=== PATIENT | female | born 1960 | race Caucasian/White ===

== ENCOUNTER 2016-11-13 18:06 | Inpatient (IN) | payer OTHER ==
--- NOTE | 2016-11-13 21:07 | PDOC ---
[id number] No Limitations - History of Present Illness Initial Comments: 11/13/16 22:00 The patient is a 55 year old female with significant past medical history of A- fib on eliquis, s/p cardiac stents x2, hypertension, diabetes, chronic knee pain , and right total knee replacement who presents to the ED with left knee pain and swelling s/p fall prior to arrival. Patient reports she visited her orthopedics, Dr. Lopez, where she received a cortisone inject at 3:30pm. Two hours later, her left knee gave away and she fell forwarded, landing on both her knees. Patient sustained some slight pain and swelling to the left knee. She rate her pain as 2/10. She denies LOC or head trauma. Patient reports she has chronic knee left knee pain and is on percocet for her pain. She normally has 4/10 left knee pain and her last dose of percocet was 7am this morning. She is schedule for left knee replacement the ending of December. She also has a planned MRI for her sciatica that radiates down the right leg. Patient also has complaints of an abscess draining with serosanguinous discharge in the left groin region over the last 6 months. She admits to not seeking any medical treatment and is now concern for anemia. The patient denies fever, chills, cough, SOB, chest pain, and palpitations. The patient denies abdominal pain, nausea, vomiting, and diarrhea. Allergies: Penicillin Social History: No alcohol, tobacco, or drug use reported. Past Surgical History: Right total knee replacement , s/p cardiac stents x2 PCP: Dr. Jose Kuo Ortho: Dr. Lopez <Mimi Castro - Last Filed: 11/14/16 00:03> - General History Source: Patient <RickyLion arellano - Last Filed: 11/14/16 04:22> - General Chief Complaint: Injury Stated Complaint: FALL/INJURY Time Seen by Provider: 11/13/16 20:51 Past History <Mimi Castro - Last Filed: 11/14/16 00:03> - Past Medical History Other medical history: Pt denies - Psycho/Social/Smoking Cessation Hx Suicidal Ideation: No Smoking History: Never smoked Information on smoking cessation initiated: No Hx Alcohol Use: No Drug/Substance Use Hx: No <Lion Lim - Last Filed: 11/14/16 04:22> - Past Medical History Allergies/Adverse Reactions: Allergies Allergy/AdvReac Type Severity Reaction Status Date / Time Penicillins Allergy Verified 11/13/16 18:16 Home Medications: Ambulatory Orders Apixaban [Eliquis -] 5 mg PO BID 11/13/16 Atorvastatin Ca [Lipitor] 20 mg PO HS 11/13/16 Cholecalciferol (Vitamin D3) [Vitamin D3 -] 1,000 unit PO DAILY 11/13/16 Cyanocobalamin (Vitamin B-12) [Vitamin B-12] 1,000 mcg PO DAILY 11/13/16 Digoxin [Lanoxin -] 0.25 mg PO DAILY 11/13/16 Lisinopril [Prinivil -] 40 mg PO DAILY 11/13/16 Metformin HCl [Glucophage] 1,000 mg PO BID 11/13/16 Metoprolol Tartrate [Lopressor] 100 mg PO BID 11/13/16 Review of Systems - Review of Systems Able to Perform ROS?: Yes Comments:: 11/13/16 22:00 CONSTITUTIONAL: Absent: fever, chills, diaphoresis, generalized weakness, malaise, loss of appetite HEENT: Absent: rhinorrhea, nasal congestion, throat pain, throat swelling, difficulty swallowing, mouth swelling, ear pain, eye pain, visual Changes CARDIOVASCULAR: Absent: chest pain, syncope, palpitations, irregular heart rate, lightheadedness , peripheral edema RESPIRATORY: Absent: cough, shortness of breath, dyspnea with exertion, orthopnea, wheezing, stridor, hemoptysis GASTROINTESTINAL: Absent: abdominal pain, abdominal distension, nausea, vomiting, diarrhea, constipation, melena, hematochezia GENITOURINARY: Absent: dysuria, frequency, urgency, hesitancy, hematuria, flank pain, genital pain MUSCULOSKELETAL: +left knee pain and swelling SKIN: +abscess in left groin region Absent: rash, itching, pallor NEUROLOGIC: Absent: headache, focal weakness or paresthesias, dizziness, seizure, mental status changes, bladder or bowel incontinence PSYCHIATRIC: Absent: anxiety, depression, suicidal or homicidal ideation, hallucinations. <Mimi Castro - Last Filed: 11/14/16 00:03> *Physical Exam - Vital Signs Last Vital Signs Temp Pulse Resp BP Pulse Ox 98 F 123 H 18 139/86 96 11/13/16 18:14 11/13/16 18:14 11/13/16 18:14 11/13/16 18:14 11/13/16 18:14 - Physical Exam Comments: 11/13/16 22:00 GENERAL: Well developed, well nourished. Awake and alert. No acute distress. HEENT: Normocephalic, atraumatic. PERRLA, EOMI. No conjunctival pallor. Sclera are non- icteric. Moist mucous membranes. Oropharynx is clear. NECK: Supple. Full ROM. No JVD. Carotid pulses 2+ and symmetric, without bruits. No thyromegaly. No lymphadenopathy. CARDIOVASCULAR: Regular rate and rhythm. No murmurs, rubs, or gallops. Distal pulses are 2+ and symmetric. PULMONARY: No evidence of respiratory distress. Lungs clear to auscultation bilaterally. No wheezing, rales or rhonchi. ABDOMINAL: Soft. Non-tender. Non-distended. No rebound or guarding. No organomegaly. Normoactive bowel sounds. MUSCULOSKELETAL Limited ROM of bilateral lower extremities secondary to pain. Minimal bilateral knee swelling, no erythema, no lesions. Minimal tenderness on anterior posterior drawer test . Valgus varus strength minimal tenderness. Marked tenderness on flexion. Negative fluid ballottement wave. No gross deformities. No CVA tenderness. EXTREMITIES: No cyanosis. No clubbing. No edema. No calf tenderness. SKIN: Warm and dry. Normal capillary refill. No jaundice. Left labia is firm, more enlarged than right, surrounding erythematous, nontender, small wound with bloody discharge at the inferior aspect of the labia. NEUROLOGICAL: Alert, awake, appropriate. Cranial nerves 2-12 intact. Limited ROM of bilateral lower extremities secondary to pain. No focal neurological deficits. PSYCHIATRIC: Cooperative. Good eye contact. Appropriate mood and affect. <Mimi Castro - Last Filed: 11/14/16 00:03> - Vital Signs Last Vital Signs Temp Pulse Resp BP Pulse Ox 98 F 123 H 18 139/86 96 11/13/16 18:14 11/13/16 18:14 11/13/16 18:14 11/13/16 18:14 11/13/16 18:14 <iLon Lim - Last Filed: 11/14/16 04:22> Heart Score/ECG Review - ECG Impressions Comment:: 11/14/16 00:03 Atrial fibrillation with rapid ventricular response @109bpm Left axis deviation Anteroseptal infarct, age undetermined Abnormal ECG <Mimi Castro - Last Filed: 11/14/16 00:03> ED Treatment Course - LABORATORY CBC & Chemistry Diagram: 11/13/16 21:30 11/13/16 21:30 - ADDITIONAL ORDERS Additional order review: Laboratory Results 11/13/16 21:40 Serum , Qual Negative 11/13/16 21:30 RBC 4.26 MCV 84.2 MCHC 32.4 RDW 14.9 MPV 7.9 Neutrophils % 93.7 H Lymphocytes % 4.5 L Monocytes % 1.3 L Eosinophils % 0.0 Basophils % 0.5 <Mimi Castro - Last Filed: 11/14/16 00:03> - LABORATORY CBC & Chemistry Diagram: 11/13/16 21:30 11/14/16 02:45 <Lion Lim - Last Filed: 11/14/16 04:22> Medical Decision Making - Medical Decision Making 11/14/16 04:22 Dr. Lim: The scribe's documentation has been prepared under my direction and personally reviewed by me in its entirery. I confirm that the note above accurately reflects all work, treatment, procedures, and medical decision making performed by me. <Lion Lim - Last Filed: 11/14/16 04:22> *DC/Admit/Observation/Transfer - Attestations Scribe Attestion: 11/13/16 22:00 Documentation prepared by Mimi Castro, acting as medical language specialist for Lion Lim MD <Mimi Castro - Last Filed: 11/14/16 00:03> - Discharge Dispostion Admit: Yes <Lion Lim - Last Filed: 11/14/16 04:22> Diagnosis at time of Disposition: Labial abscess Hyperglycemia due to type 2 diabetes mellitus Qualifiers: Diabetes mellitus manager terminal insulin use: without manager terminal use Qualified Code(s ): E11.65 - Type 2 diabetes mellitus with hyperglycemia Bilateral knee pain Qualifiers: Chronicity: chronic Qualified Code(s): M25.561 - Pain in right knee - Referrals
[2016-11-13] MEDS ORDERED: LEVOFLOXACIN 500 MG IVPB 100 ML IVPB ONE ×2 (21:15→23:21)
[2016-11-13 21:46] LABS: BASOPHIL 0.5 % (0-2.0); MCH 27.3 pg (25.7-33.7); MCHC 32.4 g/dl (32.0-36.0); MEAN CELL VOLUME 84.2 fl (80-96); MEAN PLT VOLUME 7.9 fl (7.5-11.1); NEUTROPHILS 93.7 % (42.8-82.8); PLATELET COUNT 385 K/MM3 (134-434); RDW 14.9 % (11.6-15.6); WHITE BLOOD COUNT 13.2 K/mm3 (4.0-10.0)
[2016-11-13 22:01] LABS: ALBUMIN 3.4 g/dl (3.4-5.0); BILIRUBIN,TOTAL 0.5 mg/dL (0.2-1.0); CALCIUM 8.3 mg/dL (8.5-10.1); TOT PROT 7.8 g/dl (6.4-8.2)
[2016-11-13 22:02] LABS: INR 1.18 (0.82-1.09)
[2016-11-13 22:04] LABS: TROPONIN I 0.37 ng/ml (0.00-0.05)
[2016-11-13] MEDS ORDERED: INSULIN REGULAR HUMAN 100 UNITS/ML *VIAL IVPUSH ONE (22:57)
[2016-11-13] MEDS ORDERED: SODIUM CHLORIDE 1,000 ML IV SCH (23:00)
--- NOTE | 2016-11-14 00:42 | PN ---
<Carlos Arnett - Last Filed: 11/14/16 00:42> Teaching Attending Note Name of Resident: Licha Olivares ATTENDING PHYSICIAN STATEMENT I saw and evaluated the patient. I reviewed the resident's note and discussed the case with the resident. I agree with the resident's findings and plan as documented. SUBJECTIVE: OBJECTIVE: ASSESSMENT AND PLAN: <YousifYolie castro - Last Filed: 11/14/16 02:42> Teaching Attending Note ATTENDING PHYSICIAN STATEMENT I saw and evaluated the patient. I reviewed the resident's note and discussed the case with the resident. I agree with the resident's findings and plan as documented. SUBJECTIVE: The patient is a 55 yo F with a PMhx of A-fib on eliquis, s/p cardiac stents x2 , hypertension, diabetes, chronic knee pain, and right total knee replacement who presents with L knee pain s/p fall. The patient states she received cortisone injection at 3:30 PM today and felt her L knee giveaway. She eventually landed on both her knees. She is scheduled for a L knee replacement at the end of December. She also notes, L groin abscess draining for the past 6 months. OBJECTIVE: Physical Last Vital Signs Temp Pulse Resp BP Pulse Ox 98 F 123 H 18 139/86 96 11/13/16 18:14 11/13/16 18:14 11/13/16 18:14 11/13/16 18:14 11/13/16 18:14 GEN: NAD HEENT: NCAT, PERRL CARD: RRR, S1 S2 RESP: CTAB ABD: NT, BWS x4 EXT: - CCE. + R knee with bandage with mild abrasion. : + L vulva erythematous with 2x3 cm mass with surrounding erythema and serosanguineous fluid drainage. CBCD WBC 13.2 K/mm3 (4.0-10.0) H 11/13/16 21:30 RBC 4.26 M/mm3 (3.60-5.2) 11/13/16 21:30 Hgb 11.6 GM/dL (10.7-15.3) 11/13/16 21:30 Hct 35.8 % (32.4-45.2) 11/13/16 21:30 MCV 84.2 fl (80-96) 11/13/16 21:30 MCHC 32.4 g/dl (32.0-36.0) 11/13/16 21:30 RDW 14.9 % (11.6-15.6) 11/13/16 21:30 Plt Count 385 K/MM3 (134-434) 11/13/16 21:30 MPV 7.9 fl (7.5-11.1) 11/13/16 21:30 CMP Sodium 125 mmol/L (136-145) L 11/13/16 21:30 Potassium 4.7 mmol/L (3.5-5.1) 11/13/16 21:30 Chloride 94 mmol/L (98-107) L 11/13/16 21:30 Carbon Dioxide 18 mmol/L (21-32) L 11/13/16 21:30 Anion Gap 13 (8-16) 11/13/16 21:30 BUN 33 mg/dL (7-18) H 11/13/16 21:30 Creatinine 1.0 mg/dL (0.55-1.02) 11/13/16 21:30 Creat Clearance w eGFR 57.78 (>60) 11/13/16 21:30 Calcium 8.3 mg/dL (8.5-10.1) L 11/13/16 21:30 Total Bilirubin 0.5 mg/dL (0.2-1.0) 11/13/16 21:30 AST 14 U/L (15-37) L 11/13/16 21:30 ALT 17 U/L (12-78) 11/13/16 21:30 Alkaline Phosphatase 101 U/L (45-117) 11/13/16 21:30 Total Protein 7.8 g/dl (6.4-8.2) 11/13/16 21:30 Albumin 3.4 g/dl (3.4-5.0) 11/13/16 21:30 Imaging Knee Xray Chest Xray ASSESSMENT AND PLAN: 56 y F with PMHx of A-fib on eliquis, s/p cardiac stents x2, hypertension, diabetes, chronic knee pain, and right total knee replacement who presents s/p mechanical fall with labial abscess being admitted for sepsis and hyperglycemia. 1.) Sepsis/Possible Cellulitis -- LANZA culture including UA -- S/p Levaquin in ED- Continue -- Vancomycin -- ID consult -- Possible source labial abscess -- Surgery consult for possible I&D -- Wound culture 2.) Afib with RVR -- Continue with lopressor -- Hold eliquis for possible I&D -- Continue with Digoxin 3.) HTN -- Continue lisinopril 4.) L knee pain -- F/u Xray -- Pain control 5.) CAD s/p stents -Continue home meds 6.)Trop anemia -- most likely from demand trend -- EKG is Afib with RVR 7.) DVT Ppx -- SCDs 8.) Hyponatremia -- 133 corrected sodium -- Gentle IVF 9.) Diabetes -- Hold Metformin -- Fingerstick -- RAISS -- Diabetic diet Admit to Tele Documentation prepared by Yolie Dodd, acting as emergency medical service manager for Carlos Arnett D.O.
--- NOTE | 2016-11-14 00:45 | HP ---
CHIEF COMPLAINT: " i fell on my knees" PCP: Dr. Jose Kuo Ortho: Dr. Lopez HISTORY OF PRESENT ILLNESS: This is a 55 yo F with PMH of A-fib on eliquis, CAD, [place] s/p cardiac stents x2 jul 2015, HTN, NIDDM, L labial abscess, sciatica and chronic knee pain, who presents due to L knee pain and swelling s/p mechanical fall. Earlier today she received her first ever L knee cortisone injection (3:30pm) from her ortho doctor. Several hours later she suffered a mechanical fall on [address] because her L knee "gave out". She denies LOC and fell only on her knees (no head trauma). She has since noticed increased pain and swelling of left knee. Pain 2/10 dull constant, aggravated by knee flexion. She is scheduled for L knee replacement December. She states that her a fib is controlled with metoprolol and her heart rate is usually regular. She took ther AM metoprolol but not the evening dose. She states her DM is controlled with metformin and her AM glucose is on average 120. She reports having a L labial abscess for the past 6 mo, draining sanguineous fluid. She denies f/c, cough, SOB, chest pain, palpitations, abdominal pain, n/v, vaginal discharge, diarrhea or constipation. ER course was notable for: (1)labs (2) ekg, cxr, b/l knee xr (3) levaqion, insulin, NS Recent Travel: denies PAST MEDICAL HISTORY: as above PAST SURGICAL HISTORY: Right total knee replacement , cardiac stents x2 jul 2015 Social History: Smoking: denies Alcohol: denies Drugs: denies Family History: HTN, CAD Allergies Penicillins Allergy (Verified 11/13/16 18:16) Selected Entries 11/13/16 18:14 Temperature 98 F Pulse Rate 123 H Respiratory 18 Rate Blood Pressure 139/86 Blood Pressure 103 Mean O2 Sat by Pulse 96 Oximetry (%) Weight 225 lb HOME MEDICATIONS: Medication Instructions Recorded Apixaban [Eliquis -] 5 mg PO BID 11/13/16 Atorvastatin Ca [Lipitor] 20 mg PO HS 11/13/16 Cholecalciferol (Vitamin D3) 1,000 unit PO DAILY 11/13/16 [Vitamin D3 -] Cyanocobalamin (Vitamin B-12) 1,000 mcg PO DAILY 11/13/16 [Vitamin B-12] Digoxin [Lanoxin -] 0.25 mg PO DAILY 11/13/16 Lisinopril [Prinivil -] 40 mg PO DAILY 11/13/16 Metformin HCl [Glucophage] 1,000 mg PO BID 11/13/16 Metoprolol Tartrate [Lopressor] 100 mg PO BID 11/13/16 REVIEW OF SYSTEMS CONSTITUTIONAL: Absent: fever, chills, diaphoresis, malaise HEENT: Absent: difficulty swallowing, visual changes CARDIOVASCULAR: Absent: chest pain, syncope, palpitations, lightheadedness, peripheral edema RESPIRATORY: Absent: cough, shortness of breath, orthopnea GASTROINTESTINAL: Absent: abdominal pain, abdominal distension, nausea, vomiting, diarrhea, constipation GENITOURINARY: Absent: dysuria MUSCULOSKELETAL: Absent: myalgia, back pain, neck pain SKIN: Absent: rash HEMATOLOGIC/IMMUNOLOGIC: Absent: frequent infections ENDOCRINE: Absent: heat intolerance, cold intolerance NEUROLOGIC: Absent: headache, focal weakness or paresthesias, unsteady gait, seizure PSYCHIATRIC: Absent: anxiety, depression Laboratory Tests 11/13/16 11/13/16 11/13/16 21:30 21:30 21:30 WBC 13.2 H Hgb 11.6 Hct 35.8 Neutrophils % 93.7 H Lymphocytes % 4.5 L Monocytes % 1.3 L INR 1.18 H Sodium 125 L Potassium 4.7 Chloride 94 L Carbon Dioxide 18 L Anion Gap 13 BUN 33 H Creatinine 1.0 Creat Clearance w eGFR 57.78 Random Glucose 490 H* Lactic Acid Calcium 8.3 L Total Bilirubin 0.5 AST 14 L ALT 17 Alkaline Phosphatase 101 Creatine Kinase 221 H CK-MB (CK-2) 2.359 Troponin I 0.37 H Total Protein 7.8 Albumin 3.4 Serum , Qual Urine Color Urine Appearance Urine pH Ur Specific Ralph Urine Protein Urine Glucose (UA) Urine Ketones Urine Blood Urine Nitrite Urine Bilirubin Urine Urobilinogen Ur Leukocyte Esterase 11/13/16 11/13/16 11/14/16 21:30 21:40 00:30 WBC Hgb Hct Neutrophils % Lymphocytes % Monocytes % INR Sodium Potassium Chloride Carbon Dioxide Anion Gap BUN Creatinine Creat Clearance w eGFR Random Glucose Lactic Acid 1.052 Calcium Total Bilirubin AST ALT Alkaline Phosphatase Creatine Kinase CK-MB (CK-2) Troponin I Total Protein Albumin Serum , Qual Negative Urine Color Ltyellow Urine Appearance Cloudy Urine pH 5.0 Ur Specific Ralph 1.018 Urine Protein 2+ H Urine Glucose (UA) 3+ H Urine Ketones Trace H Urine Blood 2+ H Urine Nitrite Negative Urine Bilirubin Negative Urine Urobilinogen Negative Ur Leukocyte Esterase 2+ H PHYSICAL EXAMINATION GENERAL: Awake, alert, and fully oriented, in no acute distress. HEAD: Normal with no signs of trauma. EYES: Pupils equal, round and reactive to light, extraocular movements intact, sclera anicteric, conjunctiva clear. EARS, NOSE, THROAT: Moist mucous membranes. NECK: supple without JVD, or masses. coase hair growing on chin and neck LUNGS: Breath sounds equal, clear to auscultation bilaterally. HEART: irregularly irregular, tachy, normal S1 and S2 ABDOMEN: Soft, nontender, not distended, normoactive bowel sounds : L labia indurated, red, draining purulent and sanguineous fluid form a small lateral opening. Very malodorous, fishy MUSCULOSKELETAL: No CVA tenderness. UPPER EXTREMITIES: 2+ pulses, warm, well-perfused.No peripheral edema. LOWER EXTREMITIES: 2+ pulses, warm, well-perfused. No calf tenderness. No peripheral edema. NEUROLOGICAL: Cranial nerves II-XII grossly intact. PSYCHIATRIC: Cooperative. Good eye contact. Appropriate mood and affect. SKIN: Warm, dry ASSESSMENT/PLAN: This is a 55 yo F with PMH of A-fib on eliquis, CAD, [place] s/p cardiac stents x2 jul 2015, HTN, NIDDM, L labial abscess, sciatica and chronic knee pain, who presents due to L knee pain and swelling s/p mechanical fall. L labial abscess x 6 mo, draining purulent/sanguineous fluid. Mechanical fall -knee x ray b/l no acute fracture -mild contusion r/o sepsis *due to L labial abscess in setting of DM vs UTI vs tachycardia (afib) and leukocytosis 13.2(chronic) -surgery consult -abscess fluid culture/gram stain -f/u blood and urine culture -lucina rubin a -fib -continue eliquis, metoprolol -trop 0.37 likely due to demand -trend trop at 2 am NIDDM -elevated glucose due to cortiosone inj or reactive in setting of infection -sliding scale -fingerstick TIDAC CAD -continue home meds HTN --continue home meds FEN fluids NS @ 85 Lytes corrected NA mild hyponatremia DVT GI PPX: scd, diet diabetic diet Dispo: admit to med jacob Visit type - Emergency Visit Emergency Visit: Yes ED Registration Date: 11/13/16 Care time: The patient presented to the Emergency Department on the above date and was hospitalized for further evaluation of their emergent condition. - New Patient This patient is new to me today: Yes Date on this admission: 11/14/16 - Critical Care Critical Care patient: No
[2016-11-14 01:09] LABS: URINE APPEARANCE CLOUDY; URINE BILIRUBIN NEGATIVE (NEGATIVE); URINE COLOR LTYELLOW; URINE GLUCOSE (UA) 3+ (NEGATIVE); URINE KETONE TRACE (NEGATIVE); URINE NITRITE NEGATIVE (NEGATIVE); URINE UROBILINOGEN NEGATIVE E.U./dl (0.2-1.0)
[2016-11-14 01:15] LABS: URINE BLOOD 2+ (NEGATIVE); URINE LEUK ESTERASE 2+ (NEGATIVE); URINE PROTEIN 2+ (NEGATIVE)
[2016-11-14 01:18] LABS: URINE BACTERIA MANY /hpf (NONE SEEN); URINE MUCUS RARE; URINE RBC 3 /hpf (0-3); URINE WBC 144 /hpf (3-5)
[2016-11-14] MEDS ORDERED: VANCOMYCIN 1,500 MG in DEXTROSE 5%-WATER - 250 ML IVPB ONE (01:44)
[2016-11-14] MEDS ORDERED: INSULIN SLIDING SCALE (NOVOLOG) 1 VIAL SQ SCH ×3 (01:45→14:15)
[2016-11-14] MEDS ORDERED: INSULIN REGULAR HUMAN 100 UNITS/ML *VIAL ONE ×3 (02:15→12:33)
[2016-11-14] MEDS: SODIUM CHLORIDE 1,000 ML IV SCH ×3 (02:20→22:11)
[2016-11-14] MEDS ORDERED: VANCOMYCIN 1 GRAM (PRE-DOCKED) 500 ML IVPB ONE (02:35)
[2016-11-14] MEDS: INSULIN SLIDING SCALE (NOVOLOG) 1 VIAL SQ SCH ×4 (03:15→22:12)
[2016-11-14 03:30] LABS: CALCIUM 8.3 mg/dL (8.5-10.1); CREATININE 1.2 mg/dL (0.55-1.02)
[2016-11-14 03:32] LABS: TROPONIN I 0.22 ng/ml (0.00-0.05)
[2016-11-14] MEDS ORDERED: INSULIN REGULAR HUMAN 100 UNITS/ML *VIAL IVPUSH ONE ×2 (03:56→08:34)
[2016-11-14 07:22] LABS: MCH 28.7 pg (25.7-33.7); MCHC 33.7 g/dl (32.0-36.0); MEAN CELL VOLUME 85.2 fl (80-96); MEAN PLT VOLUME 7.8 fl (7.5-11.1); PLATELET COUNT 324 K/MM3 (134-434); RDW 14.9 % (11.6-15.6); WHITE BLOOD COUNT 10.6 K/mm3 (4.0-10.0)
[2016-11-14 07:43] LABS: CALCIUM 8.2 mg/dL (8.5-10.1)
[2016-11-14] MEDS ORDERED: INSULIN DETEMIR 100 UNITS/ML MDV SQ ONE (08:33)
[2016-11-14 09:44] LABS: TROPONIN I 0.13 ng/ml (0.00-0.05)
[2016-11-14] MEDS ORDERED: HEPARIN NA (PORCINE) 5,000 UNITS/ML 1ML VIAL SQ SCH (10:00)
--- NOTE | 2016-11-14 10:09 | EKG ---
Test Reason : Blood Pressure : / mmHG Vent. Rate : 109 BPM Atrial Rate : 083 BPM P-R Int : 000 ms QRS Dur : 074 ms QT Int : 364 ms P-R-T Axes : 000 -88 032 degrees QTc Int : 490 ms ATRIAL FIBRILLATION WITH RAPID VENTRICULAR RESPONSE LEFT AXIS DEVIATION ANTEROSEPTAL INFARCT , AGE UNDETERMINED ABNORMAL ECG NO PREVIOUS ECGS AVAILABLE Confirmed by MD SAMY, ARLEN ([id number]) on 11/14/2016 10:09:24 AM Referred By: Overread By: ARLEN PABLO MD
[2016-11-14] MEDS ORDERED: CLOPIDOGREL BISULFATE 75 MG TABLET (FP) PO SCH (10:15)
[2016-11-14] MEDS ORDERED: CLOPIDOGREL BISULFATE 75 MG TABLET (FP) ONE (10:32)
[2016-11-14] MEDS: CHOLECALCIFEROL (VITAMIN D3) 1,000 UNIT TABLET (FP) PO SCH (10:35)
[2016-11-14] MEDS: LISINOPRIL 20 MG TABLET (FP) PO SCH (10:35)
[2016-11-14] MEDS: DIGOXIN 0.25 MG TABLET (FP) PO SCH (10:35)
[2016-11-14] MEDS: METOPROLOL TARTRATE 50 MG TABLET (FP) PO SCH ×2 (10:35→22:11)
[2016-11-14] MEDS: CYANOCOBALAMIN 1,000 MCG TABLET (FP) PO SCH (10:35)
--- NOTE | 2016-11-14 10:45 | CONSULT ---
Consult Consult Specialty:: Cardiology Referred by:: Hospitalist Medicine Reason for Consultation:: CAD s/p [place], stent, afib, trop elevation - History of Present Illness Chief Complaint: Post fall, labial abscess History of Present Illness: This is a 55 yo F with PMH of Afib on eliquis, CAD, [place] s/p stents x2 jul 2015, HTN, NIDDM, L labial abscess, sciatica and chronic knee pain, who presents due to L knee pain, decreased ROM and swelling s/p mechanical fall following L knee cortisone injection by ortho doctor. She denies near or true syncope, chest pain , dyspnea, palpitations, dyspnea, and fell only on her knees without head trauma. She reports having a L labial abscess for the past 6 mo, draining sanguineous fluid. She denies f/c, cough, orthopnea, PND, LE edema, abdominal pain, n/v, vaginal discharge, diarrhea or constipation. - History Source History Provided By: Patient Limitations to Obtaining History: No Limitations - Past Medical History Cardio/Vascular: Yes: AFIB, CAD, HTN, [place] Musculoskeletal: Yes: Osteoarthritis - Past Surgical History Past Surgical History: Yes: Stent - Alcohol/Substance Use Hx Alcohol Use: No - Smoking History Smoking history: Never smoked Home Medications - Allergies Allergies/Adverse Reactions: Allergies Allergy/AdvReac Type Severity Reaction Status Date / Time Penicillins Allergy Verified 11/13/16 18:16 - Home Medications Home Medications: Ambulatory Orders Apixaban [Eliquis -] 5 mg PO BID 11/13/16 Atorvastatin Ca [Lipitor] 20 mg PO HS 11/13/16 Cholecalciferol (Vitamin D3) [Vitamin D3 -] 1,000 unit PO DAILY 11/13/16 Cyanocobalamin (Vitamin B-12) [Vitamin B-12] 1,000 mcg PO DAILY 11/13/16 Digoxin [Lanoxin -] 0.25 mg PO DAILY 11/13/16 Lisinopril [Prinivil -] 40 mg PO DAILY 11/13/16 Metformin HCl [Glucophage] 1,000 mg PO BID 11/13/16 Metoprolol Tartrate [Lopressor] 100 mg PO BID 11/13/16 Review of Systems - Review of Systems Musculoskeletal: reports: Joint Pain Vital Signs: Vital Signs Temperature 98 F 11/14/16 02:21 Pulse Rate 105 H 11/14/16 07:50 Respiratory Rate 20 11/14/16 07:50 Blood Pressure 130/56 11/14/16 07:50 O2 Sat by Pulse Oximetry (%) 97 11/14/16 07:50 Constitutional: Yes: No Distress, Calm Neck: Yes: Supple Respiratory: Yes: Regular, CTA Bilaterally Gastrointestinal: Yes: Normal Bowel Sounds, Soft Cardiovascular: Yes: Pulse Irregular JVD: No Carotid Bruit: No Heart Sounds: Yes: S1, S2 Musculoskeletal: Yes: Joint Stiffness (Left knee) Edema: No - Other Data Labs, Other Data: INR, PTT INR 1.18 (0.82-1.09) H 11/13/16 21:30 Troponin, BNP 11/14/16 09:10 Troponin I 0.13 H Troponin, BNP 11/14/16 09:10 Troponin I 0.13 H Afib @ 109 Imaging - Results Chest X-ray: Report Reviewed (NAD) X-ray: Report Reviewed (Left knee without fracture or dislocation) EKG: Report Reviewed Problem List - Problems (1) Hyperglycemia due to type 2 diabetes mellitus Code(s): E11.65 - TYPE 2 DIABETES MELLITUS WITH HYPERGLYCEMIA Qualifiers: Diabetes mellitus termite control technician insulin use: without termite control technician use Qualified Code(s): E11.65 - Type 2 diabetes mellitus with hyperglycemia (2) Labial abscess Code(s): N76.4 - ABSCESS OF VULVA (3) Persistent atrial fibrillation with rapid ventricular response Code(s): I48.1 - PERSISTENT ATRIAL FIBRILLATION (4) Coronary artery disease Code(s): I25.10 - ATHSCL HEART DISEASE OF [place] CORONARY ARTERY W/O ANG PCTRS Qualifiers: Coronary Disease-Associated Artery/Lesion type: [place] artery [place] vs. transplanted heart: [place] heart Associated angina: without angina Qualified Code(s): I25.10 - Atherosclerotic heart disease of [place] coronary artery without angina pectoris (5) Old myocardial infarction Code(s): I25.2 - OLD MYOCARDIAL INFARCTION (6) Status post coronary artery stent placement Code(s): Z95.5 - PRESENCE OF CORONARY ANGIOPLASTY IMPLANT AND GRAFT (7) Demand ischemia Code(s): I24.8 - OTHER FORMS OF ACUTE ISCHEMIC HEART DISEASE (8) Hypertension Code(s): I10 - ESSENTIAL (PRIMARY) HYPERTENSION Qualifiers: Hypertension type: essential hypertension Qualified Code(s): I10 - Essential (primary) hypertension (9) Hyperlipidemia associated with type 2 diabetes mellitus Code(s): E11.69 - TYPE 2 DIABETES MELLITUS WITH OTHER SPECIFIED COMPLICATION E78.5 - HYPERLIPIDEMIA, UNSPECIFIED (10) Contusion of left knee Code(s): S80.02XA - CONTUSION OF LEFT KNEE, INITIAL ENCOUNTER Qualifiers: Encounter type: initial encounter Qualified Code(s): S80.02XA - Contusion of left knee, initial encounter Assessment/Plan 1. Persistent atrial fibrillation with RVR on NOAC 2. CAD s/p [place], PCI (stent), demand ischemia in context of 3. Type 2 DM with hyperglycemia 4. HTN 5. Hyperlipidemia 6. Post fall with left knee contusion resolving 7. Left labial abscess P:1. Cardiac enzymes trending downward, check dig level 2. Optimize glycemic control 3. Continue Eliquis 5 bid, Lipitor 20 qhs, Dig 0.25 qd, lisinopril 40 qd, Lopressor 100 bid, d/c Plavix 4. Abx, obstetrician gynecologist eval 5. Patient to f/u with Dr. Ahmadi of [facility] upon d/c.
[2016-11-14 11:03] LABS: THYROID STIMULATING HORMONE 0.8 uIU/ml (0.358-3.74)
--- NOTE | 2016-11-14 12:06 | CONSULT ---
Consult Consult Specialty:: Surgery Referred by:: Alejandro Ortega Reason for Consultation:: Draining sinuses in labia, for 6 months. - History of Present Illness Chief Complaint: Patient History of Present Illness: Patient is known to have atrial fibrillation, on Eloquis, , comes to the emergency room with left knee pain and fall. She is found to have elevated troponin. She has chronic swelling of her labia, with multiple purulent draining sinuses for the past 6 months. She has not had any treatment for the same. - History Source History Provided By: Patient - Past Medical History Cardio/Vascular: Yes: AFIB, CAD, HTN, [place] Musculoskeletal: Yes: Osteoarthritis - Past Surgical History Past Surgical History: Yes: Stent - Alcohol/Substance Use Hx Alcohol Use: No - Smoking History Smoking history: Never smoked Home Medications - Allergies Allergies/Adverse Reactions: Allergies Allergy/AdvReac Type Severity Reaction Status Date / Time Penicillins Allergy Verified 11/13/16 18:16 - Home Medications Home Medications: Ambulatory Orders Apixaban [Eliquis -] 5 mg PO BID 11/13/16 Atorvastatin Ca [Lipitor] 20 mg PO HS 11/13/16 Cholecalciferol (Vitamin D3) [Vitamin D3 -] 1,000 unit PO DAILY 11/13/16 Cyanocobalamin (Vitamin B-12) [Vitamin B-12] 1,000 mcg PO DAILY 11/13/16 Digoxin [Lanoxin -] 0.25 mg PO DAILY 11/13/16 Lisinopril [Prinivil -] 40 mg PO DAILY 11/13/16 Metformin HCl [Glucophage] 1,000 mg PO BID 11/13/16 Metoprolol Tartrate [Lopressor] 100 mg PO BID 11/13/16 Physical Exam Vital Signs: Vital Signs Temperature 98 F 11/14/16 02:21 Pulse Rate 94 H 11/14/16 10:30 Respiratory Rate 19 11/14/16 10:30 Blood Pressure 122/60 11/14/16 10:30 O2 Sat by Pulse Oximetry (%) 97 11/14/16 10:30 Constitutional: Yes: Obese (She has chronic swelling and edema of the left labia majora, with muliple draining sinuses. There is alex pus draining from the sinuses. The area is not tender. This is suggestive of chronic suppurative hidradenitis of the labia majora.) Problem List - Problems (1) Hidradenitis suppurativa Code(s): L73.2 - HIDRADENITIS SUPPURATIVA (2) Left genital labial abscess Code(s): N76.4 - ABSCESS OF [place] (3) Coronary artery disease Code(s): I25.10 - ATHSCL HEART DISEASE OF [place] CORONARY ARTERY W/O ANG PCTRS Qualifiers: Coronary Disease-Associated Artery/Lesion type: [place] artery [place] vs. transplanted heart: [place] heart Associated angina: without angina Qualified Code(s): I25.10 - Atherosclerotic heart disease of [place] coronary artery without angina pectoris (4) Hyperglycemia due to type 2 diabetes mellitus Code(s): E11.65 - TYPE 2 DIABETES MELLITUS WITH HYPERGLYCEMIA Qualifiers: Diabetes mellitus retirement insulin use: without intermediate frame tender use Qualified Code(s): E11.65 - Type 2 diabetes mellitus with hyperglycemia (5) Diabetes mellitus type 2 in obese Code(s): E11.9 - TYPE 2 DIABETES MELLITUS WITHOUT COMPLICATIONS E66.9 - OBESITY, UNSPECIFIED Assessment/Plan Suggest , store associate consultation for drainage of labial abcess when feasible. Infectious disease consultation , for antibiotics, ? intermediate frame tender. Plastic surgery consult , later.
--- NOTE | 2016-11-14 14:09 | PN ---
Teaching Attending Note Name of Resident: Jonas Mendes ATTENDING PHYSICIAN STATEMENT I saw and evaluated the patient. I reviewed the resident's note and discussed the case with the resident. I agree with the resident's findings and plan as documented. SUBJECTIVE: no fever or chills, feels a little better . denied any LOC at time of fall, denied any CP before or at time of evaluation . no abd pain , no dysuria . BGM level at home is 150 per her. OBJECTIVE: NAD , AAOx3 HEENT: slightly dry MM . no LAP in neck , no JVD CV: irreg irreg , 3/6 SM at LUSB . no radiation . no JVD Lungs : CTAB EXt : no edema over LE . no erythema or edema over knees. no rash . Abd : soft, NT, ND , NL BS : L labial erythema and edema , with no TTP . bloody discharge when squeezed. Erytehmatous rash under panus and L groin . ASSESSMENT AND PLAN: 55 y/o lady with h/o A-fib , CAD, [place] s/[place] cardiac stents x2 Jul 2015, HTN, NIDDM, sciatica and chronic knee pain s/p R knee replacement . she presented after a fall and was found to have sepsis with UTI , and hydradenitis supporativa /abscess on L labia 1- Sepsis : likely from UTI , and L labial abscess /hydradenitis supporativa . - Received levaquin and vanco on admission. She is allergic to PCN. will have to choose abx to cover UTI and skin infection with G-, G+ ,and Anaerobes coverage . will ask for ID help - follow blood cx and urine cx . - appreciate Sx c/s . will consult VMWARE ENGINEER - IVF 2- trop leak: possible NSTEMI due to sepsis . EKG with no acute ischemic changes . has L axis deviation - check echo - card consult - cont BB - will probably need a stress test - stents was > 1 yr ago , plavix dc'd 3- uncontrolled DM . A1c 15. hard to control her BS since last night . gave IV insulin pushes, and Sq inaulin - start levemir - increase SSI - check BMP for AG. if elevated will need insulin gtt 4- A fib : HR improved after sepsis treatment . cont BB and eliquis 5- CIARAN : likely prerenal , and due to sepsis . improved cont IVF 6- fall , mechanical, no LOC. no Fx or effusion in knees HLOC
[2016-11-14] MEDS ORDERED: PNEUMOC 13-VAL CONJ-DIP CRM/PF 0.5 ML DISP.SYRIN IM ONE (14:36)
[2016-11-14 14:59] VITALS: BMI 37.5
--- NOTE | 2016-11-14 15:07 | PN ---
Physical Exam: SUBJECTIVE: Patient seen and examined Pt is awake, alert and oriented No s/s of acute distress No fever, chills, no chest pain, shortness of breath, palpitation, no n/v no dysuria No polyuria, increased thirst c/o weakness in knees OBJECTIVE: Vital Signs Period Temp Pulse Resp BP Sys/Mao Pulse Ox Last 24 Hr 97.8 F 80-94 18-19 118-128/53-68 97-97 GENERAL: The patient is awake, alert, and fully oriented, in no acute distress. HEAD: Normal with no signs of trauma. EYES: PERRL, extraocular movements intact, sclera anicteric, conjunctiva clear. No ptosis. ENT: Ears normal, nares patent, oropharynx clear without exudates, moist mucous membranes. NECK: Trachea midline, full range of motion, supple. LUNGS: Breath sounds equal, clear to auscultation bilaterally, no wheezes, no crackles, no accessory muscle use. HEART: Regular rate and rhythm, S1, S2 with systolic murmur 2/6, rub or gallop. ABDOMEN: Soft, nontender, nondistended, normoactive bowel sounds, no guarding, no rebound, no hepatosplenomegaly, no masses. : left labial swelling, discoloration with erythema, serosanguinous discharge , no pain or tenderness EXTREMITIES: 2+ pulses, warm, well-perfused, no edema. NEUROLOGICAL: Normal speech, gait not observed. PSYCH: Normal mood, normal affect. SKIN: Warm, dry, normal turgor, no rashes or lesions noted, abrasion to left knee from fall Laboratory Results - last 24 hr 11/14/16 09:10 Creatine Kinase 170 Troponin I 0.13 H Active Medications Generic Name Dose Route Start Last Admin Trade Name Freq PRN Reason Stop Dose Admin Apixaban 5 mg 11/14/16 10:00 Eliquis - PO BID SILVA Atorvastatin Calcium 20 mg 11/14/16 22:00 Lipitor - PO HS SILVA Cholecalciferol 1,000 unit 11/14/16 10:00 11/14/16 10:35 Vitamin D3 - PO 1,000 unit DAILY SILVA Administration Cyanocobalamin 1,000 mcg 11/14/16 10:00 11/14/16 10:35 Vitamin B12 - PO 1,000 mcg DAILY SILVA Administration Digoxin 0.25 mg 11/14/16 10:00 11/14/16 10:35 Lanoxin - PO 0.25 mg DAILY SILVA Administration Sodium Chloride 1,000 mls @ 85 mls/hr 11/14/16 01:51 11/14/16 02:20 Normal Saline - IV 85 mls/hr ASDIR SILVA Administration Insulin Aspart 1 vial 11/14/16 14:15 Novolog Vial Sliding Scale - SQ Q4HWA [facility] Protocol Lisinopril 40 mg 11/14/16 10:00 11/14/16 10:35 Prinivil PO 40 mg DAILY SILVA Administration Metoprolol Tartrate 100 mg 11/14/16 10:00 11/14/16 10:35 Lopressor - PO 100 mg BID [facility] Administration Pneumococcal Polyvalent Vaccine 0.5 ml 11/14/16 16:00 Pneumovax - IM 11/14/16 16:01 .ONCE ONE CBC, BMP 11/14/16 06:55 11/14/16 06:55 Microbiology Laboratory Tests 11/13/16 11/13/16 11/13/16 21:30 21:30 21:30 WBC 13.2 H Neutrophils % 93.7 H INR 1.18 H Hemoglobin A1c % Lactic Acid Troponin I 0.37 H Total LDL Cholesterol HDL Cholesterol TSH Urine Protein Urine Glucose (UA) Urine Ketones Urine Blood Ur Leukocyte Esterase Urine WBC Urine Bacteria 11/13/16 11/14/16 11/14/16 21:30 00:30 02:45 WBC Neutrophils % INR Hemoglobin A1c % Lactic Acid 1.052 Troponin I 0.22 H Total LDL Cholesterol HDL Cholesterol TSH Urine Protein 2+ H Urine Glucose (UA) 3+ H Urine Ketones Trace H Urine Blood 2+ H Ur Leukocyte Esterase 2+ H Urine WBC 144 Urine Bacteria Many 11/14/16 11/14/16 11/14/16 06:55 06:55 09:10 WBC Neutrophils % INR Hemoglobin A1c % 15.2 H Lactic Acid Troponin I 0.13 H Total LDL Cholesterol 106 H HDL Cholesterol 37 L TSH 0.80 Urine Protein Urine Glucose (UA) Urine Ketones Urine Blood Ur Leukocyte Esterase Urine WBC Urine Bacteria XRay right Knee 11/13/16: No sign of a gross fracture or loosening. Knee replacement intact Xray Left KNee: 11/13/16 No acute fracture. Degenerative changes with old trauma. CXR 12/29/16: A single view reveals clear lungs, normal angles, intact soft tissues, large heart, normal aorta and normal kerry. An acute chest process is not seen. There are no prior studies for comparison. No acute pathology. ASSESSMENT/PLAN: 55 year old female with pmh of AFIB, CAD, [place] s/p cardiac stents x2 in 07/[address] [facility]per Ahmadi in [facility], HTN, Diabetes type 2, chronic left labial abscess, sciatica and chronic knee pain s/p R knee replacement presented to the ED s/p fall, was found to have UTI, left labial draining abscess/hydradenitis supporativa, and met 2 SIRS criteria , very elevated blood sugar and elevated troponins Possible Sepsis from UTI and left labial abscess Pt has mild elevated WBC and tachycardia which meets sirs criteria with a source , but these finding could be related to dehydration from hyperglycemia Pt was given Levaquin and Vanco on admission case discussed with ID, Dr levy Pt have penicillin allergy and it only causes a rah, pt has received cephalosporins in the past without any issue Rocephin and flagyl was selected to cover G+, G-, anaerobes, Gen surgery was consulted in ED and evaluated pt LINUX NETWORK ENGINEER consult Dr Mendoza Follow blood culture and urine culture Continue IV fluid with NS at 85ml/h Elevated troponins possibly due to sepsis EKg with no acute changes trending troponins trending ekg Echo ordered cardiology ordered on Lopressor Consider stress stest once stable Uncontrolled diabetes BGM above 400 consistently throughout the admission Hgba1c 15.3 Started on levemir 20U BGM q4h High dose novolog sliding scale IV fluid BMP pending AfIB currently controlled on Lopressor HR was likely elevated in ED due to sepsis, dehydration continue Lopressor continue eliquis CIARAN likely due to dehydration and hypovolemia pending bmp result continue IV fluid S/P mechanical fall Xray knee negative fall precaution HYponatermia Na 130 Glucose 424 Sodium level corrected to 138 therefore no real hyponatermia FEN Fluid electrolytes Nutrition DVT prophylaxis :SCD, on eliquis Visit type - Emergency Visit Emergency Visit: Yes ED Registration Date: 11/14/16 Care time: The patient presented to the Emergency Department on the above date and was hospitalized for further evaluation of their emergent condition. - New Patient This patient is new to me today: Yes Date on this admission: 11/14/16 - Critical Care Critical Care patient: No
--- NOTE | 2016-11-14 15:15 | PN ---
Progress Note (short form) - Note Progress Note: ID consult dictated Labial Abscess (chronic for last 6 months) uncontrolled DM CAD/afib on eliquis pen allergy (tolerates keflex) received levaquin and vanco in ed will switch to rocephin and flagyl should be seen by gynecology d/w hospitalist service \
[2016-11-14] MEDS ORDERED: PNEUMOCOCCAL 23 VACCINE 0.5 ML VIAL IM ONE (16:00)
[2016-11-14 16:09] LABS: CALCIUM 8.4 mg/dL (8.5-10.1); CREATININE 1.4 mg/dL (0.55-1.02)
[2016-11-14 16:24] LABS: TROPONIN I 0.08 ng/ml (0.00-0.05)
--- NOTE | 2016-11-14 16:40 | CONS ---
DATE OF CONSULTATION: DATE OF DICTATION: 11/14/2016 INFECTIOUS DISEASE CONSULTATION REQUESTING PHYSICIAN: Hospitalist Service HISTORY OF PRESENT ILLNESS: This is a 55-year-old woman, she lives in the community. She has a history of coronary artery disease, atrial fibrillation, and hypertension, diabetes. She is status post right total knee replacement and is scheduled for a left total knee replacement. She was walking and her left knee gave out, and she fell. She denied any loss of consciousness or head trauma. The same day she had received an injection to the knee. She is scheduled for a knee replacement at the end of December. There is no history of any fevers or chills. She has no dysuria. Of note she has a 6-month history of a worsening draining labial abscess that she has not sought any medical care for. She says it really was not painful, really was not bothering her, and she has just left it alone. There is no fever or chills, cough, nausea, vomiting, diarrhea, or dysuria. She is allergic to PENICILLIN; it gave her hives and a rash. No angioedema or shortness of breath. She has tolerated Keflex in the past. Her medications at home include Eliquis, Lipitor, vitamin D, vitamin B12, digoxin, Prinivil, Glucophage, and Lopressor. PAST MEDICAL HISTORY: Notable for atrial fibrillation, coronary artery disease, hypertension, diabetes. She is status post right total knee replacement, and she has a history of stent x2. She also has a history of sciatica. FAMILY HISTORY: Noncontributory. SOCIAL HISTORY: She is . 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 There is no history of any cigarette or substance use. REVIEW OF SYSTEMS: As per HPI. She denies nausea, vomiting, cough, chest pain , or abdominal pain. She has never had an ulcer like this in the past. She last saw her retail merchandising specialist a year ago. PHYSICAL EXAMINATION: General: She is awake and alert. Vital signs: Temperature is 97.8 pulse 88, blood pressure 118/68, respiratory rate 18. She weighs 218 pounds. HEENT: Normocephalic. Eyes are anicteric. Neck: Supple. Lungs: Clear to auscultation. Heart: Regular rate and rhythm. Abdomen: Soft, nontender. Skin: She has no skin rash. She has no surrounding cellulitis or streaking to anywhere else on her abdomen. Genitourinary: She has a large vulvar abscess that looks like multiple draining sinuses. Extremities: Without edema. She has a small abrasion on her right knee, it is very superficial, no erythema. LABORATORY: Her white count on admission was 13.2, then 10.6. Hemoglobin is 11. INR is 1.1. BUN and creatinine are 36 and 1 with glucose of 464. Hemoglobin A1c is 15.2. Her troponins are 0.13. Urinalysis is 2+ leukocyte esterase, 144 white cells, and cultures are pending including cultures of the wound. IMAGING: Chest x-ray was done. Shows no acute pathology. X-rays of her knee were done that show no fracture. IMPRESSION: In summary, this is a 55-year-old woman with a labial abscess, chronic for the last 6 months, uncontrolled diabetes, coronary artery disease, atrial fibrillation on Eliquis, elevated troponins and a PENICILLIN allergy, tolerates cephalosporins. She received Levaquin and vancomycin in the emergency room; we switched her to Rocephin and Flagyl. Follow up with cultures. She should be seen by gynecology as well. I spoke with the hospitalist service. REX EDEN M.D. [id number] MTDD
[2016-11-14] MEDS ORDERED: Insulin (LOG) Aspart 100 UNITS/ML VIAL SQ ONE (16:58)
[2016-11-14] MEDS ORDERED: SODIUM CHLORIDE 1,000 ML IV SCH (17:00)
[2016-11-14] MEDS: METRONIDAZOLE 500 MG PREMIXED 100 ML IVPB SCH (18:31)
[2016-11-14 20:18] LABS: URINE APPEARANCE SLCLOUDY; URINE BILIRUBIN NEGATIVE (NEGATIVE); URINE COLOR STRAW; URINE GLUCOSE (UA) 3+ (NEGATIVE); URINE KETONE NEGATIVE (NEGATIVE); URINE NITRITE NEGATIVE (NEGATIVE); URINE PROTEIN NEGATIVE (NEGATIVE); URINE UROBILINOGEN NEGATIVE E.U./dl (0.2-1.0)
[2016-11-14 20:23] LABS: URINE BLOOD 2+ (NEGATIVE); URINE LEUK ESTERASE 2+ (NEGATIVE)
[2016-11-14 20:27] LABS: URINE BACTERIA RARE /hpf (NONE SEEN); URINE MUCUS RARE; URINE RBC 27 /hpf (0-3); URINE WBC 82 /hpf (3-5)
[2016-11-14] MEDS: ATORVASTATIN CA 20 MG TABLET (FP) PO SCH (22:11)
[2016-11-15] MEDS: METRONIDAZOLE 500 MG PREMIXED 100 ML IVPB SCH ×3 (01:50→17:48)
[2016-11-15] MEDS: INSULIN SLIDING SCALE (NOVOLOG) 1 VIAL SQ SCH ×4 (06:41→23:33)
[2016-11-15] MEDS: SODIUM CHLORIDE 1,000 ML IV SCH ×2 (06:42→23:26)
[2016-11-15 07:20] LABS: MCH 28.1 pg (25.7-33.7); MCHC 32.8 g/dl (32.0-36.0); MEAN CELL VOLUME 85.7 fl (80-96); MEAN PLT VOLUME 7.7 fl (7.5-11.1); PLATELET COUNT 341 K/MM3 (134-434); WHITE BLOOD COUNT 13.5 K/mm3 (4.0-10.0)
[2016-11-15 07:43] LABS: CALCIUM 8.4 mg/dL (8.5-10.1)
--- NOTE | 2016-11-15 07:49 | PN ---
Physical Exam: SUBJECTIVE: Patient seen and examined Pt is feeling well No complaint no s/s of distress, no knee pain No fever, no chills, no chest pain or sob, no n/v no dysuria left labial abscess still draining per pt OBJECTIVE: Vital Signs Period Temp Pulse Resp BP Sys/Mao Pulse Ox Last 24 Hr 97.8 F-98.0 F 79-99 18-19 103-143/53-68 97-97 GENERAL: The patient is awake, alert, and fully oriented, in no acute distress. HEAD: Normal with no signs of trauma. EYES: PERRL, extraocular movements intact, sclera anicteric, conjunctiva clear. No ptosis. ENT: Ears normal, nares patent, oropharynx clear without exudates, moist mucous membranes. NECK: Trachea midline, full range of motion, supple. LUNGS: Breath sounds equal, clear to auscultation bilaterally, no wheezes, no crackles, no accessory muscle use. HEART: Regular rate and rhythm, S1, S2 with systolic murmur 2/6, rub or gallop. ABDOMEN: Soft, nontender, nondistended, normoactive bowel sounds, no guarding, no rebound, no hepatosplenomegaly, no masses. : left labial swelling, discoloration with erythema, purulent sanguineous discharge, no pain or tenderness EXTREMITIES: 2+ pulses, warm, well-perfused, no edema. NEUROLOGICAL: Normal speech, gait not observed. PSYCH: Normal mood, normal affect. SKIN: Warm, dry, normal turgor, no rashes or lesions noted, abrasion to left knee from fall Laboratory Results - last 24 hr 11/14/16 11/14/16 11/14/16 09:10 15:00 15:00 Sodium 130 L Potassium 4.5 Chloride 98 Carbon Dioxide 22 D Anion Gap 10 BUN 37 H Creatinine 1.4 H D POC Glucometer Random Glucose 429 H* Calcium 8.4 L Creatine Kinase 170 175 Troponin I 0.13 H 0.08 H Urine Color Urine Appearance Urine pH Ur Specific [place] Urine Protein Urine Glucose (UA) Urine Ketones Urine Blood Urine Nitrite Urine Bilirubin Urine Urobilinogen Ur Leukocyte Esterase Urine RBC Urine WBC Ur Epithelial Cells Urine Bacteria Urine Mucus 11/14/16 11/14/16 11/15/16 19:30 21:26 01:49 Sodium Potassium Chloride Carbon Dioxide Anion Gap BUN Creatinine POC Glucometer 309 118 Random Glucose Calcium Creatine Kinase Troponin I Urine Color Straw Urine Appearance Slcloudy Urine pH 5.0 Ur Specific [place] 1.013 Urine Protein Negative Urine Glucose (UA) 3+ H Urine Ketones Negative Urine Blood 2+ H Urine Nitrite Negative Urine Bilirubin Negative Urine Urobilinogen Negative Ur Leukocyte Esterase 2+ H Urine RBC 27 Urine WBC 82 Ur Epithelial Cells Rare Urine Bacteria Rare Urine Mucus Rare 11/15/16 05:37 Sodium Potassium Chloride Carbon Dioxide Anion Gap BUN Creatinine POC Glucometer 132 Random Glucose Calcium Creatine Kinase Troponin I Urine Color Urine Appearance Urine pH Ur Specific [place] Urine Protein Urine Glucose (UA) Urine Ketones Urine Blood Urine Nitrite Urine Bilirubin Urine Urobilinogen Ur Leukocyte Esterase Urine RBC Urine WBC Ur Epithelial Cells Urine Bacteria Urine Mucus Active Medications Generic Name Dose Route Start Last Admin Trade Name Freq PRN Reason Stop Dose Admin Apixaban 5 mg 11/14/16 10:00 Eliquis - PO BID SILVA Atorvastatin Calcium 20 mg 11/14/16 22:00 11/14/16 22:11 Lipitor - PO 20 mg HS SILVA Administration Cholecalciferol 1,000 unit 11/14/16 10:00 11/14/16 10:35 Vitamin D3 - PO 1,000 unit DAILY SILVA Administration Cyanocobalamin 1,000 mcg 11/14/16 10:00 11/14/16 10:35 Vitamin B12 - PO 1,000 mcg DAILY SILVA Administration Digoxin 0.25 mg 11/14/16 10:00 11/14/16 10:35 Lanoxin - PO 0.25 mg DAILY SILVA Administration Ceftriaxone Sodium 1 gm/ 50 mls @ 100 mls/hr 11/15/16 10:00 Sodium Chloride IVPB DAILY SILVA Metronidazole 100 mls @ 100 mls/hr 11/14/16 18:00 11/15/16 01:50 Flagyl 500mg Premixed Ivpb - IVPB 100 mls/hr Q8H-IV SILVA Administration Sodium Chloride 1,000 mls @ 75 mls/hr 11/14/16 19:00 11/15/16 06:42 Normal Saline - IV 75 mls/hr ASDIR SIVLA Administration Insulin Aspart 1 vial 11/14/16 14:15 11/15/16 06:41 Novolog Vial Sliding Scale - SQ Not Given Q4HWA [facility] Protocol Lisinopril 40 mg 11/14/16 10:00 11/14/16 10:35 Prinivil PO 40 mg DAILY SILVA Administration Metoprolol Tartrate 100 mg 11/14/16 10:00 11/14/16 22:11 Lopressor - PO 100 mg BID SILVA Administration CBC, BMP 11/15/16 05:50 11/15/16 05:50 Microbiology 11/14/16 00:30 Urine - Urine Clean Catch Urine Culture - Preliminary Lactose Fermenting Neg Bacilli 11/13/16 22:45 Blood - Peripheral Venous Blood Culture - Preliminary Pending Organism 11/13/16 21:30 Blood - Peripheral Venous Blood Culture - Preliminary NO GROWTH OBTAINED AFTER 24 HOURS, INCUBATION TO CONTINUE FOR 4 DAYS. Microbiology 11/14/16 02:45 Abscess Gram Stain - Final 11/14/16 02:45 Abscess Wound Culture - Preliminary Presumptive Mssa (Pbp2a Neg) 11/14/16 00:30 Urine - Urine Clean Catch Urine Culture - Preliminary Lactose Fermenting Neg Bacilli 11/13/16 22:45 Blood - Peripheral Venous Blood Culture - Preliminary Pending Organism 11/13/16 21:30 Blood - Peripheral Venous Blood Culture - Preliminary NO GROWTH OBTAINED AFTER 24 HOURS, INCUBATION TO CONTINUE FOR 4 DAYS. Laboratory Tests 11/14/16 11/14/16 11/15/16 15:00 19:30 05:50 Troponin I 0.08 H Urine Glucose (UA) 3+ H Urine Blood 2+ H Ur Leukocyte Esterase 2+ H Urine RBC 27 Urine WBC 82 Digoxin 0.8111 XRay right Knee 11/13/16: No sign of a gross fracture or loosening. Knee replacement intact Xray Left KNee: 11/13/16 No acute fracture. Degenerative changes with old trauma. CXR 11/13/16: A single view reveals clear lungs, normal angles, intact soft tissues, large heart, normal aorta and normal kerry. An acute chest process is not seen. There are no prior studies for comparison. No acute pathology. ASSESSMENT/PLAN: 55 year old female with pmh of AFIB, CAD, [place] s/p cardiac stents x2 in 07/[address] Piper Ahmadi in [facility], HTN, Diabetes type 2, chronic left labial abscess, sciatica and chronic knee pain s/p R knee replacement presented to the ED s/p fall, was found to have UTI, left labial draining abscess/hydradenitis supporativa, and met 2 SIRS criteria , very elevated blood sugar and elevated troponins Possible Sepsis from UTI and left labial abscess Pt has mild elevated WBC and tachycardia which meets sirs criteria with a source , but these findings could be related to dehydration from hyperglycemia Pt was given Levaquin and Vanco on admission case discussed with ID, Dr Hobson Pt have penicillin allergy and it only causes a rash, pt has received cephalosporins in the past without any issue Rocephin and flagyl was selected to cover G+, G-, anaerobes, Gen surgery was consulted in ED and evaluated pt, nothing to do ORGANIC SECTION TECHNICAL LEAD consult Dr Mendoza Per ORGANIC SECTION TECHNICAL LEAD, there is no need for MRI Pelvis and no need for Incision and drainage. Culture per ID. Treat with Antibiotics Follow blood culture and urine culture and sensitivities Urine culture showed Lactose Fermenting Neg Bacilli Wound culture Presumptive Mssa (Pbp2a Neg) Follow wound culture and sensitivity, may switch PO tomorrow based on result Continue IV fluid with NS at 75ml/h Elevated troponins possibly due to sepsis EKg with no acute changes trending troponins, they are trending down Echo ordered cardiology consulted and saw pt on Lopressor Consider stress test once stable Uncontrolled diabetes BGM above 400 consistently yesterday, decreased overnight Hgba1c 15.3 Started on levemir 10U QHS BGM q4h Medium dose novolog sliding scale IV fluid Consult endocrinology AfIB currently controlled on Lopressor HR was likely elevated in ED due to sepsis, dehydration continue Lopressor continue eliquis CIARAN likely due to dehydration and hypovolemia pending bmp result continue IV fluid S/P mechanical fall Xray knee negative fall precaution HYponatermia resolved FEN Fluid NS 75ml/h electrolytes no abnormalities Nutrition diabetic diet DVT prophylaxis :SCD, on eliquis Per ORGANIC SECTION TECHNICAL LEAD, Dr Mendoza, there is no need for MRI Pelvis and no need for Incision and drainage. Culture per ID. Treat with Antibiosis Visit type - Emergency Visit Emergency Visit: Yes ED Registration Date: 11/14/16 Care time: The patient presented to the Emergency Department on the above date and was hospitalized for further evaluation of their emergent condition. - New Patient This patient is new to me today: No - Critical Care Critical Care patient: No - Discharge Referral Referred to [facility] No
--- NOTE | 2016-11-15 07:51 | CONSULT ---
Consult Consult Specialty:: Metabolic Specialist Reason for Consultation:: Labial abscess - History of Present Illness Chief Complaint: 55 P0 LMP 4 years ago, with multiple co-morbidities including poorly controlled diabetes, consult for chronic left labial abscess History of Present Illness: 55 year old female with significant past medical history of A-fib on eliquis, s /p cardiac stents x2, hypertension, diabetes, chronic knee pain, and right total knee replacement who presents to the ED with left knee pain and swelling s /p fall prior to arrival. Per patient, chronic left labial swelling x 6 months, draining yellow discharge. She has not followed up with her Morning News Producer. 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 Denies hx of AP/STD/F/ OC. LMP 4 years ago, denies any postmenopausal bleeding Allergies: Penicillin Social History: No alcohol, tobacco, or drug use reported. PMH: CAD, HTN, AFIB, DM Past Surgical History: Right total knee replacement , s/p cardiac stents x2 - History Source History Provided By: Patient Limitations to Obtaining History: No Limitations - Past Medical History Cardio/Vascular: Yes: AFIB, CAD, HTN, ME ...LMP Comment: "doesnt get menses anymore" ...: No ...: 1 ...Para: 0 Musculoskeletal: Yes: Osteoarthritis - Past Surgical History Past Surgical History: Yes: Stent - Alcohol/Substance Use Hx Alcohol Use: Yes (occassionally) - Smoking History Smoking history: Never smoked Home Medications - Allergies Allergies/Adverse Reactions: Allergies Allergy/AdvReac Type Severity Reaction Status Date / Time Penicillins Allergy Verified 11/13/16 18:16 - Home Medications Home Medications: Ambulatory Orders Apixaban [Eliquis -] 5 mg PO BID 11/13/16 Atorvastatin Ca [Lipitor] 20 mg PO HS 11/13/16 Cholecalciferol (Vitamin D3) [Vitamin D3 -] 1,000 unit PO DAILY 11/13/16 Cyanocobalamin (Vitamin B-12) [Vitamin B-12] 1,000 mcg PO DAILY 11/13/16 Digoxin [Lanoxin -] 0.25 mg PO DAILY 11/13/16 Lisinopril [Prinivil -] 40 mg PO DAILY 11/13/16 Metformin HCl [Glucophage] 1,000 mg PO BID 11/13/16 Metoprolol Tartrate [Lopressor] 100 mg PO BID 11/13/16 Review of Systems - Review of Systems Constitutional: reports: No Symptoms Genitourinary: reports: Other (Left 4cm labial swelling, non painful, draining) Physical Exam Vital Signs: Vital Signs Temperature 98.0 F 11/15/16 06:00 Pulse Rate 96 H 11/15/16 06:00 Respiratory Rate 18 11/15/16 06:00 Blood Pressure 143/66 11/15/16 06:00 O2 Sat by Pulse Oximetry (%) 97 11/14/16 21:00 Renal/: Yes: Other (Left labial swelling, ~4cm, indurated, chronic draining sinus on the left side, non painful, no fluctuance.) Problem List - Problems (1) Labial swelling Code(s): N94.89 - [facility] FEMALE GENITAL ORGANS AND MENSTRUAL CYCLE Assessment/Plan 55 P0 with multiple co-morbidities, admitted after a fall, found to have left labial swelling, chronic x 6 months. Draining purulent fluid from sinus lateral to labial indurated swelling, no evidence of fluctuance or loculations, no abscess palpable to drain. The area is non-tender. No I&D recommended at this time, no abscess identified. Recommend continuation of antibiotics, f/u of labial culture previously drawn and follow up with her Morning News Producer in [place] on discharge.
[2016-11-15 07:56] LABS: DIGOXIN LEVEL 0.8111 ng/ml (0.8-2.0)
[2016-11-15] MEDS ORDERED: PT OWN MED DRAWER 7, Y5N ONE ×2 (09:04→21:22)
[2016-11-15] MEDS: CYANOCOBALAMIN 1,000 MCG TABLET (FP) PO SCH (09:15)
[2016-11-15] MEDS: METOPROLOL TARTRATE 50 MG TABLET (FP) PO SCH ×2 (09:15→22:02)
[2016-11-15] MEDS: LISINOPRIL 20 MG TABLET (FP) PO SCH (09:15)
[2016-11-15] MEDS: CHOLECALCIFEROL (VITAMIN D3) 1,000 UNIT TABLET (FP) PO SCH (09:16)
--- NOTE | 2016-11-15 09:42 | PN ---
Progress Note (short form) - Note Progress Note: ID No complaints Ceftriaxone and metronidazole Selected Entries 11/15/16 09:21 Temperature 97.9 F Pulse Rate 82 Blood Pressure 126/76 Left labial swelling notfluctuant Microbiology 11/14/16 00:30 Urine - Urine Clean Catch Urine Culture - Preliminary Lactose Fermenting Neg Bacilli 11/13/16 22:45 Blood - Peripheral Venous Blood Culture - Preliminary Pending Organism Laboratory Tests 11/15/16 05:50 WBC 13.5 H Hgb 10.5 L Hct 32.1 L Plt Count 341 Assessment Left labial abscess Seen by CUSTOMER EXPERIENCE RETAIL CLERK no need for I& D Plan Consider switch to po based on wound c/s tomorrow Rosa CHAPMAN
[2016-11-15] MEDS: APIXABAN 5 MG TABLET PO SCH ×2 (10:23→22:01)
[2016-11-15] MEDS: DIGOXIN 0.25 MG TABLET (FP) PO SCH (10:24)
[2016-11-15] MEDS: CEFTRIAXONE 1 GM in SODIUM CHLORIDE 50 ML IVPB SCH (10:29)
[2016-11-15] MEDS ORDERED: INSULIN SLIDING SCALE (NOVOLOG) 1 VIAL SQ SCH (11:00)
--- NOTE | 2016-11-15 14:00 | PN ---
Teaching Attending Note Name of Resident: Jonas Mendes ATTENDING PHYSICIAN STATEMENT I saw and evaluated the patient. I reviewed the resident's note and discussed the case with the resident. I agree with the resident's findings and plan as documented. SUBJECTIVE: Patient is comfortable with no acute distress, no shortness of breath, no fever or chills, no chest pain, at bedside. OBJECTIVE: Vital Signs Temperature 97.9 F 11/15/16 09:21 Pulse Rate 68 11/15/16 10:24 Respiratory Rate 18 11/15/16 09:21 Blood Pressure 126/76 11/15/16 09:21 O2 Sat by Pulse Oximetry (%) 97 11/14/16 21:00 GENERAL: The patient is awake, alert, and fully oriented, in no acute distress. HEAD: Normal with no signs of trauma. EYES: PERRL, extraocular movements intact, sclera anicteric, conjunctiva clear. No ptosis. ENT: Ears normal, oropharynx clear without exudates, moist mucous membranes. NECK: Trachea midline, full range of motion, supple. LUNGS: Breath sounds equal, clear to auscultation bilaterally, no wheezes, no crackles, no accessory muscle use. HEART: Regular rate and rhythm, S1, S2 with systolic murmur 2/6, rub or gallop. ABDOMEN: Soft, nontender, nondistended, normoactive bowel sounds, no guarding, no rebound, no hepatosplenomegaly, no masses. : left labial swelling, discoloration with erythema, serosanguinous discharge , no pain or tenderness EXTREMITIES: 2+ pulses, warm, well-perfused, no edema. NEUROLOGICAL: Normal speech, gait not observed. PSYCH: Normal mood, normal affect. SKIN: Warm, dry, normal turgor, no rashes or lesions noted, abrasion to left knee from fall CBCD WBC 13.5 K/mm3 (4.0-10.0) H 11/15/16 05:50 RBC 3.74 M/mm3 (3.60-5.2) 11/15/16 05:50 Hgb 10.5 GM/dL (10.7-15.3) L 11/15/16 05:50 Hct 32.1 % (32.4-45.2) L 11/15/16 05:50 MCV 85.7 fl (80-96) 11/15/16 05:50 MCHC 32.8 g/dl (32.0-36.0) 11/15/16 05:50 RDW 15.0 % (11.6-15.6) 11/15/16 05:50 Plt Count 341 K/MM3 (134-434) 11/15/16 05:50 MPV 7.7 fl (7.5-11.1) 11/15/16 05:50 CMP Sodium 138 mmol/L (136-145) 11/15/16 05:50 Potassium 4.5 mmol/L (3.5-5.1) 11/15/16 05:50 Chloride 106 mmol/L (98-107) 11/15/16 05:50 Carbon Dioxide 23 mmol/L (21-32) 11/15/16 05:50 Anion Gap 9 (8-16) 11/15/16 05:50 BUN 37 mg/dL (7-18) H 11/15/16 05:50 Creatinine 1.0 mg/dL (0.55-1.02) D 11/15/16 05:50 Creat Clearance w eGFR 57.78 (>60) 11/13/16 21:30 Random Glucose 132 mg/dL (74-106) H D 11/15/16 05:50 Calcium 8.4 mg/dL (8.5-10.1) L 11/15/16 05:50 Total Bilirubin 0.5 mg/dL (0.2-1.0) 11/13/16 21:30 AST 14 U/L (15-37) L 11/13/16 21:30 ALT 17 U/L (12-78) 11/13/16 21:30 Alkaline Phosphatase 101 U/L (45-117) 11/13/16 21:30 Total Protein 7.8 g/dl (6.4-8.2) 11/13/16 21:30 Albumin 3.4 g/dl (3.4-5.0) 11/13/16 21:30 CARDIAC ENZYMES Creatine Kinase 175 IU/L (26-192) 11/14/16 15:00 Troponin I 0.08 ng/ml (0.00-0.05) H 11/14/16 15:00 Current Medications Generic Name Dose Route Start Last Admin Trade Name Freq PRN Reason Stop Dose Admin Apixaban 5 mg 11/14/16 10:00 11/15/16 10:23 Eliquis - PO 5 mg BID SILVA Administration Atorvastatin Calcium 20 mg 11/14/16 22:00 11/14/16 22:11 Lipitor - PO 20 mg HS SILVA Administration Cholecalciferol 1,000 unit 11/14/16 10:00 11/15/16 09:16 Vitamin D3 - PO 1,000 unit DAILY SILVA Administration Cyanocobalamin 1,000 mcg 11/14/16 10:00 11/15/16 09:15 Vitamin B12 - PO 1,000 mcg DAILY SILVA Administration Digoxin 0.25 mg 11/14/16 10:00 11/15/16 10:24 Lanoxin - PO 0.25 mg DAILY SILVA Administration Ceftriaxone Sodium 1 gm/ 50 mls @ 100 mls/hr 11/15/16 10:00 11/15/16 10:29 Sodium Chloride IVPB 100 mls/hr DAILY SILVA Administration Metronidazole 100 mls @ 100 mls/hr 11/14/16 18:00 11/15/16 09:14 Flagyl 500mg Premixed Ivpb - IVPB 100 mls/hr Q8H-IV SILVA Administration Sodium Chloride 1,000 mls @ 75 mls/hr 11/14/16 19:00 11/15/16 06:42 Normal Saline - IV 75 mls/hr ASDIR SILVA Administration Insulin Aspart 1 vial 11/15/16 11:00 11/15/16 12:35 Novolog Vial Sliding Scale - SQ 4 units ACHS SILVA Administration Protocol Lisinopril 40 mg 11/14/16 10:00 11/15/16 09:15 Prinivil PO 40 mg DAILY SILVA Administration Metoprolol Tartrate 100 mg 11/14/16 10:00 11/15/16 09:15 Lopressor - PO 100 mg BID SILVA Administration Microbiology 11/13/16 22:45 Blood - Peripheral Venous Blood Culture - Final Corynebacterium Striatum 11/14/16 02:45 Abscess Gram Stain - Final 11/14/16 02:45 Abscess Wound Culture - Preliminary Presumptive Mssa (Pbp2a Neg) 11/14/16 00:30 Urine - Urine Clean Catch Urine Culture - Preliminary Lactose Fermenting Neg Bacilli 11/13/16 21:30 Blood - Peripheral Venous Blood Culture - Preliminary NO GROWTH OBTAINED AFTER 24 HOURS, INCUBATION TO CONTINUE FOR 4 DAYS. ASSESSMENT AND PLAN: 55 y/o lady with h/o A-fib , CAD, DC s/p cardiac stents x2 Jul 2015, HTN, NIDDM, sciatica and chronic knee pain s/p R knee replacement . she presented after a fall and was found to have sepsis with UTI , and hydradenitis supporativa /abscess on L labia. # Sepsis : due to UTI on IV antibiotic, ID on the case, and L labial abscess /hydradenitis supporativa . On IV flagyl and ceftriaxone continue ( given a dose of Rocephin in ED without any problems) # T2DM with hemoglobin A1c 15. will keep her on sliding scale every 4 hrs. and levemir 10 units at night # Elevation of troponin with Hx of CAD possible NSTEMI due sepsis . EKG with no acute ischemic changes , Left axis deviation , echo reviewed card consult , cont BB , will probably need a stress test, stents was > 1 yr ago , plavix dc'd. # A fib : HR improved after sepsis treatment , cont. BB and eliquis #CIARAN : likely prerenal , and due to sepsis. improved # fall , mechanical, no LOC. no Fx or effusion in knees DVT Px: Eliquis
[2016-11-15] MEDS ORDERED: INSULIN DETEMIR 100 UNITS/ML MDV SQ ONE (14:04)
--- NOTE | 2016-11-15 16:26 | PN ---
Progress Note, Physician Chief Complaint: Events noted Not in distress History of Present Illness: Patient was seen and examined. Awake and alert. Chart was reviewed Denies chest pain, SOB or palpitations - Current Medication List Current Medications: Active Medications Apixaban (Eliquis -) 5 mg PO BID [facility] Last Admin: 11/15/16 10:23 Dose: 5 mg Atorvastatin Calcium (Lipitor -) 20 mg PO HS [facility] Last Admin: 11/14/16 22:11 Dose: 20 mg Cholecalciferol (Vitamin D3 -) 1,000 unit PO DAILY [facility] Last Admin: 11/15/16 09:16 Dose: 1,000 unit Cyanocobalamin (Vitamin B12 -) 1,000 mcg PO DAILY [facility] Last Admin: 11/15/16 09:15 Dose: 1,000 mcg Digoxin (Lanoxin -) 0.25 mg PO DAILY [facility] Last Admin: 11/15/16 10:24 Dose: 0.25 mg Ceftriaxone Sodium 1 gm/ (Sodium Chloride) 50 mls @ 100 mls/hr IVPB DAILY [facility] Last Admin: 11/15/16 10:29 Dose: 100 mls/hr Metronidazole (Flagyl 500mg Premixed Ivpb -) 100 mls @ 100 mls/hr IVPB Q8H-IV [facility] Last Admin: 11/15/16 09:14 Dose: 100 mls/hr Sodium Chloride (Normal Saline -) 1,000 mls @ 75 mls/hr IV ASDIR [facility] Last Admin: 11/15/16 06:42 Dose: 75 mls/hr Insulin Aspart (Novolog Vial Sliding Scale -) 1 vial SQ Q4HPO [facility] PRN Reason: Protocol Last Admin: 11/15/16 15:17 Dose: 10 unit Insulin Detemir (Levemir Vial) 10 units SQ [facility] Lisinopril (Prinivil) 40 mg PO DAILY [facility] Last Admin: 11/15/16 09:15 Dose: 40 mg Metoprolol Tartrate (Lopressor -) 100 mg PO BID [facility] Last Admin: 11/15/16 09:15 Dose: 100 mg - Objective Vital Signs: Vital Signs Temperature 98.1 F 11/15/16 14:41 Pulse Rate 70 11/15/16 14:41 Respiratory Rate 20 11/15/16 14:41 Blood Pressure 128/70 11/15/16 14:41 O2 Sat by Pulse Oximetry (%) 98 11/15/16 09:00 Neck: Yes: Supple Cardiovascular: Yes: Pulse Irregular, S1, S2 Respiratory: Yes: CTA Bilaterally Gastrointestinal: Yes: Normal Bowel Sounds, Soft. No: Tenderness Edema: No Labs: CBC, BMP 11/15/16 05:50 11/15/16 05:50 Problem List - Problems (1) Contusion of left knee Code(s): S80.02XA - CONTUSION OF LEFT KNEE, INITIAL ENCOUNTER Qualifiers: Encounter type: initial encounter Qualified Code(s): S80.02XA - Contusion of left knee, initial encounter (2) Coronary artery disease Code(s): I25.10 - ATHSCL HEART DISEASE OF [place] CORONARY ARTERY W/O ANG PCTRS Qualifiers: Coronary Disease-Associated Artery/Lesion type: [place] artery [place] vs. transplanted heart: [place] heart Associated angina: without angina Qualified Code(s): I25.10 - Atherosclerotic heart disease of [place] coronary artery without angina pectoris (3) Demand ischemia Code(s): I24.8 - OTHER FORMS OF ACUTE ISCHEMIC HEART DISEASE (4) Diabetes mellitus type 2 in obese Code(s): E11.9 - TYPE 2 DIABETES MELLITUS WITHOUT COMPLICATIONS E66.9 - OBESITY, UNSPECIFIED (5) Hyperlipidemia associated with type 2 diabetes mellitus Code(s): E11.69 - TYPE 2 DIABETES MELLITUS WITH OTHER SPECIFIED COMPLICATION E78.5 - HYPERLIPIDEMIA, UNSPECIFIED (6) Hypertension Code(s): I10 - ESSENTIAL (PRIMARY) HYPERTENSION Qualifiers: Hypertension type: essential hypertension Qualified Code(s): I10 - Essential (primary) hypertension (7) Left genital labial abscess Code(s): N76.4 - ABSCESS OF [place] (8) Persistent atrial fibrillation with rapid ventricular response Code(s): I48.1 - PERSISTENT ATRIAL FIBRILLATION (9) Status post coronary artery stent placement Code(s): Z95.5 - PRESENCE OF CORONARY ANGIOPLASTY IMPLANT AND GRAFT Assessment/Plan 1. Persistent atrial fibrillation on NOAC 2. CAD s/p ME, PCI (stent), demand ischemia 3. Type 2 DM with hyperglycemia 4. HTN 5. Hyperlipidemia 6. Post fall with left knee contusion 7. Possible left labial abscess PLAN: 1. Cardiac enzymes trending downward 2. Optimize glycemic control 3. Continue Eliquis 5 mg BID, Lipitor 20 mg QHS, Digoxin 0.25 mg QD, Lisinopril 40 mg QD and Lopressor 100 mg BID 4. Antibiotics. POLYMER TESTER input noted 5. Patient to f/u with Dr. Ahmadi of [facility] upon discharge Jose Antonio David MD
--- NOTE | 2016-11-15 17:34 | PN ---
Progress Note, Physician - Current Medication List Current Medications: Active Medications Apixaban (Eliquis -) 5 mg PO BID [facility] Last Admin: 11/15/16 10:23 Dose: 5 mg Atorvastatin Calcium (Lipitor -) 20 mg PO HS [facility] Last Admin: 11/14/16 22:11 Dose: 20 mg Cholecalciferol (Vitamin D3 -) 1,000 unit PO DAILY [facility] Last Admin: 11/15/16 09:16 Dose: 1,000 unit Cyanocobalamin (Vitamin B12 -) 1,000 mcg PO DAILY [facility] Last Admin: 11/15/16 09:15 Dose: 1,000 mcg Digoxin (Lanoxin -) 0.25 mg PO DAILY [facility] Last Admin: 11/15/16 10:24 Dose: 0.25 mg Ceftriaxone Sodium 1 gm/ (Sodium Chloride) 50 mls @ 100 mls/hr IVPB DAILY [facility] Last Admin: 11/15/16 10:29 Dose: 100 mls/hr Metronidazole (Flagyl 500mg Premixed Ivpb -) 100 mls @ 100 mls/hr IVPB Q8H-IV [facility] Last Admin: 11/15/16 09:14 Dose: 100 mls/hr Sodium Chloride (Normal Saline -) 1,000 mls @ 75 mls/hr IV ASDIR [facility] Last Admin: 11/15/16 06:42 Dose: 75 mls/hr Insulin Aspart (Novolog Vial Sliding Scale -) 1 vial SQ Q4HPO [facility] PRN Reason: Protocol Last Admin: 11/15/16 15:17 Dose: 10 unit Insulin Detemir (Levemir Vial) 10 units SQ [facility] Lisinopril (Prinivil) 40 mg PO DAILY [facility] Last Admin: 11/15/16 09:15 Dose: 40 mg Metoprolol Tartrate (Lopressor -) 100 mg PO BID [facility] Last Admin: 11/15/16 09:15 Dose: 100 mg - Objective Vital Signs: Vital Signs Temperature 98.1 F 11/15/16 14:41 Pulse Rate 70 11/15/16 14:41 Respiratory Rate 20 11/15/16 14:41 Blood Pressure 128/70 11/15/16 14:41 O2 Sat by Pulse Oximetry (%) 98 11/15/16 09:00 Labs: CBC, BMP 11/15/16 05:50 11/15/16 05:50 INR, PTT INR 1.18 (0.82-1.09) H 11/13/16 21:30 Problem List - Problems (1) Hidradenitis suppurativa Code(s): L73.2 - HIDRADENITIS SUPPURATIVA (2) Left genital labial abscess Code(s): N76.4 - ABSCESS OF [place] (3) Coronary artery disease Code(s): I25.10 - ATHSCL HEART DISEASE OF [place] CORONARY ARTERY W/O ANG PCTRS Qualifiers: Coronary Disease-Associated Artery/Lesion type: [place] artery [place] vs. transplanted heart: [place] heart Associated angina: without angina Qualified Code(s): I25.10 - Atherosclerotic heart disease of [place] coronary artery without angina pectoris (4) Hyperglycemia due to type 2 diabetes mellitus Code(s): E11.65 - TYPE 2 DIABETES MELLITUS WITH HYPERGLYCEMIA Qualifiers: Diabetes mellitus terminal press operator insulin use: without usp use Qualified Code(s): E11.65 - Type 2 diabetes mellitus with hyperglycemia (5) Diabetes mellitus type 2 in obese Code(s): E11.9 - TYPE 2 DIABETES MELLITUS WITHOUT COMPLICATIONS E66.9 - OBESITY, UNSPECIFIED Assessment/Plan surgery: Lathe Puller note noted. She has chronic edema of the labia, with multiple draining sinuses. Swab cultre is positive for MSSA. Blood culture is positive for corynebacterium sratiatum, urine culture is positive for gram negative bacilli. Continue antibiotics, follow up with vp celebrity services .
[2016-11-15] MEDS: ATORVASTATIN CA 20 MG TABLET (FP) PO SCH (22:02)
[2016-11-16] MEDS: METRONIDAZOLE 500 MG PREMIXED 100 ML IVPB SCH ×2 (02:23→10:24)
[2016-11-16] MEDS: SODIUM CHLORIDE 1,000 ML IV SCH (02:23)
[2016-11-16] MEDS: INSULIN SLIDING SCALE (NOVOLOG) 1 VIAL SQ SCH ×3 (02:54→11:37)
[2016-11-16 08:55] LABS: MCH 28.3 pg (25.7-33.7); MCHC 32.7 g/dl (32.0-36.0); MEAN CELL VOLUME 86.4 fl (80-96); MEAN PLT VOLUME 7.7 fl (7.5-11.1); PLATELET COUNT 352 K/MM3 (134-434); RDW 15.1 % (11.6-15.6); WHITE BLOOD COUNT 8.2 K/mm3 (4.0-10.0)
[2016-11-16 09:24] LABS: CALCIUM 8.3 mg/dL (8.5-10.1)
[2016-11-16 09:26] LABS: CREATININE 0.8 mg/dL (0.55-1.02)
[2016-11-16] MEDS ORDERED: PT OWN MED DRAWER 7, Y5N ONE (09:55)
[2016-11-16] MEDS: APIXABAN 5 MG TABLET PO SCH (10:24)
[2016-11-16] MEDS: METOPROLOL TARTRATE 50 MG TABLET (FP) PO SCH (10:25)
[2016-11-16] MEDS: DIGOXIN 0.25 MG TABLET (FP) PO SCH (10:25)
[2016-11-16] MEDS: CHOLECALCIFEROL (VITAMIN D3) 1,000 UNIT TABLET (FP) PO SCH (10:26)
[2016-11-16] MEDS: LISINOPRIL 20 MG TABLET (FP) PO SCH (10:26)
[2016-11-16] MEDS: CYANOCOBALAMIN 1,000 MCG TABLET (FP) PO SCH (10:27)
--- NOTE | 2016-11-16 10:28 | PN ---
Progress Note (short form) - Note Progress Note: ID Seen by CEMETERY MANAGER and surgery Ceftriaxone metronidazole C/S MSSA Selected Entries 11/16/16 06:00 Temperature 98.4 F Pulse Rate 80 Respiratory 18 Rate Blood Pressure 134/61 Microbiology 11/14/16 02:45 Abscess Gram Stain - Final 11/14/16 00:30 Urine - Urine Clean Catch Urine Culture - Final Escherichia Coli 11/13/16 22:45 Blood - Peripheral Venous Blood Culture - Final Corynebacterium Striatum 11/14/16 02:45 Abscess Wound Culture - Preliminary Presumptive Mssa (Pbp2a Neg) Laboratory Tests 11/14/16 11/16/16 11/16/16 00:30 07:30 07:30 WBC 8.2 D Hgb 11.0 Hct 33.5 Plt Count 352 BUN 25 H D Creatinine 0.8 Urine WBC 144 Assessment Labial collection MSSA E Coli UTI Blood culture Contaminant Plan Discharge with followup Keflex 500mg tid 7 days
--- NOTE | 2016-11-16 10:39 | PN ---
Progress Note (short form) - Note Progress Note: Temperature 98.1 F 11/16/16 10:29 Pulse Rate 88 11/16/16 10:29 Respiratory Rate 18 11/16/16 10:29 Blood Pressure 131/75 11/16/16 10:29 O2 Sat by Pulse Oximetry (%) 98 11/15/16 21:00 GENERAL: The patient is awake, alert, and fully oriented, in no acute distress. HEAD: Normal with no signs of trauma. EYES: PERRL, extraocular movements intact, sclera anicteric, conjunctiva clear. No ptosis. ENT: Ears normal, oropharynx clear without exudates, moist mucous membranes. NECK: Trachea midline, full range of motion, supple. LUNGS: Breath sounds equal, clear to auscultation bilaterally, no wheezes, no crackles, no accessory muscle use. HEART: Regular rate and rhythm, S1, S2 with systolic murmur 2/6, rub or gallop. ABDOMEN: Soft, nontender, nondistended, normoactive bowel sounds, no guarding, no rebound, no hepatosplenomegaly, no masses. : left labial swelling, discoloration with erythema, serosanguinous discharge , no pain or tenderness EXTREMITIES: 2+ pulses, warm, well-perfused, no edema. NEUROLOGICAL: Normal speech, gait not observed. PSYCH: Normal mood, normal affect. SKIN: Warm, dry, normal turgor, no rashes or lesions noted, abrasion to left knee from fall CBCD WBC 8.2 K/mm3 (4.0-10.0) D 11/16/16 07:30 RBC 3.87 M/mm3 (3.60-5.2) 11/16/16 07:30 Hgb 11.0 GM/dL (10.7-15.3) 11/16/16 07:30 Hct 33.5 % (32.4-45.2) 11/16/16 07:30 MCV 86.4 fl (80-96) 11/16/16 07:30 MCHC 32.7 g/dl (32.0-36.0) 11/16/16 07:30 RDW 15.1 % (11.6-15.6) 11/16/16 07:30 Plt Count 352 K/MM3 (134-434) 11/16/16 07:30 MPV 7.7 fl (7.5-11.1) 11/16/16 07:30 CMP Sodium 135 mmol/L (136-145) L 11/16/16 07:30 Potassium 4.4 mmol/L (3.5-5.1) 11/16/16 07:30 Chloride 106 mmol/L (98-107) 11/16/16 07:30 Carbon Dioxide 22 mmol/L (21-32) 11/16/16 07:30 Anion Gap 7 (8-16) L 11/16/16 07:30 BUN 25 mg/dL (7-18) H D 11/16/16 07:30 Creatinine 0.8 mg/dL (0.55-1.02) 11/16/16 07:30 Creat Clearance w eGFR 57.78 (>60) 11/13/16 21:30 Random Glucose 165 mg/dL (74-106) H D 11/16/16 07:30 Calcium 8.3 mg/dL (8.5-10.1) L 11/16/16 07:30 Total Bilirubin 0.5 mg/dL (0.2-1.0) 11/13/16 21:30 AST 14 U/L (15-37) L 11/13/16 21:30 ALT 17 U/L (12-78) 11/13/16 21:30 Alkaline Phosphatase 101 U/L (45-117) 11/13/16 21:30 Total Protein 7.8 g/dl (6.4-8.2) 11/13/16 21:30 Albumin 3.4 g/dl (3.4-5.0) 11/13/16 21:30 CARDIAC ENZYMES Creatine Kinase 175 IU/L (26-192) 11/14/16 15:00 Troponin I 0.08 ng/ml (0.00-0.05) H 11/14/16 15:00 Current Medications Generic Name Dose Route Start Last Admin Trade Name Jamesq PRN Reason Stop Dose Admin Apixaban 5 mg 11/14/16 10:00 11/16/16 10:24 Eliquis - PO 5 mg BID SILVA Administration Atorvastatin Calcium 20 mg 11/14/16 22:00 11/15/16 22:02 Lipitor - PO 20 mg HS SILVA Administration Cholecalciferol 1,000 unit 11/14/16 10:00 11/16/16 10:26 Vitamin D3 - PO 1,000 unit DAILY [facility] Administration Cyanocobalamin 1,000 mcg 11/14/16 10:00 11/16/16 10:27 Vitamin B12 - PO 1,000 mcg DAILY SILVA Administration Digoxin 0.25 mg 11/14/16 10:00 11/16/16 10:25 Lanoxin - PO 0.25 mg DAILY SILVA Administration Ceftriaxone Sodium 1 gm/ 50 mls @ 100 mls/hr 11/15/16 10:00 11/15/16 10:29 Sodium Chloride IVPB 100 mls/hr DAILY [facility] Administration Metronidazole 100 mls @ 100 mls/hr 11/14/16 18:00 11/16/16 10:24 Flagyl 500mg Premixed Ivpb - IVPB 100 mls/hr Q8H-IV [facility]IL[facility] Administration Sodium Chloride 1,000 mls @ 75 mls/hr 11/14/16 19:00 11/16/16 02:23 Normal Saline - IV Not Given ASDIR [facility] Insulin Aspart 1 vial 11/15/16 14:00 11/16/16 06:44 Novolog Vial Sliding Scale - SQ Not Given Q4HPO [facility] Protocol Insulin Detemir 10 units 11/16/16 22:00 Levemir Vial SQ [facility] Lisinopril 40 mg 11/14/16 10:00 11/16/16 10:26 Prinivil PO 40 mg DAILY [facility] Administration Metoprolol Tartrate 100 mg 11/14/16 10:00 11/16/16 10:25 Lopressor - PO 100 mg BID [facility] Administration Medication Instructions Recorded Apixaban [Eliquis -] 5 mg PO BID 11/13/16 Atorvastatin Ca [Lipitor] 20 mg PO HS 11/13/16 Cholecalciferol (Vitamin D3) 1,000 unit PO DAILY 11/13/16 [Vitamin D3 -] Cyanocobalamin (Vitamin B-12) 1,000 mcg PO DAILY 11/13/16 [Vitamin B-12] Digoxin [Lanoxin -] 0.25 mg PO DAILY 11/13/16 Lisinopril [Prinivil -] 40 mg PO DAILY 11/13/16 Metformin HCl [Glucophage] 1,000 mg PO BID 11/13/16 Metoprolol Tartrate [Lopressor] 100 mg PO BID 11/13/16 ASSESSMENT AND PLAN: 55 y/o lady with h/o A-fib , CAD, MD s/p cardiac stents x2 Jul 2015, HTN, NIDDM, sciatica and chronic knee pain s/p R knee replacement . she presented after a fall and was found to have sepsis with UTI , and hydradenitis supporativa /abscess on L labia. # Sepsis : due to UTI on IV antibiotic, ID on the case, and L labial abscess /hydradenitis supporativa . On IV flagyl and ceftriaxone continue ( given a dose of Rocephin in ED without any problems) # T2DM with hemoglobin A1c 15. will keep her on sliding scale every 4 hrs. and levemir 10 units at night # Elevation of troponin with Hx of CAD possible NSTEMI due sepsis . EKG with no acute ischemic changes , Left axis deviation , echo reviewed card consult , cont BB , will probably need a stress test, stents was > 1 yr ago , plavix dc'd. # A fib : HR improved after sepsis treatment , cont. BB and eliquis #CIARAN : likely prerenal , and due to sepsis. improved # fall , mechanical, no LOC. no Fx or effusion in knees DVT Px: Eliquis
[2016-11-16] MEDS: CEFTRIAXONE 1 GM in SODIUM CHLORIDE 50 ML IVPB SCH (12:24)
--- NOTE | 2016-11-16 14:01 | CONSULT ---
Consult - History of Present Illness History of Present Illness: This is a 55 year old female with history of A-fib on Eliquis, CAD s/p cardiac stents x2, hypertension, T2DM for 5 years, chronic knee pain, and s/p right total knee replacement a year ago who presents to the ED with left knee pain and swelling s/p fall prior to arrival. Patient reports she visited her orthopedics, Dr. Lopez, where she received a cortisone inject at 3:30pm. Two hours later, her left knee gave away and she fell forwarded, landing on both her knees. Patient sustained some slight pain and swelling to the left knee. She denied LOC or head trauma. She is scheduled for left knee replacement the end of December. She also has a planned MRI for her sciatica that radiates down the right leg. Patient also has complaints of an abscess draining with serosanguinous discharge in the left groin region over the last 6 months. She admits to not seeking any medical treatment. Pt found to be hyperglycemic with HBA1c of 15.2 and treated with Insulin the the hospital. Pt has not been testing her blood sugar at home. Takes Metformin. Denies any visual symptoms. No paresthesia of feet. - Past Medical History Cardio/Vascular: Yes: AFIB, CAD, HTN, DE ...LMP Comment: "doesnt get menses anymore" ...: No Musculoskeletal: Yes: Osteoarthritis - Past Surgical History Past Surgical History: Yes: Stent - Alcohol/Substance Use Hx Alcohol Use: Yes (occassionally) - Smoking History Smoking history: Never smoked Home Medications - Allergies Allergies/Adverse Reactions: Allergies Allergy/AdvReac Type Severity Reaction Status Date / Time Penicillins Allergy Verified 11/13/16 18:16 - Home Medications Home Medications: Ambulatory Orders Apixaban [Eliquis -] 5 mg PO BID 11/13/16 Atorvastatin Ca [Lipitor] 20 mg PO HS 11/13/16 Cholecalciferol (Vitamin D3) [Vitamin D3 -] 1,000 unit PO DAILY 11/13/16 Cyanocobalamin (Vitamin B-12) [Vitamin B-12] 1,000 mcg PO DAILY 11/13/16 Digoxin [Lanoxin -] 0.25 mg PO DAILY 11/13/16 Lisinopril [Prinivil -] 40 mg PO DAILY 11/13/16 Metformin HCl [Glucophage] 1,000 mg PO BID 11/13/16 Metoprolol Tartrate [Lopressor] 100 mg PO BID 11/13/16 Family Disease History - Family Disease History Other Family History: Aunt has DM Review of Systems - Review of Systems Constitutional: reports: No Symptoms Eyes: reports: No Symptoms HENT: reports: No Symptoms Neck: reports: No Symptoms Cardiovascular: reports: No Symptoms Respiratory: reports: No Symptoms Gastrointestinal: reports: No Symptoms Genitourinary: reports: No Symptoms Musculoskeletal: reports: Back Pain, Joint Pain (Left knee) Neurological: reports: No Symptoms Endocrine: reports: No Symptoms Physical Exam Vital Signs: Vital Signs Temperature 98.1 F 11/16/16 10:29 Pulse Rate 88 11/16/16 10:29 Respiratory Rate 18 11/16/16 10:29 Blood Pressure 131/75 11/16/16 10:29 O2 Sat by Pulse Oximetry (%) 98 11/16/16 09:00 Constitutional: Yes: No Distress, Calm Eyes: Yes: Conjunctiva Clear, EOM Intact HENT: Yes: Atraumatic, Normocephalic Neck: Yes: Supple, Trachea Midline Cardiovascular: Yes: Pulse Irregular Respiratory: Yes: Regular, CTA Bilaterally Gastrointestinal: Yes: Normal Bowel Sounds, Soft Renal/: Yes: WNL Musculoskeletal: Yes: WNL Extremities: Yes: Other (RT knee dressing) Edema: No Neurological: Yes: Alert, Oriented Labs: CBC, BMP 11/16/16 07:30 11/16/16 07:30 Assessment/Plan AP: T2DM uncontrolled: A1c 15.2 Levemir 10 units daily at HS Change Novolog SS coverage Pt may go home on current Insulin regimen Pt to follow up in office with BGM log in one week. To call me at [phone] with any questions. CAD S/P Stent Afib HTN HLD Knee contusion Left Labial infection/swelling
[2016-11-16 14:49] VITALS: BP 126/69; PULSE 76; TEMP 99.2
[2016-11-16] MEDS ORDERED: INSULIN SLIDING SCALE (NOVOLOG) 1 VIAL SQ SCH (16:30)
--- NOTE | 2016-11-16 18:31 | DS ---
Physical Exam: SUBJECTIVE: Patient seen and examined Patient is doing better, no fever or chills, no shortness of breath. no nausea or vomiting. OBJECTIVE: Vital Signs Temperature 99.2 F 11/16/16 14:46 Pulse Rate 76 11/16/16 14:46 Respiratory Rate 18 11/16/16 14:46 Blood Pressure 126/69 11/16/16 14:46 O2 Sat by Pulse Oximetry (%) 98 11/16/16 09:00 PHYSICAL EXAM GENERAL: The patient is awake, alert, and fully oriented, in no acute distress. HEAD: Normal with no signs of trauma. EYES: PERRL, extraocular movements intact, sclera anicteric, conjunctiva clear. ENT: Ears normal, oropharynx clear without exudates, moist mucous membranes. NECK: Trachea midline, full range of motion, supple. LUNGS: Breath sounds equal, clear to auscultation bilaterally, no wheezes, no crackles, no accessory muscle use. HEART: Regular rate and rhythm, S1, S2 with systolic murmur 2/6, rub or gallop. ABDOMEN: Soft, NT, large abdomen, normoactive bowel sounds, no rebound, no hepatosplenomegaly, no masses appreciated. : left labial swelling improving , discoloration with erythema, serosanguinous discharge, no pain or tenderness EXTREMITIES: 2+ pulses, warm, well-perfused, no edema. NEUROLOGICAL: Normal speech, gait not observed. PSYCH: Normal mood, normal affect. SKIN: Warm, dry, normal turgor, no rashes or lesions noted, abrasion to left knee from fall LABS Laboratory Results - last 24 hr 11/15/16 11/16/16 11/16/16 23:31 02:52 06:30 WBC RBC Hgb Hct MCV MCHC RDW Plt Count MPV Sodium Potassium Chloride Carbon Dioxide Anion Gap BUN Creatinine POC Glucometer 189 143 147 Random Glucose Calcium 11/16/16 11/16/16 11/16/16 07:30 07:30 11:33 WBC 8.2 D RBC 3.87 Hgb 11.0 Hct 33.5 MCV 86.4 MCHC 32.7 RDW 15.1 Plt Count 352 MPV 7.7 Sodium 135 L Potassium 4.4 Chloride 106 Carbon Dioxide 22 Anion Gap 7 L BUN 25 H D Creatinine 0.8 POC Glucometer 333 Random Glucose 165 H D Calcium 8.3 L HOSPITAL COURSE: Date of Admission:11/14/16 Date of Discharge: 11/16/16 55 y/o lady with h/o A-fib , CAD, [place] s/p cardiac stents x2 Jul 2015, HTN, NIDDM, sciatica and chronic knee pain s/p R knee replacement . she presented after a fall and was found to have sepsis with UTI , and hydradenitis supporativa /abscess on L labia. Patient was seen By Infectious disease doctor and seen by OBgYN and ribbon sweatband operator. Patient was treated with IV antibiotic Rocephin and Flagyl and was switched to PO Keflex 500mg q8h, Also patient was seen by ribbon sweatband operator and continued Levemir, with sliding scale with coverage and Metformin was discontinued. seen by OBGYN and was suggested nothing to do for now surgically and patient needs to follow with her own OBGYN. patient was sent home with Levemir, Insulin with sliding scale and keflex. # Sepsis : due to UTI on IV antibiotic, ID on the case, and L labial abscess /hydradenitis supporativa . s/p IV flagyl and ceftriaxone continue ( given a dose of Rocephin in ED without any problems) # T2DM with hemoglobin A1c 15. will keep her on sliding scale every 4 hrs. and levemir 10 units at night to continue # Elevation of troponin with Hx of CAD possible NSTEMI due sepsis . EKG with no acute ischemic changes , Left axis deviation , echo reviewed card consult , cont BB , will probably need a stress test, stents was > 1 yr ago , plavix dc'd. Patient will follw with her own oracle database manager and PMD. # A fib : HR improved after sepsis treatment , cont. BB and eliquis #CIARAN : likely prerenal , and due to sepsis. improved # fall , mechanical, no LOC. no Fx or effusion in knees DVT Px: Eliquis Discharge time:45 minutes Minutes to complete discharge: 45 Discharge Summary Reason For Visit: BILATERAL KNEE PAIN/LAIAL ABCESS Current Active Problems Bilateral knee pain (Acute) Contusion of left knee (Acute) Coronary artery disease (Acute) Demand ischemia (Acute) Diabetes mellitus type 2 in obese (Acute) Hidradenitis suppurativa (Acute) Hyperglycemia due to type 2 diabetes mellitus (Acute) Hyperlipidemia associated with type 2 diabetes mellitus (Acute) Hypertension (Acute) Labial abscess (Acute) Labial swelling (Acute) Left genital labial abscess (Acute) Old myocardial infarction (Acute) Persistent atrial fibrillation with rapid ventricular response (Acute) Status post coronary artery stent placement (Acute) Condition: Stable - Instructions Diet, Activity, Other Instructions: diabetic diet follow up with your own obgyn in a week period. call at [phone] with any questions. Referrals: Carlos Shipman MD [Staff Physician] - Adrián Ahmadi [Non Staff, Medical] - Jose Kuo MD [Primary Care Provider] - Samaria Szymanski MD [Staff Physician] - 1 Week Disposition: HOME - Home Medications Comprehensive Discharge Medication List: Ambulatory Orders Apixaban [Eliquis -] 5 mg PO BID 11/13/16 Atorvastatin Ca [Lipitor] 20 mg PO HS 11/13/16 Cholecalciferol (Vitamin D3) [Vitamin D3 -] 1,000 unit PO DAILY 11/13/16 Cyanocobalamin (Vitamin B-12) [Vitamin B-12] 1,000 mcg PO DAILY 11/13/16 Digoxin [Lanoxin -] 0.25 mg PO DAILY 11/13/16 Lisinopril [Prinivil -] 40 mg PO DAILY 11/13/16 Metoprolol Tartrate [Lopressor] 100 mg PO BID 11/13/16 Cephalexin Monohydrate [Keflex -] 500 mg PO Q8H #21 capsule 11/16/16 Insulin (Levemir) [Levemir Vial] 10 units SQ HS #100 ml 11/16/16 Insulin Sliding Scale [Novolog Vial Sliding Scale -] 1 vial SQ ACHS #100 units 11/16/16 [place], Insulin Disposable [Novofine 32] 1 each MC 5XD #100 dis.needle This patient is new to me today: No Emergency Visit: Yes ED Registration Date: 11/14/16 Care time: The patient presented to the Emergency Department on the above date and was hospitalized for further evaluation of their emergent condition. Critical Care patient: No - Discharge Referral Referred to [facility] Med [facility] No
[2016-11-16] MEDS ORDERED: INSULIN DETEMIR 100 UNITS/ML MDV SQ SCH (22:00)
== END 2016-11-16 16:30 | disposition home or self-care (01) | DRG 872 ==
LOC: JER 18:06 → JERBED 23:19 → UNDOADMOB 23:19 → JERBED 11-14 01:43 → UNDOADMOB 11-14 01:43 → JERBED 11-14 02:42 → OBSVTOIN 11-14 08:35 → J5S 11-14 13:52
PROVIDERS: ADMIT Internal Medicine; ATTEND Internal Medicine
DX: A41.9 Sepsis, unspecified organism (principal); N76.4 Abscess of vulva; I24.8 Other forms of acute ischemic heart disease; I48.1 Persistent atrial fibrillation; N39.0 Urinary tract infection, site not specified; N17.9 Acute kidney failure, unspecified; E11.65 Type 2 diabetes mellitus with hyperglycemia; B95.61 Methicillin susceptible Staphylococcus aureus infection as the cause of diseases classified elsewhere; I48.91 Unspecified atrial fibrillation; Z79.01 Long term (current) use of anticoagulants; L73.2 Hidradenitis suppurativa; I10 Essential (primary) hypertension; I25.10 Atherosclerotic heart disease of native coronary artery without angina pectoris; Z95.5 Presence of coronary angioplasty implant and graft; Z96.651 Presence of right artificial knee joint; S80.02XA Contusion of left knee, initial encounter; W18.39XA Other fall on same level, initial encounter; Y93.9 Activity, unspecified; Y92.9 Unspecified place or not applicable; I25.2 Old myocardial infarction; M54.30 Sciatica, unspecified side; M17.0 Bilateral primary osteoarthritis of knee; E66.9 Obesity, unspecified; Z68.37 Body mass index [BMI] 37.0-37.9, adult; B96.20 Unspecified Escherichia coli [E. coli] as the cause of diseases classified elsewhere; E86.0 Dehydration; Z79.84 Long term (current) use of oral hypoglycemic drugs
CPT/HCPCS: 36415; 71010-TC; 73560-TC-LT; 73560-TC-RT; 80048; 80053; 80061; 80162; 81003; 81015; 82550; 82553; 83036; 83605; 83721; 84443; 84484; 84703; 85025; 85027; 85610; 87040; 87070; 87086; 87186; 87205; 90732; 93005; 93010; 93306-TC; 99284-25; G0009; G0378

== ENCOUNTER 2017-03-15 18:25 | Inpatient (IN) | payer OTHER ==
[2017-03-15] MEDS ORDERED: ACETAMINOPHEN INJECTION 100 ML IVPB ONE (18:41)
[2017-03-15] MEDS ORDERED: SODIUM CHLORIDE 0.9% 1000 ML INFUS.BAG IV PRN (18:43)
[2017-03-15] MEDS ORDERED: SODIUM CHLORIDE 0.9% 1000 ML INFUS.BAG IV STA (18:43)
--- NOTE | 2017-03-15 18:43 | PDOC ---
History of Present Illness <Deepak Mancera - Last Filed: 03/15/17 18:43> - General History Source: Patient, Spouse, Old Records Exam Limitations: Other (altered mental status) - History of Present Illness Initial Comments: 03/15/17 19:00 The patient is a 56 year old female with a significant past medical history of A -fib on eliquis, s/p cardiac stents x2, hypertension, and diabetes, presenting to the Emergency Department with altered mental status. The patients reports that at 3pm the patient was sitting in a reclining chair and started shaking uncontrollably and was unresponsive. The patients also reports that the patient was bleeding from her rectum, and he called an ambulance at about 4pm. The patients admits that the patient was okay this morning at breakfast. The patient reports that she has chest pain, but unsure when this pain started. The patients history is limited due to her status. The patient is aware of the day but not the month. The patient had a left knee replacement on February 09 in [place]. Allergies: Penicillins Past Medical Hx: prolapsed uterus Surgical Hx: right TKR, cardiac stents x2 <Betsy Seo - Last Filed: 03/15/17 19:00> <Chitra Carty - Last Filed: 03/15/17 23:51> - General Chief Complaint: Altered Mental Status Stated Complaint: AMS Past History - Past Medical History Anemia: No Asthma: No Cancer: No Cardiac Disorders: Yes (cardiac stents x 2, atrial fib) CVA: No COPD: No CHF: No Dementia: No Diabetes: Yes GI Disorders: No Disorders: No HTN: Yes Hypercholesterolemia: Yes Liver Disease: No Seizures: No Thyroid Disease: No - Surgical History Abdominal Surgery: No Appendectomy: No Cardiac Surgery: Yes (stents x 2) Cholecystectomy: No Lung Surgery: No Neurologic Surgery: No Orthopedic Surgery: Yes (right knee replacement) - Psycho/Social/Smoking Cessation Hx Suicidal Ideation: No Smoking History: Never smoked Hx Alcohol Use: Yes (occassionally) Drug/Substance Use Hx: No Substance Use Type: None Hx Substance Use Treatment: No <Deepak Mancera - Last Filed: 03/15/17 18:43> <Betsy Seo - Last Filed: 03/15/17 19:00> <Chitra Carty - Last Filed: 03/15/17 23:51> - Past Medical History Allergies/Adverse Reactions: Allergies Allergy/AdvReac Type Severity Reaction Status Date / Time Penicillins Allergy Verified 03/15/17 18:29 Home Medications: Ambulatory Orders Apixaban [Eliquis -] 5 mg PO BID 11/13/16 Atorvastatin Ca [Lipitor] 20 mg PO HS 11/13/16 Cholecalciferol (Vitamin D3) [Vitamin D3 -] 1,000 unit PO DAILY 11/13/16 Cyanocobalamin (Vitamin B-12) [Vitamin B-12] 1,000 mcg PO DAILY 11/13/16 Digoxin [Lanoxin -] 0.25 mg PO DAILY 11/13/16 Lisinopril [Prinivil -] 40 mg PO DAILY 11/13/16 Metoprolol Tartrate [Lopressor] 100 mg PO BID 11/13/16 Insulin Sliding Scale [Novolog Vial Sliding Scale -] 1 vial SQ ACHS #100 units 11/16/16 Diltiazem Cd [Cardizem Cd -] 120 mg PO DAILY 03/15/17 Insulin (Levemir) [Levemir Vial] 15 units SQ HS 03/15/17 Metformin HCl 500 mg PO BID 03/15/17 Review of Systems - Review of Systems Able to Perform ROS?: No (altered mental status) <Betsy Seo - Last Filed: 03/15/17 19:00> *Physical Exam - Vital Signs Last Vital Signs Temp Pulse Resp BP Pulse Ox 105.9 F H 145 H 28 H 133/67 100 03/15/17 18:25 03/15/17 18:25 03/15/17 18:25 03/15/17 18:25 03/15/17 18:25 - Physical Exam Comments: 03/15/17 19:00 GENERAL: A&O x 2, patient seems confused HEAD: No signs of trauma EYES: PERRLA, EOMI, sclera anicteric, conjunctiva clear ENT: Auricles normal inspection, hearing grossly normal, nares patent, oropharynx clear without exudates. Moist mucosa NECK: Normal ROM, supple, no lymphadenopathy, JVD, or masses LUNGS: Breath sounds equal, clear to auscultation bilaterally. No wheezes, and no crackles HEART: Irregularly irregular and tachycardic, no murmurs, rubs or gallops ABDOMEN: Soft, nontender, normoactive bowel sounds. No guarding, no rebound. No masses EXTREMITIES: Normal range of motion, no edema. No clubbing or cyanosis. No cords, erythema, or tenderness. Both knees have surgical scars, neither is red, warm, or tender. GENITOURINARY: Angry draining Bartholins cyst in left labia with surrounding cellulitis which may be source of sepsis. NEUROLOGICAL: Cranial nerves II through XII grossly intact. SKIN: Warm, Dry, normal turgor <Betsy Seo - Last Filed: 03/15/17 19:00> - Vital Signs Last Vital Signs Temp Pulse Resp BP Pulse Ox 105.9 F H 145 H 28 H 119/46 100 03/15/17 18:25 03/15/17 18:25 03/15/17 18:25 03/15/17 18:40 03/15/17 18:25 <Chitra Carty - Last Filed: 03/15/17 23:51> ED Treatment Course - LABORATORY CBC & Chemistry Diagram: 03/15/17 18:56 <Betsy Seo - Last Filed: 03/15/17 19:00> - LABORATORY CBC & Chemistry Diagram: 03/15/17 18:56 03/15/17 18:56 - ADDITIONAL ORDERS Additional order review: Laboratory Results 03/15/17 03/15/17 03/15/17 19:25 18:56 18:56 WBC RBC Hgb Hct MCV MCHC RDW Plt Count MPV Neutrophils % Lymphocytes % INR PTT (Actin FS) VBG pH 7.37 POC VBG pCO2 30.3 L POC VBG pO2 29.5 Mixed VBG HCO3 16.9 L Sodium 127 L Potassium 4.1 Chloride 93 L D Carbon Dioxide 16 L D Anion Gap 18 H BUN 34 H D Creatinine 1.7 H D Creat Clearance w eGFR 31.20 Random Glucose 325 H* D Calcium 8.0 L Total Bilirubin 0.7 D AST 31 D ALT 20 Alkaline Phosphatase 134 H D Creatine Kinase 76 Troponin I 0.13 H Total Protein 7.0 Albumin 2.5 L D Urine Color Ltyellow Urine Appearance Clear Urine pH 6.0 Ur Specific [place] 1.010 Urine Protein 3+ H Urine Glucose (UA) 3+ H Urine Ketones Negative Urine Blood 1+ H Urine Nitrite Negative Urine Bilirubin Negative Urine Urobilinogen Negative Ur Leukocyte Esterase Trace H D Urine RBC 9 Urine WBC 16 Ur Epithelial Cells Rare Urine Bacteria Rare Hyaline Casts 1 Urine Mucus Rare 03/15/17 03/15/17 18:56 18:56 WBC 6.3 RBC 3.95 Hgb 10.3 L Hct 31.6 L MCV 80.2 MCHC 32.6 RDW 16.6 H Plt Count 336 MPV 7.6 Neutrophils % Y Lymphocytes % Y INR 2.24 H D PTT (Actin FS) 25.3 L VBG pH POC VBG pCO2 POC VBG pO2 Mixed VBG HCO3 Sodium Potassium Chloride Carbon Dioxide Anion Gap BUN Creatinine Creat Clearance w eGFR Random Glucose Calcium Total Bilirubin AST ALT Alkaline Phosphatase Creatine Kinase Troponin I Total Protein Albumin Urine Color Urine Appearance Urine pH Ur Specific [place] Urine Protein Urine Glucose (UA) Urine Ketones Urine Blood Urine Nitrite Urine Bilirubin Urine Urobilinogen Ur Leukocyte Esterase Urine RBC Urine WBC Ur Epithelial Cells Urine Bacteria Hyaline Casts Urine Mucus 03/15/17 18:56 RBC 3.95 MCV 80.2 MCHC 32.6 RDW 16.6 H MPV 7.6 Neutrophils % Y Lymphocytes % Y - Medications Given in the ED: ED Medications Discontinued Medications Generic Name Dose Route Start Last Admin Trade Name Freq PRN Reason Stop Dose Admin Acetaminophen 1,000 mg 03/15/17 19:02 03/15/17 18:40 Ofirmev Injection - IVPB 03/15/17 19:03 1,000 mg ONCE ONE Administration Sodium Chloride 1,600 ml 03/15/17 18:43 03/15/17 18:40 Normal Saline - IV 03/15/17 18:44 1,600 ml ONCE STA Administration <Chitra Carty - Last Filed: 03/15/17 23:51> Medical Decision Making - Medical Decision Making 03/15/17 19:10 Sepsis protocol followed with fluids and IV antibiotics. Assuming skin is source of sepsis. Turned patient over to Dr. Carty <Betsy Seo - Last Filed: 03/15/17 19:00> - Medical Decision Making 03/15/17 19:44 I received signout on this patient. Patient is moderately stable at this time. BP is low 96 systolic on my arrival but comes down to 80 sytolic. She has a lactic acod of 6+ She receiving clindamycin and vancomycin at this time. Patient is alert and awake. Oriented x 3. Her states that she was confused at home I called LSAT INSTRUCTOR consult, Dr. Moseley is aware of her and he will see her tomorrow once she is stablized, for her labial infection, for potential drainage of abscess in we find on e on CT scan. I spoke to the ICU consult Umberto, who will come to see the patient, evaluate her for pressors, if ehr BP continues to fall. 03/15/17 19:55 Pt has no WBC count. Her anion gap is 18. Glc is 325. I will treat with subcutaneous insulin at this time 6 Units reg insulin 03/15/17 20:36 After multiple calls for stat portable CXR, I found the engineering technology instructor and walked with him to the patient bedside. CXR still pending. 03/15/17 20:37 My concerns are Rapid afib; heart strain resulting in elevated troponin. 2nd L fluid running,yet only 100ml urine output. BNP approx 10,000 and I hear crackles at the bases of lungs. I have no image yet. Pt is stable however not complaining of difficulty breathing and she has O2sat 2L Nasal cannula. 03/15/17 21:15 Pt has a bandemia of 28. She was accepted to the ICU; they temporarily held her order for dopamine. BP now is 72 systolic. SHe will be sent straight to the ICU; she will be sent for CT scanning from the ICU as needed once patient is further stabilized. <Chitra Carty - Last Filed: 03/15/17 23:51> *DC/Admit/Observation/Transfer - Attestations Physician Attestion: 03/15/17 18:43 I, Dr. Deepak Mancera, attest that this document has been prepared under my direction and personally reviewed by me in its entirety. I further attest, that it accurately reflects all work, treatment, procedures and medical decision -making performed by me. <Deepak Mancera - Last Filed: 03/15/17 18:43> - Attestations Scribe Attestion: 03/15/17 19:04 Documentation prepared by Betsy Seo, acting as medical staff manager for Deepak Mancera DO. <Betsy Seo - Last Filed: 03/15/17 19:00> - Discharge Dispostion Admit: Yes <Chitra Carty - Last Filed: 03/15/17 23:51> Diagnosis at time of Disposition: Labial abscess, Sepsis, Altered mental state, Hyperglycemia due to type 2 diabetes mellitus, Diabetes mellitus type 2 in obese, Hypotension, Dehydration - Discharge Dispostion Condition at time of disposition: Critical
[2017-03-15] MEDS ORDERED: METOPROLOL TARTRATE 5 MG/5 ML VIAL ONE (18:55)
[2017-03-15] MEDS ORDERED: CLINDAMYCIN 900 MG PREMIX IVPB 50 ML IVPB ONE ×2 (18:56→19:11)
[2017-03-15] MEDS ORDERED: VANCOMYCIN 1,000 MG in DEXTROSE 5%-WATER - 250 ML IVPB ONE (18:56)
[2017-03-15] MEDS ORDERED: KETOROLAC TROMETHAMINE 30 MG/1 ML VIAL IM ONE (18:56)
[2017-03-15 19:01] LABS: MCH 26.1 pg (25.7-33.7); MCHC 32.6 g/dl (32.0-36.0); MEAN CELL VOLUME 80.2 fl (80-96); MEAN PLT VOLUME 7.6 fl (7.5-11.1); PLATELET COUNT 336 K/MM3 (134-434); RDW 16.6 % (11.6-15.6); WHITE BLOOD COUNT 6.3 K/mm3 (4.0-10.0)
[2017-03-15] MEDS ORDERED: ACETAMINOPHEN 1000 MG/100 ML VIAL (NON FORMULARY) IVPB ONE (19:02)
[2017-03-15] MEDS ORDERED: dilTIAZem HCL 60 MG TABLET (FP) PO ONE (19:02)
[2017-03-15 19:10] LABS: URINE APPEARANCE CLEAR; URINE BILIRUBIN NEGATIVE (NEGATIVE); URINE COLOR LTYELLOW; URINE GLUCOSE (UA) 3+ (NEGATIVE); URINE KETONE NEGATIVE (NEGATIVE); URINE NITRITE NEGATIVE (NEGATIVE); URINE UROBILINOGEN NEGATIVE E.U./dl (0.2-1.0)
[2017-03-15] MEDS ORDERED: dilTIAZem HCL 60 MG TABLET (FP) ONE (19:11)
[2017-03-15] MEDS ORDERED: KETOROLAC TROMETHAMINE 30 MG/1 ML VIAL ONE (19:12)
[2017-03-15] MEDS ORDERED: VANCOMYCIN 1 GRAM (PRE-DOCKED) 250 ML IVPB ONE (19:12)
[2017-03-15 19:14] LABS: INR 2.24 (0.82-1.09); PROTHROMBIN TIME (PATIENT) 25.1 SEC (9.98-11.88)
[2017-03-15 19:16] LABS: ACTIVATED PTT 25.3 SECONDS (26.9-34.4); URINE BLOOD 1+ (NEGATIVE); URINE LEUK ESTERASE TRACE (NEGATIVE); URINE PROTEIN 3+ (NEGATIVE)
[2017-03-15 19:17] LABS: URINE BACTERIA RARE /hpf (NONE SEEN); URINE HYALINE CAST 1 /lpf; URINE MUCUS RARE; URINE RBC 9 /hpf (0-3); URINE WBC 16 /hpf (3-5)
[2017-03-15 19:30] LABS: ALBUMIN 2.5 g/dl (3.4-5.0); BILIRUBIN,TOTAL 0.7 mg/dL (0.2-1.0); COCKROFT - GAULT 62.3815; CREATININE 1.7 mg/dL (0.55-1.02)
[2017-03-15 19:30] LABS: VENOUS PH 7.37 (7.32-7.42)
[2017-03-15 19:31] LABS: VENOUS BLOOD GAS HCO3 16.9 meq/L (19-25)
[2017-03-15 19:33] LABS: TROPONIN I 0.13 ng/ml (0.00-0.05)
[2017-03-15 19:45] LABS: METAMYELOCYTE 1 % (0-2); PLATELET ESTIMATE ADEQUATE (NORMAL)
[2017-03-15] MEDS ORDERED: INSULIN REGULAR HUMAN 100 UNITS/ML *VIAL SQ ONE (19:54)
[2017-03-15] MEDS ORDERED: INSULIN REGULAR HUMAN 100 UNITS/ML *VIAL ONE (20:24)
[2017-03-15] MEDS ORDERED: DOPAMINE 400 MG/D5W - 250 ML IVPB SCH (20:30)
[2017-03-15] MEDS ORDERED: DOPAMINE 400 MG/D5W - 250 ML IVPB ONE (20:34)
[2017-03-15] MEDS ORDERED: MEROPENEM 500 MG VIAL (RESTRICTED TO ID) IVPB ONE (20:52)
--- NOTE | 2017-03-15 20:56 | PN ---
Teaching Attending Note Name of Resident: Carlos Padron ATTENDING PHYSICIAN STATEMENT I saw and evaluated the patient. I reviewed the resident's note and discussed the case with the resident. I agree with the resident's findings and plan as documented. SUBJECTIVE: 56 y/o lady with h/o IDDM, HTN, CAD s/p stenting in 07/2015 , R knee replacement and L knee replacement ( 1 month ago) , and other medical problems who presented with AMS today. per pt and at bed side, she was normal yesterday , but today she was felt to be confused, and shaking, so ambulance was called. she reports vaginal bleeding , daily (multiple pads a day ) , for which she did not follow with NETEZZA DEVELOPER. she reports L labial swelling for 3-4 months. denies any vaginal discharge . she takes eliquis and no NSAIDs. has no ABd pain. started diarrhea this am. has no SOB , and dry cough. she was here in Nov for L labial hydradenitis suppurativa OBJECTIVE: NAD , awake , alert , oriented x 3. HEENT: pale skin, pale MM, dry MM, pale conjunctivae , EOMI, round equal pupils . . JVD ( but pt is in trandelenberg position ) CV: irreg irreg , no MRG Lungs : CTAB Abd : soft, NT, ND , NL BS : L labial skin changes ( hyperpigmentation, edema , and enlargement ) , no fluctuance , minimal L inguinal LAP. no draainage . R suprapubic purpulish, raised lesions , R upper thigh edema, erythema, , enduration and increased warmth . no fluctuance is felt . liquid stool on her diaper EXt : R upper thigh as described. DP 1+ b/l . warm feet ASSESSMENT AND PLAN: 56 y/o lady with h/o IDDM, HTN, CAD s/p stenting in 07/2015 , R knee replacement and L knee replacement ( 1 month ago) , and other medical problems who presented with AMS, she was found in septic shock. 1- Septic shock. source could be soft tissue , in R upper thigh, need to r/o deep tissue infection /abscess formation. the L labial changes are chronic and represent hydradenitis suppurativa , and an abscess could not be appreciated. other possible sources, UTI and c diff infection ( has diarrhea ) - received 1500 cc of IVF in ER, will fluid resuscitate with another 1-2 L bolus of NS , then 125 cc /hr - d/c dopamine ordered in ER ( due to tachycardia ) , and start phenylephrin if no response to IVF - repeat Lactate . - order Stat CT scan of Abd/pelvis , and R thigh to r/o deep tissue infection/ abscess. Unfortunately, can't use IV contrast due to CIARAN - will call Stat surgery consult - given vanco and clinda in ER. I will give vanco and meropenem ( alergic to PCN , only hives ) - Id consult 2- Metabolic acidosis : likely due to lactic acidosis . Although Gluc is elevated , she has no ketones in urine , which makes DKA unlikely. - check ABG - treat sepsis 3- CIARAN : likely pre-renal azotemia due to hypotension and volume depletion. ATN can't be r/o - check urine electrolytes. - fluid resuscitation 4- Hyponatremia : likely, hypotonic hypovolemic in nature. corrected NA 131.8. - give NS and treat Hyperglycemia 5-IDDM with severe hyperglycemia :no evidence of DKA so far - give SSI q 4 h - levemir 15 units now . - control infection 6- Afib with RVR: triggered by sepsis - can't give BB or CCB due to hypotension . - HR improved with IVF ( now 120s) - monitor with IVF - hold eliquis due to vaginal bleed ( daily ) and anemia , and possible need for sx 7- trop leak: likely due to spsis , and tachycardia . had slight trop elevation in past. EKG with LAD ( present in past ) and no ST or TW changes - trend . - hold off card consult at this time 8- Scds for now
[2017-03-15] MEDS ORDERED: SODIUM CHLORIDE 1,000 ML IV STA (20:59)
[2017-03-15] MEDS ORDERED: SODIUM CHLORIDE 1,000 ML IV SCH (21:00)
--- NOTE | 2017-03-15 21:02 | HP ---
CHIEF COMPLAINT: ALTERED MENTAL STATUS PCP:AYAAN ([facility]) Ortho: Ayaan Lopez ([facility]) HISTORY OF PRESENT ILLNESS: Patient is 56 year old female with PMH of A-FIB on eliquis, Stents x2, HTN/HLD/ DM who is sent to ED for altered mental status. As per patient & her , she woke up today feeling normal. She took all of her medications and took insulin before breakfast & lunch. She sat in a rocking chair in the afternoon and around 3PM, started shaking & became confused, as per . He called EMS , who noted patient's BG >400 & noted she had blood in her underwear. Patient reports multiple daily episodes of heavy vaginal bleeding and a notable swelling of her left labia for several months, but has NOT followed up with gynecology. She also reports 2 episodes of diarrhea today. Denies chest pain, SOB, constipation, dysuria, cough. Denies vaginal discharge. Patient had left total knee replacement 1month ago. Patient on Eliquis, last took this mooning. Admitted in November for Suppuritve Hydradenitis. ER course was notable for: (1)Fever 105.9 with HYPOtension, rapid IVF administration started (2)Atrial Fibrillation w/ RVR, HR in 160's, Cardizem 60mg IV pushed (3)CT Pelvis/RLE: large right thigh abscess [id number] Recent Travel: NONE REPORTED PAST MEDICAL HISTORY: ABOVE PAST SURGICAL HISTORY: TKR BILATERAL KNEES (RIGHT 1.5YEARS AGO, LEFT 1MONTH AGO), STENTSx2 (2014) Social History: Smoking:NONE REPORTED Alcohol:NONE REPORTED Drugs:NONE REPORTED Family History: NONE NOTED Allergies Penicillins Allergy (Verified 03/15/17 18:29) HOME MEDICATIONS: Home Medications Medication Instructions Recorded Apixaban [Eliquis -] 5 mg PO BID 11/13/16 Atorvastatin Ca [Lipitor] 20 mg PO HS 11/13/16 Cholecalciferol (Vitamin D3) 1,000 unit PO DAILY 11/13/16 [Vitamin D3 -] Cyanocobalamin (Vitamin B-12) 1,000 mcg PO DAILY 11/13/16 [Vitamin B-12] Digoxin [Lanoxin -] 0.25 mg PO DAILY 11/13/16 Lisinopril [Prinivil -] 40 mg PO DAILY 11/13/16 Metoprolol Tartrate [Lopressor] 100 mg PO BID 11/13/16 Cephalexin Monohydrate [Keflex -] 500 mg PO Q8H #21 capsule 11/16/16 Insulin (Levemir) [Levemir Vial] 10 units SQ HS #100 ml 11/16/16 Insulin Sliding Scale [Novolog 1 vial SQ ACHS #100 units 11/16/16 Vial Sliding Scale -] Pen Needle, Diabetic [Novofine 32] 1 each 5XD #100 dis.needle 11/16/16 REVIEW OF SYSTEMS CONSTITUTIONAL: (+)fever, chills, Absent: diaphoresis, generalized weakness, malaise, loss of appetite, weight change HEENT: Absent: rhinorrhea, nasal congestion, throat pain, throat swelling, difficulty swallowing, mouth swelling, ear pain, eye pain, visual changes CARDIOVASCULAR: Absent: chest pain, syncope, palpitations, irregular heart rate, lightheadedness , peripheral edema RESPIRATORY: Absent: cough, shortness of breath, dyspnea with exertion, orthopnea, wheezing, stridor, hemoptysis GASTROINTESTINAL: Absent: abdominal pain, abdominal distension, nausea, vomiting, diarrhea, constipation, melena, hematochezia GENITOURINARY: (+)genital pain Absent: dysuria, frequency, urgency, hesitancy, hematuria, flank pain, MUSCULOSKELETAL: Absent: myalgia, arthralgia, joint swelling, back pain, neck pain SKIN: Absent: rash, itching, pallor HEMATOLOGIC/IMMUNOLOGIC: Absent: easy bleeding, easy bruising, lymphadenopathy, frequent infections ENDOCRINE: Absent: unexplained weight gain, unexplained weight loss, heat intolerance, cold intolerance NEUROLOGIC: (+)mental status changes, Absent: headache, focal weakness or paresthesias, dizziness, unsteady gait, seizure, bladder or bowel incontinence PSYCHIATRIC: Absent: anxiety, depression, suicidal or homicidal ideation, hallucinations. PHYSICAL EXAMINATION Vital Signs - 24 hr 03/15/17 03/15/17 03/15/17 18:25 18:40 18:55 Temperature 105.9 F H 105.7 F H Pulse Rate 145 H Pulse Rate [ 148 H 163 H Apical] Respiratory 28 H 30 H 30 H Rate Blood Pressure 133/67 119/46 Blood Pressure 119/46 96/46 [Left Arm] O2 Sat by Pulse 100 99 99 Oximetry (%) 03/15/17 03/15/17 03/15/17 19:10 19:25 19:40 Temperature 104.8 F H 105.7 F H 104.0 F H Pulse Rate 152 H Pulse Rate [ 150 H 158 H 163 H Apical] Respiratory 228 H 32 H 28 H Rate Blood Pressure 118/52 Blood Pressure 95/46 96/60 85/52 [Left Arm] O2 Sat by Pulse 99 99 99 Oximetry (%) 03/15/17 03/15/17 03/15/17 19:45 19:55 20:10 Temperature 103.4 F H 102.8 F H Pulse Rate Pulse Rate [ 146 H 149 H Apical] Respiratory 28 H 28 H Rate Blood Pressure 75/48 Blood Pressure 87/65 84/63 [Left Arm] O2 Sat by Pulse 99 99 Oximetry (%) 03/15/17 03/15/17 20:25 20:40 Temperature 102.5 F H 102.1 F H Pulse Rate Pulse Rate [ 153 H 128 H Apical] Respiratory 36 H 30 H Rate Blood Pressure Blood Pressure 83/54 87/56 [Left Arm] O2 Sat by Pulse 99 98 Oximetry (%) GENERAL: Awake, alert, and fully oriented, in no acute distress. HEENT: Atraumatic, EOMI, PERRLA, Dry membranes, pale skin/conjuctivae LUNGS: Breath sounds equal, clear to auscultation bilaterally. No wheezes, and no crackles. No accessory muscle use. HEART: Irregularly Irregular, no murmurs noted ABDOMEN: Soft, nontender, not distended, normoactive bowel sounds, no guarding, no rebound MUSCULOSKELETAL: Normal range of motion at all joints. No bony deformities or tenderness. No CVA tenderness. UPPER EXTREMITIES: 2+ pulses, warm, well-perfused. No cyanosis. No clubbing. No peripheral edema. LOWER EXTREMITIES: 2+ pulses, warm, well-perfused. No calf tenderness. No peripheral edema. NEUROLOGICAL: Cranial nerves II-XII intact. Normal speech. Gait not observed. PSYCHIATRIC: Cooperative. Good eye contact. Appropriate mood and affect. SKIN: RIGHT UPPER THIGH [id number] SWELLING/INDURATION/ERYTHEMA : Left labial swelling w/ hyperpigmentation but no fluctuance or drainage noted. Purple raised skin lesions suprapubically, notably on right side. Laboratory Results - last 24 hr 03/15/17 03/15/17 03/15/17 18:56 18:56 18:56 WBC 6.3 RBC 3.95 Hgb 10.3 L Hct 31.6 L MCV 80.2 MCHC 32.6 RDW 16.6 H Plt Count 336 MPV 7.6 Neutrophils % 69.0 D Lymphocytes % 1.0 L D Monocytes % 1.0 L Band Neutrophils 28.0 H Metamyelocytes 1 Differential Comment Manual diff done Platelet Estimate Adequate Platelet Comment Few giant plts Morphology Comment Slide scanned INR 2.24 H D PTT (Actin FS) 25.3 L VBG pH POC VBG pCO2 POC VBG pO2 Mixed VBG HCO3 Sodium Potassium Chloride Carbon Dioxide Anion Gap BUN Creatinine Creat Clearance w eGFR POC Glucometer Random Glucose Lactic Acid Calcium Total Bilirubin AST ALT Alkaline Phosphatase Creatine Kinase Troponin I B-Natriuretic Peptide Total Protein Albumin Urine Color Ltyellow Urine Appearance Clear Urine pH 6.0 Ur Specific Pritchett 1.010 Urine Protein 3+ H Urine Glucose (UA) 3+ H Urine Ketones Negative Urine Blood 1+ H Urine Nitrite Negative Urine Bilirubin Negative Urine Urobilinogen Negative Ur Leukocyte Esterase Trace H D Urine RBC 9 Urine WBC 16 Ur Epithelial Cells Rare Urine Bacteria Rare Hyaline Casts 1 Urine Mucus Rare Blood Type Antibody Screen 03/15/17 03/15/17 03/15/17 18:56 18:56 18:56 WBC RBC Hgb Hct MCV MCHC RDW Plt Count MPV Neutrophils % Lymphocytes % Monocytes % Band Neutrophils Metamyelocytes Differential Comment Platelet Estimate Platelet Comment Morphology Comment INR PTT (Actin FS) VBG pH POC VBG pCO2 POC VBG pO2 Mixed VBG HCO3 Sodium 127 L Potassium 4.1 Chloride 93 L D Carbon Dioxide 16 L D Anion Gap 18 H BUN 34 H D Creatinine 1.7 H D Creat Clearance w eGFR 31.20 POC Glucometer Random Glucose 325 H* D Lactic Acid 6.668 H* Calcium 8.0 L Total Bilirubin 0.7 D AST 31 D ALT 20 Alkaline Phosphatase 134 H D Creatine Kinase 76 Troponin I 0.13 H B-Natriuretic Peptide Total Protein 7.0 Albumin 2.5 L D Urine Color Urine Appearance Urine pH Ur Specific P[place] Urine Protein Urine Glucose (UA) Urine Ketones Urine Blood Urine Nitrite Urine Bilirubin Urine Urobilinogen Ur Leukocyte Esterase Urine RBC Urine WBC Ur Epithelial Cells Urine Bacteria Hyaline Casts Urine Mucus Blood Type AB POSITIVE Antibody Screen Negative 03/15/17 03/15/17 03/15/17 18:59 19:25 20:21 WBC RBC Hgb Hct MCV MCHC RDW Plt Count MPV Neutrophils % Lymphocytes % Monocytes % Band Neutrophils Metamyelocytes Differential Comment Platelet Estimate Platelet Comment Morphology Comment INR PTT (Actin FS) VBG pH 7.37 POC VBG pCO2 30.3 L POC VBG pO2 29.5 Mixed VBG HCO3 16.9 L Sodium Potassium Chloride Carbon Dioxide Anion Gap BUN Creatinine Creat Clearance w eGFR POC Glucometer > 400 Random Glucose Lactic Acid Calcium Total Bilirubin AST ALT Alkaline Phosphatase Creatine Kinase Troponin I B-Natriuretic Peptide 9670.67 H Total Protein Albumin Urine Color Urine Appearance Urine pH Ur Specific [place] Urine Protein Urine Glucose (UA) Urine Ketones Urine Blood Urine Nitrite Urine Bilirubin Urine Urobilinogen Ur Leukocyte Esterase Urine RBC Urine WBC Ur Epithelial Cells Urine Bacteria Hyaline Casts Urine Mucus Blood Type Antibody Screen ASSESSMENT/PLAN: 56 year old female with PMH of A-FIB on eliquis, Stents x2, HTN/HLD/DM who is sent to ED for altered mental status. Found to be in septic shock. #Septic Shock, secondary to right upper thigh abscess (Mild UTI is also noted on Urinalysis, and may be contributing) -Meropenem, Clindamycin, as per disucssion with ID (Vancomycin 1g given in ED) -IVF NS@125cc/hr (received 2300 liters thus far) -Levophed drip to maintain BP -Lactic acid elevated, will trend -surgery consulted & cut 4 counter incisions in abscess (left open with iodoform bridge in between all 4); 200mL anaerobic pus drained -4 openings needs to be irrigated daily until wounds heal (patient can f/u with Dr Silva in 2-3 weeks for removal) -ID consulted #Suppurative Hydrenitis -continue with current antibiotic regimen -SHOE LINING FITTER consulted -ID consulted -Percocet pain management #Acute Kidney Injury -likely secondary to pre-renal azotemia/hypotension -IVF being administered -trend in AM #Diabetes -Levemir 15u HS -ISS for coverage at meals -FS BGM q4h for now -Patient is acidotic, but NO KETONES (DKA unlikely) #Atrial Fibrillation, w RVR -Cardizem 60mg IV push given in ED -HR better controlled at present, but still ranges from 110-120 -IVF & Antibiotic adminsitration should treat sepsis which should result in improved HR & BP -continuous cardiac monitoring in ICU -holding eliquis at present, may restart tomorrow (or consider Heparin while admitted in case of urgent operation) #Elevated Tropoin -highly unlikely ACS, likely do to sepsis -will trend overnight -EKG reviewed & without any ST or T-wave changes Prophylaxis -SCD's -no PPI indicated -IVF NS@125cc/hr -monitor electrolytes -Diabetic low sodium diet Visit type - Emergency Visit Emergency Visit: Yes ED Registration Date: 03/15/17 Care time: The patient presented to the Emergency Department on the above date and was hospitalized for further evaluation of their emergent condition. - New Patient This patient is new to me today: Yes Date on this admission: 03/16/17 - Critical Care Critical Care patient: Yes Total Critical Care Time (in minutes): 45 Critical Care Statement: The care of this patient involved high complexity decision making to prevent further life threatening deterioration of the patient 's condition and/or to evalute & treat vital organ system(s) failure or risk of failure.
[2017-03-15] MEDS ORDERED: PHENYLEPHRINE HCL 10 MG/1 ML SINGLE DOSE VIAL ONE ×3 (21:10→22:58)
[2017-03-15] MEDS ORDERED: MEROPENEM 1 GM in SODIUM CHLORIDE 100 ML IVPB ONE (21:15)
--- NOTE | 2017-03-15 21:28 | CONSULT ---
Consult Consult Specialty:: Pulm/CCM Reason for Consultation:: septic shock - History of Present Illness Chief Complaint: AMS, fever, labial swelling History of Present Illness: Ms Garcia is a 56 y/o woman with hx of DM, HTN, Atrial Fibrillation, CAD s/p 2 stents > 1yr ago on eliquis and ASA who presents to ED today in septic shock. Pt relates that she is menopausal for > 3yrs, however approx 3 months ago noted labial swelling L > R and vaginal bleeding (intermittent but up to multiple pads/day). She did not seek care or tell her PMD about the bleeding. She continued on anti-coagulation. The swelling of labia has been increasing over last few weeks but she denies significant pelvic pain or discharge. She also noted R thigh swelling but was not clear when it started. Today pt awoke normally and was "fine" until late afternoon when noted pt to be poorly responsive, prompting 911 call. Pt was hypotensive, febrile, started on fluids and transferred to [facility] ED. In ED pt was febrile to 105F, tachy to 160, hypotensive with SBP in 80s, and mildly confused (oriented to person, place, - month). Exam was notable for very swollen, red, erythematous L labial fold, R thigh swelling with apparent fluid pocket, and some mild groin edema. Labs were notable for lactate 6, wbc 7 but 28% bandemia. Cr 1.4 (up from 0.8 in Dec 02), Hco3 18, BNP 10K, troponin 0.13. UA was +glucose, +protein, WBC 6. Volume resuscitation, abx (vanco/clinda), and bp support were initiated with phenylepherine. CTAP--> thigh was ordered. 2nd gram negative coverage started by hospitalist. ( pt also pen allergic) [employer]TAIN consulted and to see in am ER did pelvic per report no alex discharge Pt relates previous upper thigh abcess that did not require surgery - Past Medical History Cardio/Vascular: Yes: AFIB, CAD, HTN, [place] Reproductive: Yes: Postmenopausal Musculoskeletal: Yes: Osteoarthritis - Past Surgical History Past Surgical History: Yes: Stent Additional Surgical History: L total knee - Alcohol/Substance Use Hx Alcohol Use: Yes (occassionally) - Smoking History Smoking history: Never smoked Have you smoked in the past 12 months: No - Social History Usual Living Arrangement: With Spouse ADL: Independent Home Medications - Allergies Allergies/Adverse Reactions: Allergies Allergy/AdvReac Type Severity Reaction Status Date / Time Penicillins Allergy Verified 03/15/17 18:29 - Home Medications Home Medications: Ambulatory Orders Apixaban [Eliquis -] 5 mg PO BID 11/13/16 Atorvastatin Ca [Lipitor] 20 mg PO HS 11/13/16 Cholecalciferol (Vitamin D3) [Vitamin D3 -] 1,000 unit PO DAILY 11/13/16 Cyanocobalamin (Vitamin B-12) [Vitamin B-12] 1,000 mcg PO DAILY 11/13/16 Digoxin [Lanoxin -] 0.25 mg PO DAILY 11/13/16 Lisinopril [Prinivil -] 40 mg PO DAILY 11/13/16 Metoprolol Tartrate [Lopressor] 100 mg PO BID 11/13/16 Insulin Sliding Scale [Novolog Vial Sliding Scale -] 1 vial SQ ACHS #100 units 11/16/16 Diltiazem Cd [Cardizem Cd -] 120 mg PO DAILY 03/15/17 Insulin (Levemir) [Levemir Vial] 15 units SQ HS 03/15/17 Metformin HCl 500 mg PO BID 03/15/17 Physical Exam Vital Signs: Vital Signs Temperature 102.1 F H 03/15/17 20:40 Pulse Rate 128 H 03/15/17 20:40 Respiratory Rate 30 H 03/15/17 20:40 Blood Pressure 87/56 03/15/17 20:40 O2 Sat by Pulse Oximetry (%) 98 03/15/17 20:40 Constitutional: Yes: Well Nourished, No Distress, Obese Eyes: Yes: Conjunctiva Clear, EOM Intact, PERRL HENT: Yes: Atraumatic, Normocephalic Neck: Yes: Supple, Trachea Midline. No: Lymphadenopathy Cardiovascular: Yes: Pulse Irregular, S1, S2. No: Murmur Respiratory: Yes: CTA Bilaterally, On Nasal O2. No: Accessory Muscle Use, Rales , Wheezes Gastrointestinal: Yes: Normal Bowel Sounds, Abdomen, Obese. No: Splenomegaly ...Rectal Exam: Yes: Other (loose stool) Renal/: Yes: Chapman Present, Vaginal Bleeding (appears to be from swollen area and not internal), Other (very swollen L>R labial fold with erythema, no clear indurated pocket mild L LAD inguinal) Breast(s): Yes: WNL Musculoskeletal: Yes: WNL Extremities: Yes: Other (large R thigh swelling with mild redness, fluid pocket noted. Few dark round lesion juncture of pannus and groin pt relates long standing there is No crepitus felt at thigh fluid pocket, there is some blanching but no bullae or purpura.) Edema: Yes Edema: LLE: Trace, RLE: Trace Peripheral Pulses WNL: Yes Integumentary: Yes: WNL, Erythema Neurological: Yes: Alert, Oriented, Cran Nerves II-XII Intact ...Motor Strength: WNL Psychiatric: Yes: WNL Labs: CBC, BMP 03/15/17 18:56 03/15/17 18:56 Imaging - Results Chest X-ray: Image Reviewed (no infiltrate, clear) Cat Scan: Pending Problem List - Problems (1) Demand ischemia Code(s): I24.8 - OTHER FORMS OF ACUTE ISCHEMIC HEART DISEASE (2) Hyperglycemia due to type 2 diabetes mellitus Code(s): E11.65 - TYPE 2 DIABETES MELLITUS WITH HYPERGLYCEMIA Qualifiers: (3) Hypotension Code(s): I95.9 - HYPOTENSION, UNSPECIFIED (4) Left genital labial abscess Code(s): N76.4 - ABSCESS OF VULVA (5) Persistent atrial fibrillation with rapid ventricular response Code(s): I48.1 - PERSISTENT ATRIAL FIBRILLATION (6) Sepsis Code(s): A41.9 - SEPSIS, UNSPECIFIED ORGANISM (7) Status post coronary artery stent placement Code(s): Z95.5 - PRESENCE OF CORONARY ANGIOPLASTY IMPLANT AND GRAFT Assessment/Plan PULM/CCM Seen and examined in ICU A/ 56 y/o woman with DM, HTN, CAD s/p stent x 2 with 3 months of vaginal labial swelling and minor bleeding now with septic shock likely from cellulitis, infected bartholin gland, with evidence of deep tissue involvement in R upper thigh c/f necrotizing fascitits . P/ cellulitis/thigh abcess -surgical consult called, Dr Ricardo barr ---> spoke to Dr Allen (primary/ hospitalist), they discussed possible OR tonight, deferred -site marked, if visible extension in next hour needs OR tonight -abd/pelvic and thigh imaging done w/o contrast due to CIARAN awaiting read -potato peeler consult to see in am -npo septic shock -cont large volume resusitation, 30cc/kg -broad spectrum abx converage with double gm neg and vanco -central access, todd placed in ICU -potato peeler consult to see in am -trend lactate. NSTEMI/AFib RVR - follow troponin x 3 -hold A/c for now, give Vit K now for possible surgery tonight recheck INR in am -hold all antiHTN, if still RVR after volume would give amio bolus/load Hyperglycemia -glucose control -insulin gtt if difficult to control with SQ Prophy -DVT and GI prophy -ICU monitoring Umberto Lowry ACNP 6950 45min CCT
[2017-03-15] MEDS ORDERED: INSULIN SLIDING SCALE (NOVOLOG) 1 VIAL SQ SCH ×2 (22:00→22:30)
[2017-03-15 22:30] LABS: ARTERIAL BLD GAS O2 SATURATION 97.9 % (90-98.9); ARTERIAL BLOOD GAS BASE EXCESS -9.5 meq/l (-2-2); ARTERIAL BLOOD GAS PO2 98.6 mmHg (80-100); ARTERIAL BLOOD GAS pH 7.41 (7.35-7.45)
[2017-03-15] MEDS ORDERED: MEROPENEM 500 MG in DEXTROSE 5%-WATER - 100 ML IVPB SCH (22:30)
[2017-03-15] MEDS ORDERED: MEROPENEM 500 MG VIAL (RESTRICTED TO ID) IVPB SCH (22:30)
[2017-03-15 22:39] LABS: ALLENS TEST POSITIVE; METHEMOGLOBIN 0.4 % (0.4-1.5)
[2017-03-15 22:40] LABS: ART PUNCT SITE RIGHT RADIAL; LPM/O2% 2L; PT. ON O2? YES; TYPE OF O2 NASAL
[2017-03-15 22:42] LABS: ARTERIAL BLOOD GAS HCO3 13.7 meq/L (22-26)
[2017-03-15] MEDS: INSULIN DETEMIR 100 UNITS/ML MDV SQ SCH (22:42)
[2017-03-15] MEDS: PHENYLEPHRINE HCL 20,000 MCG in SODIUM CHLORIDE 248 ML IVPB SCH (22:44)
[2017-03-15] MEDS: CLINDAMYCIN 900 MG PREMIX IVPB 50 ML IVPB SCH (22:46)
[2017-03-15] MEDS ORDERED: NOREPINEPHRINE BITARTRATE 4 MG/4 ML ML IV ONE (23:06)
--- NOTE | 2017-03-15 23:24 | PROC ---
Central Line Insertion Indication: CVP Monitoring, Sepsis, Vasopressor Risks and Benefits Explained: Yes Consent on Chart: Yes Central Line: Triple Lumen Catheter Anesthesia: 1% Lidocaine Sterile Technique: Yes Ultrasound Guided Assistance: Yes Position: Right Internal Jugular Post Insertion: Yes: Bilateral Breath Sounds, Chest X-Ray Ordered Sterile Dressing Applied: Yes
[2017-03-15] MEDS ORDERED: SODIUM CHLORIDE 0.9% 1000 ML INFUS.BAG IV ONE (23:40)
[2017-03-15] MEDS ORDERED: PHYTONADIONE 10 MG/1 ML AMP IVPB ONE (23:42)
[2017-03-15] MEDS ORDERED: NOREPINEPHRINE BITARTRATE 8,000 MCG in DEXTROSE 5%-WATER - 492 ML IV SCH ×2 (23:45→23:53)
[2017-03-15 23:53] VITALS: BMI 39.7
[2017-03-15 23:57] LABS: CALCIUM 7.2 mg/dL (8.5-10.1); COCKROFT - GAULT 57.8; CREATININE 1.8 mg/dL (0.55-1.02)
[2017-03-16 00:05] LABS: MCH 25.8 pg (25.7-33.7); MCHC 31.9 g/dl (32.0-36.0); MEAN CELL VOLUME 80.9 fl (80-96); MEAN PLT VOLUME 8.4 fl (7.5-11.1); PLATELET COUNT 380 K/MM3 (134-434); RDW 16.9 % (11.6-15.6); WHITE BLOOD COUNT 21.8 K/mm3 (4.0-10.0)
[2017-03-16] MEDS: KCL 10 MEQ IVPB 100 ML IVPB SCH ×2 (00:15→01:15)
[2017-03-16] MEDS ORDERED: LIDOCAINE 1%/EPI 1:100000 (20 ML MULTI DOSE VIAL) INF ONE (01:58)
[2017-03-16 02:04] LABS: ANISOCYTOSIS 1+; HYPOCHROMIA 1+; METAMYELOCYTE 9 % (0-2); PLATELET COMMENT2 NO CLOTTING DETECTED; PLATELET COMMENT3 FEW GIANT PLTS; PLATELET ESTIMATE ADEQUATE (NORMAL)
--- NOTE | 2017-03-16 02:07 | PN ---
Progress Note (short form) - Note Progress Note: surgery full procedure note dictated. 56f septic shock, dm, morbidly obese, with large right inguinal/medial thigh abscess. I&d done with 4 counter incisions and iodoform bridges placed between incisions. 200 ml anaerobic pus drained. no bleeding despite preop eloquis. Plan- irrigate 4 incisions daily. abx per id. f/u in 2-4 weeks for removal of iodoform bridges [phone]
[2017-03-16] MEDS ORDERED: OXYCODONE/APAP 5/325MG COMBO TABLET PO PRN (02:17)
[2017-03-16] MEDS: CLINDAMYCIN 900 MG PREMIX IVPB 50 ML IVPB SCH ×2 (02:21→10:56)
[2017-03-16] MEDS ORDERED: ACETAMINOPHEN 325 MG TABLET (FP) PO PRN (02:24)
[2017-03-16] MEDS: oxyCODONE HCL 5 MG TABLET PO PRN (02:28)
[2017-03-16] MEDS: MEROPENEM 500 MG in DEXTROSE 5%-WATER - 100 ML IVPB SCH ×2 (02:31→10:56)
[2017-03-16] MEDS ORDERED: INSULIN (NOVOLOG) ASPART 100 UNITS/ML 10ML VIAL SQ ONE (02:40)
[2017-03-16] MEDS ORDERED: LACTATED RINGERS SOLUTION 1000 ML INFUS.BAG IV ONE (05:34)
[2017-03-16] MEDS ORDERED: SODIUM CHLORIDE 0.9% 1000 ML INFUS.BAG IV ONE (05:36)
--- NOTE | 2017-03-16 05:40 | PROC ---
Procedure Note Procedure: Arterial Line: Consent obtained and placed in chart R forearm prepped and drapped in usual fashion. Local anesthesia with 1% lidocaine 2cc. Catheter placed over wire using seldinger technique, + pulsitile blood return. Arterial wave form confirmed placement. Sutured in place. [id number]
[2017-03-16 06:10] LABS: MCH 25.6 pg (25.7-33.7); MCHC 31.9 g/dl (32.0-36.0); MEAN CELL VOLUME 80.1 fl (80-96); MEAN PLT VOLUME 8.3 fl (7.5-11.1); PLATELET COUNT 342 K/MM3 (134-434); WHITE BLOOD COUNT 26.8 K/mm3 (4.0-10.0)
[2017-03-16] MEDS ORDERED: INSULIN (NOVOLOG) ASPART 100 UNITS/ML 10ML VIAL ONE (06:37)
[2017-03-16] MEDS: INSULIN SLIDING SCALE (NOVOLOG) 1 VIAL SQ SCH ×3 (06:38→16:54)
[2017-03-16] MEDS ORDERED: NOREPINEPHRINE BITARTRATE 4 MG/4 ML ML IV ONE (06:48)
--- NOTE | 2017-03-16 06:55 | CON.OBG ---
Consult Consult Specialty:: physician's assistant Reason for Consultation:: ? labial mass, pain, leg sweling - History of Present Illness History of Present Illness: 56 y/o with multiple medical problems admitted with SS and right leg inguinal swelling. She has a h/o suppurative adenitis. Called because of labial mas. Prelim ct shows inguinal mass, hematoma with probable extenstion to labia. The labia does has a suppurativa appearance. TX with soaks, conservative measures and abx if needed. Rarely, the affected area is incised or excised. - Past Medical History Cardio/Vascular: Yes: AFIB, CAD, HTN, [place] Musculoskeletal: Yes: Osteoarthritis - Past Surgical History Past Surgical History: Yes: Stent Additional Surgical History: L total knee - Alcohol/Substance Use Hx Alcohol Use: Yes (occassionally) - Smoking History Smoking history: Never smoked Have you smoked in the past 12 months: No - Social History Usual Living Arrangement: With Spouse ADL: Independent Home Medications - Allergies Allergies/Adverse Reactions: Allergies Allergy/AdvReac Type Severity Reaction Status Date / Time Penicillins Allergy Verified 03/15/17 18:29 - Home Medications Home Medications: Ambulatory Orders Apixaban [Eliquis -] 5 mg PO BID 11/13/16 Atorvastatin Ca [Lipitor] 20 mg PO HS 11/13/16 Cholecalciferol (Vitamin D3) [Vitamin D3 -] 1,000 unit PO DAILY 11/13/16 Cyanocobalamin (Vitamin B-12) [Vitamin B-12] 1,000 mcg PO DAILY 11/13/16 Digoxin [Lanoxin -] 0.25 mg PO DAILY 11/13/16 Lisinopril [Prinivil -] 40 mg PO DAILY 11/13/16 Metoprolol Tartrate [Lopressor] 100 mg PO BID 11/13/16 Insulin Sliding Scale [Novolog Vial Sliding Scale -] 1 vial SQ ACHS #100 units 11/16/16 Diltiazem Cd [Cardizem Cd -] 120 mg PO DAILY 03/15/17 Insulin (Levemir) [Levemir Vial] 15 units SQ HS 03/15/17 Metformin HCl 500 mg PO BID 03/15/17 Physical Exam-HEEL SCORER Vital Signs: Vital Signs Temperature 97.9 F 03/16/17 06:00 Pulse Rate 85 03/16/17 06:00 Respiratory Rate 20 03/16/17 06:00 Blood Pressure 112/72 03/16/17 06:00 O2 Sat by Pulse Oximetry (%) 100 03/16/17 00:09 Assessment/Plan suppurativa of milly boyce as described and will need follow up
[2017-03-16 06:56] LABS: CALCIUM 7.3 mg/dL (8.5-10.1); MAGNESIUM 1.5 mg/dL (1.8-2.4)
[2017-03-16] MEDS: NOREPINEPHRINE BITARTRATE 8,000 MCG in SODIUM CHLORIDE 492 ML IV SCH (07:00)
[2017-03-16 07:02] LABS: BILIRUBIN,TOTAL 0.5 mg/dL (0.2-1.0); COCKROFT - GAULT 57.8; CREATININE 1.8 mg/dL (0.55-1.02); PHOSPHOROUS 3.1 mg/dL (2.5-4.9); TOT PROT 5.6 g/dl (6.4-8.2); TROPONIN I 0.25 ng/ml (0.00-0.05)
--- NOTE | 2017-03-16 07:33 | PN ---
Physical Exam: SUBJECTIVE: Patient seen and examined in ICU at bed side. feels much better than yesterday , patient reports chills in Rig[place] denies cp, sob, n/v/ reports diarrhea fever T max 105.7, hypotensive then resolved, patient latter put back on pressors. OBJECTIVE: Vital Signs Period Temp Pulse Resp BP Sys/Mao Pulse Ox Last 24 Hr 97.9 F-102.1 F 85-138 20-30 75-112/54-77 98-100 GENERAL: AAOx3 Rigors HEENT: atraumatic, EOMI, moist membranes LUNGS: Breath sounds equal, clear to auscultation bilaterally. No wheezes, and no crackles. No accessory muscle use. HEART: Irregularly Irregular, no murmurs ABDOMEN: Soft, nontender, not distended, normoactive bowel sounds, MUSCULOSKELETAL: No CVA tenderness. LOWER EXTREMITIES: 1+ pulses, warm, well-perfused. No calf tenderness. No peripheral edema. R medial thigh blood soaked dressing, NEUROLOGICAL: Normal speech. Gait not observed. PSYCHIATRIC: Cooperative. Good eye contact. Appropriate mood and affect. SKIN: lesions as above : four incisions draining serosanguineous fluid, L labial swelling with out fluctuance or drainage. Laboratory Results - last 24 hr 03/15/17 03/15/17 03/15/17 21:20 22:20 22:22 WBC RBC Hgb Hct MCV MCHC RDW Plt Count MPV Neutrophils % Lymphocytes % Monocytes % Band Neutrophils Metamyelocytes Platelet Estimate Platelet Comment Hypochromic-Microcytic Anisocytosis Puncture Site Right radial ABG pH 7.41 ABG pCO2 at Pt Temp 22.2 L ABG pO2 at Pt Temp 98.6 ABG HCO3 13.7 L* ABG O2 Sat (Measured) 97.9 ABG O2 Content 12.1 L ABG Base Excess -9.5 L Yoel Test Positive Carboxyhemoglobin 1.7 Methemoglobin 0.4 O2 Delivery Device Nasal Oxygen Flow Rate 2l PEEP 0.0 Sodium Potassium Chloride Carbon Dioxide Anion Gap BUN Creatinine Creat Clearance w eGFR POC Glucometer [phone] Random Glucose Lactic Acid 5.790 H* Calcium Phosphorus Magnesium Total Bilirubin AST ALT Alkaline Phosphatase Creatine Kinase Troponin I Total Protein Albumin Urine Creatinine 03/15/17 03/15/17 03/16/17 23:00 23:00 00:25 WBC 21.8 H D RBC 3.17 L Hgb 8.2 L D Hct 25.6 L D MCV 80.9 MCHC 31.9 L RDW 16.9 H Plt Count 380 MPV 8.4 D Neutrophils % 60.0 Lymphocytes % 4.0 L D Monocytes % 2.0 L D Band Neutrophils 25.0 H Metamyelocytes 9 H D Platelet Estimate Adequate Platelet Comment No clotting detected Hypochromic-Microcytic 1+ Anisocytosis 1+ Puncture Site ABG pH ABG pCO2 at Pt Temp ABG pO2 at Pt Temp ABG HCO3 ABG O2 Sat (Measured) ABG O2 Content ABG Base Excess Yoel Test Carboxyhemoglobin Methemoglobin O2 Delivery Device Oxygen Flow Rate PEEP Sodium 133 L Potassium 3.1 L D Chloride 100 Carbon Dioxide 15 L Anion Gap 18 H BUN 35 H Creatinine 1.8 H Creat Clearance w eGFR POC Glucometer Random Glucose 238 H D Lactic Acid 2.096 H* Calcium 7.2 L Phosphorus Magnesium Total Bilirubin AST ALT Alkaline Phosphatase Creatine Kinase Troponin I Total Protein Albumin Urine Creatinine 03/16/17 03/16/17 03/16/17 02:00 05:20 05:20 WBC 26.8 H RBC 3.18 L Hgb 8.1 L Hct 25.5 L MCV 80.1 MCHC 31.9 L RDW 17.0 H Plt Count 342 MPV 8.3 Neutrophils % Y Lymphocytes % Y Monocytes % Band Neutrophils Metamyelocytes Platelet Estimate Platelet Comment Hypochromic-Microcytic Anisocytosis Puncture Site ABG pH ABG pCO2 at Pt Temp ABG pO2 at Pt Temp ABG HCO3 ABG O2 Sat (Measured) ABG O2 Content ABG Base Excess Yoel Test Carboxyhemoglobin Methemoglobin O2 Delivery Device Oxygen Flow Rate PEEP Sodium 130 L Potassium 3.9 D Chloride 100 Carbon Dioxide 14 L Anion Gap 16 BUN 36 H Creatinine 1.8 H Creat Clearance w eGFR 29.21 POC Glucometer Random Glucose 341 H* D Lactic Acid Calcium 7.3 L Phosphorus 3.1 Magnesium 1.5 L Total Bilirubin 0.5 D AST 47 H D ALT 29 D Alkaline Phosphatase 100 D Creatine Kinase 468 H D Troponin I 0.25 H Total Protein 5.6 L Albumin 2.0 L Urine Creatinine 71.9 03/16/17 05:20 WBC RBC Hgb Hct MCV MCHC RDW Plt Count MPV Neutrophils % Lymphocytes % Monocytes % Band Neutrophils Metamyelocytes Platelet Estimate Platelet Comment Hypochromic-Microcytic Anisocytosis Puncture Site ABG pH ABG pCO2 at Pt Temp ABG pO2 at Pt Temp ABG HCO3 ABG O2 Sat (Measured) ABG O2 Content ABG Base Excess Yoel Test Carboxyhemoglobin Methemoglobin O2 Delivery Device Oxygen Flow Rate PEEP Sodium Potassium Chloride Carbon Dioxide Anion Gap BUN Creatinine Creat Clearance w eGFR POC Glucometer Random Glucose Lactic Acid 1.964 Calcium Phosphorus Magnesium Total Bilirubin AST ALT Alkaline Phosphatase Creatine Kinase Troponin I Total Protein Albumin Urine Creatinine Active Medications Generic Name Dose Route Start Last Admin Trade Name Freq PRN Reason Stop Dose Admin Acetaminophen 1,000 mg 03/16/17 00:02 Tylenol - PO Q6H PRN FEVER OR PAIN Acetaminophen 650 mg 03/16/17 02:24 Tylenol - PO Q8H PRN FEVER OR PAIN Phenylephrine HCl 20,000 mcg/ 250 mls @ 75 mls/hr 03/15/17 21:00 03/16/17 02:50 Sodium Chloride IVPB 0 mcg/min ASDIR SILVA Titration Protocol 100 MCG/MIN Sodium Chloride 1,000 mls @ 125 mls/hr 03/15/17 21:00 03/15/17 22:48 Normal Saline - IV 125 mls/hr ASDIR SILVA Administration Clindamycin Phosphate 50 mls @ 100 mls/hr 03/15/17 22:30 03/16/17 02:21 Cleocin 900 Mg Premix Ivpb - IVPB 100 mls/hr Q8H-IV SILVA Administration Meropenem 500 mg/ Dextrose 100 mls @ 400 mls/hr 03/16/17 02:00 03/16/17 02:31 IVPB 400 mls/hr Q8H-IV SILVA Administration Norepinephrine Bitartrate 8, 500 mls @ 18.75 mls/hr 03/15/17 23:53 03/16/17 01: 45 000 mcg/ Dextrose IV 15 mcg/min ASDIR SILVA Titration Protocol 5 MCG/MIN Insulin Aspart 1 vial 03/16/17 07:00 03/16/17 06:38 Novolog Vial Sliding Scale - SQ 10 units TIDAC SILVA Administration Protocol Insulin Detemir 15 units 03/15/17 22:00 03/15/17 22:42 Levemir Vial SQ 15 units HS SILVA Administration Oxycodone HCl 10 mg 03/16/17 02:24 03/16/17 02:28 Roxicodone - PO 10 mg Q8H PRN Administration PAIN ASSESSMENT/PLAN: 56 year old female with PMH of A-FIB on eliquis, Stents x2, HTN/HLD/DM who is sent to ED for altered mental status. Found to be in septic shock. s/p incision and drainage of right thigh abscess. #Septic Shock, secondary to right upper thigh abscess (Mild UTI is also noted on Urinalysis, and may be contributing) s/p incision and drainage of right thigh abscess. -Meropenem, Clindamycin, as per disucssion with ID (Vancomycin 1g given in ED) -IVF NS@150 cc/hr -back on pressors, goal MAP>60-now -Lactic acid elevated, will trend #Suppurative Hydrenitis -continue with current antibiotic regimen -WOOD POLISHER consulted -ID consulted -pain management #Acute Kidney Injury most likely 2/2 pre-renal azotemia/hypotension/ septic shock -IVF being administered -trend in AM #Diabetes -Levemir -ISS -FS BGM q4h for now #Atrial Fibrillation, w RVR -hold BB and antihypertensive -holding eliquis at present #Elevated Tropoin -highly unlikely ACS, likely do to sepsis -will trend overnight -EKG reviewed & without any ST or T-wave changes Prophylaxis -SCD's -no PPI indicated -IVF NS@125cc/hr -monitor electrolytes -Diabetic low sodium diet dispo: Monitor in ICU Visit type - Emergency Visit Emergency Visit: Yes ED Registration Date: 03/15/17 Care time: The patient presented to the Emergency Department on the above date and was hospitalized for further evaluation of their emergent condition. - New Patient This patient is new to me today: Yes Date on this admission: 03/15/17 - Critical Care Critical Care patient: Yes Total Critical Care Time (in minutes): 53 Critical Care Statement: The care of this patient involved high complexity decision making to prevent further life threatening deterioration of the patient 's condition and/or to evalute & treat vital organ system(s) failure or risk of failure.
[2017-03-16] MEDS ORDERED: MAGNESIUM SULF 50% (8.12 MEQ/2 ML-1 GM VIAL) IVPB ONE (08:30)
--- NOTE | 2017-03-16 09:10 | CONSULT ---
Consultation: REQUESTING PROVIDER: CONSULT REQUEST: We have been asked to medically evaluate this patient for ( specify). HISTORY OF PRESENT ILLNESS: 56 year old female with a PMH of A.Fib. on Eliquis, CAD, s/p cardiac stents, DM type 2, h/o of leg abscess, h/o of knee replacement B/l, who presented yesterday to ED with AMS. The pt was at home when suddenly felt chills. According to her she was confused. She states that she felt good yesterday morning but started having mild watery diarrhea, non bloody. She was admitted to ICU for septic shock due to right thigh abscess. She was found to have temperature 105.9F, A.Fib with RVR, low BP, tachycardia, elevated LA, WBC with bandemia and troponins. She was given Dopamine, Clindamycin and Vancomycin. Overnight her abscess was drained. Currently the pt is felling better, she doesn't have any complaints. She denies leg pain, fever, chills. SOB , chest pain, abdominal pain, cough. She denies dysuria, increased frequency, vaginal discharge or bleeding. She denies sick contacts, recent travel, injury/ scratch to her thigh or groin. She states that had abscess in the right thigh in the past. REVIEW OF SYSTEMS: CONSTITUTIONAL: Absent: fever, chills, diaphoresis, generalized weakness, malaise, loss of appetite, weight change HEENT: Absent: rhinorrhea, nasal congestion, throat pain, throat swelling, difficulty swallowing, mouth swelling, ear pain, eye pain, visual changes CARDIOVASCULAR: Absent: chest pain, syncope, palpitations, irregular heart rate, lightheadedness , peripheral edema RESPIRATORY: Absent: cough, shortness of breath, dyspnea with exertion, orthopnea, wheezing, stridor, hemoptysis GASTROINTESTINAL: Absent: abdominal pain, abdominal distension, nausea, vomiting, diarrhea, constipation, melena, hematochezia GENITOURINARY: Absent: dysuria, frequency, urgency, hesitancy, hematuria, flank pain, genital pain MUSCULOSKELETAL: Absent: myalgia, arthralgia, joint swelling, back pain, neck pain SKIN: Absent: rash, itching, pallor NEUROLOGIC: Absent: headache, focal weakness or paresthesias, dizziness, unsteady gait, seizure, mental status changes, bladder or bowel incontinence PSYCHIATRIC: Absent: anxiety, depression PHYSICAL EXAMINATION Vital Signs - 24 hr 03/15/17 03/15/17 03/15/17 20:40 21:00 23:45 Temperature 102.1 F H 101.7 F H 99.5 F Pulse Rate 108 H Pulse Rate [ 128 H 138 H Apical] Respiratory 30 H 28 H 28 H Rate Blood Pressure 88/65 Blood Pressure 87/56 75/55 [Left Arm] O2 Sat by Pulse 98 99 Oximetry (%) 03/15/17 03/16/17 03/16/17 23:56 00:00 00:09 Temperature Pulse Rate 114 H 121 H Pulse Rate [ Apical] Respiratory Rate Blood Pressure 88/54 99/77 Blood Pressure [Left Arm] O2 Sat by Pulse 100 Oximetry (%) 03/16/17 03/16/17 03/16/17 02:00 04:00 06:00 Temperature 100.1 F H 99.2 F 97.9 F Pulse Rate 117 H 102 H 85 Pulse Rate [ Apical] Respiratory 26 H 24 20 Rate Blood Pressure 95/56 91/58 112/72 Blood Pressure [Left Arm] O2 Sat by Pulse Oximetry (%) GENERAL: Awake, alert, and fully oriented, in no acute distress. HEAD: Normal with no signs of trauma. EYES: Pupils equal, round and reactive to light, extraocular movements intact, sclera anicteric, conjunctiva clear. No lid lag. EARS, NOSE, THROAT: Ears normal, nares patent, oropharynx clear without exudates. Moist mucous membranes. NECK: Normal range of motion, supple without lymphadenopathy, JVD, or masses. LUNGS: Breath sounds equal, clear to auscultation bilaterally. No wheezes, and no crackles. No accessory muscle use. HEART: Regular rate and rhythm, normal S1 and S2 without murmur, rub or gallop. ABDOMEN: Soft, nontender, not distended, normoactive bowel sounds, no guarding, no rebound, no masses. No hepatomegaly or splenomegaly. MUSCULOSKELETAL: Normal range of motion at all joints. No bony deformities or tenderness. No CVA tenderness. UPPER EXTREMITIES: 2+ pulses, warm, well-perfused. No cyanosis. No clubbing. Cap refill <2 seconds. No peripheral edema. LOWER EXTREMITIES: 2+ pulses, warm, well-perfused. No calf tenderness. No peripheral edema, mild swelling in upper thigh and groin, small incision draining pink fluid, no crepitus, mild tenderness to upper thigh. NEUROLOGICAL: No facial asymmetry. Normal speech. Normal gait. PSYCHIATRIC: Cooperative. Good eye contact. Appropriate mood and affect. SKIN: Warm, dry, normal turgor, no rashes or lesions noted. Laboratory Results - last 24 hr 03/15/17 03/15/17 03/15/17 21:20 22:20 22:22 WBC RBC Hgb Hct MCV MCHC RDW Plt Count MPV Neutrophils % Lymphocytes % Monocytes % Band Neutrophils Metamyelocytes Platelet Estimate Platelet Comment Hypochromic-Microcytic Anisocytosis Puncture Site Right radial ABG pH 7.41 ABG pCO2 at Pt Temp 22.2 L ABG pO2 at Pt Temp 98.6 ABG HCO3 13.7 L* ABG O2 Sat (Measured) 97.9 ABG O2 Content 12.1 L ABG Base Excess -9.5 L Yoel Test Positive Carboxyhemoglobin 1.7 Methemoglobin 0.4 O2 Delivery Device Nasal Oxygen Flow Rate 2l PEEP 0.0 Sodium Potassium Chloride Carbon Dioxide Anion Gap BUN Creatinine Creat Clearance w eGFR POC Glucometer [phone] Random Glucose Lactic Acid 5.790 H* Calcium Phosphorus Magnesium Total Bilirubin AST ALT Alkaline Phosphatase Creatine Kinase CK-MB (CK-2) Troponin I Total Protein Albumin Urine Creatinine 03/15/17 03/15/17 03/16/17 23:00 23:00 00:25 WBC 21.8 H D RBC 3.17 L Hgb 8.2 L D Hct 25.6 L D MCV 80.9 MCHC 31.9 L RDW 16.9 H Plt Count 380 MPV 8.4 D Neutrophils % 60.0 Lymphocytes % 4.0 L D Monocytes % 2.0 L D Band Neutrophils 25.0 H Metamyelocytes 9 H D Platelet Estimate Adequate Platelet Comment No clotting detected Hypochromic-Microcytic 1+ Anisocytosis 1+ Puncture Site ABG pH ABG pCO2 at Pt Temp ABG pO2 at Pt Temp ABG HCO3 ABG O2 Sat (Measured) ABG O2 Content ABG Base Excess Yoel Test Carboxyhemoglobin Methemoglobin O2 Delivery Device Oxygen Flow Rate PEEP Sodium 133 L Potassium 3.1 L D Chloride 100 Carbon Dioxide 15 L Anion Gap 18 H BUN 35 H Creatinine 1.8 H Creat Clearance w eGFR POC Glucometer Random Glucose 238 H D Lactic Acid 2.096 H* Calcium 7.2 L Phosphorus Magnesium Total Bilirubin AST ALT Alkaline Phosphatase Creatine Kinase CK-MB (CK-2) Troponin I Total Protein Albumin Urine Creatinine 03/16/17 03/16/17 03/16/17 02:00 05:20 05:20 WBC 26.8 H RBC 3.18 L Hgb 8.1 L Hct 25.5 L MCV 80.1 MCHC 31.9 L RDW 17.0 H Plt Count 342 MPV 8.3 Neutrophils % Y Lymphocytes % Y Monocytes % Band Neutrophils Metamyelocytes Platelet Estimate Platelet Comment Hypochromic-Microcytic Anisocytosis Puncture Site ABG pH ABG pCO2 at Pt Temp ABG pO2 at Pt Temp ABG HCO3 ABG O2 Sat (Measured) ABG O2 Content ABG Base Excess Yoel Test Carboxyhemoglobin Methemoglobin O2 Delivery Device Oxygen Flow Rate PEEP Sodium 130 L Potassium 3.9 D Chloride 100 Carbon Dioxide 14 L Anion Gap 16 BUN 36 H Creatinine 1.8 H Creat Clearance w eGFR 29.21 POC Glucometer Random Glucose 341 H* D Lactic Acid Calcium 7.3 L Phosphorus 3.1 Magnesium 1.5 L Total Bilirubin 0.5 D AST 47 H D ALT 29 D Alkaline Phosphatase 100 D Creatine Kinase 468 H D CK-MB (CK-2) 8.016 H Troponin I 0.25 H Total Protein 5.6 L Albumin 2.0 L Urine Creatinine 71.9 03/16/17 05:20 WBC RBC Hgb Hct MCV MCHC RDW Plt Count MPV Neutrophils % Lymphocytes % Monocytes % Band Neutrophils Metamyelocytes Platelet Estimate Platelet Comment Hypochromic-Microcytic Anisocytosis Puncture Site ABG pH ABG pCO2 at Pt Temp ABG pO2 at Pt Temp ABG HCO3 ABG O2 Sat (Measured) ABG O2 Content ABG Base Excess Yoel Test Carboxyhemoglobin Methemoglobin O2 Delivery Device Oxygen Flow Rate PEEP Sodium Potassium Chloride Carbon Dioxide Anion Gap BUN Creatinine Creat Clearance w eGFR POC Glucometer Random Glucose Lactic Acid 1.964 Calcium Phosphorus Magnesium Total Bilirubin AST ALT Alkaline Phosphatase Creatine Kinase CK-MB (CK-2) Troponin I Total Protein Albumin Urine Creatinine Active Medications Generic Name Dose Route Start Last Admin Trade Name Freq PRN Reason Stop Dose Admin Acetaminophen 1,000 mg 03/16/17 00:02 Tylenol - PO Q6H PRN FEVER OR PAIN Acetaminophen 650 mg 03/16/17 02:24 Tylenol - PO Q8H PRN FEVER OR PAIN Phenylephrine HCl 20,000 mcg/ 250 mls @ 75 mls/hr 03/15/17 21:00 03/16/17 02:50 Sodium Chloride IVPB 0 mcg/min ASDIR SILVA Titration Protocol 100 MCG/MIN Sodium Chloride 1,000 mls @ 125 mls/hr 03/15/17 21:00 03/15/17 22:48 Normal Saline - IV 125 mls/hr ASDIR SILVA Administration Clindamycin Phosphate 50 mls @ 100 mls/hr 03/15/17 22:30 03/16/17 02:21 Cleocin 900 Mg Premix Ivpb - IVPB 100 mls/hr Q8H-IV SILVA Administration Meropenem 500 mg/ Dextrose 100 mls @ 400 mls/hr 03/16/17 02:00 03/16/17 02:31 IVPB 400 mls/hr Q8H-IV SILVA Administration Norepinephrine Bitartrate 8, 500 mls @ 18.75 mls/hr 03/16/17 08:16 000 mcg/ Sodium Chloride IV ASDIR SILVA Protocol 5 MCG/MIN Insulin Aspart 1 vial 03/16/17 07:00 03/16/17 06:38 Novolog Vial Sliding Scale - SQ 10 units TIDAC SILVA Administration Protocol Insulin Detemir 15 units 03/15/17 22:00 03/15/17 22:42 Levemir Vial SQ 15 units HS SILVA Administration Oxycodone HCl 10 mg 03/16/17 02:24 03/16/17 02:28 Roxicodone - PO 10 mg Q8H PRN Administration PAIN ASSESSMENT/PLAN: 56 y/o lady with h/o IDDM, HTN, CAD s/p stenting, h/o of thigh abscess, who presented with AMS, she was found in septic shock due to abscess in right leg. Septic shock due to abscess: -the pt has allergy to PCN: rash and hives, we will continue Aztreonam 1 g Q12H and Metronidazole 500 mg Q8H -check Vancomycin levels and adjust the dose -f/u CRP, ESR -f/u surgery recommendation for drainage -blood cultures: No growth, waiting for final report -wound culture official report pending -continue IVF -monitor VS -continue pressors CIARAN -avoid nephrotoxic substances -IVF IDDM -ISS, -BGMs A.Fib -hold Eliquis due to h/o of vaginal bleeding-pt is currently denies hyponatremia -monitor and continue NS elevated troponins -trend Dispo: We will continue to follow the patient. Thank you for this consultative opportunity. Problem List - Problems (1) Abscess of leg Code(s): L02.419 - CUTANEOUS ABSCESS OF LIMB, UNSPECIFIED (2) Altered mental state Code(s): R41.82 - ALTERED MENTAL STATUS, UNSPECIFIED (3) Coronary artery disease Code(s): I25.10 - ATHSCL HEART DISEASE OF [place] CORONARY ARTERY W/O ANG PCTRS Qualifiers: Coronary Disease-Associated Artery/Lesion type: [place] artery [place] vs. transplanted heart: [place] heart Associated angina: without angina Qualified Code(s): I25.10 - Atherosclerotic heart disease of [place] coronary artery without angina pectoris (4) Dehydration Code(s): E86.0 - DEHYDRATION (5) Diabetes mellitus type 2 in obese Code(s): E11.9 - TYPE 2 DIABETES MELLITUS WITHOUT COMPLICATIONS E66.9 - OBESITY, UNSPECIFIED (6) Hidradenitis suppurativa Code(s): L73.2 - HIDRADENITIS SUPPURATIVA (7) Hypertension Code(s): I10 - ESSENTIAL (PRIMARY) HYPERTENSION Qualifiers: Hypertension type: essential hypertension Qualified Code(s): I10 - Essential (primary) hypertension (8) Sepsis Code(s): A41.9 - SEPSIS, UNSPECIFIED ORGANISM Visit type - Emergency Visit Emergency Visit: Yes ED Registration Date: 03/15/17 Care time: The patient presented to the Emergency Department on the above date and was hospitalized for further evaluation of their emergent condition. - New Patient This patient is new to me today: Yes Date on this admission: 03/16/17 - Critical Care Critical Care patient: Yes Total Critical Care Time (in minutes): 45 Critical Care Statement: The care of this patient involved high complexity decision making to prevent further life threatening deterioration of the patient 's condition and/or to evalute & treat vital organ system(s) failure or risk of failure.
[2017-03-16 09:15] LABS: TROPONIN I 0.33 ng/ml (0.00-0.05)
--- NOTE | 2017-03-16 09:52 | PN ---
Teaching Attending Note Name of Resident: Serene Langford ATTENDING PHYSICIAN STATEMENT I saw and evaluated the patient. I reviewed the resident's note and discussed the case with the resident. I agree with the resident's findings and plan as documented. SUBJECTIVE:Admitted diagnosis of sepsis skin source right upper thigh no erythema crepitance in this diabetic female on insulin OBJECTIVE:Thigh now open with copious drainage no redness Foul smelling drainage per surgery ASSESSMENT AND PLAN: Sepsis syndrome Large abscess now drained Previous Staph auresus Dec MSSA Atrial fibrillation on Eliquis Plan Continue Vancomycin and Zosyn pending cultures ESR CRP Problem List - Problems (1) Diabetes mellitus type 2 in obese Code(s): E11.9 - TYPE 2 DIABETES MELLITUS WITHOUT COMPLICATIONS E66.9 - OBESITY, UNSPECIFIED (2) Sepsis associated hypotension Code(s): A41.9 - SEPSIS, UNSPECIFIED ORGANISM (3) Abscess of leg Code(s): L02.419 - CUTANEOUS ABSCESS OF LIMB, UNSPECIFIED
--- NOTE | 2017-03-16 10:03 | OP ---
DATE OF OPERATION: 03/16/2017 PROCEDURE: Incision and drainage of right groin and right thigh abscess PREOPERATIVE DIAGNOSIS: Right groin abscess. Septic shock. POSTOPERATIVE DIAGNOSIS: Right groin abscess. Septic shock. SURGEON: Octaviano Silva DO VIOLIN RESTORER: No physician assistant certified. ANESTHESIA: Local. BRIEF HISTORY: This is a 56-year-old female admitted through the [facility] Emergency Room on Eliquis blood thinner for atrial fibrillation, known diabetes, recent bilateral knee replacements, presented in septic shock and was noted to have a large groin and thigh abscess communicated on CAT scan. Request was made for an emergency incision and drainage, despite the fact that the patient was on anti-coagulation. The patient was on pressors at the time of the procedure. Risks and benefits were explained to the patient who was alert and oriented x 3, including the risk of chronic wound, a disfiguring scar, of blood loss requiring blood transfusion, possibly of chronic pain and injury to nerve and numbness of her skin. PROCEDURE: The patient was placed in a supine position with her right leg in a frog-leg position. A timeout was done prior to the procedure. At this point, lidocaine was used to anesthetize the overlying skin. Approximately 20 mL of 1% with epinephrine. At this point, there were two sites where pus began draining out of the skin. These were connected, approximately 3 inches in size. At this point, approximately 200 mL of pus drained out. It was anaerobic in nature. It was sent to microbiology as culture. A finger was then placed. The incision was in the medial thigh, but the pocket tracked approximately 5 inches away to the lateral thigh. A counter incision was made along the right lateral thigh, which was able to be bridged using iodoform gauze to the medial incision. Both these incisions were actually superior to the inguinal ligament. The medial incision was able to track to a large pocket in the medial thigh. Two incisions were made lateral and medial along this pocket as well. More pus was drained, and iodoform bridges were placed between these two incisions and between the inguinal and thigh incision as well. At this point, approximately 1 liter of saline mixed with peroxide was used to deeply irrigate this large communicating abscess cavity. A dry dressing was then placed. Overall, the patient tolerated the procedure well. She remained on pressors and imipenem and clindamycin per ID at the end of the procedure. PLAN: The patient will be irrigated with saline daily. She will continue IV antibiotics for ID. The medical service will need to be vigilant for risk of infection of her prosthesis in her knees. She will follow with me in 2-4 weeks to be evaluated for removal of the iodoform bridges, which will keep her skin open to allow continued drainage. There was no evidence of fascial involvement or necrotizing fasciitis, and I suspect that she will respond well now that the abscess has been adequately drained. DO GAGANDEEP WOLFF/[id number]
[2017-03-16 10:06] LABS: METAMYELOCYTE 7 % (0-2); PLATELET ESTIMATE ADEQUATE (NORMAL)
--- NOTE | 2017-03-16 10:17 | EKG ---
Test Reason : Blood Pressure : / mmHG Vent. Rate : 175 BPM Atrial Rate : 144 BPM P-R Int : 000 ms QRS Dur : 068 ms QT Int : 264 ms P-R-T Axes : 000 -87 041 degrees QTc Int : 450 ms ATRIAL FIBRILLATION WITH RAPID VENTRICULAR RESPONSE LEFT AXIS DEVIATION LOW VOLTAGE QRS CANNOT RULE OUT ANTEROSEPTAL INFARCT (CITED ON OR BEFORE 13-NOV-2016) ABNORMAL ECG WHEN COMPARED WITH ECG OF 13-NOV-2016 23:51, VENT. RATE HAS INCREASED BY 66 BPM Confirmed by SUNSHINE MIMS MD ([id number]) on 03/16/2017 10:17:33 AM Referred By: Confirmed By:SUNSHINE MIMS MD
--- NOTE | 2017-03-16 10:41 | PN ---
Teaching Attending Note Name of Resident: Licha Olivares ATTENDING PHYSICIAN STATEMENT I saw and evaluated the patient. I reviewed the resident's note and discussed the case with the resident. I agree with the resident's findings and plan as documented. SUBJECTIVE: She feels "much better." OBJECTIVE: Vitals noted MAP currently 70 on low dose Norepinephrine Urine output has increased Last CVP 2 ASSESSMENT AND PLAN: Septic shock resolved Lactate downtrending Creatinine relatively unchanged Appreciate all ICU and eco industrial development consultant input and care Will continue IV antibiotics Despite elevated BNP (in setting of CIARAN, obesity and female gender), we feel she requires further fluid resuscitation Will bolus 500ml now and follow closely with plan for another 500ml later if tolerated TTE today Full details per resident note Critical Care Total Critical Care Time (in minutes): 30 Critical Care Statement: The care of this patient involved high complexity decision making to prevent further life threatening deterioration of the patient 's condition and/or to evalute & treat vital organ system(s) failure or risk of failure.
--- NOTE | 2017-03-16 11:11 | MSN ---
Progress Note (SOAP) - Subjective Chief Complaint: AMS History of Present Illness: Pt was alert and oriented x3 this morning. She has no complaints and feels considerably better after her thigh was drained. Denies colon/lightheadedness/f/c/n /v/abdominal pain. - Current Medications Current Medications: Active Medications Acetaminophen (Tylenol -) 1,000 mg PO Q6H PRN PRN Reason: FEVER OR PAIN Acetaminophen (Tylenol -) 650 mg PO Q8H PRN PRN Reason: FEVER OR PAIN Phenylephrine HCl 20,000 mcg/ (Sodium Chloride) 250 mls @ 75 mls/hr IVPB ASDIR SILVA; 100 MCG/MIN PRN Reason: Protocol Last Titration: 03/16/17 02:50 Dose: 0 mcg/min Sodium Chloride (Normal Saline -) 1,000 mls @ 125 mls/hr IV ASDIR SILVA Last Admin: 03/15/17 22:48 Dose: 125 mls/hr Norepinephrine Bitartrate 8, (000 mcg/ Sodium Chloride) 500 mls @ 18.75 mls/hr IV ASDIR SILVA; 5 MCG/MIN PRN Reason: Protocol Last Admin: 03/16/17 07:00 Dose: 18.75 mls/hr Aztreonam 1 gm/ Dextrose 50 mls @ 100 mls/hr IVPB BID SILVA PRN Reason: Protocol Metronidazole (Flagyl 500mg Premixed Ivpb -) 100 mls @ 100 mls/hr IVPB Q8H-IV SILVA Insulin Aspart (Novolog Vial Sliding Scale -) 1 vial SQ TIDAC SILVA PRN Reason: Protocol Last Admin: 03/16/17 06:38 Dose: 10 units Insulin Detemir (Levemir Vial) 15 units SQ HS SILVA Last Admin: 03/15/17 22:42 Dose: 15 units Oxycodone HCl (Roxicodone -) 10 mg PO Q8H PRN PRN Reason: PAIN Last Admin: 03/16/17 02:28 Dose: 10 mg - Objective Vital Signs: Vital Signs Temperature 98.9 F 03/16/17 10:00 Pulse Rate 86 03/16/17 10:00 Respiratory Rate 22 03/16/17 10:00 Blood Pressure 100/62 03/16/17 10:00 O2 Sat by Pulse Oximetry (%) 100 03/16/17 09:54 Constitutional: Yes: No Distress, Calm, Obese Eyes: Yes: Conjunctiva Clear, EOM Intact HENT: Yes: Atraumatic, Normocephalic Neck: Yes: Supple, Trachea Midline Cardiovascular: Yes: Pulse Irregular. No: Murmur Respiratory: Yes: Regular, CTA Bilaterally Gastrointestinal: Yes: Normal Bowel Sounds, Soft. No: Tenderness Peripheral Pulses WNL: Yes Peripheral Pulses: Left Radial: 2+, Right Radial: 2+, Left Doralis Pedis: 2+, Right Dorsalis Pedis: 2+ Edema: No Integumentary: Yes: Other (hirsutism) Wound/Incision: Yes: Bleeding (Right Upper Medial Thigh) Neurological: Yes: Alert, Oriented Labs Lab Results: CBC,CMP WBC 26.8 K/mm3 (4.0-10.0) H 03/16/17 05:20 RBC 3.18 M/mm3 (3.60-5.2) L 03/16/17 05:20 Hgb 8.1 GM/dL (10.7-15.3) L 03/16/17 05:20 Hct 25.5 % (32.4-45.2) L 03/16/17 05:20 MCV 80.1 fl (80-96) 03/16/17 05:20 MCHC 31.9 g/dl (32.0-36.0) L 03/16/17 05:20 RDW 17.0 % (11.6-15.6) H 03/16/17 05:20 Plt Count 342 K/MM3 (134-434) 03/16/17 05:20 MPV 8.3 fl (7.5-11.1) 03/16/17 05:20 Neutrophils % 73.0 % (42.8-82.8) D 03/16/17 05:20 Lymphocytes % 3.0 % (8-40) L D 03/16/17 05:20 Monocytes % 5.0 % (3.8-10.2) D 03/16/17 05:20 Eosinophils % 2.0 % (0-4.5) D 03/16/17 05:20 Band Neutrophils 10.0 % (0-10) D 03/16/17 05:20 Metamyelocytes 7 % (0-2) H D 03/16/17 05:20 Differential Comment Manual diff done 03/16/17 05:20 Platelet Estimate Adequate (NORMAL) 03/16/17 05:20 Platelet Comment No clumping noted 03/15/17 23:00 Platelet Comment No clotting detected 03/15/17 23:00 Hypochromic-Microcytic 1+ 03/15/17 23:00 Anisocytosis 1+ 03/15/17 23:00 Morphology Comment Slide scanned 03/15/17 18:56 Sodium 130 mmol/L (136-145) L 03/16/17 05:20 Potassium 3.9 mmol/L (3.5-5.1) D 03/16/17 05:20 Chloride 100 mmol/L (98-107) 03/16/17 05:20 Carbon Dioxide 14 mmol/L (21-32) L 03/16/17 05:20 Anion Gap 16 (8-16) 03/16/17 05:20 BUN 36 mg/dL (7-18) H 03/16/17 05:20 Creatinine 1.8 mg/dL (0.55-1.02) H 03/16/17 05:20 Creat Clearance w eGFR 29.21 (>60) 03/16/17 05:20 POC Glucometer 294.72386 UNITS (()) 03/15/17 22:22 Random Glucose 341 mg/dL (74-106) H* D 03/16/17 05:20 Lactic Acid 1.964 mmol/L (0.4-2.0) 03/16/17 05:20 Calcium 7.3 mg/dL (8.5-10.1) L 03/16/17 05:20 Phosphorus 3.1 mg/dL (2.5-4.9) 03/16/17 05:20 Magnesium 1.5 mg/dL (1.8-2.4) L 03/16/17 05:20 Total Bilirubin 0.5 mg/dL (0.2-1.0) D 03/16/17 05:20 AST 47 U/L (15-37) H D 03/16/17 05:20 ALT 29 U/L (12-78) D 03/16/17 05:20 Alkaline Phosphatase 100 U/L (45-117) D 03/16/17 05:20 Creatine Kinase 468 IU/L (26-192) H D 03/16/17 05:20 CK-MB (CK-2) 8.016 ng/ml (0.5-3.6) H 03/16/17 05:20 Troponin I 0.25 ng/ml (0.00-0.05) H 03/16/17 05:20 B-Natriuretic Peptide 9670.67 pg/ml (5-125) H 03/15/17 18:59 Total Protein 5.6 g/dl (6.4-8.2) L 03/16/17 05:20 Albumin 2.0 g/dl (3.4-5.0) L 03/16/17 05:20 Imaging - Results Chest X-ray: Other (Slightly rotated image; cardiomegaly with mild congestive changes) Cat Scan: Report Reviewed (19.5x12.1x7.2cm fluid collection in the right inguinal soft tissues extending through the subcutaneous tissues of the proximal medial right thigh possibly reflecting an abscess vs seroma vs chronic hematoma) Assessment/Plan 56 y/o female with PMHx of HTN, DM, HLD, Bilateral TKA (L Knee 1month ago), s/p stents x2 presented to the Emergency Department after her found her to be confused and shaking. Pt admitted for toxic encephalopathy 2/2 septic shock likely from R medial upper thigh abscess vs UTI. Toxic encephalopathy 2/2 sepsis -WBC 26.8 (6.3); lactic acid 1.9 (6.6) -CVP 2; bolus 500cc NS now, repeat later in the afternoon if tolerated -BNP >9000; ECHO today -taper Levophed drip, keep MAP >65 -Preliminary blood cultures: Anaerobic Gram (+) cocci -urine and abscess cx pending -ID following case: Flagyl 500mg TID and Aztreonam 1g BID (Meropenem, Clindamycin discontinued) Suppurativa Hidradenitis -Dr Moseley consulted: The labia does has a suppurativa appearance. TX with soaks, conservative measures and abx if needed. CIARAN -Likely 2/2 septic shock -Cr 1.8 (1.7), baseline 0.8 -Continue IVF Hyponatremia -improving; Corrected Na 134 -continue IVF NS IDDM -Levemir 15units -Novolog sliding Scale Afib w RVR -Eliquis (held); INR 2.24 -Pulse: 85 (145) -was given IV 60mcg Cardizem x1 in ED
[2017-03-16] MEDS ORDERED: SODIUM CHLORIDE 1,000 ML IV STA ×2 (11:15→18:30)
[2017-03-16] MEDS: METRONIDAZOLE 500 MG PREMIXED 100 ML IVPB SCH ×2 (11:24→17:02)
[2017-03-16] MEDS ORDERED: MAGNESIUM OXIDE 400 MG TABLET (FP) PO SCH (11:30)
--- NOTE | 2017-03-16 12:40 | PN ---
Teaching Attending Note Name of Resident: Kateryna Levy ATTENDING PHYSICIAN STATEMENT I saw and evaluated the patient. I reviewed the resident's note and discussed the case with the resident. I agree with the resident's findings and plan as documented. SUBJECTIVE: Pt seen and examined in the ICU. s/p incision and drainage of right thigh abscess. Feels better but remains on levophed gtt. Fever curve trending downwards. OBJECTIVE: Last Vital Signs Temp Pulse Resp BP Pulse Ox 98.9 F 86 22 97/61 100 03/16/17 10:00 03/16/17 10:00 03/16/17 10:00 03/16/17 10:00 03/16/17 09:54 Intake & Output 03/13/17 03/14/17 03/15/17 03/16/17 23:59 23:59 23:59 23:59 Intake Total 2350 2120 Output Total 30 160 Balance 2320 1960 Weight 231 lb 7.766 oz Gen: alert, awake Heart: RRR Lung: decreased breath sounds at the bases Abd: soft, nontender Ext: no edema, dressings slightly sanguinous CBC, BMP 03/16/17 05:20 Active Medications Acetaminophen (Tylenol -) 1,000 mg PO Q6H PRN PRN Reason: FEVER OR PAIN Acetaminophen (Tylenol -) 650 mg PO Q8H PRN PRN Reason: FEVER OR PAIN Phenylephrine HCl 20,000 mcg/ (Sodium Chloride) 250 mls @ 75 mls/hr IVPB ASDIR SILVA; 100 MCG/MIN PRN Reason: Protocol Last Titration: 03/16/17 02:50 Dose: 0 mcg/min Sodium Chloride (Normal Saline -) 1,000 mls @ 125 mls/hr IV ASDIR SILVA Last Admin: 03/15/17 22:48 Dose: 125 mls/hr Norepinephrine Bitartrate 8, (000 mcg/ Sodium Chloride) 500 mls @ 18.75 mls/hr IV ASDIR SILVA; 5 MCG/MIN PRN Reason: Protocol Last Titration: 03/16/17 10:00 Dose: 4 mcg/min Aztreonam 1 gm/ Dextrose 50 mls @ 100 mls/hr IVPB BID SILVA PRN Reason: Protocol Metronidazole (Flagyl 500mg Premixed Ivpb -) 100 mls @ 100 mls/hr IVPB Q8H-IV SILVA Last Admin: 03/16/17 11:24 Dose: 100 mls/hr Sodium Chloride (Normal Saline -) 1,000 mls @ 500 mls/hr IV ASDIR STA Stop: 03/16/17 13:14 Last Admin: 03/16/17 11:24 Dose: 500 mls/hr Insulin Aspart (Novolog Vial Sliding Scale -) 1 vial SQ TIDAC SILVA PRN Reason: Protocol Last Admin: 03/16/17 11:54 Dose: 10 units Insulin Detemir (Levemir Vial) 15 units SQ HS SILVA Last Admin: 03/15/17 22:42 Dose: 15 units Oxycodone HCl (Roxicodone -) 10 mg PO Q8H PRN PRN Reason: PAIN Last Admin: 03/16/17 02:28 Dose: 10 mg ASSESSMENT AND PLAN: Right Thigh Abscess Septic Shock Acute Kidney Injury Lactic Acidosis resolving +Troponins likely Demand Ischemia Atrial Fibrillation with RVR DM - continue antibiotics - f/u cultures - IVF resuscitation - monitor urine output, creatinine - trend lactate - taper pressors to maintain MAP >65 - O2 to keep SPo2 >90% - resume anticoagulation when ok with surgery - glucose control - PO as tolerated - DVT/GI prophylaxis - continue ICU monitoring critical care time spent in reviewing chart, evaluating patient and formulating plan 38 min
[2017-03-16 12:41] LABS: CALCIUM 7.2 mg/dL (8.5-10.1); COCKROFT - GAULT 57.8; CREATININE 1.8 mg/dL (0.55-1.02); MAGNESIUM 2.1 mg/dL (1.8-2.4); PHOSPHOROUS 3.4 mg/dL (2.5-4.9)
[2017-03-16 12:42] LABS: TROPONIN I 0.24 ng/ml (0.00-0.05)
[2017-03-16 12:46] LABS: C-REACTIVE PROTEIN 29.1 MG/DL (0.00-0.3)
[2017-03-16] MEDS: AZTREONAM 1 GM in DEXTROSE 5%-WATER - 50 ML IVPB SCH ×2 (13:00→21:58)
[2017-03-16] MEDS ORDERED: VANCOMYCIN 1,500 MG in DEXTROSE 5%-WATER - 500 ML IVPB ONE (15:00)
[2017-03-16] MEDS: ACETAMINOPHEN 500 MG TABLET (FP) PO PRN (15:03)
--- NOTE | 2017-03-16 15:12 | PN ---
Physical Exam: SUBJECTIVE: Patient seen and examined Resting in bed NAD. no acute events. given another liter bolus now off pressors BP 89/53 map 65. Temp 102 this afternoon. Tachycardia resolved, UP better 600 cc since morning. States she feels better. denies cheat pain, sob, orthopnea, wheezing, cough, h/a. OBJECTIVE: Vital Signs Period Temp Pulse Resp BP Sys/Mao Pulse Ox Last 24 Hr 97.9 F-102.1 F 85-138 17-30 75-122/54-77 98-100 GENERAL: Awake, alert, and fully oriented, in no acute distress. HEENT: atraumatic, EOMI, PERRLA, moist membranes LUNGS: Breath sounds equal, clear to auscultation bilaterally. No wheezes, and no crackles. No accessory muscle use. HEART: Irregularly Irregular, no murmurs ABDOMEN: Soft, nontender, not distended, normoactive bowel sounds, no guarding, no rebound MUSCULOSKELETAL: No CVA tenderness. UPPER EXTREMITIES: 2+ pulses, warm, well-perfused. No cyanosis. No clubbing. No peripheral edema. LOWER EXTREMITIES: 1+ pulses, warm, well-perfused. No calf tenderness. No peripheral edema. R medial thigh blood soaked dressing, 4 incisions draining serosanguineous fluid NEUROLOGICAL: Cranial nerves II-XII intact. Normal speech. Gait not observed. PSYCHIATRIC: Cooperative. Good eye contact. Appropriate mood and affect. SKIN: lesions as above : Left labial swelling w/o fluctuance or drainage. Laboratory Results - last 24 hr 03/15/17 03/15/17 03/15/17 21:20 22:20 22:22 WBC RBC Hgb Hct MCV MCHC RDW Plt Count MPV Neutrophils % Lymphocytes % Monocytes % Eosinophils % Band Neutrophils Metamyelocytes Differential Comment Platelet Estimate Platelet Comment Hypochromic-Microcytic Anisocytosis Puncture Site Right radial ABG pH 7.41 ABG pCO2 at Pt Temp 22.2 L ABG pO2 at Pt Temp 98.6 ABG HCO3 13.7 L* ABG O2 Sat (Measured) 97.9 ABG O2 Content 12.1 L ABG Base Excess -9.5 L Yoel Test Positive Carboxyhemoglobin 1.7 Methemoglobin 0.4 O2 Delivery Device Nasal Oxygen Flow Rate 2l PEEP 0.0 Sodium Potassium Chloride Carbon Dioxide Anion Gap BUN Creatinine Creat Clearance w eGFR POC Glucometer 294.41407 Random Glucose Lactic Acid 5.790 H* Calcium Phosphorus Magnesium Total Bilirubin AST ALT Alkaline Phosphatase Creatine Kinase CK-MB (CK-2) Troponin I C-Reactive Protein Total Protein Albumin Urine Creatinine Random Vancomycin 03/15/17 03/15/17 03/16/17 23:00 23:00 00:25 WBC 21.8 H D RBC 3.17 L Hgb 8.2 L D Hct 25.6 L D MCV 80.9 MCHC 31.9 L RDW 16.9 H Plt Count 380 MPV 8.4 D Neutrophils % 60.0 Lymphocytes % 4.0 L D Monocytes % 2.0 L D Eosinophils % Band Neutrophils 25.0 H Metamyelocytes 9 H D Differential Comment Platelet Estimate Adequate Platelet Comment No clotting detected Hypochromic-Microcytic 1+ Anisocytosis 1+ Puncture Site ABG pH ABG pCO2 at Pt Temp ABG pO2 at Pt Temp ABG HCO3 ABG O2 Sat (Measured) ABG O2 Content ABG Base Excess Yoel Test Carboxyhemoglobin Methemoglobin O2 Delivery Device Oxygen Flow Rate PEEP Sodium 133 L Potassium 3.1 L D Chloride 100 Carbon Dioxide 15 L Anion Gap 18 H BUN 35 H Creatinine 1.8 H Creat Clearance w eGFR POC Glucometer Random Glucose 238 H D Lactic Acid 2.096 H* Calcium 7.2 L Phosphorus Magnesium Total Bilirubin AST ALT Alkaline Phosphatase Creatine Kinase 105 CK-MB (CK-2) Troponin I 0.33 H C-Reactive Protein Total Protein Albumin Urine Creatinine Random Vancomycin 03/16/17 03/16/17 03/16/17 02:00 02:39 05:20 WBC 26.8 H RBC 3.18 L Hgb 8.1 L Hct 25.5 L MCV 80.1 MCHC 31.9 L RDW 17.0 H Plt Count 342 MPV 8.3 Neutrophils % 73.0 D Lymphocytes % 3.0 L D Monocytes % 5.0 D Eosinophils % 2.0 D Band Neutrophils 10.0 D Metamyelocytes 7 H D Differential Comment Manual diff done Platelet Estimate Adequate Platelet Comment Hypochromic-Microcytic Anisocytosis Puncture Site ABG pH ABG pCO2 at Pt Temp ABG pO2 at Pt Temp ABG HCO3 ABG O2 Sat (Measured) ABG O2 Content ABG Base Excess Yoel Test Carboxyhemoglobin Methemoglobin O2 Delivery Device Oxygen Flow Rate PEEP Sodium Potassium Chloride Carbon Dioxide Anion Gap BUN Creatinine Creat Clearance w eGFR POC Glucometer 350.61975 Random Glucose Lactic Acid Calcium Phosphorus Magnesium Total Bilirubin AST ALT Alkaline Phosphatase Creatine Kinase CK-MB (CK-2) Troponin I C-Reactive Protein Total Protein Albumin Urine Creatinine 71.9 Random Vancomycin 03/16/17 03/16/17 03/16/17 05:20 05:20 11:30 WBC RBC Hgb Hct MCV MCHC RDW Plt Count MPV Neutrophils % Lymphocytes % Monocytes % Eosinophils % Band Neutrophils Metamyelocytes Differential Comment Platelet Estimate Platelet Comment Hypochromic-Microcytic Anisocytosis Puncture Site ABG pH ABG pCO2 at Pt Temp ABG pO2 at Pt Temp ABG HCO3 ABG O2 Sat (Measured) ABG O2 Content ABG Base Excess Yoel Test Carboxyhemoglobin Methemoglobin O2 Delivery Device Oxygen Flow Rate PEEP Sodium 130 L 131 L Potassium 3.9 D 4.3 Chloride 100 101 Carbon Dioxide 14 L 16 L Anion Gap 16 14 BUN 36 H 35 H Creatinine 1.8 H 1.8 H Creat Clearance w eGFR 29.21 POC Glucometer Random Glucose 341 H* D 295 H Lactic Acid 1.964 Calcium 7.3 L 7.2 L Phosphorus 3.1 3.4 Magnesium 1.5 L 2.1 D Total Bilirubin 0.5 D AST 47 H D ALT 29 D Alkaline Phosphatase 100 D Creatine Kinase 468 H D CK-MB (CK-2) 8.016 H Troponin I 0.25 H 0.24 H C-Reactive Protein 29.1 H Total Protein 5.6 L Albumin 2.0 L Urine Creatinine Random Vancomycin 03/16/17 03/16/17 03/16/17 11:30 11:30 11:30 WBC RBC Hgb Hct MCV MCHC RDW Plt Count MPV Neutrophils % Lymphocytes % Monocytes % Eosinophils % Band Neutrophils Metamyelocytes Differential Comment Platelet Estimate Platelet Comment Hypochromic-Microcytic Anisocytosis Puncture Site ABG pH ABG pCO2 at Pt Temp ABG pO2 at Pt Temp ABG HCO3 ABG O2 Sat (Measured) ABG O2 Content ABG Base Excess Yoel Test Carboxyhemoglobin Methemoglobin O2 Delivery Device Oxygen Flow Rate PEEP Sodium Potassium Chloride Carbon Dioxide Anion Gap BUN Creatinine Creat Clearance w eGFR POC Glucometer Random Glucose Lactic Acid 2.700 H* Calcium Phosphorus Magnesium Total Bilirubin AST ALT Alkaline Phosphatase Creatine Kinase CK-MB (CK-2) Troponin I C-Reactive Protein Cancelled Total Protein Albumin Urine Creatinine Random Vancomycin 6.310 03/16/17 11:51 WBC RBC Hgb Hct MCV MCHC RDW Plt Count MPV Neutrophils % Lymphocytes % Monocytes % Eosinophils % Band Neutrophils Metamyelocytes Differential Comment Platelet Estimate Platelet Comment Hypochromic-Microcytic Anisocytosis Puncture Site ABG pH ABG pCO2 at Pt Temp ABG pO2 at Pt Temp ABG HCO3 ABG O2 Sat (Measured) ABG O2 Content ABG Base Excess Yoel Test Carboxyhemoglobin Methemoglobin O2 Delivery Device Oxygen Flow Rate PEEP Sodium Potassium Chloride Carbon Dioxide Anion Gap BUN Creatinine Creat Clearance w eGFR POC Glucometer 369.55455 Random Glucose Lactic Acid Calcium Phosphorus Magnesium Total Bilirubin AST ALT Alkaline Phosphatase Creatine Kinase CK-MB (CK-2) Troponin I C-Reactive Protein Total Protein Albumin Urine Creatinine Random Vancomycin Active Medications Generic Name Dose Route Start Last Admin Trade Name Freq PRN Reason Stop Dose Admin Acetaminophen 1,000 mg 03/16/17 00:02 03/16/17 15:03 Tylenol - PO 1,000 mg Q6H PRN Administration FEVER OR PAIN Acetaminophen 650 mg 03/16/17 02:24 Tylenol - PO Q8H PRN FEVER OR PAIN Phenylephrine HCl 20,000 mcg/ 250 mls @ 75 mls/hr 03/15/17 21:00 03/16/17 02:50 Sodium Chloride IVPB 0 mcg/min ASDIR SILVA Titration Protocol 100 MCG/MIN Sodium Chloride 1,000 mls @ 125 mls/hr 03/15/17 21:00 03/15/17 22:48 Normal Saline - IV 125 mls/hr ASDIR SILVA Administration Norepinephrine Bitartrate 8, 500 mls @ 18.75 mls/hr 03/16/17 08:16 03/16/17 10: 00 000 mcg/ Sodium Chloride IV 4 mcg/min ASDIR SILVA Titration Protocol 5 MCG/MIN Aztreonam 1 gm/ Dextrose 50 mls @ 100 mls/hr 03/16/17 10:30 03/16/17 13:00 IVPB 100 mls/hr BID SILVA Administration Protocol Metronidazole 100 mls @ 100 mls/hr 03/16/17 10:30 03/16/17 11:24 Flagyl 500mg Premixed Ivpb - IVPB 100 mls/hr Q8H-IV SILVA Administration Vancomycin HCl 1,500 mg/ 500 mls @ 250 mls/hr 03/16/17 15:00 Dextrose IVPB 03/16/17 16:59 ONCE ONE Protocol Insulin Aspart 1 vial 03/16/17 07:00 03/16/17 11:54 Novolog Vial Sliding Scale - SQ 10 units TIDAC SILVA Administration Protocol Insulin Detemir 15 units 03/15/17 22:00 03/15/17 22:42 Levemir Vial SQ 15 units HS SILVA Administration Oxycodone HCl 10 mg 03/16/17 02:24 03/16/17 02:28 Roxicodone - PO 10 mg Q8H PRN Administration PAIN ASSESSMENT/PLAN: 56 year old female with PMH of A-FIB on eliquis, Stents x2, HTN/HLD/DM who is sent to ED for altered mental status. Found to be in septic shock. Septic Shock -Source right upper thigh abscess s/p I and D, irrigate and draining changes daily -now off pressors, goal MAP>60 -continue NS @125 nd 500cc boluses PRN; CVP goal 10-12 -lactic acidosis persists 2.7, continue IVF hydration -ID on case: Meropenem, Clindamycin Suppurative Hydrenitis -continue antibiotic regimen -TECHNICAL DESIGNER consulted: supportive measures -Percocet pain Acute Kidney Injury -pre-renal azotemia/hypotension due to sepsis -Creat stays at 1.8, UO imptoved to 600 since morning, continue IVF Diabetes -Levemir 15u HS -ISS for coverage at meals -FS BGM q4h Atrial Fibrillation w RVR -HR better controlled at 85 -continuous cardiac monitoring in ICU -holding eliquis due to wound bleeding, patient explained associated risk and consents -BNP 9600, f/u TTE Demand ischemia -due to sepsis, -EKG no ST or T-wave changes, no evidence of ACS -trop trending down Prophylaxis IVF NS@125cc/hr Monitor electrolytes Diabetic low sodium diet SCD's, no PPI indicated Dispo: ICU Problem List - Problems (1) Coronary artery disease Code(s): I25.10 - ATHSCL HEART DISEASE OF [place] CORONARY ARTERY W/O ANG PCTRS Qualifiers: Coronary Disease-Associated Artery/Lesion type: [place] artery [place] vs. transplanted heart: [place] heart Associated angina: without angina Qualified Code(s): I25.10 - Atherosclerotic heart disease of [place] coronary artery without angina pectoris (2) Dehydration Code(s): E86.0 - DEHYDRATION (3) Demand ischemia Code(s): I24.8 - OTHER FORMS OF ACUTE ISCHEMIC HEART DISEASE (4) Diabetes mellitus type 2 in obese Code(s): E11.9 - TYPE 2 DIABETES MELLITUS WITHOUT COMPLICATIONS E66.9 - OBESITY, UNSPECIFIED (5) Hidradenitis suppurativa Code(s): L73.2 - HIDRADENITIS SUPPURATIVA (6) Hyperglycemia due to type 2 diabetes mellitus Code(s): E11.65 - TYPE 2 DIABETES MELLITUS WITH HYPERGLYCEMIA Qualifiers: (7) Hyperlipidemia associated with type 2 diabetes mellitus Code(s): E11.69 - TYPE 2 DIABETES MELLITUS WITH OTHER SPECIFIED COMPLICATION E78.5 - HYPERLIPIDEMIA, UNSPECIFIED (8) Hypertension Code(s): I10 - ESSENTIAL (PRIMARY) HYPERTENSION Qualifiers: Hypertension type: essential hypertension Qualified Code(s): I10 - Essential (primary) hypertension (9) Hypotension Code(s): I95.9 - HYPOTENSION, UNSPECIFIED (10) Labial abscess Code(s): N76.4 - ABSCESS OF VULVA (11) Labial swelling Code(s): N94.89 - OTH COND ASSOC W FEMALE GENITAL ORGANS AND MENSTRUAL CYCLE (12) Left genital labial abscess Code(s): N76.4 - ABSCESS OF VULVA (13) Persistent atrial fibrillation with rapid ventricular response Code(s): I48.1 - PERSISTENT ATRIAL FIBRILLATION (14) Sepsis Code(s): A41.9 - SEPSIS, UNSPECIFIED ORGANISM (15) Sepsis associated hypotension Code(s): A41.9 - SEPSIS, UNSPECIFIED ORGANISM (16) Status post coronary artery stent placement Code(s): Z95.5 - PRESENCE OF CORONARY ANGIOPLASTY IMPLANT AND GRAFT Visit type - Emergency Visit Emergency Visit: Yes ED Registration Date: 03/15/17 Care time: The patient presented to the Emergency Department on the above date and was hospitalized for further evaluation of their emergent condition. - New Patient This patient is new to me today: Yes Date on this admission: 03/16/17 - Critical Care Critical Care patient: Yes Total Critical Care Time (in minutes): 45 Critical Care Statement: The care of this patient involved high complexity decision making to prevent further life threatening deterioration of the patient 's condition and/or to evalute & treat vital organ system(s) failure or risk of failure. - Discharge Referral Referred to [facility] No
[2017-03-16] MEDS ORDERED: SODIUM CHLORIDE 500 ML IV STA ×2 (15:44→15:51)
[2017-03-16] MEDS: ACETAMINOPHEN 1000 MG/100 ML VIAL (NON FORMULARY) IVPB PRN (16:14)
[2017-03-16] MEDS: PHENYLEPHRINE HCL 20,000 MCG in SODIUM CHLORIDE 248 ML IVPB SCH (21:55)
[2017-03-16] MEDS ORDERED: PT OWN MED DRAWER 7, Y5N ONE (21:57)
[2017-03-16] MEDS ORDERED: SODIUM CHLORIDE 1,000 ML IV SCH (22:00)
[2017-03-16] MEDS: INSULIN DETEMIR 100 UNITS/ML MDV SQ SCH (22:02)
[2017-03-17] MEDS: ACETAMINOPHEN 1000 MG/100 ML VIAL (NON FORMULARY) IVPB PRN ×2 (00:05→06:29)
[2017-03-17] MEDS: METRONIDAZOLE 500 MG PREMIXED 100 ML IVPB SCH ×3 (01:46→17:49)
[2017-03-17] MEDS ORDERED: SODIUM CHLORIDE 500 ML IV STA (06:23)
[2017-03-17 06:28] LABS: MCH 25.3 pg (25.7-33.7); MCHC 31.7 g/dl (32.0-36.0); MEAN CELL VOLUME 79.8 fl (80-96); MEAN PLT VOLUME 8.2 fl (7.5-11.1); PLATELET COUNT 260 K/MM3 (134-434); WHITE BLOOD COUNT 15.9 K/mm3 (4.0-10.0)
[2017-03-17] MEDS: INSULIN SLIDING SCALE (NOVOLOG) 1 VIAL SQ SCH ×3 (07:02→17:49)
[2017-03-17 07:16] LABS: COCKROFT - GAULT 79.05; CREATININE 1.4 mg/dL (0.55-1.02); PHOSPHOROUS 2.5 mg/dL (2.5-4.9)
--- NOTE | 2017-03-17 07:30 | PN ---
Physical Exam: SUBJECTIVE: patient kenneth nd examined at bed side in ICU. feeling better today Levo was stopped yesterday, over night titrated up to 8 than back down to 5 than zero. BP currently 128/86, tachycardiea resolved with bolus of IVF. CXR reviewed. ~2200cc urine over 12hr. BS 142 thia am, no coverage given. Afib RVR on monitor. OBJECTIVE: Vital Signs Period Temp Pulse Resp BP Sys/Mao Pulse Ox Last 24 Hr 98.9 F-103 F 86-131 16-25 76-140/45-72 98-100 GENERAL: AAOx3 Rigors, sitting comfortably eating breakfast. HEENT: atraumatic, EOMI, moist membranes LUNGS: Breath sounds equal, clear to auscultation bilaterally. No wheezes, and no crackles. No accessory muscle use. HEART: Irregularly Irregular, no murmurs ABDOMEN: Soft, nontender, not distended, normoactive bowel sounds, MUSCULOSKELETAL: No CVA tenderness. LOWER EXTREMITIES: 1+ pulses, warm, well-perfused. No calf tenderness. No peripheral edema. R medial thigh blood soaked dressing, NEUROLOGICAL: Normal speech. Gait not observed. PSYCHIATRIC: Cooperative. Good eye contact. Appropriate mood and affect. SKIN: lesions as above : four incisions draining serosanguineous fluid, L labial swelling with out fluctuance or drainage. Laboratory Results - last 24 hr 03/15/17 03/16/17 03/16/17 23:00 02:39 05:20 WBC RBC Hgb Hct MCV MCHC RDW Plt Count MPV Neutrophils % 73.0 D Lymphocytes % 3.0 L D Monocytes % 5.0 D Eosinophils % 2.0 D Band Neutrophils 10.0 D Metamyelocytes 7 H D Differential Comment Manual diff done Platelet Estimate Adequate Sodium Potassium Chloride Carbon Dioxide Anion Gap BUN Creatinine POC Glucometer [phone] Random Glucose Lactic Acid Calcium Phosphorus Magnesium Creatine Kinase 105 CK-MB (CK-2) Troponin I 0.33 H C-Reactive Protein Random Vancomycin 03/16/17 03/16/17 03/16/17 05:20 11:30 11:30 WBC RBC Hgb Hct MCV MCHC RDW Plt Count MPV Neutrophils % Lymphocytes % Monocytes % Eosinophils % Band Neutrophils Metamyelocytes Differential Comment Platelet Estimate Sodium 131 L Potassium 4.3 Chloride 101 Carbon Dioxide 16 L Anion Gap 14 BUN 35 H Creatinine 1.8 H POC Glucometer Random Glucose 295 H Lactic Acid 2.700 H* Calcium 7.2 L Phosphorus 3.4 Magnesium 2.1 D Creatine Kinase CK-MB (CK-2) 8.016 H Troponin I 0.24 H C-Reactive Protein 29.1 H Random Vancomycin 03/16/17 03/16/17 03/16/17 11:30 11:30 11:51 WBC RBC Hgb Hct MCV MCHC RDW Plt Count MPV Neutrophils % Lymphocytes % Monocytes % Eosinophils % Band Neutrophils Metamyelocytes Differential Comment Platelet Estimate Sodium Potassium Chloride Carbon Dioxide Anion Gap BUN Creatinine POC Glucometer [phone] Random Glucose Lactic Acid Calcium Phosphorus Magnesium Creatine Kinase CK-MB (CK-2) Troponin I C-Reactive Protein Cancelled Random Vancomycin 6.310 03/16/17 03/16/17 03/16/17 16:32 21:00 22:11 WBC RBC Hgb Hct MCV MCHC RDW Plt Count MPV Neutrophils % Lymphocytes % Monocytes % Eosinophils % Band Neutrophils Metamyelocytes Differential Comment Platelet Estimate Sodium Potassium Chloride Carbon Dioxide Anion Gap BUN Creatinine POC Glucometer 226.58769 229.21559 Random Glucose Lactic Acid 2.058 H* Calcium Phosphorus Magnesium Creatine Kinase CK-MB (CK-2) Troponin I C-Reactive Protein Random Vancomycin 03/17/17 03/17/17 03/17/17 06:05 06:05 06:05 WBC 15.9 H D RBC 2.68 L Hgb 6.8 L* D Hct 21.4 L D MCV 79.8 L MCHC 31.7 L RDW 17.0 H Plt Count 260 D MPV 8.2 Neutrophils % Lymphocytes % Monocytes % Eosinophils % Band Neutrophils Metamyelocytes Differential Comment Platelet Estimate Sodium 136 Potassium 3.7 Chloride 106 Carbon Dioxide 17 L Anion Gap 13 BUN 29 H Creatinine 1.4 H D POC Glucometer Random Glucose 114 H D Lactic Acid 1.338 Calcium 7.0 L Phosphorus 2.5 D Magnesium 2.0 Creatine Kinase CK-MB (CK-2) Troponin I C-Reactive Protein Random Vancomycin 03/17/17 06:43 WBC RBC Hgb Hct MCV MCHC RDW Plt Count MPV Neutrophils % Lymphocytes % Monocytes % Eosinophils % Band Neutrophils Metamyelocytes Differential Comment Platelet Estimate Sodium Potassium Chloride Carbon Dioxide Anion Gap BUN Creatinine POC Glucometer [phone] Random Glucose Lactic Acid Calcium Phosphorus Magnesium Creatine Kinase CK-MB (CK-2) Troponin I C-Reactive Protein Random Vancomycin Active Medications Generic Name Dose Route Start Last Admin Trade Name Freq PRN Reason Stop Dose Admin Acetaminophen 1,000 mg 03/16/17 00:02 03/16/17 15:03 Tylenol - PO 1,000 mg Q6H PRN Administration FEVER OR PAIN Acetaminophen 650 mg 03/16/17 02:24 Tylenol - PO Q8H PRN FEVER OR PAIN Acetaminophen 1,000 mg 03/16/17 16:00 03/17/17 06:29 Ofirmev Injection - IVPB 03/17/17 10:01 1,000 mg Q6H PRN Administration FEVER OR PAIN Phenylephrine HCl 20,000 mcg/ 250 mls @ 75 mls/hr 03/15/17 21:00 03/16/17 21:55 Sodium Chloride IVPB Not Given ASDIR SILVA Protocol 100 MCG/MIN Norepinephrine Bitartrate 8, 500 mls @ 18.75 mls/hr 03/16/17 08:16 03/16/17 18: 00 000 mcg/ Sodium Chloride IV 5 mcg/min ASDIR SILVA Titration Protocol 5 MCG/MIN Aztreonam 1 gm/ Dextrose 50 mls @ 100 mls/hr 03/16/17 10:30 03/16/17 21:58 IVPB 100 mls/hr BID SILVA Administration Protocol Metronidazole 100 mls @ 100 mls/hr 03/16/17 10:30 03/17/17 01:46 Flagyl 500mg Premixed Ivpb - IVPB 100 mls/hr Q8H-IV SILVA Administration Sodium Chloride 1,000 mls @ 150 mls/hr 03/16/17 22:00 03/16/17 22:01 Normal Saline - IV 150 mls/hr ASDIR SILVA Administration Insulin Aspart 1 vial 03/16/17 07:00 03/17/17 07:02 Novolog Vial Sliding Scale - SQ Not Given TIDAC SILVA Protocol Insulin Detemir 15 units 03/15/17 22:00 03/16/17 22:02 Levemir Vial SQ 15 units HS SILVA Administration Oxycodone HCl 10 mg 03/16/17 02:24 03/16/17 02:28 Roxicodone - PO 10 mg Q8H PRN Administration PAIN ASSESSMENT/PLAN: 56 year old female with PMH of A-FIB on eliquis, Stents x2, HTN/HLD/DM who is sent to ED for altered mental status. Found to be in septic shock. s/p incision and drainage of right thigh abscess. #Septic Shock, secondary to right upper thigh abscess (Mild UTI is also noted on Urinalysis, and may be contributing) s/p incision and drainage of right thigh abscess. -preliminary blood cultures: either Group D strep or Enterococcus -abscess cx: gram (+) cocci in chains -CRP and ESR elevated -Meropenem, Clindamycin, given Vancomycin and will check levels per ID -IVF NS@150 cc/hr -back on pressors, goal MAP>60-now -Lactic acid elevated, will trend -f/u surgery recommendation for drainage -pressors if needed to maintain MAP >65 -O2 to keep SPo2 >90% #Suppurative Hydrenitis -continue with current antibiotic regimen -[employer] consulted -ID consulted -pain management #Acute Kidney Injury most likely: improvin/2 pre-renal azotemia/ hypotension/ septic shock -IVF being administered -trend in AM #Diabetes -Levemir -ISS -FS BGM q4h for now #Atrial Fibrillation, w RVR -hold BB and antihypertensive -holding eliquis at present, no surgical contraindication to anticoagulation #Elevated Tropoin -highly unlikely ACS, likely do to sepsis -will trend overnight -EKG reviewed & without any ST or T-wave changes Prophylaxis -SCD's -no PPI indicated -IVF NS@125cc/hr -monitor electrolytes -Diabetic low sodium diet dispo: Monitor in ICU Visit type - Emergency Visit Emergency Visit: Yes ED Registration Date: 03/15/17 Care time: The patient presented to the Emergency Department on the above date and was hospitalized for further evaluation of their emergent condition. - New Patient This patient is new to me today: No - Critical Care Critical Care patient: Yes Total Critical Care Time (in minutes): 46 Critical Care Statement: The care of this patient involved high complexity decision making to prevent further life threatening deterioration of the patient 's condition and/or to evalute & treat vital organ system(s) failure or risk of failure.
[2017-03-17] MEDS ORDERED: NOREPINEPHRINE BITARTRATE 4 MG/4 ML ML IV ONE (07:46)
[2017-03-17] MEDS: NOREPINEPHRINE BITARTRATE 8,000 MCG in SODIUM CHLORIDE 492 ML IV SCH (08:00)
[2017-03-17 08:15] LABS: MCH 25.6 pg (25.7-33.7); MCHC 31.8 g/dl (32.0-36.0); MEAN CELL VOLUME 80.4 fl (80-96); MEAN PLT VOLUME 8.5 fl (7.5-11.1); PLATELET COUNT 247 K/MM3 (134-434); RDW 17.4 % (11.6-15.6); WHITE BLOOD COUNT 15.7 K/mm3 (4.0-10.0)
--- NOTE | 2017-03-17 08:38 | PN ---
Teaching Attending Note Name of Resident: Licha Olivares ATTENDING PHYSICIAN STATEMENT I saw and evaluated the patient. I reviewed the resident's note and discussed the case with the resident. I agree with the resident's findings and plan as documented. Patient is in ICU, with fever of 101.1, denies any chest pain or shortness of breath. Vital Signs Temperature 101.1 F H 03/17/17 06:00 Pulse Rate 115 H 03/17/17 06:00 Respiratory Rate 22 03/17/17 06:00 Blood Pressure 111/61 03/17/17 08:30 O2 Sat by Pulse Oximetry (%) 100 03/16/17 22:00 CBCD WBC 15.7 K/mm3 (4.0-10.0) H 03/17/17 06:30 RBC 2.67 M/mm3 (3.60-5.2) L 03/17/17 06:30 Hgb 6.8 GM/dL (10.7-15.3) L* 03/17/17 06:30 Hct 21.4 % (32.4-45.2) L 03/17/17 06:30 MCV 80.4 fl (80-96) 03/17/17 06:30 MCHC 31.8 g/dl (32.0-36.0) L 03/17/17 06:30 RDW 17.4 % (11.6-15.6) H 03/17/17 06:30 Plt Count 247 K/MM3 (134-434) 03/17/17 06:30 MPV 8.5 fl (7.5-11.1) 03/17/17 06:30 CMP Sodium 136 mmol/L (136-145) 03/17/17 06:05 Potassium 3.7 mmol/L (3.5-5.1) 03/17/17 06:05 Chloride 106 mmol/L (98-107) 03/17/17 06:05 Carbon Dioxide 17 mmol/L (21-32) L 03/17/17 06:05 Anion Gap 13 (8-16) 03/17/17 06:05 BUN 29 mg/dL (7-18) H 03/17/17 06:05 Creatinine 1.4 mg/dL (0.55-1.02) H D 03/17/17 06:05 Creat Clearance w eGFR 29.21 (>60) 05/01/17 05:20 Random Glucose 114 mg/dL (74-106) H D 03/17/17 06:05 Calcium 7.0 mg/dL (8.5-10.1) L 03/17/17 06:05 Total Bilirubin 0.5 mg/dL (0.2-1.0) D 03/16/17 05:20 AST 47 U/L (15-37) H D 03/16/17 05:20 ALT 29 U/L (12-78) D 03/16/17 05:20 Alkaline Phosphatase 100 U/L (45-117) D 03/16/17 05:20 Total Protein 5.6 g/dl (6.4-8.2) L 03/16/17 05:20 Albumin 2.0 g/dl (3.4-5.0) L 03/16/17 05:20 CARDIAC ENZYMES Creatine Kinase 468 IU/L (26-192) H D 03/16/17 05:20 Troponin I 0.24 ng/ml (0.00-0.05) H 03/16/17 11:30 Current Medications Generic Name Dose Route Start Last Admin Trade Name Freq PRN Reason Stop Dose Admin Acetaminophen 1,000 mg 03/16/17 00:02 03/16/17 15:03 Tylenol - PO 1,000 mg Q6H PRN Administration FEVER OR PAIN Acetaminophen 650 mg 03/16/17 02:24 Tylenol - PO Q8H PRN FEVER OR PAIN Acetaminophen 1,000 mg 03/16/17 16:00 03/17/17 06:29 Ofirmev Injection - IVPB 03/17/17 10:01 1,000 mg Q6H PRN Administration FEVER OR PAIN Phenylephrine HCl 20,000 mcg/ 250 mls @ 75 mls/hr 03/15/17 21:00 03/16/17 21:55 Sodium Chloride IVPB Not Given ASDIR SILVA Protocol 100 MCG/MIN Norepinephrine Bitartrate 8, 500 mls @ 18.75 mls/hr 03/16/17 08:16 03/17/17 08: 30 000 mcg/ Sodium Chloride IV 0 mcg/min ASDIR SILVA Titration Protocol 5 MCG/MIN Aztreonam 1 gm/ Dextrose 50 mls @ 100 mls/hr 03/16/17 10:30 03/16/17 21:58 IVPB 100 mls/hr BID SILVA Administration Protocol Metronidazole 100 mls @ 100 mls/hr 03/16/17 10:30 03/17/17 01:46 Flagyl 500mg Premixed Ivpb - IVPB 100 mls/hr Q8H-IV SIVLA Administration Sodium Chloride 1,000 mls @ 150 mls/hr 03/16/17 22:00 03/16/17 22:01 Normal Saline - IV 150 mls/hr ASDIR SILVA Administration Insulin Aspart 1 vial 03/16/17 07:00 03/17/17 07:02 Novolog Vial Sliding Scale - SQ Not Given TIDAC [facility] Protocol Insulin Detemir 15 units 03/15/17 22:00 03/16/17 22:02 Levemir Vial SQ 15 units HS [facility] Administration Oxycodone HCl 10 mg 03/16/17 02:24 03/16/17 02:28 Roxicodone - PO 10 mg Q8H PRN Administration PAIN Home Medications Medication Instructions Recorded Apixaban [Eliquis -] 5 mg PO BID 11/13/16 Atorvastatin Ca [Lipitor] 20 mg PO HS 11/13/16 Cholecalciferol (Vitamin D3) 1,000 unit PO DAILY 11/13/16 [Vitamin D3 -] Cyanocobalamin (Vitamin B-12) 1,000 mcg PO DAILY 11/13/16 [Vitamin B-12] Digoxin [Lanoxin -] 0.25 mg PO DAILY 11/13/16 Lisinopril [Prinivil -] 40 mg PO DAILY 11/13/16 Metoprolol Tartrate [Lopressor] 100 mg PO BID 11/13/16 Insulin Sliding Scale [Novolog 1 vial SQ ACHS #100 units 11/16/16 Vial Sliding Scale -] Diltiazem Cd [Cardizem Cd -] 120 mg PO DAILY 03/15/17 Insulin (Levemir) [Levemir Vial] 15 units SQ HS 03/15/17 Metformin HCl 500 mg PO BID 03/15/17 Microbiology 03/15/17 18:56 Blood - Peripheral Venous Blood Culture - Preliminary Pending Organism 03/15/17 18:56 Blood - Peripheral Venous Blood Culture - Preliminary Pending Organism 03/16/17 02:00 Abscess Gram Stain - Final Laboratory Tests 03/15/17 03/15/17 03/16/17 18:56 23:00 05:20 Sodium 127 L 133 L 130 L Potassium 3.1 L D 3.9 D BUN 34 H D 35 H 36 H Creatinine 1.7 H D 1.8 H 1.8 H Lactic Acid 03/16/17 03/16/17 03/16/17 11:30 11:30 21:00 Sodium 131 L Potassium 4.3 BUN 35 H Creatinine 1.8 H Lactic Acid 2.700 H* 2.058 H* 03/17/17 03/17/17 06:05 06:05 Sodium 136 Potassium 3.7 BUN 29 H Creatinine 1.4 H D Lactic Acid 1.338 ASSESSMENT AND PLAN: 56 y/o lady with h/o IDDM, HTN, CAD s/p stenting in 07/2015 , R knee replacement and L knee replacement ( 1 month ago) , and other medical problems who presented with AMS, she was found in septic shock. # Acute Sepsis s/p septic shock due to R upper thigh deep tissue infection / abscess formation. on Flagyl and Azactam IV continue, iD on the case ; s/p debridement by # Acute Anemia will transfuse 2 units of RPRBC # CIARAN : improving on IVF continue # Acute Hyponatremia improved post IVF #IDDM insulin with coverage with sliding scale on levemir 15 units qhs . # Afib with RVR: triggered by sepsis on Eliquis was on hold due to bleed, will get cardiology to see the patient # trop leak: likely due to spsis , and tachycardia . had slight trop elevation in past. EKG with LAD ( present in past ) and no ST elevation or depression Scds for now
[2017-03-17] MEDS ORDERED: PT OWN MED DRAWER 7, Y5N ONE (10:38)
[2017-03-17] MEDS: AZTREONAM 1 GM in DEXTROSE 5%-WATER - 50 ML IVPB SCH ×2 (10:46→21:42)
--- NOTE | 2017-03-17 11:02 | PN ---
Teaching Attending Note Name of Resident: Serene Langford ATTENDING PHYSICIAN STATEMENT I saw and evaluated the patient. I reviewed the resident's note and discussed the case with the resident. I agree with the resident's findings and plan as documented. SUBJECTIVE: OBJECTIVE: ASSESSMENT AND PLAN: s/p drainage of thigh abscess enterococcal bacteremia pen allergy kan resolving recent TKR vanco/azactam /flagyl repeat blood culture follow vanco levels echo
--- NOTE | 2017-03-17 11:45 | MSN ---
Progress Note (SOAP) - Subjective Chief Complaint: AMS History of Present Illness: Ms. Garcia is a 56 y/o female w PMHx Afib/HTN/HLD/DM, s/p stents x2, bilateral TKA (left done one month ago) who is admitted for toxic encephalopathy 2/2 sepsis. Patient is awake, alert, sitting upright in bed eating breakfast. Patient has no complaints at this time. Denies f/c/colon/lightheaded/abdominal pain /hematochezia/n/v. Patient's last bowel movement was yesterday, no blood or diarrhea was noted. - Current Medications Current Medications: Active Medications Acetaminophen (Tylenol -) 1,000 mg PO Q6H PRN PRN Reason: FEVER OR PAIN Last Admin: 03/16/17 15:03 Dose: 1,000 mg Acetaminophen (Tylenol -) 650 mg PO Q8H PRN PRN Reason: FEVER OR PAIN Phenylephrine HCl 20,000 mcg/ (Sodium Chloride) 250 mls @ 75 mls/hr IVPB ASDIR SILVA; 100 MCG/MIN PRN Reason: Protocol Last Admin: 03/16/17 21:55 Dose: Not Given Norepinephrine Bitartrate 8, (000 mcg/ Sodium Chloride) 500 mls @ 18.75 mls/hr IV ASDIR SILVA; 5 MCG/MIN PRN Reason: Protocol Last Titration: 03/17/17 08:30 Dose: 0 mcg/min Aztreonam 1 gm/ Dextrose 50 mls @ 100 mls/hr IVPB BID SILVA PRN Reason: Protocol Last Admin: 03/17/17 10:46 Dose: 100 mls/hr Metronidazole (Flagyl 500mg Premixed Ivpb -) 100 mls @ 100 mls/hr IVPB Q8H-IV SILVA Last Admin: 03/17/17 09:16 Dose: 100 mls/hr Sodium Chloride (Normal Saline -) 1,000 mls @ 150 mls/hr IV ASDIR SILVA Last Admin: 03/16/17 22:01 Dose: 150 mls/hr Vancomycin HCl 1,250 mg/ (Dextrose) 250 mls @ 166.667 mls/hr IVPB Q12H SILVA PRN Reason: Protocol Insulin Aspart (Novolog Vial Sliding Scale -) 1 vial SQ TIDAC SILVA PRN Reason: Protocol Last Admin: 03/17/17 07:02 Dose: Not Given Insulin Detemir (Levemir Vial) 15 units SQ HS SILVA Last Admin: 03/16/17 22:02 Dose: 15 units Oxycodone HCl (Roxicodone -) 10 mg PO Q8H PRN PRN Reason: PAIN Last Admin: 03/16/17 02:28 Dose: 10 mg - Objective Vital Signs: Vital Signs Temperature 101.1 F H 03/17/17 06:00 Pulse Rate 97 H 03/17/17 09:20 Respiratory Rate 22 03/17/17 06:00 Blood Pressure 111/61 03/17/17 08:30 O2 Sat by Pulse Oximetry (%) 100 03/17/17 09:20 Constitutional: Yes: No Distress Eyes: Yes: Conjunctiva Clear, EOM Intact HENT: Yes: Atraumatic, Normocephalic Neck: Yes: Supple, Trachea Midline Cardiovascular: Yes: Tachycardia, Pulse Irregular. No: Regular Rate and Rhythm Respiratory: Yes: Regular, CTA Bilaterally Gastrointestinal: Yes: Normal Bowel Sounds, Soft. No: Tenderness Peripheral Pulses WNL: Yes Peripheral Pulses: Left Radial: 2+, Right Radial: 2+, Left Doralis Pedis: 2+, Right Dorsalis Pedis: 2+ Edema: No Wound/Incision: Yes: Clean/Dry Neurological: Yes: Alert, Oriented, Cran Nerves II-XII Intact Labs Lab Results: CBC,CMP WBC 15.7 K/mm3 (4.0-10.0) H 03/17/17 06:30 RBC 2.67 M/mm3 (3.60-5.2) L 03/17/17 06:30 Hgb 6.8 GM/dL (10.7-15.3) L* 03/17/17 06:30 Hct 21.4 % (32.4-45.2) L 03/17/17 06:30 MCV 80.4 fl (80-96) 03/17/17 06:30 MCHC 31.8 g/dl (32.0-36.0) L 03/17/17 06:30 RDW 17.4 % (11.6-15.6) H 03/17/17 06:30 Plt Count 247 K/MM3 (134-434) 03/17/17 06:30 MPV 8.5 fl (7.5-11.1) 03/17/17 06:30 Neutrophils % 73.0 % (42.8-82.8) D 03/16/17 05:20 Lymphocytes % 3.0 % (8-40) L D 03/16/17 05:20 Monocytes % 5.0 % (3.8-10.2) D 03/16/17 05:20 Eosinophils % 2.0 % (0-4.5) D 03/16/17 05:20 Band Neutrophils 10.0 % (0-10) D 03/16/17 05:20 Metamyelocytes 7 % (0-2) H D 03/16/17 05:20 Differential Comment Manual diff done 03/16/17 05:20 Platelet Estimate Adequate (NORMAL) 03/16/17 05:20 Platelet Comment No clumping noted 03/15/17 23:00 Platelet Comment No clotting detected 03/15/17 23:00 Hypochromic-Microcytic 1+ 03/15/17 23:00 Anisocytosis 1+ 03/15/17 23:00 Morphology Comment Slide scanned 03/15/17 18:56 ESR 108 mm/hr (0-30) H 03/17/17 06:05 Sodium 136 mmol/L (136-145) 03/17/17 06:05 Potassium 3.7 mmol/L (3.5-5.1) 03/17/17 06:05 Chloride 106 mmol/L (98-107) 03/17/17 06:05 Carbon Dioxide 17 mmol/L (21-32) L 03/17/17 06:05 Anion Gap 13 (8-16) 03/17/17 06:05 BUN 29 mg/dL (7-18) H 03/17/17 06:05 Creatinine 1.4 mg/dL (0.55-1.02) H D 03/17/17 06:05 Creat Clearance w eGFR 29.21 (>60) 03/16/17 05:20 POC Glucometer 142.31303 UNITS (()) 03/17/17 06:43 Random Glucose 114 mg/dL (74-106) H D 03/17/17 06:05 Lactic Acid 1.338 mmol/L (0.4-2.0) 03/17/17 06:05 Calcium 7.0 mg/dL (8.5-10.1) L 03/17/17 06:05 Phosphorus 2.5 mg/dL (2.5-4.9) D 03/17/17 06:05 Magnesium 2.0 mg/dL (1.8-2.4) 03/17/17 06:05 Total Bilirubin 0.5 mg/dL (0.2-1.0) D 03/16/17 05:20 AST 47 U/L (15-37) H D 03/16/17 05:20 ALT 29 U/L (12-78) D 03/16/17 05:20 Alkaline Phosphatase 100 U/L (45-117) D 03/16/17 05:20 Creatine Kinase 468 IU/L (26-192) H D 03/16/17 05:20 CK-MB (CK-2) 8.016 ng/ml (0.5-3.6) H 03/16/17 05:20 Troponin I 0.24 ng/ml (0.00-0.05) H 03/16/17 11:30 C-Reactive Protein 29.1 MG/DL (0.00-0.3) H 03/16/17 11:30 B-Natriuretic Peptide 9670.67 pg/ml (5-125) H 03/15/17 18:59 Total Protein 5.6 g/dl (6.4-8.2) L 03/16/17 05:20 Albumin 2.0 g/dl (3.4-5.0) L 03/16/17 05:20 Imaging - Results Other: Other (ECHO: normal LV size, normal LV systolic function; mild MR and TR) Assessment/Plan 56 y/o female with PMHx of HTN, DM, HLD, Bilateral TKA (L Knee 1month ago), s/p stents x2 presented to the Emergency Department after her found her to be confused and shaking. Pt admitted for toxic encephalopathy 2/2 septic shock likely from R medial upper thigh abscess Toxic encephalopathy 2/2 sepsis and bacteremia -WBC 15.7 (26.8); lactic acid 1.3 (2.05) -BNP >9000; ECHO: normal LV size and systolic function; mild MR and TR -CVP -1 (2); since normal ECHO start 1L IVF NS -taper Levophed drip, keep MAP >65 -Urine cx: NO growth -Preliminary blood cultures: either Group D strep or Enterococcus -abscess cx: gram (+) cocci in chains -ID following case: IV Flagyl 500mg TID, IV Aztreonam 1g BID, IV Vancomycin 1250mg BID Anemia -trending down: H/H 6.8/21.4 (8.1/25) -Consider RBC transfusion 1unit Suppurativa Hidradenitis -Dr Moseley consulted: Continue Abx and conservative measures CIARAN -Likely 2/2 septic shock -improving Cr 1.4 (1.8) -baseline 0.8 -Continue IVF Hyponatremia -Resolved; Na 136 (131) -continue IVF NS IDDM -Levemir 15units -Novolog sliding Scale Afib w RVR -Eliquis (held); INR 2.24 -Pulse: 115 (85) -was given IV 60mcg Cardizem x1 in ED -consider restarting eliquis after RBC transfusion and if no bleeding from incision site
[2017-03-17] MEDS: VANCOMYCIN 1,250 MG in DEXTROSE 5%-WATER - 250 ML IVPB SCH ×2 (12:13→23:40)
--- NOTE | 2017-03-17 12:16 | PN ---
Teaching Attending Note Name of Resident: Kateryna Levy ATTENDING PHYSICIAN STATEMENT I saw and evaluated the patient. I reviewed the resident's note and discussed the case with the resident. I agree with the resident's findings and plan as documented. SUBJECTIVE: Pt seen and examined in the ICU. Back on levophed gtt overnight but now titrated off. Febrile overnight. Blood cultures positive for enterococcus. OBJECTIVE: Last Vital Signs Temp Pulse Resp BP Pulse Ox 100.8 F H 132 H 18 101/58 100 03/17/17 10:00 03/17/17 10:00 03/17/17 10:00 03/17/17 10:00 03/17/17 10:00 Intake & Output 03/14/17 03/15/17 03/16/17 03/17/17 23:59 23:59 23:59 23:59 Intake Total 2350 6490.8 4270 Output Total 30 2160 1100 Balance 2320 4330.8 3170 Weight 231 lb 7.766 oz 231 lb 11.293 oz 243 lb 6.245 oz Gen: alert, awake Heart: RRR Lung: decreased breath sounds at the bases Abd: soft, nontender Ext: no edema, dressings sanguinous CBC, BMP 03/17/17 06:30 03/17/17 06:05 Active Medications Acetaminophen (Tylenol -) 1,000 mg PO Q6H PRN PRN Reason: FEVER OR PAIN Last Admin: 03/16/17 15:03 Dose: 1,000 mg Acetaminophen (Tylenol -) 650 mg PO Q8H PRN PRN Reason: FEVER OR PAIN Phenylephrine HCl 20,000 mcg/ (Sodium Chloride) 250 mls @ 75 mls/hr IVPB ASDIR SILVA; 100 MCG/MIN PRN Reason: Protocol Last Admin: 03/16/17 21:55 Dose: Not Given Norepinephrine Bitartrate 8, (000 mcg/ Sodium Chloride) 500 mls @ 18.75 mls/hr IV ASDIR SILVA; 5 MCG/MIN PRN Reason: Protocol Last Titration: 03/17/17 08:30 Dose: 0 mcg/min Aztreonam 1 gm/ Dextrose 50 mls @ 100 mls/hr IVPB BID SILVA PRN Reason: Protocol Last Admin: 03/17/17 10:46 Dose: 100 mls/hr Metronidazole (Flagyl 500mg Premixed Ivpb -) 100 mls @ 100 mls/hr IVPB Q8H-IV SILVA Last Admin: 03/17/17 09:16 Dose: 100 mls/hr Sodium Chloride (Normal Saline -) 1,000 mls @ 150 mls/hr IV ASDIR SILVA Last Admin: 03/16/17 22:01 Dose: 150 mls/hr Vancomycin HCl 1,250 mg/ (Dextrose) 250 mls @ 166.667 mls/hr IVPB Q12H SILVA PRN Reason: Protocol Last Admin: 03/17/17 12:13 Dose: 166.667 mls/hr Insulin Aspart (Novolog Vial Sliding Scale -) 1 vial SQ TIDAC SILVA PRN Reason: Protocol Last Admin: 03/17/17 12:09 Dose: 2 units Insulin Detemir (Levemir Vial) 15 units SQ HS SILVA Last Admin: 03/16/17 22:02 Dose: 15 units Oxycodone HCl (Roxicodone -) 10 mg PO Q8H PRN PRN Reason: PAIN Last Admin: 03/16/17 02:28 Dose: 10 mg ASSESSMENT AND PLAN: Right Thigh Abscess Septic Shock Acute Kidney Injury Lactic Acidosis resolving +Troponins likely Demand Ischemia Atrial Fibrillation with RVR DM - continue antibiotics - f/u cultures - IVF resuscitation - monitor urine output, creatinine - pressors if needed to maintain MAP >65 - O2 to keep SPo2 >90% - resume anticoagulation when ok with surgery - glucose control - PO as tolerated - DVT/GI prophylaxis - continue ICU monitoring critical care time spent in reviewing chart, evaluating patient and formulating plan 38 min
--- NOTE | 2017-03-17 12:22 | PN ---
Progress Note (short form) - Note Progress Note: no surgical contraindication to anticoagulation
--- NOTE | 2017-03-17 12:40 | PN ---
Physical Exam: SUBJECTIVE: Patient seen and examined. She is feeling good today, no complaints. She denies pain in LLE. OBJECTIVE: Vital Signs Period Temp Pulse Resp BP Sys/Mao Pulse Ox Last 24 Hr 99.7 F-103 F 97-136 16-25 76-140/45-72 98-100 GENERAL: The patient is awake, alert, and fully oriented, in no acute distress. HEAD: Normal with no signs of trauma. EYES: PERRL, extraocular movements intact, sclera anicteric, conjunctiva clear. No ptosis. ENT: Ears normal, nares patent, oropharynx clear without exudates, moist mucous membranes. NECK: Trachea midline, full range of motion, supple. LUNGS: Breath sounds equal, clear to auscultation bilaterally, no wheezes, no crackles, no accessory muscle use. HEART: Regular rate and rhythm, S1, S2 without murmur, rub or gallop. ABDOMEN: Obese, soft, nontender, nondistended, normoactive bowel sounds, no guarding, no rebound, no hepatosplenomegaly, no masses. EXTREMITIES: 2+ pulses, warm, well-perfused, no edema, right groin: s/p I&O, drain placed, draining bloody fluid, no skin erythema, mild swelling in upper thigh and groin area. NEUROLOGICAL:No facial asymmetry, no tongue deviation. Normal speech, gait not observed. PSYCH: Normal mood, normal affect. SKIN: Warm, dry, normal turgor, no rashes. Laboratory Results - last 24 hr 03/16/17 03/16/17 03/16/17 11:30 11:30 11:30 WBC RBC Hgb Hct MCV MCHC RDW Plt Count MPV ESR Sodium 131 L Potassium 4.3 Chloride 101 Carbon Dioxide 16 L Anion Gap 14 BUN 35 H Creatinine 1.8 H POC Glucometer Random Glucose 295 H Lactic Acid 2.700 H* Calcium 7.2 L Phosphorus 3.4 Magnesium 2.1 D Troponin I 0.24 H C-Reactive Protein 29.1 H Random Vancomycin 6.310 Blood Type Antibody Screen Crossmatch 03/16/17 03/16/17 03/16/17 16:32 21:00 22:11 WBC RBC Hgb Hct MCV MCHC RDW Plt Count MPV ESR Sodium Potassium Chloride Carbon Dioxide Anion Gap BUN Creatinine POC Glucometer 226.48583 [phone] Random Glucose Lactic Acid 2.058 H* Calcium Phosphorus Magnesium Troponin I C-Reactive Protein Random Vancomycin Blood Type Antibody Screen Crossmatch 03/17/17 03/17/17 03/17/17 06:05 06:05 06:05 WBC 15.9 H D RBC 2.68 L Hgb 6.8 L* D Hct 21.4 L D MCV 79.8 L MCHC 31.7 L RDW 17.0 H Plt Count 260 D MPV 8.2 ESR 108 H Sodium 136 Potassium 3.7 Chloride 106 Carbon Dioxide 17 L Anion Gap 13 BUN 29 H Creatinine 1.4 H D POC Glucometer Random Glucose 114 H D Lactic Acid Calcium 7.0 L Phosphorus 2.5 D Magnesium 2.0 Troponin I C-Reactive Protein Random Vancomycin Blood Type Antibody Screen Crossmatch 03/17/17 03/17/17 03/17/17 06:05 06:30 06:43 WBC 15.7 H RBC 2.67 L Hgb 6.8 L* Hct 21.4 L MCV 80.4 MCHC 31.8 L RDW 17.4 H Plt Count 247 MPV 8.5 ESR Sodium Potassium Chloride Carbon Dioxide Anion Gap BUN Creatinine POC Glucometer 142.63564 Random Glucose Lactic Acid 1.338 Calcium Phosphorus Magnesium Troponin I C-Reactive Protein Random Vancomycin Blood Type Antibody Screen Crossmatch 03/17/17 11:30 WBC RBC Hgb Hct MCV MCHC RDW Plt Count MPV ESR Sodium Potassium Chloride Carbon Dioxide Anion Gap BUN Creatinine POC Glucometer Random Glucose Lactic Acid Calcium Phosphorus Magnesium Troponin I C-Reactive Protein Random Vancomycin Blood Type AB POSITIVE Antibody Screen Negative Crossmatch See Detail Active Medications Generic Name Dose Route Start Last Admin Trade Name Freq PRN Reason Stop Dose Admin Acetaminophen 1,000 mg 03/16/17 00:02 03/16/17 15:03 Tylenol - PO 1,000 mg Q6H PRN Administration FEVER OR PAIN Acetaminophen 650 mg 03/16/17 02:24 Tylenol - PO Q8H PRN FEVER OR PAIN Phenylephrine HCl 20,000 mcg/ 250 mls @ 75 mls/hr 03/15/17 21:00 03/16/17 21:55 Sodium Chloride IVPB Not Given ASDIR SILVA Protocol 100 MCG/MIN Norepinephrine Bitartrate 8, 500 mls @ 18.75 mls/hr 03/16/17 08:16 03/17/17 08: 30 000 mcg/ Sodium Chloride IV 0 mcg/min ASDIR SILVA Titration Protocol 5 MCG/MIN Aztreonam 1 gm/ Dextrose 50 mls @ 100 mls/hr 03/16/17 10:30 03/17/17 10:46 IVPB 100 mls/hr BID SILVA Administration Protocol Metronidazole 100 mls @ 100 mls/hr 03/16/17 10:30 03/17/17 09:16 Flagyl 500mg Premixed Ivpb - IVPB 100 mls/hr Q8H-IV SILVA Administration Sodium Chloride 1,000 mls @ 150 mls/hr 03/16/17 22:00 03/16/17 22:01 Normal Saline - IV 150 mls/hr ASDIR SILVA Administration Vancomycin HCl 1,250 mg/ 250 mls @ 166.667 mls/hr 03/17/17 12:00 03/17/17 12:13 Dextrose IVPB 166.667 mls/hr Q12H SILVA Administration Protocol Insulin Aspart 1 vial 03/16/17 07:00 03/17/17 12:09 Novolog Vial Sliding Scale - SQ 2 units TIDAC SILVA Administration Protocol Insulin Detemir 15 units 03/15/17 22:00 03/16/17 22:02 Levemir Vial SQ 15 units HS SILVA Administration Oxycodone HCl 10 mg 03/16/17 02:24 03/16/17 02:28 Roxicodone - PO 10 mg Q8H PRN Administration PAIN ASSESSMENT/PLAN: 56 y/o lady with h/o IDDM, HTN, CAD s/p stenting, h/o of thigh abscess, who presented with AMS, she was found in septic shock due to abscess in right leg. Septic shock due to abscess: -the pt has allergy to PCN: rash and hives, we will continue Aztreonam 1 g Q12H and Metronidazole 500 mg Q8H -given Vancomycin and will check levels -CRP and ESR elevated -f/u surgery recommendation for drainage -blood cultures from 03/17 are pending -preliminary blood cultures: either Group D strep or Enterococcus -abscess cx: gram (+) cocci in chains -continue IVF -monitor VS CIARAN -avoid nephrotoxic substances -IVF IDDM -ISS, -BGMs A.Fib -hold Eliquis due to h/o of vaginal bleeding-pt is currently denies hyponatremia -monitor and continue NS elevated troponins -trend Dispo: We will continue to follow the patient. Thank you for this consultative opportunity. Problem List - Problems (1) Abscess of leg Code(s): L02.419 - CUTANEOUS ABSCESS OF LIMB, UNSPECIFIED (2) Altered mental state Code(s): R41.82 - ALTERED MENTAL STATUS, UNSPECIFIED (3) Coronary artery disease Code(s): I25.10 - ATHSCL HEART DISEASE OF [place] CORONARY ARTERY W/O ANG PCTRS Qualifiers: Coronary Disease-Associated Artery/Lesion type: [place] artery [place] vs. transplanted heart: [place] heart Associated angina: without angina Qualified Code(s): I25.10 - Atherosclerotic heart disease of [place] coronary artery without angina pectoris (4) Dehydration Code(s): E86.0 - DEHYDRATION (5) Diabetes mellitus type 2 in obese Code(s): E11.9 - TYPE 2 DIABETES MELLITUS WITHOUT COMPLICATIONS E66.9 - OBESITY, UNSPECIFIED (6) Hidradenitis suppurativa Code(s): L73.2 - HIDRADENITIS SUPPURATIVA (7) Hypertension Code(s): I10 - ESSENTIAL (PRIMARY) HYPERTENSION Qualifiers: Hypertension type: essential hypertension Qualified Code(s): I10 - Essential (primary) hypertension (8) Sepsis Code(s): A41.9 - SEPSIS, UNSPECIFIED ORGANISM Visit type - Emergency Visit Emergency Visit: Yes ED Registration Date: 03/15/17 Care time: The patient presented to the Emergency Department on the above date and was hospitalized for further evaluation of their emergent condition. - New Patient This patient is new to me today: No - Critical Care Critical Care patient: Yes Total Critical Care Time (in minutes): 40 Critical Care Statement: The care of this patient involved high complexity decision making to prevent further life threatening deterioration of the patient 's condition and/or to evalute & treat vital organ system(s) failure or risk of failure.
--- NOTE | 2017-03-17 13:36 | PN ---
Addendum entered and electronically signed by Licha Olivares RES 03/17/17 14: 04: GDS bacteremia documented Original Note: Physical Exam: SUBJECTIVE: Patient seen and examined Resting in bed NAD. was hypotensive overnight 70 systolic, was placed on levophed but stopped this morning blood pressure now 116/61 MAP 71. CVP-3 HR 115 Tmax 101.1. Adequate UO. States she feels ok. denies chest pain, sob, orthopnea, wheezing, cough, h/a. Bleeding from R inner thigh wound resolved. OBJECTIVE: Vital Signs Period Temp Pulse Resp BP Sys/Mao Pulse Ox Last 24 Hr 99.7 F-103 F 97-136 16-25 76-140/45-72 98-100 GENERAL: Awake, alert, and fully oriented, in no acute distress. HEENT: atraumatic, EOMI, PERRLA, moist membranes LUNGS: Breath sounds equal, clear to auscultation bilaterally. No wheezes, and no crackles. No accessory muscle use. HEART: Irregularly Irregular, no murmurs ABDOMEN: Soft, nontender, not distended, normoactive bowel sounds, no guarding, no rebound MUSCULOSKELETAL: No CVA tenderness. UPPER EXTREMITIES: 2+ pulses, warm, well-perfused. No cyanosis. No clubbing. No peripheral edema. LOWER EXTREMITIES: 1+ pulses, warm, well-perfused. No calf tenderness. No peripheral edema. R medial thigh clean dressing, 4 incisions draining serosanguineous fluid NEUROLOGICAL: Cranial nerves II-XII intact. Normal speech. Gait not observed. PSYCHIATRIC: Cooperative. Good eye contact. Appropriate mood and affect. SKIN: lesions as above : Left labial swelling w/o fluctuance or drainage Laboratory Results - last 24 hr 03/16/17 03/16/17 03/16/17 16:32 21:00 22:11 WBC RBC Hgb Hct MCV MCHC RDW Plt Count MPV ESR Sodium Potassium Chloride Carbon Dioxide Anion Gap BUN Creatinine POC Glucometer 226.06629 229.56410 Random Glucose Lactic Acid 2.058 H* Calcium Phosphorus Magnesium Blood Type Antibody Screen Crossmatch 03/17/17 03/17/17 03/17/17 06:05 06:05 06:05 WBC 15.9 H D RBC 2.68 L Hgb 6.8 L* D Hct 21.4 L D MCV 79.8 L MCHC 31.7 L RDW 17.0 H Plt Count 260 D MPV 8.2 ESR 108 H Sodium 136 Potassium 3.7 Chloride 106 Carbon Dioxide 17 L Anion Gap 13 BUN 29 H Creatinine 1.4 H D POC Glucometer Random Glucose 114 H D Lactic Acid Calcium 7.0 L Phosphorus 2.5 D Magnesium 2.0 Blood Type Antibody Screen Crossmatch 03/17/17 03/17/17 03/17/17 06:05 06:30 06:43 WBC 15.7 H RBC 2.67 L Hgb 6.8 L* Hct 21.4 L MCV 80.4 MCHC 31.8 L RDW 17.4 H Plt Count 247 MPV 8.5 ESR Sodium Potassium Chloride Carbon Dioxide Anion Gap BUN Creatinine POC Glucometer 142.40558 Random Glucose Lactic Acid 1.338 Calcium Phosphorus Magnesium Blood Type Antibody Screen Crossmatch 03/17/17 11:30 WBC RBC Hgb Hct MCV MCHC RDW Plt Count MPV ESR Sodium Potassium Chloride Carbon Dioxide Anion Gap BUN Creatinine POC Glucometer Random Glucose Lactic Acid Calcium Phosphorus Magnesium Blood Type AB POSITIVE Antibody Screen Negative Crossmatch See Detail Active Medications Generic Name Dose Route Start Last Admin Trade Name Freq PRN Reason Stop Dose Admin Acetaminophen 1,000 mg 03/16/17 00:02 03/16/17 15:03 Tylenol - PO 1,000 mg Q6H PRN Administration FEVER OR PAIN Acetaminophen 650 mg 03/16/17 02:24 Tylenol - PO Q8H PRN FEVER OR PAIN Phenylephrine HCl 20,000 mcg/ 250 mls @ 75 mls/hr 03/15/17 21:00 03/16/17 21:55 Sodium Chloride IVPB Not Given ASDIR SILVA Protocol 100 MCG/MIN Norepinephrine Bitartrate 8, 500 mls @ 18.75 mls/hr 03/16/17 08:16 03/17/17 08: 30 000 mcg/ Sodium Chloride IV 0 mcg/min ASDIR SILVA Titration Protocol 5 MCG/MIN Aztreonam 1 gm/ Dextrose 50 mls @ 100 mls/hr 03/16/17 10:30 03/17/17 10:46 IVPB 100 mls/hr BID SILAV Administration Protocol Metronidazole 100 mls @ 100 mls/hr 03/16/17 10:30 03/17/17 09:16 Flagyl 500mg Premixed Ivpb - IVPB 100 mls/hr Q8H-IV SILVA Administration Sodium Chloride 1,000 mls @ 150 mls/hr 03/16/17 22:00 03/16/17 22:01 Normal Saline - IV 150 mls/hr ASDIR SILVA Administration Vancomycin HCl 1,250 mg/ 250 mls @ 166.667 mls/hr 03/17/17 12:00 03/17/17 12:13 Dextrose IVPB 166.667 mls/hr Q12H SILVA Administration Protocol Insulin Aspart 1 vial 03/16/17 07:00 03/17/17 12:09 Novolog Vial Sliding Scale - SQ 2 units TIDAC SILVA Administration Protocol Insulin Detemir 15 units 03/15/17 22:00 03/16/17 22:02 Levemir Vial SQ 15 units HS SILVA Administration Oxycodone HCl 10 mg 03/16/17 02:24 03/16/17 02:28 Roxicodone - PO 10 mg Q8H PRN Administration PAIN ASSESSMENT/PLAN: 56 year old female with PMH of A-FIB on eliquis, Stents x2, HTN/HLD/DM who is sent to ED for altered mental status. Found to be in septic shock. Septic Shock -Source right upper thigh abscess s/p I and D, irrigate and draining changes daily -now off pressors, goal MAP>60 -CVP -3 and more tachycardic consistent with volume contraction, requires more fluid resuscitation -patient third spacing, gained 5.5 kg over 24 hr -continue NS @125; CVP goal 10-12, administer 1 liter bolus after transfusion -lactic acidosis resolved 1.3 -ID on case: Meropenem, Clindamycin day 2 Anemia -hgb 6.8, partially dilutional, thigh bleeding resolving -transfuse 1 U pRBC Suppurative Hydrenitis -continue antibiotic regimen -[employer] consulted: supportive measures -Percocet pain Acute Kidney Injury -pre-renal azotemia/hypotension due to sepsis -Creat 1.4, trending down, adequate UO Diabetes -Levemir 15u HS -ISS for coverage at meals -FS BGM q4h Atrial Fibrillation w RVR -HR 115, expect to improve with volume repletion -continuous cardiac monitoring in ICU -holding eliquis due anemia, may restart after acute anemia resolves -BNP 9600, TTE unremarkable Demand ischemia -due to sepsis -EKG no ST or T-wave changes, no evidence of ACS -trop trending down Prophylaxis IVF NS@125cc/hr + boluses Monitor electrolytes Diabetic low sodium diet SCD's, no PPI indicated Dispo: ICU Problem List - Problems (1) Coronary artery disease Code(s): I25.10 - ATHSCL HEART DISEASE OF [place] CORONARY ARTERY W/O ANG PCTRS Qualifiers: Coronary Disease-Associated Artery/Lesion type: [place] artery [place] vs. transplanted heart: [place] heart Associated angina: without angina Qualified Code(s): I25.10 - Atherosclerotic heart disease of [place] coronary artery without angina pectoris (2) Dehydration Code(s): E86.0 - DEHYDRATION (3) Demand ischemia Code(s): I24.8 - OTHER FORMS OF ACUTE ISCHEMIC HEART DISEASE (4) Diabetes mellitus type 2 in obese Code(s): E11.9 - TYPE 2 DIABETES MELLITUS WITHOUT COMPLICATIONS E66.9 - OBESITY, UNSPECIFIED (5) Hidradenitis suppurativa Code(s): L73.2 - HIDRADENITIS SUPPURATIVA (6) Hyperglycemia due to type 2 diabetes mellitus Code(s): E11.65 - TYPE 2 DIABETES MELLITUS WITH HYPERGLYCEMIA Qualifiers: (7) Hyperlipidemia associated with type 2 diabetes mellitus Code(s): E11.69 - TYPE 2 DIABETES MELLITUS WITH OTHER SPECIFIED COMPLICATION E78.5 - HYPERLIPIDEMIA, UNSPECIFIED (8) Hypertension Code(s): I10 - ESSENTIAL (PRIMARY) HYPERTENSION Qualifiers: Hypertension type: essential hypertension Qualified Code(s): I10 - Essential (primary) hypertension (9) Hypotension Code(s): I95.9 - HYPOTENSION, UNSPECIFIED (10) Labial abscess Code(s): N76.4 - ABSCESS OF [place] (11) Labial swelling Code(s): N94.89 - OTH COND ASSOC W FEMALE GENITAL ORGANS AND MENSTRUAL CYCLE (12) Left genital labial abscess Code(s): N76.4 - ABSCESS OF [place]UL[place] (13) Persistent atrial fibrillation with rapid ventricular response Code(s): I48.1 - PERSISTENT ATRIAL FIBRILLATION (14) Sepsis Code(s): A41.9 - SEPSIS, UNSPECIFIED ORGANISM (15) Sepsis associated hypotension Code(s): A41.9 - SEPSIS, UNSPECIFIED ORGANISM (16) Status post coronary artery stent placement Code(s): Z95.5 - PRESENCE OF CORONARY ANGIOPLASTY IMPLANT AND GRAFT Visit type - Emergency Visit Emergency Visit: Yes ED Registration Date: 03/15/17 Care time: The patient presented to the Emergency Department on the above date and was hospitalized for further evaluation of their emergent condition. - New Patient This patient is new to me today: No - Critical Care Critical Care patient: Yes Total Critical Care Time (in minutes): 46 Critical Care Statement: The care of this patient involved high complexity decision making to prevent further life threatening deterioration of the patient 's condition and/or to evalute & treat vital organ system(s) failure or risk of failure. - Discharge Referral Referred to [facility] No
[2017-03-17] MEDS: ACETAMINOPHEN 325 MG TABLET (FP) PO PRN (14:42)
--- NOTE | 2017-03-17 16:37 | PN ---
Progress Note (short form) - Note Progress Note: surgery wound irrigated and more pus and clot removed. over much imrovement. less edema. plan- cont daily deep irrigation. cont abx. taught nurse how to properly irrigate
[2017-03-17] MEDS ORDERED: SODIUM CHLORIDE 1,000 ML IV SCH (17:52)
[2017-03-17 20:17] LABS: MCH 26.3 pg (25.7-33.7); MCHC 32.7 g/dl (32.0-36.0); MEAN CELL VOLUME 80.4 fl (80-96); MEAN PLT VOLUME 8.5 fl (7.5-11.1); PLATELET COUNT 226 K/MM3 (134-434); RDW 17.1 % (11.6-15.6); WHITE BLOOD COUNT 11.2 K/mm3 (4.0-10.0)
[2017-03-17] MEDS: ACETAMINOPHEN 500 MG TABLET (FP) PO PRN (20:29)
[2017-03-17] MEDS: INSULIN DETEMIR 100 UNITS/ML MDV SQ SCH (21:41)
[2017-03-18] MEDS: METRONIDAZOLE 500 MG PREMIXED 100 ML IVPB SCH ×3 (02:12→17:49)
[2017-03-18 02:17] LABS: MCH 26.1 pg (25.7-33.7); MCHC 32.6 g/dl (32.0-36.0); MEAN CELL VOLUME 80.2 fl (80-96); PLATELET COUNT 220 K/MM3 (134-434); WHITE BLOOD COUNT 11.9 K/mm3 (4.0-10.0)
[2017-03-18] MEDS: INSULIN SLIDING SCALE (NOVOLOG) 1 VIAL SQ SCH ×3 (06:31→17:46)
[2017-03-18 06:35] LABS: CALCIUM 7.3 mg/dL (8.5-10.1); COCKROFT - GAULT 110.6445; PHOSPHOROUS 2.7 mg/dL (2.5-4.9)
--- NOTE | 2017-03-18 07:11 | PN ---
Progress Note, Physician Chief Complaint: ID ICu follow up for this 56 year old diabetic female admitted wtih severe sepsis syndrome to the ICU related to large abscess right thigh. Seen by surgery with drainage of purulent collection 200cc. Interestingly she is growing Enterococcus from the blood cultures while the wound culture has a Neisseria species !! Still has low grade fevers but she feels much better. Off pressors now. No SOB Antibiotic presently Vancomycin Aztreonam and metronidazole day 3 - Current Medication List Current Medications: Active Medications Acetaminophen (Tylenol -) 1,000 mg PO Q6H PRN PRN Reason: FEVER OR PAIN Last Admin: 03/17/17 20:29 Dose: 1,000 mg Acetaminophen (Tylenol -) 650 mg PO Q8H PRN PRN Reason: FEVER OR PAIN Last Admin: 03/17/17 14:42 Dose: 650 mg Norepinephrine Bitartrate 8, (000 mcg/ Sodium Chloride) 500 mls @ 18.75 mls/hr IV ASDIR SILVA; 5 MCG/MIN PRN Reason: Protocol Last Titration: 03/17/17 08:30 Dose: 0 mcg/min Aztreonam 1 gm/ Dextrose 50 mls @ 100 mls/hr IVPB BID SILVA PRN Reason: Protocol Last Admin: 03/17/17 21:42 Dose: 100 mls/hr Metronidazole (Flagyl 500mg Premixed Ivpb -) 100 mls @ 100 mls/hr IVPB Q8H-IV SILVA Last Admin: 03/18/17 02:12 Dose: 100 mls/hr Vancomycin HCl 1,250 mg/ (Dextrose) 250 mls @ 166.667 mls/hr IVPB Q12H SILVA PRN Reason: Protocol Last Admin: 03/17/17 23:40 Dose: 166.667 mls/hr Sodium Chloride (Normal Saline -) 1,000 mls @ 100 mls/hr IV ASDIR SILVA Last Admin: 03/17/17 19:01 Dose: 100 mls/hr Insulin Aspart (Novolog Vial Sliding Scale -) 1 vial SQ TIDAC SILVA PRN Reason: Protocol Last Admin: 03/18/17 06:31 Dose: Not Given Insulin Detemir (Levemir Vial) 15 units SQ HS SILVA Last Admin: 03/17/17 21:41 Dose: 15 units Oxycodone HCl (Roxicodone -) 10 mg PO Q8H PRN PRN Reason: PAIN Last Admin: 03/16/17 02:28 Dose: 10 mg - Objective Vital Signs: Vital Signs Temperature 99.4 F 03/18/17 06:00 Pulse Rate 120 H 03/18/17 06:00 Respiratory Rate 21 03/18/17 06:00 Blood Pressure 127/71 03/18/17 06:00 O2 Sat by Pulse Oximetry (%) 100 03/17/17 20:09 Constitutional: Yes: Well Nourished, No Distress HENT: Yes: WNL, Atraumatic Neck: Yes: WNL, Supple Cardiovascular: Yes: Regular Rate and Rhythm, Tachycardia, Pulse Irregular, S1, S2. No: Murmur Respiratory: Yes: Regular, CTA Bilaterally Gastrointestinal: Yes: WNL, Normal Bowel Sounds, Soft. No: Tenderness, Tenderness, Rebound Extremities: Yes: Other (Deep multiple inner thigh wounds connect with each other Less beeding then before) Labs: CBC, BMP 03/18/17 02:00 03/18/17 05:15 INR, PTT INR 2.24 (0.82-1.09) H D 03/15/17 18:56 Problem List - Problems (1) Diabetes mellitus type 2 in obese Code(s): E11.9 - TYPE 2 DIABETES MELLITUS WITHOUT COMPLICATIONS E66.9 - OBESITY, UNSPECIFIED (2) Sepsis associated hypotension Code(s): A41.9 - SEPSIS, UNSPECIFIED ORGANISM (3) Abscess of leg Code(s): L02.419 - CUTANEOUS ABSCESS OF LIMB, UNSPECIFIED Assessment/Plan Microbiology 03/16/17 02:00 Abscess Gram Stain - Final 03/15/17 18:56 Urine - Urine Chapman Urine Culture - Final NO GROWTH OBTAINED 03/16/17 02:00 Abscess Wound Culture - Preliminary Neisseria Species 03/15/17 18:56 Blood - Peripheral Venous Blood Culture - Preliminary Group D Strep Or Entero Coccus 03/15/17 18:56 Blood - Peripheral Venous Blood Culture - Preliminary Group D Strep Or Entero Coccus Laboratory Tests 03/16/17 03/16/17 03/17/17 05:20 11:30 06:05 WBC 26.8 H Hgb Hct Plt Count ESR 108 H BUN Creatinine C-Reactive Protein 29.1 H 03/18/17 03/18/17 02:00 05:15 WBC 11.9 H Hgb 7.1 L Hct 21.9 L Plt Count 220 ESR BUN 24 H Creatinine 1.0 D C-Reactive Protein Assessment Severe sepsis syndrome related to abscess leg Enterococcal bacteremia ECHO no vegetations Pencicillin allergy Neisseria Diabetes Plan For now would continue current antibiotics pending final cultures May challenge with cephalosporin Await repeat blood cultures Neisseria ? other then meningitidis Check Vanco level 38 minutes spent critical care time review Umberto Shipman MD
[2017-03-18 08:48] LABS: BASOPHIL 0.6 % (0-2.0); EOSINOPHIL 2.9 % (0-4.5); MCH 26.8 pg (25.7-33.7); MCHC 33.7 g/dl (32.0-36.0); MEAN CELL VOLUME 79.6 fl (80-96); MEAN PLT VOLUME 8.2 fl (7.5-11.1); NEUTROPHILS 89.4 % (42.8-82.8); PLATELET COUNT 229 K/MM3 (134-434); RDW 16.6 % (11.6-15.6)
--- NOTE | 2017-03-18 08:55 | PN ---
Physical Exam: SUBJECTIVE: Patient seen and examined. No overnight events. She started having cough when lying flat. The pt doesn't have fever in the past 24 hrs. The pt denies chest pain, SOB, leg pain. OBJECTIVE: Vital Signs Period Temp Pulse Resp BP Sys/Mao Pulse Ox Last 24 Hr 99.1 F-100.8 F 97-144 18-24 101-127/47-76 100-100 GENERAL: The patient is awake, alert, and fully oriented, in no acute distress. HEAD: Normal with no signs of trauma. EYES: PERRL, extraocular movements intact, sclera anicteric, conjunctiva clear. No ptosis. ENT: Ears normal, nares patent, oropharynx clear without exudates, moist mucous membranes. NECK: Trachea midline, full range of motion, supple. LUNGS: Breath sounds equal, clear to auscultation bilaterally, no wheezes, no crackles, no accessory muscle use. HEART: Regular rate and rhythm, S1, S2 without murmur, rub or gallop. ABDOMEN: Obese, soft, nontender, nondistended, normoactive bowel sounds, no guarding, no rebound, no hepatosplenomegaly, no masses. EXTREMITIES: 2+ pulses, warm, well-perfused, no edema, right groin: s/p I&O, drain placed, dressing applied, dry, no skin erythema, mild swelling in upper thigh and groin area. NEUROLOGICAL: No facial asymmetry, no tongue deviation. Normal speech, gait not observed. PSYCH: Normal mood, normal affect. SKIN: Warm, dry, normal turgor, no rashes. Laboratory Results - last 24 hr 03/17/17 03/17/17 03/17/17 11:30 12:07 17:45 WBC RBC Hgb Hct MCV MCHC RDW Plt Count MPV Sodium Potassium Chloride Carbon Dioxide Anion Gap BUN Creatinine POC Glucometer 155.56901 141.47764 Random Glucose Lactic Acid Calcium Phosphorus Magnesium Blood Type AB POSITIVE Antibody Screen Negative Crossmatch See Detail 03/17/17 03/17/17 03/18/17 19:15 21:17 02:00 WBC 11.2 H 11.9 H RBC 2.49 L 2.72 L Hgb 6.6 L* 7.1 L Hct 20.1 L 21.9 L MCV 80.4 80.2 MCHC 32.7 32.6 RDW 17.1 H 16.0 H Plt Count 226 220 MPV 8.5 8.0 Sodium Potassium Chloride Carbon Dioxide Anion Gap BUN Creatinine POC Glucometer 155.36706 Random Glucose Lactic Acid Calcium Phosphorus Magnesium Blood Type Antibody Screen Crossmatch 03/18/17 03/18/17 03/18/17 05:09 05:15 05:15 WBC RBC Hgb Hct MCV MCHC RDW Plt Count MPV Sodium 137 Potassium 3.9 Chloride 107 Carbon Dioxide 20 L Anion Gap 10 BUN 24 H Creatinine 1.0 D POC Glucometer 97.41562 Random Glucose 79 D Lactic Acid 0.918 Calcium 7.3 L Phosphorus 2.7 Magnesium 2.0 Blood Type Antibody Screen Crossmatch Active Medications Generic Name Dose Route Start Last Admin Trade Name Freq PRN Reason Stop Dose Admin Acetaminophen 1,000 mg 03/16/17 00:02 03/17/17 20:29 Tylenol - PO 1,000 mg Q6H PRN Administration FEVER OR PAIN Acetaminophen 650 mg 03/16/17 02:24 03/17/17 14:42 Tylenol - PO 650 mg Q8H PRN Administration FEVER OR PAIN Norepinephrine Bitartrate 8, 500 mls @ 18.75 mls/hr 03/16/17 08:16 03/17/17 08: 30 000 mcg/ Sodium Chloride IV 0 mcg/min ASDIR SILVA Titration Protocol 5 MCG/MIN Aztreonam 1 gm/ Dextrose 50 mls @ 100 mls/hr 03/16/17 10:30 03/17/17 21:42 IVPB 100 mls/hr BID SILAV Administration Protocol Metronidazole 100 mls @ 100 mls/hr 03/16/17 10:30 03/18/17 02:12 Flagyl 500mg Premixed Ivpb - IVPB 100 mls/hr Q8H-IV SILVA Administration Vancomycin HCl 1,250 mg/ 250 mls @ 166.667 mls/hr 03/17/17 12:00 03/17/17 23:40 Dextrose IVPB 166.667 mls/hr Q12H SILVA Administration Protocol Sodium Chloride 1,000 mls @ 100 mls/hr 03/17/17 17:52 03/17/17 19:01 Normal Saline - IV 100 mls/hr ASDIR SILVA Administration Insulin Aspart 1 vial 03/16/17 07:00 03/18/17 06:31 Novolog Vial Sliding Scale - SQ Not Given TIDAC [facility] Protocol Insulin Detemir 15 units 03/15/17 22:00 03/17/17 21:41 Levemir Vial SQ 15 units HS SILVA Administration Oxycodone HCl 10 mg 03/16/17 02:24 03/16/17 02:28 Roxicodone - PO 10 mg Q8H PRN Administration PAIN ASSESSMENT/PLAN: 56 y/o female with h/o IDDM, HTN, CAD s/p stenting, h/o of thigh abscess, who presented with AMS, she was found in septic shock due to abscess in right leg. Septic shock due to abscess: -the pt has allergy to PCN: rash and hives, -we will continue Aztreonam 1 g Q12H and Metronidazole 500 mg Q8H -check Vancomycin levels and adjust the dose -f/u surgery recommendation for drainage -blood cultures: No growth, no final report -wound culture: Neisseria sp., no final report -continue IVF at 100 ml/hr -monitor VS CIARAN -avoid nephrotoxic substances -IVF IDDM -ISS, -BGMs A.Fib -hold Eliquis due to h/o of vaginal bleeding-pt is currently denies hyponatremia -monitor and continue NS elevated troponins -trend Dispo: We will continue to follow the patient. Thank you for this consultative opportunity. Problem List - Problems (1) Abscess of leg Code(s): L02.419 - CUTANEOUS ABSCESS OF LIMB, UNSPECIFIED (2) Altered mental state Code(s): R41.82 - ALTERED MENTAL STATUS, UNSPECIFIED (3) Coronary artery disease Code(s): I25.10 - ATHSCL HEART DISEASE OF [place] CORONARY ARTERY W/O ANG PCTRS Qualifiers: Coronary Disease-Associated Artery/Lesion type: [place] artery [place] vs. transplanted heart: [place] heart Associated angina: without angina Qualified Code(s): I25.10 - Atherosclerotic heart disease of [place] coronary artery without angina pectoris (4) Dehydration Code(s): E86.0 - DEHYDRATION (5) Diabetes mellitus type 2 in obese Code(s): E11.9 - TYPE 2 DIABETES MELLITUS WITHOUT COMPLICATIONS E66.9 - OBESITY, UNSPECIFIED (6) Hidradenitis suppurativa Code(s): L73.2 - HIDRADENITIS SUPPURATIVA (7) Hypertension Code(s): I10 - ESSENTIAL (PRIMARY) HYPERTENSION Qualifiers: Hypertension type: essential hypertension Qualified Code(s): I10 - Essential (primary) hypertension (8) Sepsis Code(s): A41.9 - SEPSIS, UNSPECIFIED ORGANISM Visit type - Emergency Visit Emergency Visit: Yes ED Registration Date: 03/15/17 Care time: The patient presented to the Emergency Department on the above date and was hospitalized for further evaluation of their emergent condition. - New Patient This patient is new to me today: No - Critical Care Critical Care patient: Yes Total Critical Care Time (in minutes): 30 Critical Care Statement: The care of this patient involved high complexity decision making to prevent further life threatening deterioration of the patient 's condition and/or to evalute & treat vital organ system(s) failure or risk of failure.
[2017-03-18] MEDS ORDERED: SODIUM CHLORIDE 1,000 ML IV SCH ×3 (09:30→22:07)
[2017-03-18] MEDS: AZTREONAM 1 GM in DEXTROSE 5%-WATER - 50 ML IVPB SCH ×2 (09:48→21:53)
[2017-03-18] MEDS: NOREPINEPHRINE BITARTRATE 8,000 MCG in SODIUM CHLORIDE 492 ML IV SCH (09:49)
[2017-03-18] MEDS ORDERED: DIGOXIN 0.25 MG TABLET (FP) PO SCH (10:00)
[2017-03-18] MEDS ORDERED: PT OWN MED DRAWER 7, Y5N ONE ×4 (10:40→21:49)
[2017-03-18] MEDS: METOPROLOL SUCCINATE 50 MG TAB.SR.24H (FP) PO SCH ×2 (10:42→21:53)
[2017-03-18] MEDS: APIXABAN 5 MG TABLET PO SCH ×2 (11:00→21:53)
[2017-03-18] MEDS: ACETAMINOPHEN 325 MG TABLET (FP) PO PRN ×2 (11:03→17:48)
[2017-03-18] MEDS: oxyCODONE HCL 5 MG TABLET PO PRN (11:04)
[2017-03-18] MEDS: VANCOMYCIN 1,250 MG in DEXTROSE 5%-WATER - 250 ML IVPB SCH (11:08)
--- NOTE | 2017-03-18 12:29 | PN ---
Teaching Attending Note Name of Resident: Kateryna Levy ATTENDING PHYSICIAN STATEMENT I saw and evaluated the patient. I reviewed the resident's note and discussed the case with the resident. I agree with the resident's findings and plan as documented. SUBJECTIVE: Pt seen and examined in the ICU. Hemodynamically improving off pressors. Low grade temps overnight. Denies shortness of breath. Mild nonproductive cough. OBJECTIVE: Last Vital Signs Temp Pulse Resp BP Pulse Ox 99.4 F 123 H 18 128/70 100 03/18/17 08:00 03/18/17 10:41 03/18/17 08:00 03/18/17 08:00 03/17/17 20:09 Intake & Output 03/15/17 03/16/17 03/17/17 03/18/17 23:59 23:59 23:59 23:59 Intake Total 2350 6490.8 7684 1550 Output Total 30 2160 4600 1700 Balance 2320 4330.8 3084 -150 Weight 231 lb 7.766 oz 231 lb 11.293 oz 243 lb 6.245 oz 243 lb 1.6 oz Gen: more comfortable Heart: tachycardic, regular Lung: scattered basilar rales Abd: soft, nontender Ext: no edema CBC, BMP 03/18/17 08:00 03/18/17 05:15 Active Medications Acetaminophen (Tylenol -) 1,000 mg PO Q6H PRN PRN Reason: FEVER OR PAIN Last Admin: 03/17/17 20:29 Dose: 1,000 mg Acetaminophen (Tylenol -) 650 mg PO Q8H PRN PRN Reason: FEVER OR PAIN Last Admin: 03/18/17 11:03 Dose: 650 mg Apixaban (Eliquis -) 5 mg PO BID SILVA Last Admin: 03/18/17 11:00 Dose: 5 mg Digoxin (Lanoxin -) 0.25 mg PO DAILY SILVA Last Admin: 03/18/17 10:41 Dose: 0.25 mg Norepinephrine Bitartrate 8, (000 mcg/ Sodium Chloride) 500 mls @ 18.75 mls/hr IV ASDIR SILVA; 5 MCG/MIN PRN Reason: Protocol Last Admin: 03/18/17 09:49 Dose: Not Given Aztreonam 1 gm/ Dextrose 50 mls @ 100 mls/hr IVPB BID SILVA PRN Reason: Protocol Last Admin: 03/18/17 09:48 Dose: 100 mls/hr Metronidazole (Flagyl 500mg Premixed Ivpb -) 100 mls @ 100 mls/hr IVPB Q8H-IV SILVA Last Admin: 03/18/17 10:42 Dose: 100 mls/hr Vancomycin HCl 1,250 mg/ (Dextrose) 250 mls @ 166.667 mls/hr IVPB Q12H SILVA PRN Reason: Protocol Last Admin: 03/18/17 11:08 Dose: 166.667 mls/hr Sodium Chloride (Normal Saline -) 1,000 mls @ 50 mls/hr IV ASDIR [facility] Last Admin: 03/18/17 10:43 Dose: 50 mls/hr Insulin Aspart (Novolog Vial Sliding Scale -) 1 vial SQ TIDAC [facility] PRN Reason: Protocol Last Admin: 03/18/17 12:11 Dose: 2 units Insulin Detemir (Levemir Vial) 15 units SQ HS [facility] Last Admin: 03/17/17 21:41 Dose: 15 units Metoprolol Succinate (Toprol Xl -) 50 mg PO BID [facility] Last Admin: 03/18/17 10:42 Dose: 50 mg Oxycodone HCl (Roxicodone -) 10 mg PO Q8H PRN PRN Reason: PAIN Last Admin: 03/18/17 11:04 Dose: 10 mg ASSESSMENT AND PLAN: Right Thigh Abscess Septic Shock resolving Acute Kidney Injury resolving Lactic Acidosis resolved +Troponins likely Demand Ischemia Atrial Fibrillation with RVR DM - continue antibiotics - f/u cultures - can d/c IVF - monitor urine output, creatinine - pressors if needed to maintain MAP >65 - O2 to keep SPo2 >90% - rate control - resume anticoagulation - glucose control - PO as tolerated - DVT/GI prophylaxis - OOB to chair - can monitor on floor critical care time spent in reviewing chart, evaluating patient and formulating plan 35 min
--- NOTE | 2017-03-18 13:30 | MSN ---
Progress Note (SOAP) - Subjective Chief Complaint: AMS History of Present Illness: Ms. Garcia is a 56 y/o female w PMHx Afib/HTN/HLD/DM, s/p stents x2, bilateral TKA (left done one month ago) who is admitted for toxic encephalopathy 2/2 sepsis from abscess in right thigh. Pt awake, alert, and in no acute distress this morning. Pt's only complaint at this time is a wet cough that started yesterday. Pt's last bowel movement was yesterday; no diarrhea or blood was noted. Pt denies f/c/abd pain/colon/lightheadedness/cp/hematochezia. - Current Medications Current Medications: Active Medications Acetaminophen (Tylenol -) 1,000 mg PO Q6H PRN PRN Reason: FEVER OR PAIN Last Admin: 03/17/17 20:29 Dose: 1,000 mg Acetaminophen (Tylenol -) 650 mg PO Q8H PRN PRN Reason: FEVER OR PAIN Last Admin: 03/18/17 11:03 Dose: 650 mg Apixaban (Eliquis -) 5 mg PO BID SILVA Last Admin: 03/18/17 11:00 Dose: 5 mg Digoxin (Lanoxin -) 0.25 mg PO DAILY SILVA Last Admin: 03/18/17 10:41 Dose: 0.25 mg Norepinephrine Bitartrate 8, (000 mcg/ Sodium Chloride) 500 mls @ 18.75 mls/hr IV ASDIR SILVA; 5 MCG/MIN PRN Reason: Protocol Last Admin: 03/18/17 09:49 Dose: Not Given Aztreonam 1 gm/ Dextrose 50 mls @ 100 mls/hr IVPB BID SILVA PRN Reason: Protocol Last Admin: 03/18/17 09:48 Dose: 100 mls/hr Metronidazole (Flagyl 500mg Premixed Ivpb -) 100 mls @ 100 mls/hr IVPB Q8H-IV SILVA Last Admin: 03/18/17 10:42 Dose: 100 mls/hr Vancomycin HCl 1,250 mg/ (Dextrose) 250 mls @ 166.667 mls/hr IVPB Q12H SILVA PRN Reason: Protocol Last Admin: 03/18/17 11:08 Dose: 166.667 mls/hr Sodium Chloride (Normal Saline -) 1,000 mls @ 50 mls/hr IV ASDIR SILVA Last Admin: 03/18/17 10:43 Dose: 50 mls/hr Insulin Aspart (Novolog Vial Sliding Scale -) 1 vial SQ TIDAC [facility] PRN Reason: Protocol Last Admin: 03/18/17 12:11 Dose: 2 units Insulin Detemir (Levemir Vial) 15 units SQ HS [facility] Last Admin: 03/17/17 21:41 Dose: 15 units Metoprolol Succinate (Toprol Xl -) 50 mg PO BID [facility] Last Admin: 03/18/17 10:42 Dose: 50 mg Oxycodone HCl (Roxicodone -) 10 mg PO Q8H PRN PRN Reason: PAIN Last Admin: 03/18/17 11:04 Dose: 10 mg - Objective Vital Signs: Vital Signs Temperature 99.6 F 03/18/17 12:00 Pulse Rate 102 H 03/18/17 12:00 Respiratory Rate 20 03/18/17 12:00 Blood Pressure 114/80 03/18/17 12:00 O2 Sat by Pulse Oximetry (%) 100 03/18/17 10:00 Constitutional: Yes: No Distress, Calm Eyes: Yes: Conjunctiva Clear, EOM Intact HENT: Yes: Atraumatic, Normocephalic Neck: Yes: Supple, Trachea Midline Cardiovascular: Yes: Regular Rate and Rhythm Respiratory: Yes: Regular, Cough, Rales Gastrointestinal: Yes: Normal Bowel Sounds, Soft. No: Tenderness Peripheral Pulses WNL: Yes Peripheral Pulses: Left Radial: 2+, Right Radial: 2+, Left Doralis Pedis: 2+, Right Dorsalis Pedis: 2+ Edema: No Wound/Incision: Yes: Clean/Dry, Dressing Dry and Intact Neurological: Yes: Alert, Oriented, Cran Nerves II-XII Intact Labs Lab Results: CBC,CMP WBC 12.0 K/mm3 (4.0-10.0) H 03/18/17 08:00 RBC 2.93 M/mm3 (3.60-5.2) L 03/18/17 08:00 Hgb 7.9 GM/dL (10.7-15.3) L D 03/18/17 08:00 Hct 23.3 % (32.4-45.2) L 03/18/17 08:00 MCV 79.6 fl (80-96) L 03/18/17 08:00 MCHC 33.7 g/dl (32.0-36.0) 03/18/17 08:00 RDW 16.6 % (11.6-15.6) H 03/18/17 08:00 Plt Count 229 K/MM3 (134-434) 03/18/17 08:00 MPV 8.2 fl (7.5-11.1) 03/18/17 08:00 Neutrophils % 89.4 % (42.8-82.8) H D 03/18/17 08:00 Lymphocytes % 4.2 % (8-40) L D 03/18/17 08:00 Monocytes % 2.9 % (3.8-10.2) L 03/18/17 08:00 Eosinophils % 2.9 % (0-4.5) 03/18/17 08:00 Basophils % 0.6 % (0-2.0) 03/18/17 08:00 Band Neutrophils 10.0 % (0-10) D 03/16/17 05:20 Metamyelocytes 7 % (0-2) H D 03/16/17 05:20 Differential Comment Manual diff done 03/16/17 05:20 Platelet Estimate Adequate (NORMAL) 03/16/17 05:20 Platelet Comment No clumping noted 03/15/17 23:00 Platelet Comment No clotting detected 03/15/17 23:00 Hypochromic-Microcytic 1+ 03/15/17 23:00 Anisocytosis 1+ 03/15/17 23:00 Morphology Comment Slide scanned 03/15/17 18:56 ESR 108 mm/hr (0-30) H 03/17/17 06:05 Sodium 137 mmol/L (136-145) 03/18/17 05:15 Potassium 3.9 mmol/L (3.5-5.1) 03/18/17 05:15 Chloride 107 mmol/L (98-107) 03/18/17 05:15 Carbon Dioxide 20 mmol/L (21-32) L 03/18/17 05:15 Anion Gap 10 (8-16) 03/18/17 05:15 BUN 24 mg/dL (7-18) H 03/18/17 05:15 Creatinine 1.0 mg/dL (0.55-1.02) D 03/18/17 05:15 Creat Clearance w eGFR 29.21 (>60) 03/16/17 05:20 POC Glucometer 159.98408 UNITS (()) 03/18/17 12:02 Random Glucose 79 mg/dL (74-106) D 03/18/17 05:15 Lactic Acid 0.918 mmol/L (0.4-2.0) 03/18/17 05:15 Calcium 7.3 mg/dL (8.5-10.1) L 03/18/17 05:15 Phosphorus 2.7 mg/dL (2.5-4.9) 03/18/17 05:15 Magnesium 2.0 mg/dL (1.8-2.4) 03/18/17 05:15 Total Bilirubin 0.5 mg/dL (0.2-1.0) D 03/16/17 05:20 AST 47 U/L (15-37) H D 03/16/17 05:20 ALT 29 U/L (12-78) D 03/16/17 05:20 Alkaline Phosphatase 100 U/L (45-117) D 03/16/17 05:20 Creatine Kinase 468 IU/L (26-192) H D 03/16/17 05:20 CK-MB (CK-2) 8.016 ng/ml (0.5-3.6) H 03/16/17 05:20 Troponin I 0.24 ng/ml (0.00-0.05) H 03/16/17 11:30 C-Reactive Protein 29.1 MG/DL (0.00-0.3) H 03/16/17 11:30 B-Natriuretic Peptide 9670.67 pg/ml (5-125) H 03/15/17 18:59 Total Protein 5.6 g/dl (6.4-8.2) L 03/16/17 05:20 Albumin 2.0 g/dl (3.4-5.0) L 03/16/17 05:20 Assessment/Plan 56 y/o female with PMHx of HTN, DM, HLD, Bilateral TKA (L Knee 1month ago), s/p stents x2 presented to the Emergency Department after her found her to be confused and shaking. Pt admitted for toxic encephalopathy 2/2 septic shock likely from R medial upper thigh abscess. Toxic encephalopathy 2/2 sepsis and bacteremia -Pt stable; can be discharged from ICU to [facility] -Discontinue IVF: BP stable, CVP 3 (-1), crackles heard on auscultation -Preliminary blood cultures: either Group D strep or Enterococcus Repeat cultures: NO growth after 24hrs -abscess cx: Neisseria species -ID following case: IV Flagyl 500mg TID, IV Aztreonam 1g BID, IV Vancomycin 1250mg BID -R Thigh abscess: Continue to drain and irrigate wound daily. Dr. Silva following case Anemia -improving; H/H 7.1/21.9 (6.8/21.4) -s/p transfusion of 2 units RBCs -consider another transfusion if levels decline -continue to monitor H/H Suppurativa Hidradenitis -Dr Moseley consulted: Continue Abx and conservative measures 3mo Hx of Vaginal Bleeding -Consult Gynecology -Transvaginal US CIARAN -resolved -Cr 1 (1.4) -baseline 0.8 Hyponatremia -Resolved; Na 136 (131) -continue IVF NS IDDM -Morning 8am Glucose: 97 -Can decrease levemir dose at night if levels remain relatively low -Levemir 15units -Novolog sliding Scale Afib w RVR -Pulse: 137 (115) -Restart Eliquis 5mg BID -Start Metoprolol 50mg BID -Restart Digoxin 0.25 qd (Cr 1.0) -Continue to monitor bleeding from incision and vagina DVT prophylaxis -Eliquis 5mg BID
--- NOTE | 2017-03-18 14:03 | CON.CARD ---
Consult Consult Specialty:: Cardiology Referred by:: Hospitalist Medicine Reason for Consultation:: Rapid afib - History of Present Illness Chief Complaint: Sepsis History of Present Illness: This is a 56 yo F with PMH of Afib on eliquis, CAD, SC s/p stents x2 jul 2015, HTN, NIDDM, L labial abscess, sciatica and chronic knee pain, admitted for septic shock referable to right thigh abscess drained by surgery, treated with abx and pressors since discontinued. Episodes of rapid afib now with improved rate-control. Patient denies chest pain, dyspnea, near or true syncope, orthopnea, PND or LE edema. - History Source History Provided By: Patient Limitations to Obtaining History: No Limitations - Past Medical History Cardio/Vascular: Yes: AFIB, CAD, HTN, SC Musculoskeletal: Yes: Osteoarthritis - Past Surgical History Past Surgical History: Yes: Stent Additional Surgical History: L total knee - Alcohol/Substance Use Hx Alcohol Use: Yes (occassionally) - Smoking History Smoking history: Never smoked Have you smoked in the past 12 months: No - Social History Usual Living Arrangement: With Spouse ADL: Independent Home Medications - Allergies Allergies/Adverse Reactions: Allergies Allergy/AdvReac Type Severity Reaction Status Date / Time Penicillins Allergy Verified 03/15/17 18:29 - Home Medications Home Medications: Ambulatory Orders Apixaban [Eliquis -] 5 mg PO BID 11/13/16 Atorvastatin Ca [Lipitor] 20 mg PO HS 11/13/16 Cholecalciferol (Vitamin D3) [Vitamin D3 -] 1,000 unit PO DAILY 11/13/16 Cyanocobalamin (Vitamin B-12) [Vitamin B-12] 1,000 mcg PO DAILY 11/13/16 Digoxin [Lanoxin -] 0.25 mg PO DAILY 11/13/16 Lisinopril [Prinivil -] 40 mg PO DAILY 11/13/16 Metoprolol Tartrate [Lopressor] 100 mg PO BID 11/13/16 Insulin Sliding Scale [Novolog Vial Sliding Scale -] 1 vial SQ ACHS #100 units 11/16/16 Diltiazem Cd [Cardizem Cd -] 120 mg PO DAILY 03/15/17 Insulin (Levemir) [Levemir Vial] 15 units SQ HS 03/15/17 Metformin HCl 500 mg PO BID 03/15/17 Review of Systems - Review of Systems Constitutional: reports: Fever Neurological: reports: Confusion Vital Signs: Vital Signs Temperature 99.6 F 03/18/17 12:00 Pulse Rate 102 H 03/18/17 12:00 Respiratory Rate 20 03/18/17 12:00 Blood Pressure 114/80 03/18/17 12:00 O2 Sat by Pulse Oximetry (%) 100 03/18/17 10:00 Constitutional: Yes: No Distress, Calm Neck: Yes: Supple Respiratory: Yes: Regular, Diminished Gastrointestinal: Yes: Normal Bowel Sounds, Soft Cardiovascular: Yes: Tachycardia, Pulse Irregular JVD: No Carotid Bruit: No Heart Sounds: Yes: S1, S2 Murmur: Yes: Systolic Murmur, Grade 1 Edema: No - Other Data Labs, Other Data: CBC, BMP 03/18/17 08:00 03/18/17 05:15 INR, PTT INR 2.24 (0.82-1.09) H D 03/15/17 18:56 Afib Prior Cardiac Procedures: PTCA with Stent Ejection Fraction %: LVEF > or = 40 % Problem List - Problems (1) Abscess of leg Code(s): L02.419 - CUTANEOUS ABSCESS OF LIMB, UNSPECIFIED (2) Coronary artery disease Code(s): I25.10 - ATHSCL HEART DISEASE OF [place] CORONARY ARTERY W/O ANG PCTRS Qualifiers: Coronary Disease-Associated Artery/Lesion type: [place] artery [place] vs. transplanted heart: [place] heart Associated angina: without angina Qualified Code(s): I25.10 - Atherosclerotic heart disease of [place] coronary artery without angina pectoris (3) Demand ischemia Code(s): I24.8 - OTHER FORMS OF ACUTE ISCHEMIC HEART DISEASE (4) Hidradenitis suppurativa Code(s): L73.2 - HIDRADENITIS SUPPURATIVA (5) Hyperglycemia due to type 2 diabetes mellitus Code(s): E11.65 - TYPE 2 DIABETES MELLITUS WITH HYPERGLYCEMIA Qualifiers: Diabetes mellitus nursing home insulin use: with superintendent container terminal use Qualified Code(s): E11.65 - Type 2 diabetes mellitus with hyperglycemia (6) Persistent atrial fibrillation with rapid ventricular response Code(s): I48.1 - PERSISTENT ATRIAL FIBRILLATION (7) Sepsis Code(s): A41.9 - SEPSIS, UNSPECIFIED ORGANISM Qualifiers: Sepsis type: Streptococcus, other Qualified Code(s): A40.8 - Other streptococcal sepsis (8) Status post coronary artery stent placement Code(s): Z95.5 - PRESENCE OF CORONARY ANGIOPLASTY IMPLANT AND GRAFT Assessment/Plan 03/16/2017 Echo: Normal LV size and fxn, mild LAE, mild MR, TR, small pericardial effusion 1. Right Thigh Abscess post drainage, suppurative hidradenitis 2. Septic shock (enterococcus) resolved off pressors 3. Acute Kidney Injury resolving 4. CAD s/p PCI(stent), demand ischemia 5. Lactic Acidosis resolved 6. Persistent atrial fibrillation with RVR on NOAC 7. Type 2 DM 8. HTN 9. Hyperlipidemia 10. Anemia post transfusion PLAN: 1. Cardiac enzymes trending downward 2. Optimize glycemic control 3. Continue Eliquis 5 mg BID, Lipitor 20 mg QHS, Dig 0.25 qd and Lopressor 50 mg BID, resume Lisinopril 40 mg QD as hemodynamics tolerate 4. Antibiotics per C&S, GI prophylaxis 5. Patient to f/u with Dr. Ahmadi of [facility] upon discharge 6. Thank you for consultative opportunity
--- NOTE | 2017-03-18 14:18 | PN ---
Teaching Attending Note Name of Resident: Licha Olivares ATTENDING PHYSICIAN STATEMENT I saw and evaluated the patient. I reviewed the resident's note and discussed the case with the resident. I agree with the resident's findings and plan as documented. SUBJECTIVE: no fever or chills, no abd pain, no pain in R thigh.no SOB , has developed dry cough . no sputum production OBJECTIVE: NAD , awake , alert , oriented x 3. HEENT: pale skin, MMM CV: irreg irreg , no MRG Lungs : CTAB Abd : soft, NT, ND , NL BS : L labial skin changes ( hyperpigmentation, edema , and enlargement ) which is better today , no fluctuance. R upper thigh small surgical incisions with packing in , with minimaly blood saturated dressing . no erythema noted on upper thigh today ASSESSMENT AND PLAN: 56 y/o lady with h/o IDDM, HTN, CAD s/p stenting in 07/2015 , R knee replacement and L knee replacement ( 1 month ago) , and other medical problems who presented with AMS, she was found in septic shock. 1- Septic shock from R upper thigh abscess: shock has resolved. blood cx with group D strep . Wound cx with Neisseria - cont aztreonam, flagyl, and vanco - follow vanco trough - lactic acidosis resolved - follow final sensitivity - hydradenitis suppurativa improved - decrease IVF to 50 , then probably dc in am 2-CIARAN: likely pre-renal azotemia due to hypotension and volume depletion. - resolved 3- A fib with RVR: now since BP improved, can resume Home meds to avoid tachycardia induced cardiomyopathy - resume metoprolol at 50 mg BID and titrate up to home dose if tolerated - resume digoxin - resume elliquis 4- IDDM : severe hyperglycemia resolved. this am Glc of 90s - monitor sugar throught the day, might need to decrease HS levemir - cont SSI 5- Acute on chronic blood loss anemia : due to vaginal bleed and bleeding from surgical site. vaginal bleed has resolved - check vaginal US - will re-invite [employer] after US as bleeding was not addressed 6- trop leak , due to demand ischemia in setting of septic shock. Dispo : Tx to tele
--- NOTE | 2017-03-18 15:06 | PN ---
Physical Exam: SUBJECTIVE: Patient seen and examined Resting in bed NAD. hemodynamically stable of fpressors. afebrile. MAP 86. CVP 4 HR 130. Adequate UO. States she feels well but developed a new wet cought that is aggravated by lying flat. denies chest pain, sob, orthopnea, wheezing, h/a. Bleeding from R inner thigh wound resolved. No vaginal bleeding OBJECTIVE: Vital Signs Period Temp Pulse Resp BP Sys/Moa Pulse Ox Last 24 Hr 99.1 F-100.3 F 102-137 18-24 102-128/57-80 100-100 GENERAL: Awake, alert, and fully oriented, in no acute distress. HEENT: atraumatic, EOMI, PERRLA, moist membranes LUNGS: bibasilar rales HEART: Irregularly Irregular, tachy, no murmurs ABDOMEN: Soft, nontender, not distended, normoactive bowel sounds, no guarding, no rebound MUSCULOSKELETAL: No CVA tenderness. UPPER EXTREMITIES: 2+ pulses, warm, well-perfused. No cyanosis. No clubbing. No peripheral edema. LOWER EXTREMITIES: 1+ pulses, warm, well-perfused. No calf tenderness. No peripheral edema. R medial thigh clean dressing, 4 incisions draining serosanguineous fluid. improved NEUROLOGICAL: Cranial nerves II-XII intact. Normal speech. Gait not observed. PSYCHIATRIC: Cooperative. Good eye contact. Appropriate mood and affect. SKIN: lesions as above : Left labial swelling w/o fluctuance or drainage, improved Laboratory Results - last 24 hr 03/17/17 03/17/17 03/17/17 12:07 17:45 19:15 WBC 11.2 H RBC 2.49 L Hgb 6.6 L* Hct 20.1 L MCV 80.4 MCHC 32.7 RDW 17.1 H Plt Count 226 MPV 8.5 Neutrophils % Lymphocytes % Monocytes % Eosinophils % Basophils % Sodium Potassium Chloride Carbon Dioxide Anion Gap BUN Creatinine POC Glucometer 155.17428 [phone] Random Glucose Lactic Acid Calcium Phosphorus Magnesium 03/17/17 03/18/17 03/18/17 21:17 02:00 05:09 WBC 11.9 H RBC 2.72 L Hgb 7.1 L Hct 21.9 L MCV 80.2 MCHC 32.6 RDW 16.0 H Plt Count 220 MPV 8.0 Neutrophils % Lymphocytes % Monocytes % Eosinophils % Basophils % Sodium Potassium Chloride Carbon Dioxide Anion Gap BUN Creatinine POC Glucometer 155.63542 97.36769 Random Glucose Lactic Acid Calcium Phosphorus Magnesium 03/18/17 03/18/17 03/18/17 05:15 05:15 08:00 WBC 12.0 H RBC 2.93 L Hgb 7.9 L D Hct 23.3 L MCV 79.6 L MCHC 33.7 RDW 16.6 H Plt Count 229 MPV 8.2 Neutrophils % 89.4 H D Lymphocytes % 4.2 L D Monocytes % 2.9 L Eosinophils % 2.9 Basophils % 0.6 Sodium 137 Potassium 3.9 Chloride 107 Carbon Dioxide 20 L Anion Gap 10 BUN 24 H Creatinine 1.0 D POC Glucometer Random Glucose 79 D Lactic Acid 0.918 Calcium 7.3 L Phosphorus 2.7 Magnesium 2.0 03/18/17 03/18/17 11:14 12:02 WBC RBC Hgb Hct MCV MCHC RDW Plt Count MPV Neutrophils % Lymphocytes % Monocytes % Eosinophils % Basophils % Sodium Potassium Chloride Carbon Dioxide Anion Gap BUN Creatinine POC Glucometer 131.16379 159.16358 Random Glucose Lactic Acid Calcium Phosphorus Magnesium Active Medications Generic Name Dose Route Start Last Admin Trade Name Freq PRN Reason Stop Dose Admin Acetaminophen 1,000 mg 03/16/17 00:02 03/17/17 20:29 Tylenol - PO 1,000 mg Q6H PRN Administration FEVER OR PAIN Acetaminophen 650 mg 03/16/17 02:24 03/18/17 11:03 Tylenol - PO 650 mg Q8H PRN Administration FEVER OR PAIN Apixaban 5 mg 03/18/17 10:00 03/18/17 11:00 Eliquis - PO 5 mg BID SILVA Administration Digoxin 0.25 mg 03/18/17 10:00 03/18/17 10:41 Lanoxin - PO 0.25 mg DAILY SILVA Administration Norepinephrine Bitartrate 8, 500 mls @ 18.75 mls/hr 03/16/17 08:16 03/18/17 09: 49 000 mcg/ Sodium Chloride IV Not Given ASDIR SILVA Protocol 5 MCG/MIN Aztreonam 1 gm/ Dextrose 50 mls @ 100 mls/hr 03/16/17 10:30 03/18/17 09:48 IVPB 100 mls/hr BID SILVA Administration Protocol Metronidazole 100 mls @ 100 mls/hr 03/16/17 10:30 03/18/17 10:42 Flagyl 500mg Premixed Ivpb - IVPB 100 mls/hr Q8H-IV SILVA Administration Vancomycin HCl 1,250 mg/ 250 mls @ 166.667 mls/hr 03/17/17 12:00 03/18/17 11:08 Dextrose IVPB 166.667 mls/hr Q12H SILVA Administration Protocol Sodium Chloride 1,000 mls @ 50 mls/hr 03/18/17 09:40 03/18/17 10:43 Normal Saline - IV 50 mls/hr ASDIR SILVA Administration Insulin Aspart 1 vial 03/16/17 07:00 03/18/17 12:11 Novolog Vial Sliding Scale - SQ 2 units TIDAC SILVA Administration Protocol Insulin Detemir 15 units 03/15/17 22:00 03/17/17 21:41 Levemir Vial SQ 15 units HS SILVA Administration Metoprolol Succinate 50 mg 03/18/17 10:00 03/18/17 10:42 Toprol Xl - PO 50 mg BID SILVA Administration Oxycodone HCl 10 mg 03/16/17 02:24 03/18/17 11:04 Roxicodone - PO 10 mg Q8H PRN Administration PAIN ASSESSMENT/PLAN: 56 year old female with PMH of A-FIB on eliquis, Stents x2, HTN/HLD/DM who is sent to ED for altered mental status. Found to be in septic shock. Septic Shock -improving -Source right upper thigh abscess s/p I and D, irrigate and draining changes daily -afebrile and hemodynamically stable -CVP 4; euvolemic -IVF @ 50, stop tonight -lactic acidosis resolved -Blood GDS, wound nisseria -ID on case: rocephin, vanco, aztreonam Anemia -hgb 7.1 s/p 2 U pRBC, partially dilutional, thigh bleeding resolving -monitor h/h Suppurative Hydrenitis -continue antibiotic regimen -HEALTHCARE TECHNICIAN consulted: supportive measures -Percocet pain Menorrhagia -currently resoved -transvaginal US Acute Kidney Injury -resolved Diabetes -Levemir 15u HS -ISS for coverage at meals, required 2 units coverage yesterday -FS BGM q4h Atrial Fibrillation w RVR -HR 130 -continuous cardiac monitoring in ICU -restart eliquis -start metoprolol 50 bid, home dose was 100 bid -BNP 9600, TTE unremarkable Demand ischemia -resolved Prophylaxis IVF NS@50 Monitor electrolytes Diabetic low sodium diet eliquis, no PPI indicated Dispo: telemetry Problem List - Problems (1) Coronary artery disease Code(s): I25.10 - ATHSCL HEART DISEASE OF [place] CORONARY ARTERY W/O ANG PCTRS Qualifiers: Coronary Disease-Associated Artery/Lesion type: [place] artery [place] vs. transplanted heart: [place] heart Associated angina: without angina Qualified Code(s): I25.10 - Atherosclerotic heart disease of [place] coronary artery without angina pectoris (2) Dehydration Code(s): E86.0 - DEHYDRATION (3) Demand ischemia Code(s): I24.8 - OTHER FORMS OF ACUTE ISCHEMIC HEART DISEASE (4) Diabetes mellitus type 2 in obese Code(s): E11.9 - TYPE 2 DIABETES MELLITUS WITHOUT COMPLICATIONS E66.9 - OBESITY, UNSPECIFIED (5) Hidradenitis suppurativa Code(s): L73.2 - HIDRADENITIS SUPPURATIVA (6) Hyperglycemia due to type 2 diabetes mellitus Code(s): E11.65 - TYPE 2 DIABETES MELLITUS WITH HYPERGLYCEMIA Qualifiers: (7) Hyperlipidemia associated with type 2 diabetes mellitus Code(s): E11.69 - TYPE 2 DIABETES MELLITUS WITH OTHER SPECIFIED COMPLICATION E78.5 - HYPERLIPIDEMIA, UNSPECIFIED (8) Hypertension Code(s): I10 - ESSENTIAL (PRIMARY) HYPERTENSION Qualifiers: Hypertension type: essential hypertension Qualified Code(s): I10 - Essential (primary) hypertension (9) Hypotension Code(s): I95.9 - HYPOTENSION, UNSPECIFIED (10) Labial abscess Code(s): N76.4 - ABSCESS OF [place] (11) Labial swelling Code(s): N94.89 - OTH COND ASSOC W FEMALE GENITAL ORGANS AND MENSTRUAL CYCLE (12) Left genital labial abscess Code(s): N76.4 - ABSCESS OF [place]VA (13) Persistent atrial fibrillation with rapid ventricular response Code(s): I48.1 - PERSISTENT ATRIAL FIBRILLATION (14) Sepsis Code(s): A41.9 - SEPSIS, UNSPECIFIED ORGANISM (15) Sepsis associated hypotension Code(s): A41.9 - SEPSIS, UNSPECIFIED ORGANISM (16) Status post coronary artery stent placement Code(s): Z95.5 - PRESENCE OF CORONARY ANGIOPLASTY IMPLANT AND GRAFT Visit type - Emergency Visit Emergency Visit: Yes ED Registration Date: 03/15/17 Care time: The patient presented to the Emergency Department on the above date and was hospitalized for further evaluation of their emergent condition. - New Patient This patient is new to me today: No - Critical Care Critical Care patient: Yes Total Critical Care Time (in minutes): 45 Critical Care Statement: The care of this patient involved high complexity decision making to prevent further life threatening deterioration of the patient 's condition and/or to evalute & treat vital organ system(s) failure or risk of failure. - Discharge Referral Referred to [facility] Med P.C.: No
--- NOTE | 2017-03-18 17:23 | PN ---
Physical Exam: SUBJECTIVE: Patient seen and examined atbed side. feels better today , cough. Resting in bed NAD. afebrile. OBJECTIVE: Vital Signs Period Temp Pulse Resp BP Sys/Mao Pulse Ox Last 24 Hr 99.1 F-100.3 F 87-137 15-24 102-128/57-80 100-100 GENERAL: AAOx3 Rigors, sitting comfortably HEENT: atraumatic, EOMI, moist membranes LUNGS: Breath sounds equal, clear to auscultation bilaterally. No wheezes, and no crackles. No accessory muscle use. HEART: Irregularly Irregular, no murmurs ABDOMEN: Soft, nontender, not distended, normoactive bowel sounds, MUSCULOSKELETAL: No CVA tenderness. LOWER EXTREMITIES: 1+ pulses, warm, well-perfused. No calf tenderness. No peripheral edema. R medial thigh blood soaked dressing, NEUROLOGICAL: Normal speech. Gait not observed. PSYCHIATRIC: Cooperative. Good eye contact. Appropriate mood and affect. SKIN: lesions as above : four incisions draining serosanguineous fluid, L labial swelling with out fluctuance or drainage. Laboratory Results - last 24 hr 03/17/17 03/17/17 03/17/17 12:07 17:45 19:15 WBC 11.2 H RBC 2.49 L Hgb 6.6 L* Hct 20.1 L MCV 80.4 MCHC 32.7 RDW 17.1 H Plt Count 226 MPV 8.5 Neutrophils % Lymphocytes % Monocytes % Eosinophils % Basophils % Sodium Potassium Chloride Carbon Dioxide Anion Gap BUN Creatinine POC Glucometer 155.71488 141.71329 Random Glucose Lactic Acid Calcium Phosphorus Magnesium 03/17/17 03/18/17 03/18/17 21:17 02:00 05:09 WBC 11.9 H RBC 2.72 L Hgb 7.1 L Hct 21.9 L MCV 80.2 MCHC 32.6 RDW 16.0 H Plt Count 220 MPV 8.0 Neutrophils % Lymphocytes % Monocytes % Eosinophils % Basophils % Sodium Potassium Chloride Carbon Dioxide Anion Gap BUN Creatinine POC Glucometer 155.67972 97.55087 Random Glucose Lactic Acid Calcium Phosphorus Magnesium 03/18/17 03/18/17 03/18/17 05:15 05:15 08:00 WBC 12.0 H RBC 2.93 L Hgb 7.9 L D Hct 23.3 L MCV 79.6 L MCHC 33.7 RDW 16.6 H Plt Count 229 MPV 8.2 Neutrophils % 89.4 H D Lymphocytes % 4.2 L D Monocytes % 2.9 L Eosinophils % 2.9 Basophils % 0.6 Sodium 137 Potassium 3.9 Chloride 107 Carbon Dioxide 20 L Anion Gap 10 BUN 24 H Creatinine 1.0 D POC Glucometer Random Glucose 79 D Lactic Acid 0.918 Calcium 7.3 L Phosphorus 2.7 Magnesium 2.0 03/18/17 03/18/17 11:14 12:02 WBC RBC Hgb Hct MCV MCHC RDW Plt Count MPV Neutrophils % Lymphocytes % Monocytes % Eosinophils % Basophils % Sodium Potassium Chloride Carbon Dioxide Anion Gap BUN Creatinine POC Glucometer 131.73193 159.63849 Random Glucose Lactic Acid Calcium Phosphorus Magnesium Active Medications Generic Name Dose Route Start Last Admin Trade Name Freq PRN Reason Stop Dose Admin Acetaminophen 1,000 mg 03/16/17 00:02 03/17/17 20:29 Tylenol - PO 1,000 mg Q6H PRN Administration FEVER OR PAIN Acetaminophen 650 mg 03/16/17 02:24 03/18/17 11:03 Tylenol - PO 650 mg Q8H PRN Administration FEVER OR PAIN Apixaban 5 mg 03/18/17 10:00 03/18/17 11:00 Eliquis - PO 5 mg BID SILVA Administration Digoxin 0.25 mg 03/18/17 10:00 03/18/17 10:41 Lanoxin - PO 0.25 mg DAILY SILVA Administration Norepinephrine Bitartrate 8, 500 mls @ 18.75 mls/hr 03/16/17 08:16 03/18/17 09: 49 000 mcg/ Sodium Chloride IV Not Given ASDIR SILVA Protocol 5 MCG/MIN Aztreonam 1 gm/ Dextrose 50 mls @ 100 mls/hr 03/16/17 10:30 03/18/17 09:48 IVPB 100 mls/hr BID SILVA Administration Protocol Metronidazole 100 mls @ 100 mls/hr 03/16/17 10:30 03/18/17 10:42 Flagyl 500mg Premixed Ivpb - IVPB 100 mls/hr Q8H-IV SILVA Administration Vancomycin HCl 1,250 mg/ 250 mls @ 166.667 mls/hr 03/17/17 12:00 03/18/17 11:08 Dextrose IVPB 166.667 mls/hr Q12H SILVA Administration Protocol Sodium Chloride 1,000 mls @ 50 mls/hr 03/18/17 09:40 03/18/17 10:43 Normal Saline - IV 50 mls/hr ASDIR SILVA Administration Insulin Aspart 1 vial 03/16/17 07:00 03/18/17 12:11 Novolog Vial Sliding Scale - SQ 2 units TIDAC SILVA Administration Protocol Insulin Detemir 15 units 03/15/17 22:00 03/17/17 21:41 Levemir Vial SQ 15 units HS SILVA Administration Metoprolol Succinate 50 mg 03/18/17 10:00 03/18/17 10:42 Toprol Xl - PO 50 mg BID SILVA Administration Oxycodone HCl 10 mg 03/16/17 02:24 03/18/17 11:04 Roxicodone - PO 10 mg Q8H PRN Administration PAIN ASSESSMENT/PLAN: 56 year old female with PMH of A-FIB on eliquis, Stents x2, HTN/HLD/DM who is sent to ED for altered mental status. Found to be in septic shock. s/p incision and drainage of right thigh abscess. #Septic Shock, secondary to right upper thigh abscess (Mild UTI is also noted on Urinalysis, and may be contributing) s/p incision and drainage of right thigh abscess. -preliminary blood cultures: either Group D strep or Enterococcus -abscess cx: gram (+) cocci in chains -CRP and ESR elevated cont antibiotics -d/c IVF NS -back on pressors, goal MAP>60-now -pressors if needed to maintain MAP >65 -O2 to keep SPo2 >90% #Suppurative Hydrenitis -continue with current antibiotic regimen -SCHOOL AGE LEAD TEACHER consulted -ID consulted -pain management #Acute Kidney Injury most likely: improvin/2 pre-renal azotemia/ hypotension/ septic shock -IVF being administered -trend in AM #Diabetes -Levemir -ISS -FS BGM q4h for now #Atrial Fibrillation, w RVR -hold BB and antihypertensive - eliquis restarted by primary team. #Elevated Tropoin -highly unlikely ACS, likely do to sepsis -will trend overnight -EKG reviewed & without any ST or T-wave changes Prophylaxis -SCD's -no PPI indicated -IVF NS@125cc/hr -monitor electrolytes -Diabetic low sodium diet dispo: Monitor in ICU Visit type - Emergency Visit Emergency Visit: Yes ED Registration Date: 03/15/17 Care time: The patient presented to the Emergency Department on the above date and was hospitalized for further evaluation of their emergent condition. - New Patient This patient is new to me today: No - Critical Care Critical Care patient: Yes Total Critical Care Time (in minutes): 42 Critical Care Statement: The care of this patient involved high complexity decision making to prevent further life threatening deterioration of the patient 's condition and/or to evalute & treat vital organ system(s) failure or risk of failure.
[2017-03-18] MEDS: INSULIN DETEMIR 100 UNITS/ML MDV SQ SCH (21:54)
[2017-03-18] MEDS ORDERED: ACETAMINOPHEN 500 MG TABLET (FP) PO PRN (22:07)
[2017-03-18] MEDS ORDERED: ACETAMINOPHEN 325 MG TABLET (FP) PO PRN (22:07)
[2017-03-18] MEDS ORDERED: oxyCODONE HCL 5 MG TABLET PO PRN (22:07)
[2017-03-18] MEDS ORDERED: NOREPINEPHRINE BITARTRATE 8,000 MCG in SODIUM CHLORIDE 492 ML IV SCH (22:07)
[2017-03-19] MEDS ORDERED: VANCOMYCIN 1,250 MG in DEXTROSE 5%-WATER - 250 ML IVPB SCH
[2017-03-19] MEDS: METRONIDAZOLE 500 MG PREMIXED 100 ML IVPB SCH ×3 (01:53→17:48)
[2017-03-19] MEDS: INSULIN SLIDING SCALE (NOVOLOG) 1 VIAL SQ SCH ×3 (06:31→17:46)
[2017-03-19 06:33] LABS: MCH 27.4 pg (25.7-33.7); MEAN CELL VOLUME 80.5 fl (80-96); MEAN PLT VOLUME 8.2 fl (7.5-11.1); PLATELET COUNT 260 K/MM3 (134-434); RDW 17.1 % (11.6-15.6); WHITE BLOOD COUNT 5.9 K/mm3 (4.0-10.0)
[2017-03-19 06:46] LABS: INR 1.38 (0.82-1.09); PROTHROMBIN TIME (PATIENT) 15.3 SEC (9.98-11.88)
[2017-03-19 06:48] LABS: ACTIVATED PTT 28.2 SECONDS (26.9-34.4)
[2017-03-19 06:55] LABS: CALCIUM 7.5 mg/dL (8.5-10.1); COCKROFT - GAULT 123.4965; CREATININE 0.9 mg/dL (0.55-1.02); MAGNESIUM 1.8 mg/dL (1.8-2.4); PHOSPHOROUS 3.5 mg/dL (2.5-4.9)
--- NOTE | 2017-03-19 08:24 | PN ---
Teaching Attending Note Name of Resident: Seerne Langford ATTENDING PHYSICIAN STATEMENT I saw and evaluated the patient. I reviewed the resident's note and discussed the case with the resident. I agree with the resident's findings and plan as documented. SUBJECTIVE:Vancomycin Aztreonam metronidazole OBJECTIVE:Blood culture now identified ( changed) as Strep Anginosus should be PCN susceptible though she is allergic to PCN. Tolerates Ceftriaxone ASSESSMENT AND PLAN: Stop Vancomycin Stop Aztreonam Substitute Ceftriaxone 2 grs daily Continue metronidazole ? anaerobic coverage Overall doing much better Umberto CHAPMAN Problem List - Problems (1) Diabetes mellitus type 2 in obese Code(s): E11.9 - TYPE 2 DIABETES MELLITUS WITHOUT COMPLICATIONS E66.9 - OBESITY, UNSPECIFIED (2) Sepsis associated hypotension Code(s): A41.9 - SEPSIS, UNSPECIFIED ORGANISM (3) Abscess of leg Code(s): L02.419 - CUTANEOUS ABSCESS OF LIMB, UNSPECIFIED
--- NOTE | 2017-03-19 08:26 | PN ---
Physical Exam: SUBJECTIVE: Patient seen and examined. She is feeling better today. The pt denies leg pain, SOB, chest pain, abdominal pain. OBJECTIVE: Vital Signs Period Temp Pulse Resp BP Sys/Mao Pulse Ox Last 24 Hr 98.4 F-99.6 F 76-801 15-20 103-127/54-80 100-100 GENERAL: The patient is awake, alert, and fully oriented, in no acute distress. HEAD: Normal with no signs of trauma. EYES: PERRL, extraocular movements intact, sclera anicteric, conjunctiva clear. No ptosis. ENT:oropharynx clear without exudates, moist mucous membranes. NECK: Trachea midline, full range of motion, supple. LUNGS: Breath sounds equal, clear to auscultation bilaterally, no wheezes, no crackles, no accessory muscle use. HEART: Regular rate and rhythm, S1, S2 without murmur, rub or gallop. ABDOMEN: Obese, soft, nontender, nondistended, normoactive bowel sounds, no guarding, no rebound, no hepatosplenomegaly, no masses. EXTREMITIES: 2+ pulses, warm, well-perfused, no edema, dressing applied to groin on right side, small amount of drainage, pink color NEUROLOGICAL:No facial asymmetry. Normal speech, gait not observed. PSYCH: Normal mood, normal affect. SKIN: Warm, dry, normal turgor, no rashes. Laboratory Results - last 24 hr 03/18/17 03/18/17 03/18/17 08:00 11:14 12:02 WBC 12.0 H RBC 2.93 L Hgb 7.9 L D Hct 23.3 L MCV 79.6 L MCHC 33.7 RDW 16.6 H Plt Count 229 MPV 8.2 Neutrophils % 89.4 H D Lymphocytes % 4.2 L D Monocytes % 2.9 L Eosinophils % 2.9 Basophils % 0.6 INR PTT (Actin FS) Sodium Potassium Chloride Carbon Dioxide Anion Gap BUN Creatinine POC Glucometer 131.77118 159.09712 Random Glucose Calcium Phosphorus Magnesium 03/18/17 03/19/17 03/19/17 21:36 05:15 05:15 WBC 5.9 D RBC 2.76 L Hgb 7.5 L Hct 22.2 L MCV 80.5 MCHC 34.0 RDW 17.1 H Plt Count 260 MPV 8.2 Neutrophils % Lymphocytes % Monocytes % Eosinophils % Basophils % INR PTT (Actin FS) Sodium 138 Potassium 4.1 Chloride 107 Carbon Dioxide 22 Anion Gap 9 BUN 19 H D Creatinine 0.9 POC Glucometer 182.36175 Random Glucose 93 Calcium 7.5 L Phosphorus 3.5 D Magnesium 1.8 03/19/17 05:15 WBC RBC Hgb Hct MCV MCHC RDW Plt Count MPV Neutrophils % Lymphocytes % Monocytes % Eosinophils % Basophils % INR 1.38 H D PTT (Actin FS) 28.2 Sodium Potassium Chloride Carbon Dioxide Anion Gap BUN Creatinine POC Glucometer Random Glucose Calcium Phosphorus Magnesium Active Medications Generic Name Dose Route Start Last Admin Trade Name Freq PRN Reason Stop Dose Admin Acetaminophen 1,000 mg 03/18/17 22:07 03/18/17 23:15 Tylenol - PO 1,000 mg Q6H PRN Administration FEVER OR PAIN Acetaminophen 650 mg 03/18/17 22:07 Tylenol - PO Q8H PRN FEVER OR PAIN Apixaban 5 mg 03/19/17 10:00 Eliquis - PO BID [facility] Digoxin 0.25 mg 03/19/17 10:00 Lanoxin - PO DAILY [facility] Metronidazole 100 mls @ 100 mls/hr 03/19/17 02:00 03/19/17 01:53 Flagyl 500mg Premixed Ivpb - IVPB 100 mls/hr Q8H-IV SILVA Administration Norepinephrine Bitartrate 8, 500 mls @ 18.75 mls/hr 03/18/17 22:07 03/18/17 22: 21 000 mcg/ Sodium Chloride IV Not Given ASDIR [facility] Protocol 5 MCG/MIN Ceftriaxone Sodium 2 gm/ 100 mls @ 200 mls/hr 03/19/17 10:00 Dextrose IVPB DAILY [facility] Insulin Aspart 1 vial 03/19/17 07:00 03/19/17 06:31 Novolog Vial Sliding Scale - SQ Not Given TIDAC [facility] Protocol Insulin Detemir 12 units 03/19/17 22:00 Levemir Vial SQ HS [facility] Metoprolol Succinate 50 mg 03/19/17 10:00 Toprol Xl - PO BID [facility] Oxycodone HCl 10 mg 03/18/17 22:07 Roxicodone - PO Q8H PRN PAIN Microbiology 03/16/17 02:00 Abscess Gram Stain - Final 03/16/17 02:00 Abscess Wound Culture - Final Neisseria Species 03/15/17 18:56 Blood - Peripheral Venous Blood Culture - Preliminary Streptococcus Anginosus 03/15/17 18:56 Blood - Peripheral Venous Blood Culture - Preliminary Streptococcus Anginosus 03/17/17 11:30 Blood - Peripheral Venous Blood Culture - Preliminary NO GROWTH OBTAINED AFTER 24 HOURS, INCUBATION TO CONTINUE FOR 4 DAYS. 03/17/17 11:30 Blood - Peripheral Venous Blood Culture - Preliminary NO GROWTH OBTAINED AFTER 24 HOURS, INCUBATION TO CONTINUE FOR 4 DAYS. 03/15/17 18:56 Urine - Urine Chapman Urine Culture - Final NO GROWTH OBTAINED 03/16/17 21:46 Stool Clostridium difficile Antigen (ANUSHA) - Final 03/16/17 21:46 Stool Clostridium difficile Toxin Assay - Final ASSESSMENT/PLAN: 56 y/o female with h/o IDDM, HTN, CAD s/p stenting, h/o of thigh abscess, who presented with AMS, she was found in septic shock due to abscess in right leg. Septic shock due to abscess: -we will stop Aztreonam and Vancomycin and start Rocephin 2 g qd -f/u surgery recommendation -blood cultures: Streptococcus Anginosus -wound culture: Neisseria sp., we don't have susceptibility yet CIARAN -avoid nephrotoxic substances -IVF IDDM -ISS, -BGMs A.Fib -hold Eliquis due to h/o of vaginal bleeding-pt is currently denies hyponatremia -monitor and continue NS elevated troponins -trend Dispo: We will continue to follow the patient. Thank you for this consultative opportunity. Problem List - Problems (1) Abscess of leg Code(s): L02.419 - CUTANEOUS ABSCESS OF LIMB, UNSPECIFIED (2) Altered mental state Code(s): R41.82 - ALTERED MENTAL STATUS, UNSPECIFIED (3) Coronary artery disease Code(s): I25.10 - ATHSCL HEART DISEASE OF [place] CORONARY ARTERY W/O ANG PCTRS Qualifiers: Coronary Disease-Associated Artery/Lesion type: [place] artery [place] vs. transplanted heart: [place] heart Associated angina: without angina Qualified Code(s): I25.10 - Atherosclerotic heart disease of [place] coronary artery without angina pectoris (4) Dehydration Code(s): E86.0 - DEHYDRATION (5) Diabetes mellitus type 2 in obese Code(s): E11.9 - TYPE 2 DIABETES MELLITUS WITHOUT COMPLICATIONS E66.9 - OBESITY, UNSPECIFIED (6) Hidradenitis suppurativa Code(s): L73.2 - HIDRADENITIS SUPPURATIVA (7) Hypertension Code(s): I10 - ESSENTIAL (PRIMARY) HYPERTENSION Qualifiers: Hypertension type: essential hypertension Qualified Code(s): I10 - Essential (primary) hypertension (8) Sepsis Code(s): A41.9 - SEPSIS, UNSPECIFIED ORGANISM Qualifiers: Sepsis type: Streptococcus, other Qualified Code(s): A40.8 - Other streptococcal sepsis Visit type - Emergency Visit Emergency Visit: Yes ED Registration Date: 03/15/17 Care time: The patient presented to the Emergency Department on the above date and was hospitalized for further evaluation of their emergent condition. - New Patient This patient is new to me today: No - Critical Care Critical Care patient: Yes Total Critical Care Time (in minutes): 30 Critical Care Statement: The care of this patient involved high complexity decision making to prevent further life threatening deterioration of the patient 's condition and/or to evalute & treat vital organ system(s) failure or risk of failure.
[2017-03-19] MEDS ORDERED: METOPROLOL SUCCINATE 50 MG TAB.SR.24H (FP) PO SCH (10:00)
[2017-03-19] MEDS ORDERED: APIXABAN 5 MG TABLET PO SCH (10:00)
[2017-03-19] MEDS ORDERED: DIGOXIN 0.25 MG TABLET (FP) PO SCH (10:00)
[2017-03-19] MEDS ORDERED: CEFTRIAXONE 100 ML IVPB SCH (10:00)
[2017-03-19] MEDS ORDERED: AZTREONAM 1 GM in DEXTROSE 5%-WATER - 50 ML IVPB SCH (10:00)
[2017-03-19] MEDS ORDERED: PT OWN MED DRAWER 7, Y5N ONE (10:35)
--- NOTE | 2017-03-19 12:17 | PN ---
Progress Note, Physician History of Present Illness: Rapid afib now with improved rate-control after uptitration of Lopressor. Patient denies chest pain, dyspnea, near or true syncope, orthopnea, PND or LE edema, remains afebrile, OOB to chair. - Current Medication List Current Medications: Active Medications Acetaminophen (Tylenol -) 1,000 mg PO Q6H PRN PRN Reason: FEVER OR PAIN Last Admin: 03/18/17 23:15 Dose: 1,000 mg Acetaminophen (Tylenol -) 650 mg PO Q8H PRN PRN Reason: FEVER OR PAIN Apixaban (Eliquis -) 5 mg PO BID [facility] Last Admin: 03/19/17 10:55 Dose: 5 mg Digoxin (Lanoxin -) 0.25 mg PO DAILY [facility] Last Admin: 03/19/17 10:56 Dose: 0.25 mg Metronidazole (Flagyl 500mg Premixed Ivpb -) 100 mls @ 100 mls/hr IVPB Q8H-IV [facility] Last Admin: 03/19/17 10:54 Dose: 100 mls/hr Norepinephrine Bitartrate 8, (000 mcg/ Sodium Chloride) 500 mls @ 18.75 mls/hr IV ASDIR SILVA; 5 MCG/MIN PRN Reason: Protocol Last Admin: 03/18/17 22:21 Dose: Not Given Ceftriaxone Sodium (Rocephin 2gm Ivpb (Pre-Docked)) 100 mls @ 200 mls/hr IVPB DAILY [facility] Last Admin: 03/19/17 10:55 Dose: 200 mls/hr Insulin Aspart (Novolog Vial Sliding Scale -) 1 vial SQ TIDAC [facility] PRN Reason: Protocol Last Admin: 03/19/17 06:31 Dose: Not Given Insulin Detemir (Levemir Vial) 12 units SQ HS [facility] Metoprolol Tartrate (Lopressor -) 100 mg PO BID [facility] Oxycodone HCl (Roxicodone -) 10 mg PO Q8H PRN PRN Reason: PAIN - Objective Vital Signs: Vital Signs Temperature 98.2 F 03/19/17 10:00 Pulse Rate 84 03/19/17 10:56 Respiratory Rate 19 03/19/17 10:00 Blood Pressure 119/65 03/19/17 10:00 O2 Sat by Pulse Oximetry (%) 97 03/19/17 10:16 Constitutional: Yes: No Distress, Calm Neck: Yes: Supple Cardiovascular: Yes: Tachycardia, Pulse Irregular Respiratory: Yes: Regular, CTA Bilaterally Gastrointestinal: Yes: Normal Bowel Sounds, Soft, Abdomen, Obese Edema: Yes Edema: LLE: Trace, RLE: Trace Labs: CBC, BMP 03/19/17 05:15 03/19/17 05:15 INR, PTT INR 1.38 (0.82-1.09) H D 03/19/17 05:15 - ....Imaging Chest X-ray: Report Reviewed (NAD) Problem List - Problems (1) Abscess of leg Code(s): L02.419 - CUTANEOUS ABSCESS OF LIMB, UNSPECIFIED (2) Coronary artery disease Code(s): I25.10 - ATHSCL HEART DISEASE OF [place] CORONARY ARTERY W/O ANG PCTRS Qualifiers: Coronary Disease-Associated Artery/Lesion type: [place] artery [place] vs. transplanted heart: [place] heart Associated angina: without angina Qualified Code(s): I25.10 - Atherosclerotic heart disease of [place] coronary artery without angina pectoris (3) Demand ischemia Code(s): I24.8 - OTHER FORMS OF ACUTE ISCHEMIC HEART DISEASE (4) Hidradenitis suppurativa Code(s): L73.2 - HIDRADENITIS SUPPURATIVA (5) Hyperglycemia due to type 2 diabetes mellitus Code(s): E11.65 - TYPE 2 DIABETES MELLITUS WITH HYPERGLYCEMIA Qualifiers: Diabetes mellitus buttermaker insulin use: with buttermaker use Qualified Code(s): E11.65 - Type 2 diabetes mellitus with hyperglycemia (6) Persistent atrial fibrillation with rapid ventricular response Code(s): I48.1 - PERSISTENT ATRIAL FIBRILLATION (7) Sepsis Code(s): A41.9 - SEPSIS, UNSPECIFIED ORGANISM Qualifiers: Sepsis type: Streptococcus, other Qualified Code(s): A40.8 - Other streptococcal sepsis (8) Status post coronary artery stent placement Code(s): Z95.5 - PRESENCE OF CORONARY ANGIOPLASTY IMPLANT AND GRAFT Assessment/Plan 03/16/2017 Echo: Normal LV size and fxn, mild LAE, mild MR, TR, small pericardial effusion 1. Right Thigh Abscess post drainage, suppurative hidradenitis 2. Septic shock (enterococcus) resolved off pressors 3. Acute Kidney Injury resolving 4. CAD s/p PCI(stent), demand ischemia 5. Lactic Acidosis resolved 6. Persistent atrial fibrillation with RVR on NOAC 7. Type 2 DM 8. HTN 9. Hyperlipidemia 10. Anemia post transfusion PLAN: 1. Cardiac enzymes trending downward 2. Optimize glycemic control 3. Continue Eliquis 5 mg BID, Lipitor 20 mg QHS, Dig 0.25 qd and increased Lopressor 100 mg BID, resume Lisinopril 40 mg QD as hemodynamics tolerate 4. Antibiotics per C&S, GI prophylaxis 5. Patient to f/u with Dr. Ahmadi of [facility] upon discharge
--- NOTE | 2017-03-19 12:29 | PN ---
Teaching Attending Note Name of Resident: Licha Olivares ATTENDING PHYSICIAN STATEMENT I saw and evaluated the patient. I reviewed the resident's note and discussed the case with the resident. I agree with the resident's findings and plan as documented. SUBJECTIVE: no fever or chills, cough has improved , no SOB OBJECTIVE: NAD , awake , alert , oriented x 3. HEENT: pale skin, MMM CV: irreg irreg , no MRG Lungs: CTAB Abd : soft, NT, ND , NL BS : L labial skin changes ( hyperpigmentation, edema , and enlargement ), no fluctuance. R upper thigh small surgical incisions with packing in , dry dressing today . no erythema noted on upper thigh ASSESSMENT AND PLAN: 56 y/o lady with h/o IDDM, HTN, CAD s/p stenting in 07/2015 , R knee replacement and L knee replacement ( 1 month ago) , and other medical problems who presented with AMS, she was found in septic shock. 1- Septic shock from R upper thigh abscess: shock has resolved. blood cx with strep species. Wound cx with Neisseria - Appreciat ID help: switch to ceftriaxone and flagyl - hydradenitis suppurativa improved - Dc IVF 2-CIARAN: likely pre-renal azotemia due to hypotension and volume depletion. - resolved 3- A fib with RVR: HR improved after resuming her BB and dig - increase metoprolol to 100 mg BID , her home dos e - cont digoxin - cont elliquis as bleeding stopped 4- IDDM : severe hyperglycemia resolved. - cont decreased dose of levemir - cont SSI 5- Acute on chronic blood loss anemia : due to vaginal bleed and bleeding from surgical site. vaginal bleed has resolved - Transvaginal US, shows ? polyp vs blood products in endometrial canal . - will re-invite [employer] to evaluate 6- Trop leak , due to demand ischemia in setting of septic shock. Dispo : can transfer to MEd surg
--- NOTE | 2017-03-19 12:32 | PN ---
Teaching Attending Note Name of Resident: Kateryna Levy ATTENDING PHYSICIAN STATEMENT I saw and evaluated the patient. I reviewed the resident's note and discussed the case with the resident. I agree with the resident's findings and plan as documented. SUBJECTIVE: Pt seen and examined in the ICU. Continues to clinically improve. No fevers or chills. No shortness of breath or chest pain. Tolerating PO. OBJECTIVE: Last Vital Signs Temp Pulse Resp BP Pulse Ox 98.2 F 84 19 119/65 97 03/19/17 10:00 03/19/17 10:56 03/19/17 10:00 03/19/17 10:00 03/19/17 10:16 Intake & Output 03/16/17 03/17/17 03/18/17 03/19/17 23:59 23:59 23:59 23:59 Intake Total 6490.8 8034 5370 1050 Output Total 2160 4600 5000 1800 Balance 4330.8 3434 370 -750 Weight 231 lb 11.293 oz 243 lb 6.245 oz 243 lb 1.6 oz 244 lb 3.2 oz Gen: NAD in chair Heart: irregularly irregular Lung: decreased breath sounds at the bases Abd: soft, nontender Ext: trace edema, dressings dry CBC, BMP 03/19/17 05:15 03/19/17 05:15 Active Medications Acetaminophen (Tylenol -) 1,000 mg PO Q6H PRN PRN Reason: FEVER OR PAIN Last Admin: 03/18/17 23:15 Dose: 1,000 mg Acetaminophen (Tylenol -) 650 mg PO Q8H PRN PRN Reason: FEVER OR PAIN Apixaban (Eliquis -) 5 mg PO BID [facility] Last Admin: 03/19/17 10:55 Dose: 5 mg Digoxin (Lanoxin -) 0.25 mg PO DAILY [facility] Last Admin: 03/19/17 10:56 Dose: 0.25 mg Metronidazole (Flagyl 500mg Premixed Ivpb -) 100 mls @ 100 mls/hr IVPB Q8H-IV [facility] Last Admin: 03/19/17 10:54 Dose: 100 mls/hr Ceftriaxone Sodium (Rocephin 2gm Ivpb (Pre-Docked)) 100 mls @ 200 mls/hr IVPB DAILY [facility] Last Admin: 03/19/17 10:55 Dose: 200 mls/hr Insulin Aspart (Novolog Vial Sliding Scale -) 1 vial SQ TIDAC [facility] PRN Reason: Protocol Last Admin: 03/19/17 12:30 Dose: Not Given Insulin Detemir (Levemir Vial) 12 units SQ HS [facility] Metoprolol Tartrate (Lopressor -) 100 mg PO BID [facility] Oxycodone HCl (Roxicodone -) 10 mg PO Q8H PRN PRN Reason: PAIN ASSESSMENT AND PLAN: Right Thigh Abscess Septic Shock resolving Acute Kidney Injury resolving Lactic Acidosis resolved +Troponins likely Demand Ischemia Atrial Fibrillation with RVR DM - continue antibiotics - wound care - monitor urine output, creatinine - O2 to keep SPo2 >90% - rate control - continue anticoagulation - glucose control - PO as tolerated - DVT/GI prophylaxis - OOB to chair - can monitor on floor
--- NOTE | 2017-03-19 14:05 | PN ---
Addendum entered and electronically signed by Licha Olivares RES 03/19/17 14: 56: a/p: will restart lisinopril at a lower does tomorrow as well Original Note: Physical Exam: SUBJECTIVE: Patient seen and examined Resting in bed NAD. hemodynamically stable off pressors. afebrile. MAP 87. CVP 4 HR 105. Adequate UO. Cough reduced. denies chest pain, sob, orthopnea, wheezing, h/a. Bleeding from R inner thigh wound resolved. No vaginal bleeding OBJECTIVE: Vital Signs Period Temp Pulse Resp BP Sys/Mao Pulse Ox Last 24 Hr 98.2 F-98.6 F 76-93 15-20 112-127/54-80 97-100 GENERAL: Awake, alert, and fully oriented, in no acute distress. HEENT: atraumatic, EOMI, PERRLA, moist membranes LUNGS: bibasilar rales HEART: Irregularly Irregular, tachy, no murmurs ABDOMEN: Soft, nontender, not distended, normoactive bowel sounds, no guarding, no rebound MUSCULOSKELETAL: No CVA tenderness. UPPER EXTREMITIES: 2+ pulses, warm, well-perfused. No cyanosis. No clubbing. No peripheral edema. LOWER EXTREMITIES: 1+ pulses, warm, well-perfused. No calf tenderness. No peripheral edema. R medial thigh clean dressing, 4 incisions draining serosanguineous fluid. improved NEUROLOGICAL: Cranial nerves II-XII intact. Normal speech. Gait not observed. PSYCHIATRIC: Cooperative. Good eye contact. Appropriate mood and affect. SKIN: lesions as above : Left labial swelling w/o fluctuance or drainage, improved Laboratory Results - last 24 hr 03/18/17 03/18/17 03/19/17 17:44 21:36 05:15 WBC 5.9 D RBC 2.76 L Hgb 7.5 L Hct 22.2 L MCV 80.5 MCHC 34.0 RDW 17.1 H Plt Count 260 MPV 8.2 INR PTT (Actin FS) Sodium Potassium Chloride Carbon Dioxide Anion Gap BUN Creatinine POC Glucometer 181.00563 182.46320 Random Glucose Calcium Phosphorus Magnesium 03/19/17 03/19/17 03/19/17 05:15 05:15 06:02 WBC RBC Hgb Hct MCV MCHC RDW Plt Count MPV INR 1.38 H D PTT (Actin FS) 28.2 Sodium 138 Potassium 4.1 Chloride 107 Carbon Dioxide 22 Anion Gap 9 BUN 19 H D Creatinine 0.9 POC Glucometer 121.00298 Random Glucose 93 Calcium 7.5 L Phosphorus 3.5 D Magnesium 1.8 03/19/17 12:04 WBC RBC Hgb Hct MCV MCHC RDW Plt Count MPV INR PTT (Actin FS) Sodium Potassium Chloride Carbon Dioxide Anion Gap BUN Creatinine POC Glucometer 113.66791 Random Glucose Calcium Phosphorus Magnesium Active Medications Generic Name Dose Route Start Last Admin Trade Name Freq PRN Reason Stop Dose Admin Acetaminophen 1,000 mg 03/18/17 22:07 03/18/17 23:15 Tylenol - PO 1,000 mg Q6H PRN Administration FEVER OR PAIN Acetaminophen 650 mg 03/18/17 22:07 Tylenol - PO Q8H PRN FEVER OR PAIN Apixaban 5 mg 03/19/17 10:00 03/19/17 10:55 Eliquis - PO 5 mg BID [facility] Administration Digoxin 0.25 mg 03/19/17 10:00 03/19/17 10:56 Lanoxin - PO 0.25 mg DAILY [facility] Administration Metronidazole 100 mls @ 100 mls/hr 03/19/17 02:00 03/19/17 10:54 Flagyl 500mg Premixed Ivpb - IVPB 100 mls/hr Q8H-IV [facility] Administration Ceftriaxone Sodium 100 mls @ 200 mls/hr 03/19/17 10:00 03/19/17 10:55 Rocephin 2gm Ivpb (Pre-Docked) IVPB 200 mls/hr DAILY [facility] Administration Insulin Aspart 1 vial 03/19/17 07:00 03/19/17 12:30 Novolog Vial Sliding Scale - SQ Not Given TIDAC [facility] Protocol Insulin Detemir 12 units 03/19/17 22:00 Levemir Vial SQ HS [facility] Metoprolol Tartrate 100 mg 03/19/17 22:00 Lopressor - PO BID [facility] Oxycodone HCl 10 mg 03/18/17 22:07 Roxicodone - PO Q8H PRN PAIN ASSESSMENT/PLAN: 56 year old female with PMH of A-FIB on eliquis, Stents x2, HTN/HLD/DM who is sent to ED for altered mental status. Found to be in septic shock. Septic Shock -resolved -Source right upper thigh abscess s/p I and D, irrigate and draining changes daily -Blood strep anginosus, wound nisseria -ID: Rocephin for 9 more days, continue flagyl for anaerobic coverage -euvolemic, stop IVF Anemia -hgb 7.5, , partially dilutional, thigh bleeding resolved, will monitor -s/p 2 U pRBC this admission Suppurative Hydrenitis -continue antibiotic regimen -BARK [employer]ER consulted: supportive measures -Percocet pain Menorrhagia -for 5 mo, LMP 5 yr ago, no HX of + pap smear, [employer] polyps, fibroids, no family hx of [employer] CA. -currently resoved -transvaginal US shows small amount of echogenic material in endometrial canal, no endometrial thickening. -OBGYN to follwo Acute Kidney Injury -resolved Diabetes -Levemir 12u HS -ISS for coverage at meals, required 2 units coverage yesterday -FS BGM q4h Atrial Fibrillation w RVR -HR 105 -continuous cardiac monitoring in ICU -eliquis -lopressor 100 bid -digoxin -will restart home cardizem tomorrow -BNP 9600, TTE unremarkable Demand ischemia -resolved Prophylaxis no IVF Monitor electrolytes Diabetic low sodium diet eliquis, no PPI indicated Dispo: med jacob Problem List - Problems (1) Coronary artery disease Code(s): I25.10 - ATHSCL HEART DISEASE OF [place] CORONARY ARTERY W/O ANG PCTRS Qualifiers: Coronary Disease-Associated Artery/Lesion type: [place] artery [place] vs. transplanted heart: [place] heart Associated angina: without angina Qualified Code(s): I25.10 - Atherosclerotic heart disease of [place] coronary artery without angina pectoris (2) Dehydration Code(s): E86.0 - DEHYDRATION (3) Demand ischemia Code(s): I24.8 - OTHER FORMS OF ACUTE ISCHEMIC HEART DISEASE (4) Diabetes mellitus type 2 in obese Code(s): E11.9 - TYPE 2 DIABETES MELLITUS WITHOUT COMPLICATIONS E66.9 - OBESITY, UNSPECIFIED (5) Hidradenitis suppurativa Code(s): L73.2 - HIDRADENITIS SUPPURATIVA (6) Hyperglycemia due to type 2 diabetes mellitus Code(s): E11.65 - TYPE 2 DIABETES MELLITUS WITH HYPERGLYCEMIA Qualifiers: 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: with chcf use Qualified Code(s): E11.65 - Type 2 diabetes mellitus with hyperglycemia (7) Hyperlipidemia associated with type 2 diabetes mellitus Code(s): E11.69 - TYPE 2 DIABETES MELLITUS WITH OTHER SPECIFIED COMPLICATION E78.5 - HYPERLIPIDEMIA, UNSPECIFIED (8) Hypertension Code(s): I10 - ESSENTIAL (PRIMARY) HYPERTENSION Qualifiers: Hypertension type: essential hypertension Qualified Code(s): I10 - Essential (primary) hypertension (9) Hypotension Code(s): I95.9 - HYPOTENSION, UNSPECIFIED (10) Labial abscess Code(s): N76.4 - ABSCESS OF VULVA (11) Labial swelling Code(s): N94.89 - OTH COND ASSOC W FEMALE GENITAL ORGANS AND MENSTRUAL CYCLE (12) Left genital labial abscess Code(s): N76.4 - ABSCESS OF VULVA (13) Persistent atrial fibrillation with rapid ventricular response Code(s): I48.1 - PERSISTENT ATRIAL FIBRILLATION (14) Sepsis Code(s): A41.9 - SEPSIS, UNSPECIFIED ORGANISM Qualifiers: Sepsis type: Streptococcus, other Qualified Code(s): A40.8 - Other streptococcal sepsis (15) Sepsis associated hypotension Code(s): A41.9 - SEPSIS, UNSPECIFIED ORGANISM (16) Status post coronary artery stent placement Code(s): Z95.5 - PRESENCE OF CORONARY ANGIOPLASTY IMPLANT AND GRAFT Visit type - Emergency Visit Emergency Visit: Yes ED Registration Date: 03/15/17 Care time: The patient presented to the Emergency Department on the above date and was hospitalized for further evaluation of their emergent condition. - New Patient This patient is new to me today: No - Critical Care Critical Care patient: Yes Total Critical Care Time (in minutes): 45 Critical Care Statement: The care of this patient involved high complexity decision making to prevent further life threatening deterioration of the patient 's condition and/or to evalute & treat vital organ system(s) failure or risk of failure. - Discharge Referral Referred to [facility] Med P.C.: No
--- NOTE | 2017-03-19 16:14 | PN ---
Physical Exam: SUBJECTIVE: patient kenneth nd examined at bed side in ICU. feeling better today no overnight events, afebrile, HR in 100's vaginal US done, denies vaginal bleeding. denies, fevers, chill, n/v/d/, cp, sob. OBJECTIVE: Vital Signs Period Temp Pulse Resp BP Sys/Mao Pulse Ox Last 24 Hr 98.2 F-98.6 F 76-93 15-21 112-135/54-82 97-100 GENERAL: AAOx3 Rigors, sitting comfortably in chair. HEENT: atraumatic, EOMI, moist membranes LUNGS: Breath sounds equal, clear to auscultation bilaterally. No wheezes, and no crackles. No accessory muscle use. HEART: Irregularly Irregular, no murmurs ABDOMEN: Soft, nontender, not distended, normoactive bowel sounds, MUSCULOSKELETAL: No CVA tenderness. LOWER EXTREMITIES: 1+ pulses, warm, well-perfused. No calf tenderness. No peripheral edema. R medial thigh blood soaked dressing, NEUROLOGICAL: Normal speech. Gait not observed. PSYCHIATRIC: Cooperative. Good eye contact. Appropriate mood and affect. SKIN: lesions as above : four incisions draining serous fluid, L labial swelling with out fluctuance or drainage Laboratory Results - last 24 hr 03/18/17 03/18/17 03/19/17 17:44 21:36 05:15 WBC 5.9 D RBC 2.76 L Hgb 7.5 L Hct 22.2 L MCV 80.5 MCHC 34.0 RDW 17.1 H Plt Count 260 MPV 8.2 INR PTT (Actin FS) Sodium Potassium Chloride Carbon Dioxide Anion Gap BUN Creatinine POC Glucometer 181.97089 182.19679 Random Glucose Calcium Phosphorus Magnesium 03/19/17 03/19/17 03/19/17 05:15 05:15 06:02 WBC RBC Hgb Hct MCV MCHC RDW Plt Count MPV INR 1.38 H D PTT (Actin FS) 28.2 Sodium 138 Potassium 4.1 Chloride 107 Carbon Dioxide 22 Anion Gap 9 BUN 19 H D Creatinine 0.9 POC Glucometer 121.74282 Random Glucose 93 Calcium 7.5 L Phosphorus 3.5 D Magnesium 1.8 03/19/17 12:04 WBC RBC Hgb Hct MCV MCHC RDW Plt Count MPV INR PTT (Actin FS) Sodium Potassium Chloride Carbon Dioxide Anion Gap BUN Creatinine POC Glucometer 113.41073 Random Glucose Calcium Phosphorus Magnesium Active Medications Generic Name Dose Route Start Last Admin Trade Name Freq PRN Reason Stop Dose Admin Acetaminophen 1,000 mg 03/18/17 22:07 03/18/17 23:15 Tylenol - PO 1,000 mg Q6H PRN Administration FEVER OR PAIN Acetaminophen 650 mg 03/18/17 22:07 Tylenol - PO Q8H PRN FEVER OR PAIN Apixaban 5 mg 03/19/17 10:00 03/19/17 10:55 Eliquis - PO 5 mg BID [facility] Administration Digoxin 0.125 mg 03/20/17 10:00 Lanoxin - PO DAILY [facility] Metronidazole 100 mls @ 100 mls/hr 03/19/17 02:00 03/19/17 10:54 Flagyl 500mg Premixed Ivpb - IVPB 100 mls/hr Q8H-IV [facility] Administration Ceftriaxone Sodium 100 mls @ 200 mls/hr 03/19/17 10:00 03/19/17 10:55 Rocephin 2gm Ivpb (Pre-Docked) IVPB 200 mls/hr DAILY [facility] Administration Insulin Aspart 1 vial 03/19/17 07:00 03/19/17 12:30 Novolog Vial Sliding Scale - SQ Not Given TIDAC [facility] Protocol Insulin Detemir 12 units 03/19/17 22:00 Levemir Vial SQ HS [facility] Metoprolol Tartrate 100 mg 03/19/17 22:00 Lopressor - PO BID [facility] Oxycodone HCl 10 mg 03/18/17 22:07 Roxicodone - PO Q8H PRN PAIN ASSESSMENT/PLAN: 56 year old female with PMH of A-FIB on eliquis, Stents x2, HTN/HLD/DM who is sent to ED for altered mental status. Found to be in septic shock. s/p incision and drainage of right thigh abscess. #Septic Shock, secondary to right upper thigh abscess (Mild UTI is also noted on Urinalysis, and may be contributing) s/p incision and drainage of right thigh abscess. -preliminary blood cultures: either Group D strep or Enterococcus -abscess cx: gram (+) cocci in chains -CRP and ESR elevated -Meropenem, Clindamycin, given Vancomycin and will check levels per ID -IVF NS@150 cc/hr -back on pressors, goal MAP>60 now -Lactic acid elevated, will trend -f/u surgery recommendation for drainage -pressors if needed to maintain MAP >65 -O2 to keep SPo2 >90% #Suppurative Hydrenitis continue antibiotic -[employer] consulted -ID consulted -pain management #Acute Kidney Injury most likely: [place]vin/2 pre-renal azotemia/ hypotension/ septic shock -IVF being administered -trend in AM #Diabetes -Levemir -ISS -FS BGM q4h for now #Atrial Fibrillation, w RVR restart home meds -holding eliquis at present, no surgical contraindication to anticoagulation Prophylaxis -SCD's -no PPI indicated -oral hydration -monitor electrolytes -Diabetic low sodium Visit type - Emergency Visit Emergency Visit: Yes ED Registration Date: 03/15/17 Care time: The patient presented to the Emergency Department on the above date and was hospitalized for further evaluation of their emergent condition. - New Patient This patient is new to me today: No - Critical Care Critical Care patient: Yes Total Critical Care Time (in minutes): 43 Critical Care Statement: The care of this patient involved high complexity decision making to prevent further life threatening deterioration of the patient 's condition and/or to evalute & treat vital organ system(s) failure or risk of failure.
[2017-03-19] MEDS ORDERED: oxyCODONE HCL 5 MG TABLET PO PRN (19:23)
[2017-03-19] MEDS ORDERED: ACETAMINOPHEN 325 MG TABLET (FP) PO PRN (19:23)
[2017-03-19] MEDS ORDERED: ACETAMINOPHEN 500 MG TABLET (FP) PO PRN (19:23)
[2017-03-19] MEDS ORDERED: METOPROLOL TARTRATE 50 MG TABLET (FP) PO SCH (22:00)
[2017-03-19] MEDS ORDERED: INSULIN DETEMIR 100 UNITS/ML MDV SQ SCH ×3 (22:00)
[2017-03-19] MEDS: METOPROLOL TARTRATE 50 MG TABLET (FP) PO SCH (22:17)
[2017-03-19] MEDS: APIXABAN 5 MG TABLET PO SCH (22:17)
[2017-03-20] MEDS: METRONIDAZOLE 500 MG PREMIXED 100 ML IVPB SCH ×2 (01:28→09:30)
[2017-03-20] MEDS: INSULIN SLIDING SCALE (NOVOLOG) 1 VIAL SQ SCH ×3 (06:01→17:17)
[2017-03-20 07:16] LABS: ARTERIAL BLD GAS O2 SATURATION 97.4 % (90-98.9); ARTERIAL BLOOD GAS BASE EXCESS -3.4 meq/l (-2-2); ARTERIAL BLOOD GAS HCO3 20.1 meq/L (22-26); ARTERIAL BLOOD GAS PO2 87.5 mmHg (80-100); ARTERIAL BLOOD GAS pH 7.42 (7.35-7.45)
[2017-03-20 07:17] LABS: ALLENS TEST POSITIVE; ART PUNCT SITE LEFT RADIAL; LPM/O2% 21%; PT. ON O2? NO; TYPE OF O2 ROOM AIR
[2017-03-20 07:23] LABS: MCH 26.9 pg (25.7-33.7); MCHC 33.1 g/dl (32.0-36.0); MEAN CELL VOLUME 81.2 fl (80-96); MEAN PLT VOLUME 8.1 fl (7.5-11.1); PLATELET COUNT 297 K/MM3 (134-434); RDW 17.2 % (11.6-15.6)
[2017-03-20 07:46] LABS: CALCIUM 7.8 mg/dL (8.5-10.1); COCKROFT - GAULT 135.235; CREATININE 0.8 mg/dL (0.55-1.02); MAGNESIUM 1.8 mg/dL (1.8-2.4); PHOSPHOROUS 3.8 mg/dL (2.5-4.9)
[2017-03-20] MEDS ORDERED: PT OWN MED DRAWER 7, Y5N ONE (09:26)
[2017-03-20] MEDS: DIGOXIN 0.125 MG TABLET (FP) PO SCH (09:31)
[2017-03-20] MEDS: APIXABAN 5 MG TABLET PO SCH ×2 (09:31→22:39)
[2017-03-20] MEDS: METOPROLOL TARTRATE 50 MG TABLET (FP) PO SCH ×2 (09:31→22:06)
[2017-03-20] MEDS: CEFTRIAXONE 100 ML IVPB SCH (09:31)
[2017-03-20] MEDS ORDERED: DIGOXIN 0.125 MG TABLET (FP) PO SCH (10:00)
--- NOTE | 2017-03-20 11:33 | PN ---
Progress Note, Physician History of Present Illness: Rapid afib now with improved rate-control after uptitration of Lopressor. Patient denies chest pain, dyspnea, near or true syncope, orthopnea, PND or LE edema, remains afebrile, OOB to chair. - Current Medication List Current Medications: Active Medications Acetaminophen (Tylenol -) 1,000 mg PO Q6H PRN PRN Reason: FEVER OR PAIN Acetaminophen (Tylenol -) 650 mg PO Q8H PRN PRN Reason: FEVER OR PAIN Apixaban (Eliquis -) 5 mg PO BID [facility] Last Admin: 03/20/17 09:31 Dose: 5 mg Digoxin (Lanoxin -) 0.125 mg PO DAILY [facility] Last Admin: 03/20/17 09:31 Dose: 0.125 mg Metronidazole (Flagyl 500mg Premixed Ivpb -) 100 mls @ 100 mls/hr IVPB Q8H-IV [facility] Last Admin: 03/20/17 09:30 Dose: 100 mls/hr Ceftriaxone Sodium (Rocephin 2gm Ivpb (Pre-Docked)) 100 mls @ 200 mls/hr IVPB DAILY [facility] Last Admin: 03/20/17 09:31 Dose: 200 mls/hr Insulin Aspart (Novolog Vial Sliding Scale -) 1 vial SQ TIDAC [facility] PRN Reason: Protocol Last Admin: 03/20/17 11:10 Dose: Not Given Insulin Detemir (Levemir Vial) 12 units SQ HS [facility] Last Admin: 03/19/17 22:16 Dose: 12 units Metoprolol Tartrate (Lopressor -) 100 mg PO BID [facility] Last Admin: 03/20/17 09:31 Dose: 100 mg Oxycodone HCl (Roxicodone -) 10 mg PO Q8H PRN PRN Reason: PAIN Last Admin: 03/19/17 22:17 Dose: 10 mg - Objective Vital Signs: Vital Signs Temperature 97.9 F 03/20/17 10:00 Pulse Rate 85 03/20/17 10:00 Respiratory Rate 18 03/20/17 10:00 Blood Pressure 111/63 03/20/17 10:00 O2 Sat by Pulse Oximetry (%) 96 03/19/17 22:00 Constitutional: Yes: No Distress, Calm Neck: Yes: Supple Cardiovascular: Yes: Pulse Irregular Respiratory: Yes: Regular, Diminished Gastrointestinal: Yes: Normal Bowel Sounds, Soft Edema: No Labs: CBC, BMP 03/20/17 06:15 03/20/17 06:15 INR, PTT INR 1.38 (0.82-1.09) H D 03/19/17 05:15 - ....Imaging Chest X-ray: Report Reviewed (NAD) Problem List - Problems (1) Abscess of leg Code(s): L02.419 - CUTANEOUS ABSCESS OF LIMB, UNSPECIFIED (2) Coronary artery disease Code(s): I25.10 - ATHSCL HEART DISEASE OF [place] CORONARY ARTERY W/O ANG PCTRS Qualifiers: Coronary Disease-Associated Artery/Lesion type: [place] artery [place] vs. transplanted heart: [place] heart Associated angina: without angina Qualified Code(s): I25.10 - Atherosclerotic heart disease of [place] coronary artery without angina pectoris (3) Demand ischemia Code(s): I24.8 - OTHER FORMS OF ACUTE ISCHEMIC HEART DISEASE (4) Hidradenitis suppurativa Code(s): L73.2 - HIDRADENITIS SUPPURATIVA (5) Hyperglycemia due to type 2 diabetes mellitus Code(s): E11.65 - TYPE 2 DIABETES MELLITUS WITH HYPERGLYCEMIA Qualifiers: Diabetes mellitus termite inspector insulin use: with termite inspector use Qualified Code(s): E11.65 - Type 2 diabetes mellitus with hyperglycemia (6) Persistent atrial fibrillation with rapid ventricular response Code(s): I48.1 - PERSISTENT ATRIAL FIBRILLATION (7) Sepsis Code(s): A41.9 - SEPSIS, UNSPECIFIED ORGANISM Qualifiers: Sepsis type: Streptococcus, other Qualified Code(s): A40.8 - Other streptococcal sepsis (8) Status post coronary artery stent placement Code(s): Z95.5 - PRESENCE OF CORONARY ANGIOPLASTY IMPLANT AND GRAFT Assessment/Plan 03/16/2017 Echo: Normal LV size and fxn, mild LAE, mild MR, TR, small pericardial effusion 1. Right Thigh Abscess post drainage, suppurative hidradenitis 2. Septic shock (enterococcus) resolved 3. Acute Kidney Injury resolving 4. CAD s/p PCI(stent), demand ischemia 5. Lactic Acidosis resolved 6. Persistent atrial fibrillation with RVR on NOAC 7. Type 2 DM 8. HTN 9. Hyperlipidemia 10. Anemia post transfusion PLAN: 1. Continue Eliquis 5 mg BID, Lipitor 20 mg QHS, Dig 0.125 qd and Lopressor 100 mg BID, resuming Lisinopril with uptitration as hemodynamics tolerate 2. Complete antibiotics per C&S, wound care, GI prophylaxis 3. Patient to f/u with Dr. Ahmadi of [facility] upon discharge
[2017-03-20] MEDS: LISINOPRIL 10 MG TABLET (FP) PO SCH (12:42)
[2017-03-20] MEDS ORDERED: PICC LINE 8 ML FLUSH PROTOCOL IVPUSH PRN (13:03)
--- NOTE | 2017-03-20 13:35 | PN ---
Physical Exam: SUBJECTIVE: Patient seen and examined at bed side this morning. Patient said she feels much better. Slept better than yesterday. Slight pain over the right upper thigh (I and D site). Denies fever, chills, rigors, sweating, chest pain, sob, cough, palpitation, abdominal pain, nausea or vomiting. Patient was transferred from ICU to the floor yesterday. No acute overnight events as per the RN. OBJECTIVE: Vital Signs Period Temp Pulse Resp BP Sys/Mao Pulse Ox Last 24 Hr 97.9 F-99.0 F 82-96 18-22 111-134/63-84 95-96 GENERAL: The patient is awake, alert, and fully oriented, in no acute distress. HEAD: Normal with no signs of trauma. Facial hair especially in the chin. EYES: EOM intact. Pallor +, no icterus. ENT: Ears normal, moist mucous membranes. NECK: Trachea midline, full range of motion, supple. LUNGS: Breath sounds equal, clear to auscultation bilaterally, no wheezes, no crackles, no accessory muscle use. HEART: Regular rate and rhythm, S1, S2 without murmur. ABDOMEN: Soft, nontender, nondistended, normoactive bowel sounds, no guarding, no rebound, no hepatosplenomegaly, no masses. UPPER EXTREMITIES: 2+ pulses, warm, well-perfused, no edema. LOWER EXTREMITIES: 1+ pulses, warm, well-perfused. No calf tenderness. No peripheral edema. Right upper medial thigh clean dressing, 4 incisions draining serosanguineous fluid. No soakage around the dressing. NO erythema around the area. NEUROLOGICAL: Cranial nerves II through XII grossly intact. Normal speech, gait not observed. PSYCH: Normal mood, normal affect. SKIN: Warm, dry, normal turgor, no rashes or lesions noted : Swollen left labia, no discharge, tenderness or fluctuance. No vaginal bleeding noted at this time. Laboratory Results - last 24 hr 03/19/17 03/19/17 03/20/17 17:08 22:14 06:00 WBC RBC Hgb Hct MCV MCHC RDW Plt Count MPV Puncture Site ABG pH ABG pCO2 at Pt Temp ABG pO2 at Pt Temp ABG HCO3 ABG O2 Sat (Measured) ABG O2 Content ABG Base Excess Yoel Test O2 Delivery Device Oxygen Flow Rate PEEP Sodium Potassium Chloride Carbon Dioxide Anion Gap BUN Creatinine POC Glucometer [phone] 88 Random Glucose Calcium Phosphorus Magnesium 03/20/17 03/20/17 03/20/17 06:15 06:15 07:09 WBC 8.0 D RBC 2.98 L Hgb 8.0 L Hct 24.2 L MCV 81.2 MCHC 33.1 RDW 17.2 H Plt Count 297 MPV 8.1 Puncture Site Left radial ABG pH 7.42 ABG pCO2 at Pt Temp 31.3 L D ABG pO2 at Pt Temp 87.5 ABG HCO3 20.1 L ABG O2 Sat (Measured) 97.4 ABG O2 Content 10.4 L ABG Base Excess -3.4 L Yoel Test Positive O2 Delivery Device Room air Oxygen Flow Rate 21% PEEP 0.0 Sodium 141 Potassium 4.4 Chloride 108 H Carbon Dioxide 24 Anion Gap 9 BUN 15 D Creatinine 0.8 POC Glucometer Random Glucose 94 Calcium 7.8 L Phosphorus 3.8 Magnesium 1.8 03/20/17 11:08 WBC RBC Hgb Hct MCV MCHC RDW Plt Count MPV Puncture Site ABG pH ABG pCO2 at Pt Temp ABG pO2 at Pt Temp ABG HCO3 ABG O2 Sat (Measured) ABG O2 Content ABG Base Excess Yoel Test O2 Delivery Device Oxygen Flow Rate PEEP Sodium Potassium Chloride Carbon Dioxide Anion Gap BUN Creatinine POC Glucometer 137 Random Glucose Calcium Phosphorus Magnesium Active Medications Generic Name Dose Route Start Last Admin Trade Name Freq PRN Reason Stop Dose Admin Acetaminophen 1,000 mg 03/19/17 19:23 Tylenol - PO Q6H PRN FEVER OR PAIN Acetaminophen 650 mg 03/19/17 19:23 Tylenol - PO Q8H PRN FEVER OR PAIN Apixaban 5 mg 03/19/17 22:00 03/20/17 09:31 Eliquis - PO 5 mg BID [facility] Administration Digoxin 0.125 mg 03/20/17 10:00 03/20/17 09:31 Lanoxin - PO 0.125 mg DAILY [facility] Administration IV Flush 8 ml 03/20/17 13:03 Picc Line Flush IVPUSH PRN PRN Protocol Metronidazole 100 mls @ 100 mls/hr 03/20/17 02:00 03/20/17 09:30 Flagyl 500mg Premixed Ivpb - IVPB 100 mls/hr Q8H-IV [facility] Administration Ceftriaxone Sodium 100 mls @ 200 mls/hr 03/20/17 10:00 03/20/17 09:31 Rocephin 2gm Ivpb (Pre-Docked) IVPB 200 mls/hr DAILY [facility] Administration Insulin Aspart 1 vial 03/20/17 07:00 03/20/17 11:10 Novolog Vial Sliding Scale - SQ Not Given TIDAC [facility] Protocol Insulin Detemir 12 units 03/19/17 22:00 03/19/17 22:16 Levemir Vial SQ 12 units HS [facility] Administration Lisinopril 10 mg 03/20/17 11:45 03/20/17 12:42 Prinivil PO 10 mg DAILY [facility] Administration Metoprolol Tartrate 100 mg 03/19/17 22:00 03/20/17 09:31 Lopressor - PO 100 mg BID [facility] Administration Oxycodone HCl 10 mg 03/19/17 19:23 03/19/17 22:17 Roxicodone - PO 10 mg Q8H PRN Administration PAIN ASSESSMENT/PLAN: Patient is a 56 year old female with significant PMH of A-FIB on eliquis, Stents x2, HTN/HLD/DM who is sent to ED for altered mental status. Found to be in septic shock. # Septic Shock- resolved. source likely from right thigh abscess S/P Incision and Drainage (03/16/17); irrigate and draining changes daily Will confirm with Dr. Silva regarding the method of wound cleaning and plan of discharge Blood culture grew strep anginosus and from the wound- Neisseria Since septic shock has resolved and patient can tolerate orally, fluids has been discontinued As per ID: Continue Rocephin for 8 more days, continue flagyl for anaerobic coverage Consult put in for Dr. Haji for PICC line placement Spoke with the social staff worker regarding PICC line placement and discharge. marble chip terrazzo worker mentioned she is unsure if the insurance will cover the further management after sending the patient home on PICC line and will start the process of finding it out. # Anemia H/H 07/09.2 , partially dilutional, thigh bleeding resolved, will monitor s/p 2 Units of pRBC this admission # Suppurative Hydrenitis -continue antibiotic regimen -GEAR LAPPING MACHINE OPERATOR consulted: supportive measures -Percocet pain # Menorrhagia -for 5 mo, LMP 5 yr ago, no HX of + pap smear, GED TUTOR polyps, fibroids, no family hx of GED TUTOR CA. -currently resoved -transvaginal US shows small amount of echogenic material in endometrial canal, no endometrial thickening. -Waiting for Dr. Hernandez's recommendation for further management. # Acute Kidney Injury -resolved # Diabetes - Patient was on Levemir 12u HS but will decrease to 10U since she has a trend of low blood sugar in the morning. This morning it was 88mg/dl -ISS for coverage at meals -FS BGM q4h -Watch for hypoglycemic symptoms. # Atrial Fibrillation w RVR -HR 89 bpm - continue eliquis - continue lopressor 100 bid - continue digoxin -will restart home cardizem 120mg Daily -BNP 9600, TTE unremarkable # Demand ischemia -resolved # FEN Not on IV fluids Electrolytes WNL. To be repeated tomorrow Diabetic low sodium diet # Prophylaxis For GI: Not indicated For DVT: On elliquis # Dispo: Admitted in Med- Surg. Discharge after PICC line placement and Dr. Martinez's consultation. Illness, Investigation and Plan of care explained to the patient. She verbalized understanding. Case seen and discussed with Dr. Allen. Visit type - Emergency Visit Emergency Visit: Yes ED Registration Date: 03/15/17 Care time: The patient presented to the Emergency Department on the above date and was hospitalized for further evaluation of their emergent condition. - New Patient This patient is new to me today: Yes Date on this admission: 03/20/17 - Critical Care Critical Care patient: No
--- NOTE | 2017-03-20 15:25 | PN ---
Progress Note, Physician Chief Complaint: ID Ceftriaxone and metronidazole Pt feels improved today. out of bed to chair and ambulating in hallway without subjective symptoms - Current Medication List Current Medications: Active Medications Acetaminophen (Tylenol -) 1,000 mg PO Q6H PRN PRN Reason: FEVER OR PAIN Acetaminophen (Tylenol -) 650 mg PO Q8H PRN PRN Reason: FEVER OR PAIN Apixaban (Eliquis -) 5 mg PO BID [facility] Last Admin: 03/20/17 09:31 Dose: 5 mg Digoxin (Lanoxin -) 0.125 mg PO DAILY [facility] Last Admin: 03/20/17 09:31 Dose: 0.125 mg Diltiazem HCl (Cardizem -) 120 mg PO DAILY ONE Stop: 03/20/17 13:54 Metronidazole (Flagyl 500mg Premixed Ivpb -) 100 mls @ 100 mls/hr IVPB Q8H-IV [facility] Last Admin: 03/20/17 09:30 Dose: 100 mls/hr Ceftriaxone Sodium (Rocephin 2gm Ivpb (Pre-Docked)) 100 mls @ 200 mls/hr IVPB DAILY [facility] Last Admin: 03/20/17 09:31 Dose: 200 mls/hr Insulin Aspart (Novolog Vial Sliding Scale -) 1 vial SQ TIDAC [facility] PRN Reason: Protocol Last Admin: 03/20/17 11:10 Dose: Not Given Insulin Detemir (Levemir Vial) 10 units SQ [facility] Lisinopril (Prinivil) 10 mg PO DAILY [facility] Last Admin: 03/20/17 12:42 Dose: 10 mg Metoprolol Tartrate (Lopressor -) 100 mg PO BID [facility] Last Admin: 03/20/17 09:31 Dose: 100 mg Oxycodone HCl (Roxicodone -) 10 mg PO Q8H PRN PRN Reason: PAIN Last Admin: 03/19/17 22:17 Dose: 10 mg - Objective Vital Signs: Vital Signs Temperature 98.9 F 03/20/17 14:05 Pulse Rate 85 03/20/17 14:05 Respiratory Rate 20 03/20/17 14:05 Blood Pressure 110/62 03/20/17 14:05 O2 Sat by Pulse Oximetry (%) 95 03/20/17 09:00 Constitutional: Yes: Well Nourished, No Distress Eyes: Yes: Conjunctiva Clear, PERRL HENT: Yes: WNL Neck: Yes: Supple. No: Tenderness Cardiovascular: Yes: Pulse Irregular, S1, S2. No: Murmur Respiratory: Yes: WNL Gastrointestinal: Yes: WNL Extremities: Yes: Other (Dressing intact to left groin with minimal drainage) Labs: CBC, BMP 03/20/17 06:15 03/20/17 06:15 INR, PTT INR 1.38 (0.82-1.09) H D 03/19/17 05:15 Problem List - Problems (1) Diabetes mellitus type 2 in obese Code(s): E11.9 - TYPE 2 DIABETES MELLITUS WITHOUT COMPLICATIONS E66.9 - OBESITY, UNSPECIFIED (2) Sepsis associated hypotension Code(s): A41.9 - SEPSIS, UNSPECIFIED ORGANISM (3) Abscess of leg Code(s): L02.419 - CUTANEOUS ABSCESS OF LIMB, UNSPECIFIED Assessment/Plan Microbiology 03/16/17 02:00 Abscess Gram Stain - Final 03/16/17 02:00 Abscess Wound Culture - Final Neisseria Species 03/15/17 18:56 Blood - Peripheral Venous Blood Culture - Final Streptococcus Anginosus 03/15/17 18:56 Blood - Peripheral Venous Blood Culture - Final Streptococcus Anginosus Laboratory Tests 03/16/17 03/20/17 03/20/17 11:30 06:15 06:15 WBC 8.0 D Hgb 8.0 L Hct 24.2 L Plt Count 297 BUN 15 D Creatinine 0.8 Random Vancomycin 6.310 Assessment Sepsis now resolved Thigh abscess drained Strep anginosus Bacteremia Atrial fibrillation Diabetes Plan Continue Ceftriaxone through the weekend Stop metronidazole Upon discharge will need another week of antibiotics Umberto CHAPMAN
[2017-03-20] MEDS: INSULIN DETEMIR 100 UNITS/ML MDV SQ SCH (22:07)
[2017-03-21] MEDS: INSULIN SLIDING SCALE (NOVOLOG) 1 VIAL SQ SCH ×3 (06:31→17:24)
[2017-03-21 07:48] LABS: MCH 26.1 pg (25.7-33.7); MCHC 32.1 g/dl (32.0-36.0); MEAN CELL VOLUME 81.3 fl (80-96); MEAN PLT VOLUME 8.2 fl (7.5-11.1); PLATELET COUNT 350 K/MM3 (134-434); RDW 17.3 % (11.6-15.6); WHITE BLOOD COUNT 11.7 K/mm3 (4.0-10.0)
[2017-03-21] MEDS ORDERED: INSULIN DETEMIR 100 UNITS/ML MDV SQ ONE (08:05)
[2017-03-21] MEDS ORDERED: INSULIN (NOVOLOG) ASPART 100 UNITS/ML 10ML VIAL ONE ×2 (08:05→17:06)
[2017-03-21] MEDS ORDERED: PT OWN MED DRAWER 7, Y5N ONE ×3 (08:05→21:29)
[2017-03-21 08:22] LABS: CALCIUM 7.8 mg/dL (8.5-10.1)
[2017-03-21 08:25] LABS: ALK PHOS 296 U/L (45-117); ANION GAP 8 (8-16); BILIRUBIN,TOTAL 0.3 mg/dL (0.2-1.0); CO2 24 mmol/L (21-32); CREATININE 0.8 mg/dL (0.55-1.02); GLUCOSE,RANDOM 98 mg/dL (74-106); SGOT/AST 23 U/L (15-37); SGPT/ALT 23 U/L (12-78); TOT PROT 5.7 g/dl (6.4-8.2)
--- NOTE | 2017-03-21 09:37 | PN ---
Progress Note, Physician History of Present Illness: No complaints No thigh pain No c/o fever/ chills Tolerating antibiotics - Current Medication List Current Medications: Active Medications Acetaminophen (Tylenol -) 1,000 mg PO Q6H PRN PRN Reason: FEVER OR PAIN Acetaminophen (Tylenol -) 650 mg PO Q8H PRN PRN Reason: FEVER OR PAIN Apixaban (Eliquis -) 5 mg PO BID [facility] Last Admin: 03/20/17 22:39 Dose: 5 mg Digoxin (Lanoxin -) 0.125 mg PO DAILY [facility] Last Admin: 03/20/17 09:31 Dose: 0.125 mg Diltiazem HCl (Cardizem Cd -) 120 mg PO DAILY [facility] Last Admin: 03/20/17 17:19 Dose: 120 mg Ceftriaxone Sodium (Rocephin 2gm Ivpb (Pre-Docked)) 100 mls @ 200 mls/hr IVPB DAILY [facility] Last Admin: 03/20/17 09:31 Dose: 200 mls/hr Insulin Aspart (Novolog Vial Sliding Scale -) 1 vial SQ TIDAC [facility] PRN Reason: Protocol Last Admin: 03/21/17 06:31 Dose: Not Given Insulin Detemir (Levemir Vial) 10 units SQ [facility] Last Admin: 03/20/17 22:07 Dose: 10 units Lisinopril (Prinivil) 10 mg PO DAILY [facility] Last Admin: 03/20/17 12:42 Dose: 10 mg Metoprolol Tartrate (Lopressor -) 100 mg PO BID [facility] Last Admin: 03/20/17 22:06 Dose: 100 mg Oxycodone HCl (Roxicodone -) 10 mg PO Q8H PRN PRN Reason: PAIN Last Admin: 03/19/17 22:17 Dose: 10 mg - Objective Vital Signs: Vital Signs Temperature 98.8 F 03/21/17 06:00 Pulse Rate 81 03/21/17 06:00 Respiratory Rate 20 03/21/17 06:00 Blood Pressure 127/69 03/21/17 06:00 O2 Sat by Pulse Oximetry (%) 95 03/20/17 21:00 Constitutional: Yes: No Distress Eyes: Yes: Conjunctiva Clear Cardiovascular: Yes: Regular Rate and Rhythm, S1, S2 Respiratory: Yes: CTA Bilaterally Gastrointestinal: Yes: Normal Bowel Sounds, Soft. No: Tenderness Extremities: Yes: Other (thigh wound with packing) Labs: CBC, BMP 03/21/17 06:00 03/21/17 06:00 INR, PTT INR 1.38 (0.82-1.09) H D 03/19/17 05:15 Assessment/Plan Sepsis- resolved S/P I&D thigh abscess Strep anginosus bacteremia Continue ceftriaxone, local wound care
[2017-03-21] MEDS: DIGOXIN 0.125 MG TABLET (FP) PO SCH (09:46)
[2017-03-21] MEDS: APIXABAN 5 MG TABLET PO SCH ×2 (09:46→21:58)
[2017-03-21] MEDS: LISINOPRIL 10 MG TABLET (FP) PO SCH (09:47)
[2017-03-21] MEDS: METOPROLOL TARTRATE 50 MG TABLET (FP) PO SCH ×2 (09:47→21:58)
--- NOTE | 2017-03-21 09:50 | PN ---
Progress Note (short form) - Note Progress Note: Subjective: no fever or chills. has no pain , no N/V . Objective: Vital Signs: Last Vital Signs Temp Pulse Resp BP Pulse Ox 98.8 F 81 20 127/69 95 03/21/17 06:00 03/21/17 06:00 03/21/17 06:00 03/21/17 06:00 03/20/17 21:00 Physical Exam: NAD , awake , alert , oriented x 3. HEENT: pale skin, MMM CV: irreg irreg , no MRG Lungs: CTAB Abd : soft, NT, ND , NL BS : L labial hyperpigmentation, edema , and enlargement are better , no fluctuance. R upper thigh small surgical incisions with packing in , wet dressing with serosanguinous fluid . Labs: Laboratory Results - last 24 hr 03/15/17 03/17/17 03/20/17 18:56 11:30 11:08 WBC RBC Hgb Hct MCV MCHC RDW Plt Count MPV Sodium Potassium Chloride Carbon Dioxide Anion Gap BUN Creatinine Creat Clearance w eGFR POC Glucometer 137 Random Glucose Calcium Total Bilirubin AST ALT Alkaline Phosphatase Total Protein Albumin Blood Type AB POSITIVE AB POSITIVE Antibody Screen Negative Negative Crossmatch See Detail See Detail 03/20/17 03/20/17 03/21/17 17:12 22:05 06:00 WBC 11.7 H D RBC 2.89 L Hgb 7.5 L Hct 23.5 L MCV 81.3 MCHC 32.1 RDW 17.3 H Plt Count 350 MPV 8.2 Sodium Potassium Chloride Carbon Dioxide Anion Gap BUN Creatinine Creat Clearance w eGFR POC Glucometer 154 202 Random Glucose Calcium Total Bilirubin AST ALT Alkaline Phosphatase Total Protein Albumin Blood Type Antibody Screen Crossmatch 03/21/17 03/21/17 06:00 06:29 WBC RBC Hgb Hct MCV MCHC RDW Plt Count MPV Sodium 140 Potassium 4.5 Chloride 108 H Carbon Dioxide 24 Anion Gap 8 BUN 12 Creatinine 0.8 Creat Clearance w eGFR > 60 POC Glucometer 118 Random Glucose 98 Calcium 7.8 L Total Bilirubin 0.3 D AST 23 D ALT 23 D Alkaline Phosphatase 296 H D Total Protein 5.7 L Albumin 2.0 L Blood Type Antibody Screen Crossmatch Assessment/Plan: 56 y/o lady with h/o IDDM, HTN, CAD s/p stenting in 07/2015 , R knee replacement and L knee replacement ( 1 month ago) , and other medical problems who presented with AMS, she was found in septic shock. 1- Septic shock from R upper thigh abscess: shock has resolved. blood cx with strep species. Wound cx with Neisseria - cont ceftriaxone . - hydradenitis suppurativa improved 2-CIARAN: likely pre-renal azotemia due to hypotension and volume depletion. - resolved 3- A fib with RVR: HR improved - cont metoprolol, dig and cardizem at home dose - cont eliquis . bleeding has stopped 4- IDDM : severe hyperglycemia resolved. - cont decreased dose of levemir , might need to adjust dose - cont SSI 5- Acute on chronic blood loss anemia : due to vaginal bleed and bleeding from surgical site. vaginal bleed has resolved - Transvaginal US, shows ? polyp vs blood products in endometrial canal . - pending re-evaluation by AIRLINE OPERATIONS AGENT 6- Trop leak , due to demand ischemia in setting of septic shock. dc cisse cont PT Anticipate dc on Thursday. Pt will think about options where to receive Abx ( home , infusion center, VS NH ) . will need a PICC Visit type - Emergency Visit Emergency Visit: Yes ED Registration Date: 03/15/17 Care time: The patient presented to the Emergency Department on the above date and was hospitalized for further evaluation of their emergent condition. - New Patient This patient is new to me today: No - Critical Care Critical Care patient: No
[2017-03-21] MEDS: CEFTRIAXONE 100 ML IVPB SCH (10:24)
--- NOTE | 2017-03-21 13:46 | PN ---
Progress Note (short form) - Note Progress Note: Chief Complaint: Events noted, notes reviewed, denies any chest pain or dyspnea History of Present Illness: Seen and examined. Events noted, notes reviewed, denies any chest pain or dyspnea Echocardiography dated 03/16/2017 normal LV size and function, mild LAE, mild MR, TR and a small pericardial effusion - Current Medication List Current Medications Acetaminophen (Tylenol -) 1,000 mg PO Q6H PRN PRN Reason: FEVER OR PAIN Acetaminophen (Tylenol -) 650 mg PO Q8H PRN PRN Reason: FEVER OR PAIN Apixaban (Eliquis -) 5 mg PO BID [facility] Last Admin: 03/21/17 09:46 Dose: 5 mg Digoxin (Lanoxin -) 0.125 mg PO DAILY [facility] Last Admin: 03/21/17 09:46 Dose: 0.125 mg Diltiazem HCl (Cardizem Cd -) 120 mg PO DAILY [facility] Last Admin: 03/21/17 09:47 Dose: 120 mg Ceftriaxone Sodium (Rocephin 2gm Ivpb (Pre-Docked)) 100 mls @ 200 mls/hr IVPB DAILY [facility] Last Admin: 03/21/17 10:24 Dose: 200 mls/hr Insulin Aspart (Novolog Vial Sliding Scale -) 1 vial SQ TIDAC [facility] PRN Reason: Protocol Last Admin: 03/21/17 11:56 Dose: 2 units Insulin Detemir (Levemir Vial) 10 units SQ HS [facility] Last Admin: 03/20/17 22:07 Dose: 10 units Lisinopril (Prinivil) 10 mg PO DAILY [facility] Last Admin: 03/21/17 09:47 Dose: 10 mg Metoprolol Tartrate (Lopressor -) 100 mg PO BID [facility] Last Admin: 03/21/17 09:47 Dose: 100 mg Oxycodone HCl (Roxicodone -) 10 mg PO Q8H PRN PRN Reason: PAIN Last Admin: 03/19/17 22:17 Dose: 10 mg - Objective Vital Signs: Last Vital Signs Temp Pulse Resp BP Pulse Ox 98.9 F 93 H 20 126/65 97 03/21/17 10:00 03/21/17 10:00 03/21/17 10:00 03/21/17 10:00 03/21/17 09:00 Intake & Output 0503/19/17 03/20/17 03/21/17 23:59 23:59 23:59 23:59 Intake Total 5370 2560 1335 480 Output Total 5000 4200 3405 900 Balance 909 -5665 -9431 -682 Weight 243 lb 1.6 oz 244 lb 3.2 oz 237 lb 11.2 oz Constitutional: No Distress, Calm Neck: Supple Cardiovascular: S1 S2 Irregularly Irregular Respiratory: Diminished Breath Sounds at the Bases Gastrointestinal: Soft benign Normal Bowel Sounds Ext: No Edema Labs: CBC, BMP 03/21/17 06:00 03/21/17 06:00 Hepatic Panel Total Bilirubin 0.3 mg/dL (0.2-1.0) D 03/21/17 06:00 AST 23 U/L (15-37) D 03/21/17 06:00 ALT 23 U/L (12-78) D 03/21/17 06:00 Alkaline Phosphatase 296 U/L (45-117) H D 03/21/17 06:00 Albumin 2.0 g/dl (3.4-5.0) L 03/21/17 06:00 Assessment/Plan ASSESSMENT: 1. Right Thigh Abscess post drainage, suppurative hidradenitis 2. Post septic shock (enterococcus), lactic Acidosis, resolved 3. CAD post PCI (stent), demand ischemic injury 4. Persistent atrial fibrillation with RVR on NOAC's 5. HTN 6. DM 7. Hyperlipidemia 8. Acute Kidney Injury, resolved 9. Anemia post transfusion PLAN: 1. Continue Eliquis 2. Continue Lipitor 3. Continue Digoxin with close monitoring of level 4. Continue Lopressor 5. Continue Lisinopril 6. Continue Cardizem CD Vidal Nguyen MD
[2017-03-21] MEDS: INSULIN DETEMIR 100 UNITS/ML MDV SQ SCH (21:58)
[2017-03-22] MEDS: INSULIN SLIDING SCALE (NOVOLOG) 1 VIAL SQ SCH ×3 (06:41→17:04)
--- NOTE | 2017-03-22 08:20 | PN ---
Progress Note (short form) - Note Progress Note: ID Ceftriaxone day 7 bacteremia Looks much better each day Selected Entries 03/22/17 06:00 Temperature 98.2 F Pulse Rate 71 Respiratory 20 Rate Blood Pressure 125/58 Lung Clear Cor S1 S2 IRreg Irreg Abd Soft nontender Ext Right packing dressing Microbiology 03/16/17 02:00 Abscess Gram Stain - Final 03/16/17 02:00 Abscess Wound Culture - Final Neisseria Species 03/15/17 18:56 Blood - Peripheral Venous Blood Culture - Final Streptococcus Anginosus 03/15/17 18:56 Blood - Peripheral Venous Blood Culture - Final Streptococcus Anginosus Laboratory Tests 03/21/17 03/21/17 03/22/17 06:00 06:00 06:45 WBC 11.7 H D Pending Hgb Pending Hct Pending Plt Count Pending BUN 12 Creatinine 0.8 Assessment Severe sepsis with SSTI Strep Angiosus bacteremia( [place]iserria ?) Plan Continue Ceftriaxone total 14 days Repeat ESR CRP Wound care per surgery PICC home Umberto CHAPMAN Problem List - Problems (1) Diabetes mellitus type 2 in obese Code(s): E11.9 - TYPE 2 DIABETES MELLITUS WITHOUT COMPLICATIONS E66.9 - OBESITY, UNSPECIFIED (2) Sepsis associated hypotension Code(s): A41.9 - SEPSIS, UNSPECIFIED ORGANISM (3) Abscess of leg Code(s): L02.419 - CUTANEOUS ABSCESS OF LIMB, UNSPECIFIED
[2017-03-22 08:28] LABS: MCH 26.6 pg (25.7-33.7); MCHC 32.7 g/dl (32.0-36.0); MEAN CELL VOLUME 81.4 fl (80-96); MEAN PLT VOLUME 8.3 fl (7.5-11.1); PLATELET COUNT 393 K/MM3 (134-434); RDW 17.3 % (11.6-15.6)
--- NOTE | 2017-03-22 09:04 | PN ---
Progress Note (short form) - Note Progress Note: Chief Complaint: Events noted, notes reviewed, denies any chest pain or dyspnea History of Present Illness: Seen and examined. Events noted, notes reviewed, denies any chest pain or dyspnea Echocardiography dated 03/16/2017 normal LV size and function, mild LAE, mild MR, TR and a small pericardial effusion - Current Medication List Current Medications Acetaminophen (Tylenol -) 1,000 mg PO Q6H PRN PRN Reason: FEVER OR PAIN Acetaminophen (Tylenol -) 650 mg PO Q8H PRN PRN Reason: FEVER OR PAIN Apixaban (Eliquis -) 5 mg PO BID [facility] Last Admin: 03/21/17 21:58 Dose: 5 mg Digoxin (Lanoxin -) 0.125 mg PO DAILY [facility] Last Admin: 03/21/17 09:46 Dose: 0.125 mg Diltiazem HCl (Cardizem Cd -) 120 mg PO DAILY [facility] Last Admin: 03/21/17 09:47 Dose: 120 mg Ceftriaxone Sodium (Rocephin 2gm Ivpb (Pre-Docked)) 100 mls @ 200 mls/hr IVPB DAILY [facility] Last Admin: 03/21/17 10:24 Dose: 200 mls/hr Insulin Aspart (Novolog Vial Sliding Scale -) 1 vial SQ TIDAC [facility] PRN Reason: Protocol Last Admin: 03/22/17 06:41 Dose: Not Given Insulin Detemir (Levemir Vial) 10 units SQ HS [facility] Last Admin: 03/21/17 21:58 Dose: 10 units Lisinopril (Prinivil) 10 mg PO DAILY [facility] Last Admin: 03/21/17 09:47 Dose: 10 mg Metoprolol Tartrate (Lopressor -) 100 mg PO BID [facility] Last Admin: 03/21/17 21:58 Dose: 100 mg Oxycodone HCl (Roxicodone -) 10 mg PO Q8H PRN PRN Reason: PAIN Last Admin: 03/19/17 22:17 Dose: 10 mg - Objective Vital Signs: Last Vital Signs Temp Pulse Resp BP Pulse Ox 98.2 F 71 20 125/58 97 03/22/17 06:00 03/22/17 06:00 03/22/17 06:00 03/22/17 06:00 03/21/17 21:00 Intake & Output 05/03/0203/20/17 03/21/17 03/22/17 23:59 23:59 23:59 23:59 Intake Total 2560 1335 1180 150 Output Total 4200 3400 1600 Balance -1640 -2064 -420 150 Weight 244 lb 3.2 oz 237 lb 11.2 oz Constitutional: No Distress, Calm Neck: Supple Cardiovascular: S1 S2 Irregularly Irregular Respiratory: Diminished Breath Sounds at the Bases Gastrointestinal: Soft benign Normal Bowel Sounds Ext: No Edema Labs: CBC, BMP 03/22/17 06:45 03/21/17 06:00 INR, PTT INR 1.38 (0.82-1.09) H D 03/19/17 05:15 Assessment/Plan ASSESSMENT: 1. Right Thigh Abscess post drainage, suppurative hidradenitis 2. Post septic shock (enterococcus), lactic Acidosis, resolved 3. CAD post PCI (stent), demand ischemic injury 4. Persistent atrial fibrillation with RVR on NOAC's 5. HTN 6. DM 7. Hyperlipidemia 8. Acute Kidney Injury, resolved 9. Anemia post transfusion PLAN: 1. Continue Eliquis 2. Continue Lipitor 3. Continue Digoxin with close monitoring of level 4. Continue Lopressor 5. Continue Lisinopril 6. Continue Cardizem CD Vidal Nguyen MD
[2017-03-22] MEDS: CEFTRIAXONE 100 ML IVPB SCH (10:43)
[2017-03-22] MEDS: LISINOPRIL 10 MG TABLET (FP) PO SCH (10:43)
[2017-03-22] MEDS: METOPROLOL TARTRATE 50 MG TABLET (FP) PO SCH ×2 (10:43→21:11)
[2017-03-22] MEDS: DIGOXIN 0.125 MG TABLET (FP) PO SCH (10:43)
[2017-03-22] MEDS: APIXABAN 5 MG TABLET PO SCH ×2 (10:43→21:13)
[2017-03-22] MEDS ORDERED: INSULIN (NOVOLOG) ASPART 100 UNITS/ML 10ML VIAL ONE ×2 (11:18→17:03)
[2017-03-22 12:59] LABS: METAMYELOCYTE 4 % (0-2)
[2017-03-22 13:00] LABS: ANISOCYTOSIS 1+; PLATELET ESTIMATE ADEQUATE (NORMAL); POLYCHROMASIA 1+
--- NOTE | 2017-03-22 17:02 | PN ---
Progress Note (short form) - Note Progress Note: Subjective: no fever or chills. has no pain , no N/V . no vaginal bleed Objective: Vital Signs: Last Vital Signs Temp Pulse Resp BP Pulse Ox 97.6 F 74 20 123/79 98 03/22/17 16:20 03/22/17 16:20 03/22/17 16:20 03/22/17 16:20 03/22/17 09:00 Physical Exam: NAD , awake , alert , oriented x 3. HEENT: pale skin, MMM CV: irreg irreg , no MRG Lungs: CTAB Abd : soft, NT, ND , NL BS : L labial hyperpigmentation, edema , and enlargement are better . R upper thigh small surgical incisions with packing in , wet dressing with serous fluid . Labs: Laboratory Results - last 24 hr 03/21/17 03/21/17 03/22/17 17:23 21:56 06:39 WBC RBC Hgb Hct MCV MCHC RDW Plt Count MPV Neutrophils % Lymphocytes % Monocytes % Eosinophils % Band Neutrophils Metamyelocytes Myelocytes Differential Comment Platelet Estimate Polychromasia Anisocytosis Macrocytosis Morphology Comment POC Glucometer 137 165 112 03/22/17 03/22/17 06:45 11:14 WBC 13.0 H RBC 2.72 L Hgb 7.3 L Hct 22.1 L MCV 81.4 MCHC 32.7 RDW 17.3 H Plt Count 393 MPV 8.3 Neutrophils % 61.0 D Lymphocytes % 15.0 D Monocytes % 6.0 D Eosinophils % 5.0 H Band Neutrophils 4.0 D Metamyelocytes 4 H D Myelocytes 5 H Differential Comment Manual diff done Platelet Estimate Adequate Polychromasia 1+ Anisocytosis 1+ Macrocytosis Few Morphology Comment Slide scanned POC Glucometer 155 Assessment/Plan: 56 y/o lady with h/o IDDM, HTN, CAD s/p stenting in 07/2015 , R knee replacement and L knee replacement ( 1 month ago) , and other medical problems who presented with AMS, she was found in septic shock. 1- Septic shock from R upper thigh abscess: shock has resolved. blood cx with strep species. Wound cx with Neisseria - cont ceftriaxone day 4 ( day 7 of total Abx ) - hydradenitis suppurativa improved - PICC tomorrow - appreciate Surgical input on instruction about packing and dressing changes after dc - reepat CBC as WBC has increased 2-CIARAN: likely pre-renal azotemia due to hypotension and volume depletion. - resolved 3- A fib with RVR: HR improved - cont metoprolol, dig and cardizem at home dose - cont eliquis . bleeding has stopped - check dig level tomorrow 4- IDDM : severe hyperglycemia resolved. - cont current dose of levemir - cont SSI 5- Acute on chronic blood loss anemia : due to vaginal bleed and bleeding from surgical site. vaginal bleed has resolved - Transvaginal US, shows ? polyp vs blood products in endometrial canal . - pending re-evaluation by SALES SUPPORT TECHNICIAN 6- Trop leak , due to demand ischemia in setting of septic shock. dispo : possible dc tomorrow . CBC to be repeated tomorrow Visit type - Emergency Visit Emergency Visit: Yes ED Registration Date: 03/15/17 Care time: The patient presented to the Emergency Department on the above date and was hospitalized for further evaluation of their emergent condition. - New Patient This patient is new to me today: No - Critical Care Critical Care patient: No
[2017-03-22] MEDS ORDERED: PT OWN MED DRAWER 7, Y5N ONE ×3 (21:09→21:30)
[2017-03-22] MEDS: INSULIN DETEMIR 100 UNITS/ML MDV SQ SCH (21:12)
[2017-03-23 06:27] VITALS: TEMP 99.2
[2017-03-23] MEDS: INSULIN SLIDING SCALE (NOVOLOG) 1 VIAL SQ SCH ×3 (06:32→18:16)
[2017-03-23 07:58] LABS: MCH 27.3 pg (25.7-33.7); MEAN CELL VOLUME 82.8 fl (80-96); MEAN PLT VOLUME 8.1 fl (7.5-11.1); PLATELET COUNT 433 K/MM3 (134-434); RDW 17.6 % (11.6-15.6); WHITE BLOOD COUNT 13.1 K/mm3 (4.0-10.0)
[2017-03-23] MEDS ORDERED: PICC LINE 8 ML FLUSH PROTOCOL IVPUSH PRN (08:23)
[2017-03-23] MEDS ORDERED: PT OWN MED DRAWER 7, Y5N ONE (10:43)
[2017-03-23] MEDS: CEFTRIAXONE 100 ML IVPB SCH (10:49)
[2017-03-23] MEDS: DIGOXIN 0.125 MG TABLET (FP) PO SCH (10:49)
[2017-03-23] MEDS: LISINOPRIL 10 MG TABLET (FP) PO SCH (10:50)
[2017-03-23] MEDS: APIXABAN 5 MG TABLET PO SCH (10:50)
[2017-03-23] MEDS: METOPROLOL TARTRATE 50 MG TABLET (FP) PO SCH (10:50)
--- NOTE | 2017-03-23 11:07 | PN ---
Progress Note, Physician History of Present Illness: Remains in rate-controlled afib. Patient denies chest pain, dyspnea, near or true syncope, orthopnea, PND or LE edema, remains afebrile, OOB to chair. - Current Medication List Current Medications: Active Medications Acetaminophen (Tylenol -) 1,000 mg PO Q6H PRN PRN Reason: FEVER OR PAIN Acetaminophen (Tylenol -) 650 mg PO Q8H PRN PRN Reason: FEVER OR PAIN Apixaban (Eliquis -) 5 mg PO BID [facility] Last Admin: 03/23/17 10:50 Dose: 5 mg Digoxin (Lanoxin -) 0.125 mg PO DAILY [facility] Last Admin: 03/23/17 10:49 Dose: 0.125 mg Diltiazem HCl (Cardizem Cd -) 120 mg PO DAILY [facility] Last Admin: 03/23/17 10:49 Dose: 120 mg IV Flush (Picc Line Flush) 8 ml IVPUSH PRN PRN PRN Reason: Protocol Ceftriaxone Sodium (Rocephin 2gm Ivpb (Pre-Docked)) 100 mls @ 200 mls/hr IVPB DAILY [facility] Last Admin: 03/23/17 10:49 Dose: 200 mls/hr Insulin Aspart (Novolog Vial Sliding Scale -) 1 vial SQ TIDAC [facility] PRN Reason: Protocol Last Admin: 03/23/17 06:32 Dose: Not Given Insulin Detemir (Levemir Vial) 10 units SQ HS [facility] Last Admin: 03/22/17 21:12 Dose: 10 units Lisinopril (Prinivil) 10 mg PO DAILY [facility] Last Admin: 03/23/17 10:50 Dose: 10 mg Metoprolol Tartrate (Lopressor -) 100 mg PO BID [facility] Last Admin: 03/23/17 10:50 Dose: 100 mg - Objective Vital Signs: Vital Signs Temperature 99.2 F 03/23/17 06:25 Pulse Rate 80 03/23/17 10:49 Respiratory Rate 20 03/23/17 06:25 Blood Pressure 116/52 03/23/17 06:25 O2 Sat by Pulse Oximetry (%) 98 03/22/17 21:00 Constitutional: Yes: No Distress, Calm Neck: Yes: Supple Cardiovascular: Yes: Pulse Irregular Respiratory: Yes: Regular, Diminished Gastrointestinal: Yes: Normal Bowel Sounds, Soft Edema: Yes Edema: LLE: 1+, RLE: 1+ Labs: CBC, BMP 03/23/17 06:45 03/21/17 06:00 INR, PTT INR 1.38 (0.82-1.09) H D 03/19/17 05:15 Problem List - Problems (1) Abscess of leg Code(s): L02.419 - CUTANEOUS ABSCESS OF LIMB, UNSPECIFIED (2) Coronary artery disease Code(s): I25.10 - ATHSCL HEART DISEASE OF [place] CORONARY ARTERY W/O ANG PCTRS Qualifiers: Coronary Disease-Associated Artery/Lesion type: [place] artery [place] vs. transplanted heart: [place] heart Associated angina: without angina Qualified Code(s): I25.10 - Atherosclerotic heart disease of [place] coronary artery without angina pectoris (3) Demand ischemia Code(s): I24.8 - OTHER FORMS OF ACUTE ISCHEMIC HEART DISEASE (4) Hidradenitis suppurativa Code(s): L73.2 - HIDRADENITIS SUPPURATIVA (5) Hyperglycemia due to type 2 diabetes mellitus Code(s): E11.65 - TYPE 2 DIABETES MELLITUS WITH HYPERGLYCEMIA Qualifiers: Diabetes mellitus termite control servicer insulin use: with termite control servicer use Qualified Code(s): E11.65 - Type 2 diabetes mellitus with hyperglycemia (6) Persistent atrial fibrillation with rapid ventricular response Code(s): I48.1 - PERSISTENT ATRIAL FIBRILLATION (7) Sepsis Code(s): A41.9 - SEPSIS, UNSPECIFIED ORGANISM Qualifiers: Sepsis type: Streptococcus, other Qualified Code(s): A40.8 - Other streptococcal sepsis (8) Status post coronary artery stent placement Code(s): Z95.5 - PRESENCE OF CORONARY ANGIOPLASTY IMPLANT AND GRAFT Assessment/Plan 03/16/2017 Echo: Normal LV size and fxn, mild LAE, mild MR, TR, small pericardial effusion 1. Right Thigh Abscess post drainage, suppurative hidradenitis 2. Post septic shock (enterococcus), Lactic Acidosis resolved 3. Acute Kidney Injury resolved 4. CAD s/p PCI(stent), demand ischemia 5. Persistent atrial fibrillation with RVR on NOAC 6. Type 2 DM 7. HTN 8. Hyperlipidemia 9. Anemia post transfusion PLAN: 1. Continue Eliquis 5 mg BID, Lipitor 20 mg QHS, Dig 0.125 qd, Lopressor 100 mg BID, Cardizem CD 120 qd, and Lisinopril 10 qd with uptitration as hemodynamics tolerate 2. Complete Rocephin for total 14 day course, wound care, GI prophylaxis 3. Patient to f/u with Dr. Ahmadi of [facility] upon discharge
--- NOTE | 2017-03-23 15:27 | PN ---
Teaching Attending Note Name of Resident: Jovita Ely ATTENDING PHYSICIAN STATEMENT I saw and evaluated the patient. I reviewed the resident's note and discussed the case with the resident. I agree with the resident's findings and plan as documented. SUBJECTIVE: no fever or chills, feels very well , denies any pain in R groin . OBJECTIVE: NAD , awake , alert , oriented x 3. HEENT: MMM CV: irreg irreg , no MRG Lungs: CTAB Abd : soft, NT, ND , NL BS : L labial hyperpigmentation, edema , and enlargement are better . R upper thigh small surgical incisions with packing in, samll amount of pus coming out , wet dressing with serous fluid . Assessment/Plan: 56 y/o lady with h/o IDDM, HTN, CAD s/p stenting in 07/2015 , R knee replacement and L knee replacement ( 1 month ago) , and other medical problems who presented with AMS, she was found in septic shock. 1- Septic shock from R upper thigh abscess: blood cx with strep species. Wound cx with Neisseria - cont ceftriaxone day 5 ( day 8 of total Abx ) . will continue ceftriaxone for 7 more days - hydradenitis suppurativa improved - PICC to be placed today - dr. Silva was contacted , [place] for dc with local care - CBC in 1 week . f/u with sx and ID 2-CIARAN: likely pre-renal azotemia due to hypotension and volume depletion. - resolved 3- A fib with RVR: controlled - cont metoprolol, dig and cardizem at home dose - cont eliquis 4- IDDM : severe hyperglycemia resolved. - cont levemir at 15 u HS - cont SSI 5- Acute on chronic blood loss anemia : due to vaginal bleed and bleeding from surgical site. vaginal bleed has resolved - Transvaginal US, shows ? polyp vs blood products in endometrial canal . - Dr. Moseley was called, recommended endometrial bx as out tp dc home today . pt will come to infusion center for IV abx f/u SHREDDING MACHINE KNIFE CHANGER, Sx, And ID
--- NOTE | 2017-03-23 15:29 | DS ---
Physical Exam: SUBJECTIVE: Patient seen and examined at bed side this morning. No complaints. Slight pain over the right upper thigh (I and D site). Denies fever, chills, rigors, sweating, chest pain, sob, cough, palpitation, abdominal pain, nausea or vomiting. No acute events overnight yesterday. OBJECTIVE: Vital Signs Period Temp Pulse Resp BP Sys/Mao Pulse Ox Last 24 Hr 97.6 F-99.2 F 74-80 20-20 114-123/52-79 98 PHYSICAL EXAM GENERAL: The patient is awake, alert, and fully oriented, in no acute distress. HEAD: Normal with no signs of trauma. Facial hair especially in the chin. EYES: EOM intact. Pallor +, no icterus. ENT: Ears normal, moist mucous membranes. NECK: Trachea midline, full range of motion, supple. LUNGS: Breath sounds equal, clear to auscultation bilaterally, no wheezes, no crackles, no accessory muscle use. HEART: Regular rate and rhythm, S1, S2 without murmur. ABDOMEN: Soft, nontender, nondistended, normoactive bowel sounds, no guarding, no rebound, no hepatosplenomegaly, no masses. UPPER EXTREMITIES: 2+ pulses, warm, well-perfused, no edema. LOWER EXTREMITIES: 1+ pulses, warm, well-perfused. No calf tenderness. No peripheral edema. Right upper medial thigh clean dressing, 4 incisions draining serosanguineous fluid, Improved than previous days. No soakage around the dressing. NO erythema around the area. Perineum: right labia slightly swollen and erythematous. No fluctuance. NEUROLOGICAL: Cranial nerves II through XII grossly intact. Normal speech, gait not observed. PSYCH: Normal mood, normal affect. SKIN: Warm, dry, normal turgor, no rashes or lesions noted : Swollen left labia, no discharge, tenderness or fluctuance. No vaginal bleeding noted at this time. LABS Laboratory Results - last 24 hr 03/22/17 03/22/17 03/23/17 16:58 20:44 05:44 WBC RBC Hgb Hct MCV MCHC RDW Plt Count MPV Neutrophils % Lymphocytes % POC Glucometer 185 202 135 Digoxin 03/23/17 03/23/17 03/23/17 06:45 06:45 11:59 WBC 13.1 H RBC 2.70 L Hgb 7.4 L Hct 22.4 L MCV 82.8 MCHC 33.0 RDW 17.6 H Plt Count 433 MPV 8.1 Neutrophils % Y Lymphocytes % Y POC Glucometer 206 Digoxin 0.6080 L HOSPITAL COURSE: Date of Admission:03/15/17 Date of Discharge: 03/23/17 ASSESSMENT/PLAN: Patient is a 56 year old female with significant PMH of A-FIB on eliquis, Stents x2, HTN/HLD/DM who is sent to ED for altered mental status admitted with the diagnosis with Septic shock source from the right thigh abscess. During her stay, Incision and Drainage was done on (03/16/17). Blood culture grew strep anginosus and from the wound- Neisseria. IV rochephine and flagyl were continued. Completed the course of flagyl. and planned to continue 7 more days of rochephine 2 gm daily. Septic shock resolved and patient clinically improved , hence PICC line was placed for further continuation of antibiotic. Patient to follow at hospital for daily antibiotic infusion. Plan of care discussed with the patient and her , verbalized understanding and agreed . Anemia due to menorrhagia,transfused 2 units of PRBC this admission, evaluated by BLUEPRINT DEVELOPER. Trans vaginal US reveled echogenic material in endometrial canal and was planned for endometrial biopsy as out patient. Patient mentioned she will go to Dr. Moseley to follow with him as outpatient. Hydradenitis suppurtiva improved. CIARAN- resolved, Diabetes fairly controlled and continued home med levimir but dose was decreased to 10 Units daily since her sugar level dropped in the morning (patient was asymptomatic). Atrial fibrillation- rate controlled, continue eliquis, lopressor, digoxin and cardizem. Today, patient evaluated, medically stable to discharge. Illness and plan of care explained and she verbalized understanding. Discussed with Dr Allen, patient is cleared for discharge. . Minutes to complete discharge: 45 Discharge Summary Reason For Visit: ABSCESS OF 1 GENITAL LABIA/A FIB Current Active Problems Abscess of leg (Acute) Altered mental state (Acute) Bilateral knee pain (Acute) Contusion of left knee (Acute) Coronary artery disease (Acute) Dehydration (Acute) Demand ischemia (Acute) Diabetes mellitus type 2 in obese (Acute) Hidradenitis suppurativa (Acute) Hyperglycemia due to type 2 diabetes mellitus (Acute) Hyperlipidemia associated with type 2 diabetes mellitus (Acute) Hypertension (Acute) Hypotension (Acute) Labial abscess (Acute) Labial swelling (Acute) Left genital labial abscess (Acute) Old myocardial infarction (Acute) Persistent atrial fibrillation with rapid ventricular response (Acute) Sepsis (Acute) Sepsis associated hypotension (Acute) Status post coronary artery stent placement (Acute) Condition: Improved - Instructions Diet, Activity, Other Instructions: You had an infection due to right thigh abscess for which Incision and Drainage was done on 03/16/17. You will have to come to the infusion center here at [facility] daily for IV Antibiotics (ceftriaxone) for 7 more days. start tomorrow Please make sure to clean the wound around the thigh while taking shower, do not remove the packing. After taking shower, keep the area dry and clean. F/up with Dr. Silav (who did your Incision and Drainage) at his office in 3-4 days I spoke with Dr. Moseley and he said if you cannot follow up with your [facility] doctor, Dr. Moseley will be happy to see you at his clinic. You need to follow up with [facility] for biopsy of the uterus. ( to rule out cancer ) Please make sure you check your blood sugar closely. F/up with your primary doctor in a week. Return to the Emergency Department if symptoms worsen or if you develop any new symptoms. you need blood work in 1 week to fax to Dr. Hobson and your PCP PCP: Dr. Kuo ( [place] phone no [phone] and fax no: [phone]) you have an appointment at 10:30am at the wound center located on [address] Referrals: Adrián Moseley MD [Staff Physician] - 1 Week Anna Hobson MD [Staff Physician] - 2 Weeks Octaviano Silva MD [Staff Physician] - 1 Week Disposition: HOME - Home Medications Comprehensive Discharge Medication List: Ambulatory Orders Apixaban [Eliquis -] 5 mg PO BID 11/13/16 Atorvastatin Ca [Lipitor] 40 mg PO HS 11/13/16 Cholecalciferol (Vitamin D3) [Vitamin D3 -] 1,000 unit PO DAILY 11/13/16 Cyanocobalamin (Vitamin B-12) [Vitamin B-12] 1,000 mcg PO DAILY 11/13/16 Digoxin [Lanoxin -] 0.125 mg PO DAILY 11/13/16 Lisinopril [Prinivil -] 40 mg PO DAILY 11/13/16 Metoprolol Tartrate [Lopressor] 100 mg PO BID 11/13/16 Insulin Sliding Scale [Novolog Vial Sliding Scale -] 1 vial SQ ACHS #100 units 11/16/16 Diltiazem Cd [Cardizem Cd -] 120 mg PO DAILY 03/15/17 Metformin HCl 500 mg PO BID 03/15/17 Ceftriaxone [Rocephin -] 2 gm IV DAILY #7 vial 03/23/17 Insulin (Levemir) [Levemir Vial] 15 unit SQ HS #1 vial 03/23/17 Miscellaneous Medical Supply [Outpatient Order] 1 each ASDIR #1 misc This patient is new to me today: Yes Date on this admission: 03/23/17 Emergency Visit: Yes ED Registration Date: 03/15/17 Care time: The patient presented to the Emergency Department on the above date and was hospitalized for further evaluation of their emergent condition. Critical Care patient: No - Discharge Referral Referred to [facility] No
[2017-03-23 15:40] LABS: METAMYELOCYTE 8 % (0-2)
[2017-03-23 15:41] LABS: PLATELET ESTIMATE ADEQUATE (NORMAL)
[2017-03-23 16:58] VITALS: BP 128/66; PULSE 76
== END 2017-03-23 19:04 | disposition home or self-care (01) | DRG 871 ==
LOC: JER 18:25 → JERBED 20:35 → JICU 21:39 → J5S 03-19 19:13 → J8W 03-20 21:32
PROVIDERS: ADMIT Internal Medicine; ATTEND Internal Medicine
PROC: 3E0F7GC Introduction of Other Therapeutic Substance into Respiratory Tract, Via Natural or Artificial Opening (ICD-10-PCS; 2017-03-15)
PROC: 05HM33Z Insertion of Infusion Device into Right Internal Jugular Vein, Percutaneous Approach (ICD-10-PCS; 2017-03-15)
PROC: B543ZZA Ultrasonography of Right Jugular Veins, Guidance (ICD-10-PCS; 2017-03-15)
PROC: 03HY32Z Insertion of Monitoring Device into Upper Artery, Percutaneous Approach (ICD-10-PCS; 2017-03-15)
PROC: 30233N1 Transfusion of Nonautologous Red Blood Cells into Peripheral Vein, Percutaneous Approach (ICD-10-PCS; 2017-03-15)
PROC: 0J9C0ZX Drainage of Pelvic Region Subcutaneous Tissue and Fascia, Open Approach, Diagnostic (ICD-10-PCS; principal; 2017-03-16)
PROC: 0J9L0ZX Drainage of Right Upper Leg Subcutaneous Tissue and Fascia, Open Approach, Diagnostic (ICD-10-PCS; 2017-03-16)
PROC: 0H9JXZX Drainage of Left Upper Leg Skin, External Approach, Diagnostic (ICD-10-PCS; 2017-03-16)
PROC: 02HV33Z Insertion of Infusion Device into Superior Vena Cava, Percutaneous Approach (ICD-10-PCS; 2017-03-23)
PROC: B548ZZA Ultrasonography of Superior Vena Cava, Guidance (ICD-10-PCS; 2017-03-23)
DX: A41.9 Sepsis, unspecified organism (principal); R65.21 Severe sepsis with septic shock; G92 Toxic encephalopathy; N76.4 Abscess of vulva; I48.1 Persistent atrial fibrillation; Z68.41 Body mass index [BMI] 40.0-44.9, adult; E87.2 Acidosis; N17.9 Acute kidney failure, unspecified; E87.1 Hypo-osmolality and hyponatremia; A54.89 Other gonococcal infections; D62 Acute posthemorrhagic anemia; L02.415 Cutaneous abscess of right lower limb; L03.115 Cellulitis of right lower limb; Z79.01 Long term (current) use of anticoagulants; E86.0 Dehydration; E11.65 Type 2 diabetes mellitus with hyperglycemia; Z79.4 Long term (current) use of insulin; E66.9 Obesity, unspecified; Z71.3 Dietary counseling and surveillance; E78.00 Pure hypercholesterolemia, unspecified; I25.10 Atherosclerotic heart disease of native coronary artery without angina pectoris; Z95.5 Presence of coronary angioplasty implant and graft; R00.0 Tachycardia, unspecified; Z96.653 Presence of artificial knee joint, bilateral; M19.90 Unspecified osteoarthritis, unspecified site; N75.8 Other diseases of Bartholin's gland; E66.01 Morbid (severe) obesity due to excess calories; L73.2 Hidradenitis suppurativa; N92.0 Excessive and frequent menstruation with regular cycle; B95.1 Streptococcus, group B, as the cause of diseases classified elsewhere
CPT/HCPCS: 36415; 36430; 36569; 36600; 71010-TC; 73700-TC-RT; 74176-TC; 76830-TC; 77001-TC; 80048; 80053; 80162; 81003; 81015; 82375; 82550; 82553; 82570; 82803; 83050; 83605; 83735; 83880; 84100; 84484; 85025; 85027; 85610; 85651; 85730; 86140; 86850; 86900; 86901; 86922; 87040; 87070; 87086; 87186; 87205; 87324; 87449; 93005; 93010; 93306-TC; 97116-GP; 97162-GP; 99285-25; C1751; G0480; P9038; P9058

== ENCOUNTER 2017-03-24 12:53 | Day surgery (SDC) | payer OTHER ==
[2017-03-24] MEDS ORDERED: CEFTRIAXONE 2 GM in DEXTROSE 5%-WATER - 100 ML IVPB ONE (13:40)
[2017-03-24 14:12] VITALS: TEMP 98.9
[2017-03-24 14:55] VITALS: BP 130/78; PULSE 77
== END 2017-03-24 14:54 | disposition home or self-care (01) ==
LOC: JINFUSION 12:53
PROVIDERS: ATTEND Internal Medicine
DX: A41.9 Sepsis, unspecified organism (principal)
CPT/HCPCS: 96366; 96367

== ENCOUNTER 2017-03-25 12:41 | Day surgery (SDC) | payer OTHER ==
[2017-03-25] MEDS ORDERED: CEFTRIAXONE 2 GM in DEXTROSE 5%-WATER - 100 ML IVPB ONE (13:00)
[2017-03-25 14:28] VITALS: BP 134/81; PULSE 81; TEMP 98.3
== END 2017-03-25 14:33 | disposition home or self-care (01) ==
LOC: JINFUSION 12:41
PROVIDERS: ATTEND Internal Medicine
DX: A41.9 Sepsis, unspecified organism (principal)
CPT/HCPCS: 96365

== ENCOUNTER 2017-03-26 09:57 | Day surgery (SDC) | payer OTHER ==
[2017-03-26] MEDS ORDERED: CEFTRIAXONE 2 GM in DEXTROSE 5%-WATER - 100 ML IVPB ONE (13:00)
[2017-03-26 13:59] VITALS: BP 127/83; PULSE 65; TEMP 98
== END 2017-03-26 13:50 | disposition home or self-care (01) ==
LOC: JINFUSION 09:57
PROVIDERS: ATTEND Internal Medicine
DX: A41.9 Sepsis, unspecified organism (principal)
CPT/HCPCS: 96365; G0463-25

== ENCOUNTER 2017-03-27 12:58 | Day surgery (SDC) | payer OTHER ==
[2017-03-27] MEDS ORDERED: CEFTRIAXONE 2 GM in DEXTROSE 5%-WATER - 100 ML IVPB ONE (13:15)
[2017-03-27 14:31] VITALS: BP 122/63; PULSE 67
== END 2017-03-27 14:40 | disposition home or self-care (01) ==
LOC: JINFUSION 12:58
PROVIDERS: ATTEND Internal Medicine
DX: A41.9 Sepsis, unspecified organism (principal)
CPT/HCPCS: 96365

== ENCOUNTER 2017-03-28 12:20 | Day surgery (SDC) | payer OTHER ==
[2017-03-28] MEDS ORDERED: cefTRIAXone 2 GM/100 ML BAG (PRE-DOCKED) IVPB ONE (13:00)
[2017-03-28 13:46] VITALS: BP 142/60; PULSE 58; TEMP 98.6
== END 2017-03-28 15:18 | disposition home or self-care (01) ==
LOC: JINFUSION 12:20 → J7W 12:22 → JINFUSION 15:18
PROVIDERS: ATTEND Internal Medicine
DX: A41.9 Sepsis, unspecified organism (principal)
CPT/HCPCS: 96365

== ENCOUNTER 2017-03-29 12:27 | Day surgery (SDC) | payer OTHER ==
[2017-03-29] MEDS ORDERED: cefTRIAXone 2 GM/100 ML BAG (PRE-DOCKED) IVPB ONE (13:15)
[2017-03-29 16:26] VITALS: BP 131/87; PULSE 86; TEMP 98.7
== END 2017-03-29 14:00 | disposition home or self-care (01) ==
LOC: JINFUSION 12:27 → J7W 12:29 → JINFUSION 14:00
PROVIDERS: ATTEND Internal Medicine
DX: A41.9 Sepsis, unspecified organism (principal)
CPT/HCPCS: 96365

== ENCOUNTER 2017-03-30 10:58 | Day surgery (SDC) | payer OTHER ==
[2017-03-30 11:36] LABS: MCH 27.1 pg (25.7-33.7); MCHC 32.3 g/dl (32.0-36.0); MEAN CELL VOLUME 83.8 fl (80-96); MEAN PLT VOLUME 7.8 fl (7.5-11.1); PLATELET COUNT 466 K/MM3 (134-434); RDW 18.8 % (11.6-15.6); WHITE BLOOD COUNT 8.3 K/mm3 (4.0-10.0)
[2017-03-30 11:51] LABS: CALCIUM 8.5 mg/dL (8.5-10.1); CREATININE 0.8 mg/dL (0.55-1.02)
[2017-03-30] MEDS ORDERED: CEFTRIAXONE 2 GM in DEXTROSE 5%-WATER - 100 ML IVPB ONE (12:00)
[2017-03-30 12:34] VITALS: TEMP 99
[2017-03-30 13:01] VITALS: BP 146/85; PULSE 78
== END 2017-03-30 13:00 | disposition home or self-care (01) ==
LOC: JINFUSION 10:58
PROVIDERS: ATTEND Internal Medicine
DX: A41.9 Sepsis, unspecified organism (principal)
CPT/HCPCS: 36415; 80048; 85027; 96365

== ENCOUNTER 2017-03-30 21:14 | Inpatient (IN) | payer OTHER ==
--- NOTE | 2017-03-30 21:47 | PDOC ---
History of Present Illness - General History Source: Patient <Lion Lim - Last Filed: 03/31/17 03:17> - General History Source: Patient Exam Limitations: No Limitations - History of Present Illness Initial Comments: 03/30/17 22:41 The patient is a 56 year old female with significant past medical history of a- fib on eliquis, CAD s/p stents x2, hypertension, hyperlipidemia, and diabetes who presents to the ED for persistent bleeding from surgical wound prior to arrival. Patient was admitted and discharged last week. During her admission, she had an I&D of her right groin abscess. States she followed up with Dr. Hughes's (general surgeon) office earlier today for removal of the packing from the I&D. She returns to the ER for persistent bleeding from the surgical wound. States the bleeding was severe that it soaked through her bed sheets. The patient denies fever, chills, diaphoresis, cough, SOB, chest pain, and palpitations. The patient denies abdominal pain, nausea, vomiting, and diarrhea. Allergies: penicillin Social History: No alcohol, tobacco, or drug use reported. Past Surgical History: s/p cardiac stents x2 (2014), TKR bilateral knees (right 1.5 years ago, left 1 month ago) PCP: Dr. Jose Kuo <Mimi Castro - Last Filed: 03/31/17 03:29> - General Stated Complaint: HEMORRHAGE Time Seen by Provider: 03/30/17 21:47 Past History - Past Medical History Anemia: No Asthma: No Cancer: No Cardiac Disorders: Yes (cardiac stents x 2, atrial fib) CVA: No COPD: No CHF: No Dementia: No Diabetes: Yes GI Disorders: No Disorders: No HTN: Yes Hypercholesterolemia: Yes Liver Disease: No Seizures: No Thyroid Disease: No - Surgical History Abdominal Surgery: No Appendectomy: No Cardiac Surgery: Yes (stents x 2) Cholecystectomy: No Lung Surgery: No Neurologic Surgery: No Orthopedic Surgery: Yes (right knee replacement) - Psycho/Social/Smoking Cessation Hx Anxiety: No Suicidal Ideation: No Smoking History: Never smoked Have you smoked in the past 12 months: No Hx Alcohol Use: Yes (occassionally) Drug/Substance Use Hx: No Substance Use Type: None Hx Substance Use Treatment: No <Lion Lim - Last Filed: 03/31/17 03:17> <Mimi Castro - Last Filed: 03/31/17 03:29> - Past Medical History Allergies/Adverse Reactions: Allergies Allergy/AdvReac Type Severity Reaction Status Date / Time Penicillins Allergy Verified 03/30/17 21:56 Home Medications: Ambulatory Orders Apixaban [Eliquis -] 5 mg PO BID 11/13/16 Atorvastatin Ca [Lipitor] 40 mg PO HS 11/13/16 Cholecalciferol (Vitamin D3) [Vitamin D3 -] 1,000 unit PO DAILY 11/13/16 Cyanocobalamin (Vitamin B-12) [Vitamin B-12] 1,000 mcg PO DAILY 11/13/16 Digoxin [Lanoxin -] 0.125 mg PO DAILY 11/13/16 Lisinopril [Prinivil -] 40 mg PO DAILY 11/13/16 Metoprolol Tartrate [Lopressor] 100 mg PO BID 11/13/16 Insulin Sliding Scale [Novolog Vial Sliding Scale -] 1 vial SQ ACHS #100 units 11/16/16 Diltiazem Cd [Cardizem Cd -] 120 mg PO DAILY 03/15/17 Metformin HCl 500 mg PO BID 03/15/17 Ceftriaxone [Rocephin -] 2 gm IV DAILY #7 vial 03/23/17 Insulin (Levemir) [Levemir Vial] 15 unit SQ HS #1 vial 03/23/17 Miscellaneous Medical Supply [Outpatient Order] 1 each ASDIR #1 misc Plavix 75 mg PO DAILY 03/26/17 Review of Systems - Review of Systems Able to Perform ROS?: Yes Comments:: 03/30/17 22:41 CONSTITUTIONAL: Absent: fever, no chills, no fatigue EYES: Absent: visual changes ENT: Absent: ear pain, no sore throat CARDIOVASCULAR: Absent: chest pain, no palpitations RESPIRATORY: Absent: cough, no SOB GI: Absent: abdominal pain, no nausea, no vomiting, no constipation, no diarrhea GENITOURINARY: Absent: dysuria, no frequency, no hematuria MUSCULOSKELETAL: Absent: back pain, no arthralgia, no myalgia SKIN: +bleeding from surgical wound Absent: rash NEURO: Absent: headache <Mimi Castro - Last Filed: 03/31/17 03:29> *Physical Exam - Vital Signs Last Vital Signs Temp Pulse Resp BP Pulse Ox 98.1 F 80 14 142/68 94 L 03/30/17 21:57 03/30/17 21:57 03/30/17 21:57 03/30/17 21:57 03/30/17 21:57 - Physical Exam Comments: 03/30/17 22:41 GENERAL: Well-appearing, well-nourished. No apparent distress. HEENT: Normocephalic, atraumatic. PERRL, EOM intact. CARDIOVASCULAR: Normal S1, S2. Regular rate and rhythm. PULMONARY: Clear to auscultation bilaterally. ABDOMEN: Morbidly obese. Soft, non-distended, non-tender. EXTREMITIES: Normal ROM in all four extremities. No gross deformities. SKIN: Pallor. Warm, dry. No rash. Right groin region 10 cm linear surgical wound in the medial adjacent to the vagina, 3 small linear surgical wounds (the most lateral wound within groin region is the wound that is oozing), wound is nontender, surrounding area is nonerythematous, no discharge. NEUROLOGICAL: AOx3. No focal neurological deficits. <Mimi Castro - Last Filed: 03/31/17 03:29> Heart Score/ECG Review - ECG Impressions Comment:: 03/30/17 23:32 Atrial fibrillation @82bpm L axis deviation Anteroseptal infarct, age undetermined Abnormal ECG <Mimi Castro - Last Filed: 03/31/17 03:29> ED Treatment Course - LABORATORY CBC & Chemistry Diagram: 03/30/17 22:40 03/30/17 22:40 <Lion Lim - Last Filed: 03/31/17 03:17> - LABORATORY CBC & Chemistry Diagram: 03/30/17 22:40 03/30/17 22:40 <Mimi Castro - Last Filed: 03/31/17 03:29> Medical Decision Making - Medical Decision Making 03/31/17 03:17 Dr. Lim: The scribe's documentation has been prepared under my direction and personally reviewed by me in its entirery. I confirm that the note above accurately reflects all work, treatment, procedures, and medical decision making performed by me. Pt right groin dressing had been changed three times as wound continues to ooze. Pt hemodynamically stable, asymptomatic <Lion Lim - Last Filed: 03/31/17 03:17> *DC/Admit/Observation/Transfer - Discharge Dispostion Admit: Yes <Lion Lim - Last Filed: 03/31/17 03:17> - Attestations Scribe Attestion: 03/30/17 22:41 Documentation prepared by Mimi Castro, acting as medical staff coordinator for Lion Lim MD/DO. <Mimi Castro - Last Filed: 03/31/17 03:29> Diagnosis at time of Disposition: Coagulopathy, Wound check, abscess - Referrals
[2017-03-30 22:52] LABS: BASOPHIL 2.3 % (0-2.0); EOSINOPHIL 3.3 % (0-4.5); MCH 26.6 pg (25.7-33.7); MCHC 31.5 g/dl (32.0-36.0); MEAN CELL VOLUME 84.3 fl (80-96); MEAN PLT VOLUME 7.7 fl (7.5-11.1); NEUTROPHILS 71.4 % (42.8-82.8); PLATELET COUNT 493 K/MM3 (134-434); RDW 18.9 % (11.6-15.6)
[2017-03-30 23:04] LABS: INR 1.31 (0.82-1.09); PROTHROMBIN TIME (PATIENT) 14.5 SEC (9.98-11.88)
[2017-03-30 23:15] LABS: ALBUMIN 2.6 g/dl (3.4-5.0); ANION GAP 8 (8-16); BILIRUBIN,TOTAL 0.2 mg/dL (0.2-1.0); CALCIUM 8.4 mg/dL (8.5-10.1); CO2 27 mmol/L (21-32); CREATININE 0.8 mg/dL (0.55-1.02); GLUCOSE,RANDOM 275 mg/dL (74-106); SGOT/AST 10 U/L (15-37); SGPT/ALT 11 U/L (12-78); TOT PROT 6.5 g/dl (6.4-8.2)
[2017-03-30 23:16] LABS: ALK PHOS 117 U/L (45-117)
--- NOTE | 2017-03-30 23:56 | HP ---
CHIEF COMPLAINT: Bleeding from pelvic/groin wounds PCP: HISTORY OF PRESENT ILLNESS: This is a 56 y/o female with a past medical history of Hypertension, HLD, Diabetes Mellitus, Anemia Obesity. Who presents to the ED with bleeding from her abdominal wounds x this evening. Patient was admitted and discharged last week. During her admission, she had an I&D of her right groin abscess. States she followed up with Dr. Barboza's (general surgeon) office earlier today for removal of the packing from the I&D. She returns to the ER for persistent bleeding from the surgical wound. States the bleeding was severe that it soaked through her bed sheets. The patient denies fever, chills, diaphoresis, cough, SOB, chest pain, and palpitations. The patient denies abdominal pain, nausea, vomiting, and diarrhea. ER course was notable for: (1) Hgb 8.0, HCT 25.5 (2) Glucose 275 (3) Ekg- Afib 82 Recent Travel: None PAST MEDICAL HISTORY: See HPI PAST SURGICAL HISTORY: Cardiac Stent Social History: Smoking: Never Alcohol: Occasional Drugs: None Lives with spouse, independent Family History: Allergies Penicillins Allergy (Verified 03/30/17 21:56) HOME MEDICATIONS: Home Medications Medication Instructions Recorded Apixaban [Eliquis -] 5 mg PO BID 11/13/16 Atorvastatin Ca [Lipitor] 40 mg PO HS 11/13/16 Cholecalciferol (Vitamin D3) 1,000 unit PO DAILY 11/13/16 [Vitamin D3 -] Cyanocobalamin (Vitamin B-12) 1,000 mcg PO DAILY 11/13/16 [Vitamin B-12] Digoxin [Lanoxin -] 0.125 mg PO DAILY 11/13/16 Lisinopril [Prinivil -] 40 mg PO DAILY 11/13/16 Metoprolol Tartrate [Lopressor] 100 mg PO BID 11/13/16 Insulin Sliding Scale [Novolog 1 vial SQ ACHS #100 units 11/16/16 Vial Sliding Scale -] Diltiazem Cd [Cardizem Cd -] 120 mg PO DAILY 03/15/17 Metformin HCl 500 mg PO BID 03/15/17 Ceftriaxone [Rocephin -] 2 gm IV DAILY #7 vial 03/23/17 Insulin (Levemir) [Levemir Vial] 15 unit SQ HS #1 vial 03/23/17 Miscellaneous Medical Supply 1 each ASDIR #1 misc 03/23/17 [Outpatient Order] Plavix 75 mg PO DAILY 03/26/17 REVIEW OF SYSTEMS CONSTITUTIONAL: Absent: fever, chills, diaphoresis, generalized weakness, malaise, loss of appetite, weight change HEENT: Absent: rhinorrhea, nasal congestion, throat pain, throat swelling, difficulty swallowing, mouth swelling, ear pain, eye pain, visual changes CARDIOVASCULAR: Absent: chest pain, syncope, palpitations, irregular heart rate, lightheadedness , peripheral edema RESPIRATORY: Absent: cough, shortness of breath, dyspnea with exertion, orthopnea, wheezing, stridor, hemoptysis GASTROINTESTINAL: Absent: abdominal pain, abdominal distension, nausea, vomiting, diarrhea, constipation, melena, hematochezia GENITOURINARY: Absent: dysuria, frequency, urgency, hesitancy, hematuria, flank pain, genital pain MUSCULOSKELETAL: Absent: myalgia, arthralgia, joint swelling, back pain, neck pain SKIN: Absent: rash, itching, pallor HEMATOLOGIC/IMMUNOLOGIC: easy bleeding Absent: easy bruising, lymphadenopathy, frequent infections ENDOCRINE: Absent: unexplained weight gain, unexplained weight loss, heat intolerance, cold intolerance NEUROLOGIC: Absent: headache, focal weakness or paresthesias, dizziness, unsteady gait, seizure, mental status changes, bladder or bowel incontinence PSYCHIATRIC: Absent: anxiety, depression, suicidal or homicidal ideation, hallucinations. PHYSICAL EXAMINATION Vital Signs - 24 hr 03/30/17 21:57 Temperature 98.1 F Pulse Rate 80 Respiratory 14 Rate Blood Pressure 142/68 O2 Sat by Pulse 94 L Oximetry (%) GENERAL: Awake, alert, and fully oriented, in no acute distress. HEAD: Normal with no signs of trauma. EYES: Pupils equal, round and reactive to light, extraocular movements intact, sclera anicteric, conjunctiva clear. No lid lag. EARS, NOSE, THROAT: Ears normal, nares patent, oropharynx clear without exudates. Moist mucous membranes. NECK: Normal range of motion, supple without lymphadenopathy, JVD, or masses. LUNGS: Breath sounds equal, clear to auscultation bilaterally. No wheezes, and no crackles. No accessory muscle use. HEART: Regular rate and rhythm, normal S1 and S2 without murmur, rub or gallop. ABDOMEN:Obese, tenderness to RLQ, soft, not distended, normoactive bowel sounds , no guarding, no rebound, no masses. No hepatomegaly or splenomegaly. MUSCULOSKELETAL: Normal range of motion at all joints. No bony deformities or tenderness. No CVA tenderness. UPPER EXTREMITIES: 2+ pulses, warm, well-perfused. No cyanosis. No clubbing. No peripheral edema. LOWER EXTREMITIES: +2 bilateral pitting peripheral edema. 2+ pulses, warm, well- perfused. No calf tenderness. NEUROLOGICAL: Cranial nerves II-XII intact. Normal speech. Gait not observed. PSYCHIATRIC: Cooperative. Good eye contact. Appropriate mood and affect. SKIN: Right groin region 10 cm linear surgical wound in the medial adjacent to the vagina, 3 small linear surgical wounds (the most lateral wound within groin region is the wound that is oozing), wound is nontender, surrounding area is nonerythematous, no discharge noted. Warm, dry, normal turgor, no rashes. normal capillary refill. Laboratory Results - last 24 hr 03/30/17 03/30/17 03/30/17 22:40 22:40 22:40 WBC 9.0 RBC 3.03 L Hgb 8.0 L Hct 25.5 L MCV 84.3 MCHC 31.5 L RDW 18.9 H Plt Count 493 H MPV 7.7 Neutrophils % 71.4 D Lymphocytes % 17.8 Monocytes % 5.2 Eosinophils % 3.3 Basophils % 2.3 H INR 1.31 H PTT (Actin FS) Sodium Potassium Chloride Carbon Dioxide Anion Gap BUN Creatinine Creat Clearance w eGFR Random Glucose Calcium Total Bilirubin AST ALT Alkaline Phosphatase Total Protein Albumin Blood Type AB POSITIVE Antibody Screen Negative 03/30/17 03/30/17 22:40 22:40 WBC RBC Hgb Hct MCV MCHC RDW Plt Count MPV Neutrophils % Lymphocytes % Monocytes % Eosinophils % Basophils % INR PTT (Actin FS) 31.8 Sodium 140 Potassium 4.4 Chloride 105 Carbon Dioxide 27 Anion Gap 8 BUN 11 D Creatinine 0.8 Creat Clearance w eGFR > 60 Random Glucose 275 H Calcium 8.4 L Total Bilirubin 0.2 D AST 10 L D ALT 11 L D Alkaline Phosphatase 117 D Total Protein 6.5 Albumin 2.6 L D Blood Type Antibody Screen Heart Score/ECG Review - ECG Impressions Comment:: 03/30/17 23:32 Atrial fibrillation @82bpm L axis deviation Anteroseptal infarct, age undetermined Abnormal ECG ASSESSMENT/PLAN: This is a 56 y/o female with a PMHx of: HTN, HLD, CAD s/p stent, DM, Obesity. Admitted for Coagulopathy, Wound Check Abscess Right Groin for further evaluation of their emergent condition Plan: 1. Coagulopathy 2. Anemia 3. Wound check- Abscess 4. Uncontrolled DM 5. Afib 6. HTN 7. HLD FEN - PO fluids - Replete lytes prn - Low Na, 1800 ADA Diet Problem List - Problem (1) Coagulopathy Assessment/Plan: - Patient had packing removed from abdominal wound, currently on Eliquis - Patient received in ED with profuse bleeding, packed with surgicel and pressure dressing- no improvement - Dressings changed frequently Q2H by nursing staff - Will need to closely monitor H/H to prevent Severe Anemia Code(s): D68.9 - COAGULATION DEFECT, UNSPECIFIED (2) Wound check, abscess Assessment/Plan: - Patient completed 2 week course of ceftriaxone IV, at the infusion center - Patient had packing removed today, profuse bleeding noted - Continue pressure dressings with surgicel - Consider Silver Nitrate sticks for clotting - Appreciate Surgical Consult - Wound Care Nurse Code(s): Z51.89 - ENCOUNTER FOR OTHER SPECIFIED AFTERCARE (3) Anemia Assessment/Plan: - Concern for severe Anemia secondary to profuse bleeding from pelvic/groin wounds - Hgb 8.0 at baseline - Transfuse if Hgb < 7.0 - Series CBC - Hold Eliquis, Plavix, Asa - Monitor vitals Code(s): D64.9 - ANEMIA, UNSPECIFIED (4) Hyperglycemia due to type 2 diabetes mellitus Assessment/Plan: - Not controlled - BGMs - ISS - Continue Levemir - Hold Metformin secondary to renal impairment - HgbA1C Code(s): E11.65 - TYPE 2 DIABETES MELLITUS WITH HYPERGLYCEMIA Qualifiers: Diabetes mellitus jail insulin use: with jail use Qualified Code(s): E11.65 - Type 2 diabetes mellitus with hyperglycemia (5) Hyperlipidemia associated with type 2 diabetes mellitus Assessment/Plan: - Continue Lipitor - Monitor LFTs Code(s): E11.69 - TYPE 2 DIABETES MELLITUS WITH OTHER SPECIFIED COMPLICATION E78.5 - HYPERLIPIDEMIA, UNSPECIFIED (6) Diabetes mellitus type 2 in obese Code(s): E11.9 - TYPE 2 DIABETES MELLITUS WITHOUT COMPLICATIONS E66.9 - OBESITY, UNSPECIFIED (7) Coronary artery disease Assessment/Plan: - EKG reviewed - Serial Enzymes - Hold Asa, Plavix secondary to active bleeding from abdominal wounds Code(s): I25.10 - ATHSCL HEART DISEASE OF [place] CORONARY ARTERY W/O ANG PCTRS Qualifiers: Coronary Disease-Associated Artery/Lesion type: [place] artery [place] vs. transplanted heart: [place] heart Associated angina: without angina Qualified Code(s): I25.10 - Atherosclerotic heart disease of [place] coronary artery without angina pectoris (8) A-fib Assessment/Plan: - EKG- reviewed - Continue Cardizem, Digoxin - Digoxin level in am - Hold Eliquis secondary to bleeding from abdominal wound - Monitor vitals Code(s): I48.91 - UNSPECIFIED ATRIAL FIBRILLATION (9) Old myocardial infarction Code(s): I25.2 - OLD MYOCARDIAL INFARCTION (10) Status post coronary artery stent placement Code(s): Z95.5 - PRESENCE OF CORONARY ANGIOPLASTY IMPLANT AND GRAFT (11) Hypertension Assessment/Plan: - Controlled - Monitor BP - Continue home meds with parameters Code(s): I10 - ESSENTIAL (PRIMARY) HYPERTENSION Qualifiers: Hypertension type: essential hypertension Qualified Code(s): I10 - Essential (primary) hypertension (12) DVT prophylaxis Assessment/Plan: - SCDs - Hold ACs secondary to active bleeding Code(s): CRV5636 - Visit type - Emergency Visit Emergency Visit: Yes ED Registration Date: 03/30/17 Care time: The patient presented to the Emergency Department on the above date and was hospitalized for further evaluation of their emergent condition. - New Patient This patient is new to me today: Yes Date on this admission: 03/30/17 - Critical Care Critical Care patient: No
[2017-03-31 00:36] LABS: TROPONIN I < 0.02 ng/ml (0.00-0.05)
[2017-03-31] MEDS ORDERED: SILVER NITRATE 75% APPLIC STCK 1 PKT EACH TP ONE (05:13)
[2017-03-31] MEDS ORDERED: morphine CARPU-JECT 2 MG/1 ML DISP.SYRIN IVPUSH ONE (05:14)
--- NOTE | 2017-03-31 06:26 | HOSP ---
Subjective - Review of Symptoms Events since last encounter: Hospitalist Encounter Notified by the ED staff via microblog that the patient was still bleeding from the right anterior lateral abdominal wound. Arrived to ED to assess, pressure dressing that was applied was saturated with blood. Discussed case with Dr. Silva via telephone for recommendations to stop the bleeding. Ordered silver nitrate sticks, stat CBC Removed the dressing, noted oozing from the right anterior lateral abdominal wound. Had the tech and nurse clean the area with saline, applied folded 4X4 with direct 2 finger pressure for 30 minutes. Bleeding stopped, applied surgicel with folded 4X4 pressure dressing, with clear tape, and 3L saline bag placed horizontally over the dressing. Patient tolerated procedure, had been given pain meds IV during procedure, now resting comfortably. PS 2/10 AM labs-pending Gastrointestinal: Yes: Abdominal Pain (abdominal wound) Other Systems: Integumentary: bleeding from right anterior lateral abdomen Physical Examination Vital Signs: Vital Signs Temperature 98.6 F 03/31/17 03:38 Pulse Rate 102 H 03/31/17 03:38 Respiratory Rate 16 03/31/17 03:38 Blood Pressure 159/72 03/31/17 03:38 O2 Sat by Pulse Oximetry (%) 96 03/31/17 03:38 Constitutional: Yes: Mild Distress, Obese Cardiovascular: Yes: Pulse Irregular Respiratory: Yes: WNL, Regular, CTA Bilaterally Gastrointestinal: Yes: Abdomen, Obese, Other (profuse bleed from right anterior lateral abdomen) Wound/Incision: Yes: Dressing Removed, Bleeding Neurological: Yes: WNL, Alert, Oriented Psychiatric: Yes: WNL, Alert, Oriented Labs: CBCD WBC 9.0 K/mm3 (4.0-10.0) 03/30/17 22:40 RBC 3.03 M/mm3 (3.60-5.2) L 03/30/17 22:40 Hgb 8.0 GM/dL (10.7-15.3) L 03/30/17 22:40 Hct 25.5 % (32.4-45.2) L 03/30/17 22:40 MCV 84.3 fl (80-96) 03/30/17 22:40 MCHC 31.5 g/dl (32.0-36.0) L 03/30/17 22:40 RDW 18.9 % (11.6-15.6) H 03/30/17 22:40 Plt Count 493 K/MM3 (134-434) H 03/30/17 22:40 MPV 7.7 fl (7.5-11.1) 03/30/17 22:40 CMP Sodium 140 mmol/L (136-145) 03/30/17 22:40 Potassium 4.4 mmol/L (3.5-5.1) 03/30/17 22:40 Chloride 105 mmol/L (98-107) 03/30/17 22:40 Carbon Dioxide 27 mmol/L (21-32) 03/30/17 22:40 Anion Gap 8 (8-16) 03/30/17 22:40 BUN 11 mg/dL (7-18) D 03/30/17 22:40 Creatinine 0.8 mg/dL (0.55-1.02) 03/30/17 22:40 Creat Clearance w eGFR > 60 (>60) 03/30/17 22:40 Calcium 8.4 mg/dL (8.5-10.1) L 03/30/17 22:40 Total Bilirubin 0.2 mg/dL (0.2-1.0) D 03/30/17 22:40 AST 10 U/L (15-37) L D 03/30/17 22:40 ALT 11 U/L (12-78) L D 03/30/17 22:40 Alkaline Phosphatase 117 U/L (45-117) D 03/30/17 22:40 Total Protein 6.5 g/dl (6.4-8.2) 03/30/17 22:40 Albumin 2.6 g/dl (3.4-5.0) L D 03/30/17 22:40 Intake & Output 03/28/17 03/29/17 03/30/17 03/31/17 23:59 23:59 23:59 23:59 Weight 105.687 kg Last Vital Signs Temp Pulse Resp BP Pulse Ox 98.6 F 102 H 16 159/72 96 03/31/17 03:38 03/31/17 03:38 03/31/17 03:38 03/31/17 03:38 03/31/17 03:38 Critical Care Total Critical Care Time (in minutes): 40 Critical Care Statement: The care of this patient involved high complexity decision making to prevent further life threatening deterioration of the patient 's condition and/or to evalute & treat vital organ system(s) failure or risk of failure.
[2017-03-31 06:51] LABS: BASOPHIL 1.4 % (0-2.0); EOSINOPHIL 3.7 % (0-4.5); MCH 27.4 pg (25.7-33.7); MCHC 32.6 g/dl (32.0-36.0); MEAN CELL VOLUME 84.1 fl (80-96); MEAN PLT VOLUME 7.7 fl (7.5-11.1); NEUTROPHILS 67.5 % (42.8-82.8); PLATELET COUNT 394 K/MM3 (134-434); WHITE BLOOD COUNT 7.1 K/mm3 (4.0-10.0)
[2017-03-31] MEDS ORDERED: INSULIN SLIDING SCALE (NOVOLOG) 1 VIAL SQ SCH (07:00)
[2017-03-31 07:04] LABS: CALCIUM 8.2 mg/dL (8.5-10.1); COCKROFT - GAULT 151.504; CREATININE 0.7 mg/dL (0.55-1.02)
[2017-03-31 07:06] LABS: TROPONIN I < 0.02 ng/ml (0.00-0.05)
[2017-03-31 07:16] LABS: DIGOXIN LEVEL 0.649 ng/ml (0.8-2.0)
--- NOTE | 2017-03-31 07:28 | PN ---
Physical Exam: SUBJECTIVE: Patient seen and examined OBJECTIVE: Vital Signs Period Temp Pulse Resp BP Sys/Mao Pulse Ox Last 24 Hr 98.6 F 81-102 15-17 140-159/72-78 96-99 GENERAL: The patient is awake, alert, and fully oriented, in no acute distress. HEAD: Normal with no signs of trauma. EYES: PERRL, extraocular movements intact, sclera anicteric, conjunctiva clear. No ptosis. ENT: Ears normal, nares patent, oropharynx clear without exudates, moist mucous membranes. NECK: Trachea midline, full range of motion, supple. LUNGS: Breath sounds equal, clear to auscultation bilaterally, no wheezes, no crackles, no accessory muscle use. HEART: Regular rate and rhythm, S1, S2 without murmur, rub or gallop. ABDOMEN: Soft, nontender, nondistended, normoactive bowel sounds, no guarding, no rebound, no hepatosplenomegaly, no masses. EXTREMITIES: 2+ pulses, warm, well-perfused, no edema. NEUROLOGICAL: Cranial nerves II through XII grossly intact. Normal speech, gait not observed. PSYCH: Normal mood, normal affect. SKIN: Warm, dry, normal turgor, no rashes or lesions noted Laboratory Results - last 24 hr 03/31/17 03/31/17 03/31/17 05:50 05:50 05:50 WBC 7.1 RBC 2.42 L D Hgb 6.6 L* D Hct 20.3 L D MCV 84.1 MCHC 32.6 RDW 19.0 H Plt Count 394 D MPV 7.7 Neutrophils % 67.5 Lymphocytes % 20.6 Monocytes % 6.8 Eosinophils % 3.7 Basophils % 1.4 Sodium 142 Potassium 4.5 Chloride 106 Carbon Dioxide 26 Anion Gap 10 BUN 9 Creatinine 0.7 Random Glucose 222 H Calcium 8.2 L Creatine Kinase 29 Troponin I < 0.02 Digoxin 0.6490 L Active Medications Generic Name Dose Route Start Last Admin Trade Name Freq PRN Reason Stop Dose Admin Atorvastatin Calcium 40 mg 03/31/17 22:00 Lipitor - PO HS SILVA Cholecalciferol 1,000 unit 03/31/17 10:00 Vitamin D3 - PO DAILY SILVA Digoxin 0.125 mg 03/31/17 10:00 Lanoxin - PO DAILY SILVA Diltiazem HCl 120 mg 03/31/17 10:00 Cardizem Cd - PO DAILY [facility] Insulin Aspart 1 vial 03/31/17 07:00 Novolog Vial Sliding Scale - SQ TIDAC [facility] Protocol Insulin Detemir 15 units 03/31/17 22:00 Levemir Vial SQ HS [facility] Lisinopril 40 mg 03/31/17 10:00 Prinivil PO DAILY [facility] Metoprolol Tartrate 100 mg 03/31/17 10:00 Lopressor - PO BID [facility] ASSESSMENT/PLAN:
[2017-03-31] MEDS ORDERED: INSULIN REGULAR HUMAN 100 UNITS/ML *VIAL ONE (07:34)
[2017-03-31] MEDS: INSULIN SLIDING SCALE (NOVOLOG) 1 VIAL SQ SCH ×3 (07:40→18:24)
[2017-03-31] MEDS: LISINOPRIL 20 MG TABLET (FP) PO SCH (09:48)
[2017-03-31] MEDS: CHOLECALCIFEROL (VITAMIN D3) 1,000 UNIT TABLET (FP) PO SCH (09:48)
[2017-03-31] MEDS: METOPROLOL TARTRATE 50 MG TABLET (FP) PO SCH ×2 (09:48→23:12)
[2017-03-31] MEDS: DIGOXIN 0.125 MG TABLET (FP) PO SCH (09:48)
--- NOTE | 2017-03-31 13:28 | CON.CARD ---
Consult Consult Specialty:: Cardiology Referred by:: Hospitalist (patient of Dr. Sony Melendez) Reason for Consultation:: Cardiac evaluation - History of Present Illness Chief Complaint: Bleeding in the surgical site History of Present Illness: Patient is a 56 year old female with underlying history of permanent atrial fibrillation, hypertension and Insulin requiring diabetes mellitus who recently had I & D of her right groin abscess. She was seen by Dr. Silva whom she saw for a follow up at [facility] yesterday. After seeing him, when she got home, she noticed persistent bleeding from the surgical wound prompting her to come into the ED. She denies chest pain, shortness of breath or palpitations. She denies paroxysmal nocturnal dyspnea or orthopnea. She denies fever or chills. She denies headache or lightheadedness. She takes Eliquis. Cardiology consultation was called for further evaluation. Cardiology: [facility] [place] - Dr. Adrián Ahmadi - History Source History Provided By: Patient, Family Member Limitations to Obtaining History: No Limitations - Past Medical History Cardio/Vascular: Yes: AFIB, CAD, HTN, [place] Musculoskeletal: Yes: Osteoarthritis Endocrine: Yes: Diabetes Mellitus - Past Surgical History Past Surgical History: Yes: Stent - Alcohol/Substance Use Hx Alcohol Use: Yes (occassionally) - Smoking History Smoking history: Never smoked Have you smoked in the past 12 months: No - Social History Usual Living Arrangement: With Spouse ADL: Independent Home Medications - Allergies Allergies/Adverse Reactions: Allergies Allergy/AdvReac Type Severity Reaction Status Date / Time Penicillins Allergy Verified 03/30/17 21:56 - Home Medications Home Medications: Ambulatory Orders Apixaban [Eliquis -] 5 mg PO BID 11/13/16 Atorvastatin Ca [Lipitor] 40 mg PO HS 11/13/16 Cholecalciferol (Vitamin D3) [Vitamin D3 -] 1,000 unit PO DAILY 11/13/16 Cyanocobalamin (Vitamin B-12) [Vitamin B-12] 1,000 mcg PO DAILY 11/13/16 Digoxin [Lanoxin -] 0.125 mg PO DAILY 11/13/16 Lisinopril [Prinivil -] 40 mg PO DAILY 11/13/16 Metoprolol Tartrate [Lopressor] 100 mg PO BID 11/13/16 Insulin Sliding Scale [Novolog Vial Sliding Scale -] 1 vial SQ ACHS #100 units 11/16/16 Diltiazem Cd [Cardizem Cd -] 120 mg PO DAILY 03/15/17 Metformin HCl 500 mg PO BID 03/15/17 Ceftriaxone [Rocephin -] 2 gm IV DAILY #7 vial 03/23/17 Insulin (Levemir) [Levemir Vial] 15 unit SQ HS #1 vial 03/23/17 Miscellaneous Medical Supply [Outpatient Order] 1 each ASDIR #1 [facility] [place]av[place] 75 mg PO DAILY 03/26/17 Family Disease History - Family Disease History Other Family History: History of diabetes mellitus Review of Systems - Review of Systems Constitutional: denies: Chills, Fever Cardiovascular: denies: Chest Pain, Palpitations, Shortness of Breath Respiratory: denies: Cough, Hemoptysis, Orthopnea, PND, SOB, SOB on Exertion Gastrointestinal: denies: Abdominal Pain, Constipation, Diarrhea, Melena, Nausea , Rectal Bleeding, Vomiting Genitourinary: denies: Dysuria Musculoskeletal: denies: Joint Pain Neurological: denies: Dizziness, Headache, Seizure, Syncope Vital Signs: Vital Signs Temperature 97.7 F 03/31/17 12:00 Pulse Rate 57 L 03/31/17 12:00 Respiratory Rate 18 03/31/17 12:00 Blood Pressure 136/72 03/31/17 12:00 O2 Sat by Pulse Oximetry (%) 96 03/31/17 12:00 Neck: Yes: Supple Respiratory: Yes: CTA Bilaterally Gastrointestinal: Yes: Normal Bowel Sounds, Soft, Abdomen, Obese. No: Tenderness Cardiovascular: Yes: Pulse Irregular JVD: No Carotid Bruit: No PMI: Non-Displaced Heart Sounds: Yes: S1, S2. No: Gallop Murmur: No: Systolic Murmur, Diastolic Murmur Edema: No - Other Data Labs, Other Data: CBC, BMP 03/31/17 05:50 03/31/17 05:50 INR, PTT INR 1.31 (0.82-1.09) H 03/30/17 22:40 Troponin, BNP 03/31/17 05:50 Troponin I < 0.02 Atrial fibrillation with variable ventricular response Imaging - Results Chest X-ray: Report Reviewed (Unremarkable) EKG: Report Reviewed Problem List - Problems (1) A-fib Code(s): I48.91 - UNSPECIFIED ATRIAL FIBRILLATION Qualifiers: Atrial fibrillation type: permanent Qualified Code(s): I48.2 - Chronic atrial fibrillation (2) Anemia Code(s): D64.9 - ANEMIA, UNSPECIFIED Qualifiers: Anemia type: unspecified type Qualified Code(s): D64.9 - Anemia, unspecified (3) Coronary artery disease Code(s): I25.10 - ATHSCL HEART DISEASE OF [place] CORONARY ARTERY W/O ANG PCTRS Qualifiers: Coronary Disease-Associated Artery/Lesion type: [place] artery [place] vs. transplanted heart: [place] heart Associated angina: without angina Qualified Code(s): I25.10 - Atherosclerotic heart disease of [place] coronary artery without angina pectoris (4) Hypertension Code(s): I10 - ESSENTIAL (PRIMARY) HYPERTENSION Qualifiers: Hypertension type: essential hypertension Qualified Code(s): I10 - Essential (primary) hypertension (5) Diabetes mellitus type 2 in obese Code(s): E11.9 - TYPE 2 DIABETES MELLITUS WITHOUT COMPLICATIONS E66.9 - OBESITY, UNSPECIFIED (6) Hypercholesterolemia Code(s): E78.00 - PURE HYPERCHOLESTEROLEMIA, UNSPECIFIED (7) Groin abscess Code(s): L02.214 - CUTANEOUS ABSCESS OF GROIN (8) History of percutaneous coronary intervention Code(s): Z98.890 - OTHER SPECIFIED POSTPROCEDURAL STATES Assessment/Plan 1. Abscess wound post surgery now with bleeding - stable 2. Permanent atrial fibrillation 3. Hypertension 4. Hypercholesterolemia 5. Insulin requiring diabetes mellitus PLAN: 1. Transfuse PRBC (2 units) and recheck CBC 2. Await Surgery input 3. Continue Metoprolol, Diltiazem and Digoxin 4. Continue Prinivil 5. Continue Atorvastatin 6. Eliquis is being held, but will need to restart once hemostasis is achieved. Further plans are to follow Jose Antonio David MD
--- NOTE | 2017-03-31 13:48 | PN ---
Progress Note (short form) - Note Progress Note: Asked by Dr. Silva if we could see his patient in ER. 56 yo female s/p I&D multiple right groin abscess last week. Was seen yesterday by Dr. Stevenson in his office for packing removal. Patient went home only to return to ER late last night with c/o bleeding from groin wound. ER staff managed bleeding control via silver sticks, wound packing with surgicell and direct pressure x 30 mins. Currently, patient is resting in position of comfort. Getting a unit of PRBC. Denies n/v/f/c, CP, palpitations, SOB, weak or dizzy. Last Vital Signs Temp Pulse Resp BP Pulse Ox 97.7 F 57 L 18 136/72 96 03/31/17 12:00 03/31/17 12:00 03/31/17 12:00 03/31/17 12:00 03/31/17 12:00 H/H Trend 03/30/17 03/31/17 22:40 05:50 Hgb 8.0 L 6.6 L* D Hct 25.5 L 20.3 L D PE GEN: alert. nad ABD:Obese. soft, NT. ND. SKIN: Right groin with multiple surgical incisions (1 week old). No signs of active bleeding. No hematoma. Wounds packed with surgicell Problem List - Problems (1) Wound check, abscess Assessment/Plan: DO NOT REMOVE surgicell that is presently packed in wound. Shower BID Daily neosporin dressing changes Formal consult to be placed by Dr. Silva Spoke with Dr. Silva by telephone and discussed above plan and agrees. Code(s): Z51.89 - ENCOUNTER FOR OTHER SPECIFIED AFTERCARE (2) Anemia Assessment/Plan: Monitor H/H Transfuse PRBCs PRN Repeat CBC 7PM tonight Code(s): D64.9 - ANEMIA, UNSPECIFIED Qualifiers: Anemia type: unspecified type Qualified Code(s): D64.9 - Anemia, unspecified
--- NOTE | 2017-03-31 14:33 | PN ---
Physical Exam: SUBJECTIVE: Patient seen and examined in the ER earlier today. She denies any chest pain or shortness of breath. OBJECTIVE: Right anterior lateral abdominal wound bleeding overnight, surgicel and pressure dressing applied with 3liter saline bag for additional pressure Since this bleeding episode, the abdominal dressing has remained c/d/i, no further bleeding Patient is now getting infusion of 2 units of PRBC after her hmg/hct was 6.6/ 20.3 Repeat CBC tonight and monitor patient closely, will also order a.m. labs If CBC remains stable tomorrow, will d/c home and restart Eliquis Patient has been on Eliquis since 2014 Patient has follow up appointment with her shaker screen operator on April 24 (Dr. Ahmadi) She remains afebrile, WBC stable. Vital Signs Period Temp Pulse Resp BP Sys/Mao Pulse Ox Last 24 Hr 97.7 F-98.6 F 57-102 15-18 136-159/72-78 96-99 GENERAL: Awake, alert, and fully oriented, in no acute distress. HEAD: Normal with no signs of trauma. EYES: Pupils equal, round and reactive to light, extraocular movements intact, sclera anicteric, conjunctiva clear. No lid lag. EARS, NOSE, THROAT: Ears normal, nares patent, oropharynx clear without exudates. Moist mucous membranes. NECK: Normal range of motion, supple without lymphadenopathy, JVD, or masses. LUNGS: Breath sounds equal, clear to auscultation bilaterally. No wheezes, and no crackles. No accessory muscle use. HEART: Regular rate and rhythm, normal S1 and S2 without murmur, rub or gallop. ABDOMEN:+tenderness to RLQ, soft, not distended, normoactive bowel sounds, no guarding, no rebound, no masses. No hepatomegaly or splenomegaly. MUSCULOSKELETAL: Normal range of motion at all joints. No bony deformities or tenderness. No CVA tenderness. UPPER EXTREMITIES: 2+ pulses, warm, well-perfused. No cyanosis. No clubbing. No peripheral edema. LOWER EXTREMITIES: 2+ pulses, warm, well-perfused. No calf tenderness. NEUROLOGICAL: Cranial nerves II-XII intact. Normal speech. Gait not observed. PSYCHIATRIC: Cooperative. Good eye contact. Appropriate mood and affect. SKIN: Right groin abdominal abscess wound with dressing that remains intact, the site is non tender. Limited view of the wound as patient had dressings but dressing was stained but intact. No discharge noted from this wound. Laboratory Results - last 24 hr 03/31/17 03/31/17 03/31/17 05:50 05:50 05:50 WBC 7.1 RBC 2.42 L D Hgb 6.6 L* D Hct 20.3 L D MCV 84.1 MCHC 32.6 RDW 19.0 H Plt Count 394 D MPV 7.7 Neutrophils % 67.5 Lymphocytes % 20.6 Monocytes % 6.8 Eosinophils % 3.7 Basophils % 1.4 Sodium 142 Potassium 4.5 Chloride 106 Carbon Dioxide 26 Anion Gap 10 BUN 9 Creatinine 0.7 POC Glucometer Random Glucose 222 H Calcium 8.2 L Creatine Kinase 29 Troponin I < 0.02 Digoxin 0.6490 L 03/31/17 07:31 WBC RBC Hgb Hct MCV MCHC RDW Plt Count MPV Neutrophils % Lymphocytes % Monocytes % Eosinophils % Basophils % Sodium Potassium Chloride Carbon Dioxide Anion Gap BUN Creatinine POC Glucometer [phone] Random Glucose Calcium Creatine Kinase Troponin I Digoxin Active Medications Generic Name Dose Route Start Last Admin Trade Name Freq PRN Reason Stop Dose Admin Atorvastatin Calcium 40 mg 03/31/17 22:00 Lipitor - PO HS SILVA Cholecalciferol 1,000 unit 03/31/17 10:00 03/31/17 09:48 Vitamin D3 - PO 1,000 unit DAILY SILVA Administration Digoxin 0.125 mg 03/31/17 10:00 03/31/17 09:48 Lanoxin - PO 0.125 mg DAILY SILVA Administration Diltiazem HCl 120 mg 03/31/17 10:00 03/31/17 09:48 Cardizem Cd - PO 120 mg DAILY SILVA Administration Insulin Aspart 1 vial 03/31/17 07:00 03/31/17 12:51 Novolog Vial Sliding Scale - SQ 4 units TIDAC [facility] Administration Protocol Insulin Detemir 15 units 03/31/17 22:00 Levemir Vial SQ HS SILVA Lisinopril 40 mg 03/31/17 10:00 03/31/17 09:48 Prinivil PO 40 mg DAILY SILVA Administration Metoprolol Tartrate 100 mg 03/31/17 10:00 03/31/17 09:48 Lopressor - PO 100 mg BID SILVA Administration ASSESSMENT/PLAN: Patient is a 56 year old female with a significant past medical history of atrial fib (on eliquis), hypertension, hyperlipidemia, diabetes mellitus and anemia. She presented to the Ed On 03/30/2017 with profuse bleeding at home from her right groing abdominal wound. Patient was recently here between to 03/23/2017 for AMS and was found to be in septic shock. During her last admission, she had an I&D drainage of her right groin abscess. She stated that she had a follow up with Dr. Barboza's (general surgeon) office on 03/30/17 for removal of the packing from the I&D. She returns to the ER for severe persistent bleeding from this surgical wound. Integumentary: Abdominal Right Groin Abscess with acute bleeding - bleeding now resolved Assessment/Plan: Right groin absces wound packed with surgicel with sterile dressings As per surgical care team, daily neosporin with dressing changes Patient to follow up with Dr. Silva on discharge Transfusing 2 units of prbc with a repeat CBC tonight, and in the a.m. Likely will need more PRBC with goal of hmg > 8 WBC within normal limits, afebrile Monitor off antibiotics Hematology: Anemia - acute Assessment/Plan: Monitor H/H and transfuse PRBC as needed baseline hm Cardiology: Atrial Fibrillation - controlled Assessment/Plan: On Loporessor, Cardizem and digoxin Eliquis on hold secondary to acute bleeding episode F.E.N. Fluids: tolerating PO Electrolytes: monitor bmp Nutrition: low sodium diet Prophylaxis: DVT: deferred secondary to acute bleeding episodes, Eliquis on hold GI: deferred Disposition: Requires inpatient hospitalization. Full code. Visit type - Emergency Visit Emergency Visit: Yes ED Registration Date: 03/30/17 Care time: The patient presented to the Emergency Department on the above date and was hospitalized for further evaluation of their emergent condition. - New Patient This patient is new to me today: Yes Date on this admission: 03/31/17 - Critical Care Critical Care patient: No - Discharge Referral Referred to [facility] No
--- NOTE | 2017-03-31 17:10 | EKG ---
Test Reason : Blood Pressure : / mmHG Vent. Rate : 082 BPM Atrial Rate : 119 BPM P-R Int : 000 ms QRS Dur : 078 ms QT Int : 372 ms P-R-T Axes : 000 -67 053 degrees QTc Int : 434 ms ATRIAL FIBRILLATION LEFT AXIS DEVIATION ANTEROSEPTAL INFARCT (CITED ON OR BEFORE 13-NOV-2016) ABNORMAL ECG WHEN COMPARED WITH ECG OF 15-MAR-2017 18:48, VENT. RATE HAS DECREASED BY 93 BPM Confirmed by CHARLIE OLIVO MD ([id number]) on 03/31/2017 5:09:50 PM Referred By: Confirmed By:CHARLIE OLIVO MD
[2017-03-31 19:06] VITALS: BMI 39.8
[2017-03-31 19:12] LABS: TROPONIN I < 0.02 ng/ml (0.00-0.05)
[2017-03-31 21:52] LABS: MCH 26.6 pg (25.7-33.7); MCHC 31.9 g/dl (32.0-36.0); MEAN CELL VOLUME 83.5 fl (80-96); MEAN PLT VOLUME 7.5 fl (7.5-11.1); PLATELET COUNT 342 K/MM3 (134-434); RDW 17.3 % (11.6-15.6); WHITE BLOOD COUNT 8.3 K/mm3 (4.0-10.0)
[2017-03-31] MEDS ORDERED: INSULIN DETEMIR 100 UNITS/ML MDV SQ SCH (22:00)
[2017-03-31] MEDS: INSULIN DETEMIR 100 UNITS/ML MDV SQ SCH (23:10)
[2017-03-31] MEDS: ATORVASTATIN CA 40 MG TABLET (FP) PO SCH (23:12)
[2017-04-01] MEDS: INSULIN SLIDING SCALE (NOVOLOG) 1 VIAL SQ SCH ×4 (06:23→23:40)
[2017-04-01 07:36] LABS: BASOPHIL 1.6 % (0-2.0); EOSINOPHIL 4.7 % (0-4.5); MCH 27.8 pg (25.7-33.7); MCHC 33.3 g/dl (32.0-36.0); MEAN CELL VOLUME 83.5 fl (80-96); MEAN PLT VOLUME 7.6 fl (7.5-11.1); NEUTROPHILS 59.9 % (42.8-82.8); PLATELET COUNT 337 K/MM3 (134-434); RDW 17.4 % (11.6-15.6); WHITE BLOOD COUNT 6.6 K/mm3 (4.0-10.0)
[2017-04-01 09:01] LABS: ALBUMIN 2.2 g/dl (3.4-5.0); ALK PHOS 87 U/L (45-117); ANION GAP 8 (8-16); BILIRUBIN,TOTAL 0.5 mg/dL (0.2-1.0); CALCIUM 7.9 mg/dL (8.5-10.1); CO2 27 mmol/L (21-32); CREATININE 0.7 mg/dL (0.55-1.02); GLUCOSE,RANDOM 129 mg/dL (74-106); SGOT/AST 8 U/L (15-37); SGPT/ALT 10 U/L (12-78); TOT PROT 5.5 g/dl (6.4-8.2)
[2017-04-01] MEDS ORDERED: INSULIN (NOVOLOG) ASPART 100 UNITS/ML 10ML VIAL ONE (10:45)
[2017-04-01] MEDS: LISINOPRIL 20 MG TABLET (FP) PO SCH (11:09)
[2017-04-01] MEDS: DIGOXIN 0.125 MG TABLET (FP) PO SCH (11:09)
[2017-04-01] MEDS: CHOLECALCIFEROL (VITAMIN D3) 1,000 UNIT TABLET (FP) PO SCH (11:09)
[2017-04-01] MEDS: METOPROLOL TARTRATE 50 MG TABLET (FP) PO SCH ×2 (11:09→23:36)
[2017-04-01 12:05] LABS: BASOPHIL 1.2 % (0-2.0); EOSINOPHIL 4.1 % (0-4.5); MCH 27.5 pg (25.7-33.7); MCHC 32.6 g/dl (32.0-36.0); MEAN CELL VOLUME 84.1 fl (80-96); MEAN PLT VOLUME 7.3 fl (7.5-11.1); NEUTROPHILS 63.6 % (42.8-82.8); PLATELET COUNT 338 K/MM3 (134-434); RDW 17.7 % (11.6-15.6); WHITE BLOOD COUNT 6.8 K/mm3 (4.0-10.0)
--- NOTE | 2017-04-01 12:24 | PN ---
Progress Note (short form) - Note Progress Note: Subjective: The patient was seen and examined at the bedside she is s/p 2u PRBC , no complaints at this time. Current Medications Generic Name Dose Route Start Last Admin Trade Name Lynne PRN Reason Stop Dose Admin Apixaban 5 mg 04/01/17 22:00 Eliquis - PO BID SILVA Atorvastatin Calcium 40 mg 03/31/17 22:00 03/31/17 23:12 Lipitor - PO 40 mg HS SILVA Administration Bacitracin/Polymyxin B Sulfate 1 applic 04/01/17 13:45 Polysporin Ointment - TP BID SILVA Cholecalciferol 1,000 unit 03/31/17 10:00 04/01/17 11:09 Vitamin D3 - PO 1,000 unit DAILY SILVA Administration Digoxin 0.125 mg 03/31/17 10:00 04/01/17 11:09 Lanoxin - PO 0.125 mg DAILY SILVA Administration Diltiazem HCl 120 mg 03/31/17 10:00 04/01/17 11:09 Cardizem Cd - PO 120 mg DAILY SILVA Administration Insulin Aspart 1 vial 03/31/17 07:00 04/01/17 11:11 Novolog Vial Sliding Scale - SQ 2 units TIDAC SILVA Administration Protocol Insulin Detemir 15 units 03/31/17 22:00 03/31/17 23:10 Levemir Vial SQ 15 unit HS SILVA Administration Lisinopril 40 mg 03/31/17 10:00 04/01/17 11:09 Prinivil PO 40 mg DAILY SILVA Administration Metoprolol Tartrate 100 mg 03/31/17 10:00 04/01/17 11:09 Lopressor - PO 100 mg BID SILVA Administration Objective: Vital Signs Period Temp Pulse Resp BP Sys/Mao Pulse Ox Last 24 Hr 98.2 F-99 F 80-95 18-20 126-142/66-78 99-99 Physical Exam: General: NAD, A&Ox3 Lungs: CTA bilaterally Heart: Irregular rhythm. S1S2 Abd: Right groin wounds with packing, minimal oozing. dressing c/d/i Ext: Warm, well-perfused. 2+ DP/PT bilaterally CBCD WBC 6.8 K/mm3 (4.0-10.0) 04/01/17 11:50 RBC 2.98 M/mm3 (3.60-5.2) L 04/01/17 11:50 Hgb 8.2 GM/dL (10.7-15.3) L 04/01/17 11:50 Hct 25.1 % (32.4-45.2) L 04/01/17 11:50 MCV 84.1 fl (80-96) 04/01/17 11:50 MCHC 32.6 g/dl (32.0-36.0) 04/01/17 11:50 RDW 17.7 % (11.6-15.6) H 04/01/17 11:50 Plt Count 338 K/MM3 (134-434) 04/01/17 11:50 MPV 7.3 fl (7.5-11.1) L 04/01/17 11:50 CMP Sodium 141 mmol/L (136-145) 04/01/17 06:00 Potassium 4.4 mmol/L (3.5-5.1) 04/01/17 06:00 Chloride 106 mmol/L (98-107) 04/01/17 06:00 Carbon Dioxide 27 mmol/L (21-32) 04/01/17 06:00 Anion Gap 8 (8-16) 04/01/17 06:00 BUN 9 mg/dL (7-18) 04/01/17 06:00 Creatinine 0.7 mg/dL (0.55-1.02) 04/01/17 06:00 Creat Clearance w eGFR > 60 (>60) 04/01/17 06:00 Random Glucose 129 mg/dL (74-106) H D 04/01/17 06:00 Calcium 7.9 mg/dL (8.5-10.1) L 04/01/17 06:00 Total Bilirubin 0.5 mg/dL (0.2-1.0) D 04/01/17 06:00 AST 8 U/L (15-37) L 04/01/17 06:00 ALT 10 U/L (12-78) L 04/01/17 06:00 Alkaline Phosphatase 87 U/L (45-117) D 04/01/17 06:00 Total Protein 5.5 g/dl (6.4-8.2) L 04/01/17 06:00 Albumin 2.2 g/dl (3.4-5.0) L 04/01/17 06:00 CARDIAC ENZYMES Creatine Kinase 35 IU/L (26-192) 03/31/17 17:30 Troponin I < 0.02 ng/ml (0.00-0.05) 03/31/17 17:30 Assessment: This is a 56 year old female with PMHx of HTN, hyperlipidemia, diabetes mellitus, anemia, obesity, who presented to the ED with bleeding from her pelvic wounds. Plan: 1) Right groin wound with bleeding - Hgb stable s/p 2u PRBC - Healing abscess with packing - Completed outpatient course of Ceftriaxone 03/24-03/30 - Bleeding stopped, continue with packing - Shower bid per surgery - Continue to monitor 2) Permanent a.fib - Resume Eliquis tonight, Hgb stable and bleeding has stopped, discussed with Dr. Lewis - Monitor overnight for bleeding - Continue Diltiazem - Continue Digoxin HTN - Continue Lopressor - Continue Lisinopril Hyperlipidemia - Continue Lipitor - Appreciate cardiology consult 3) Endocrine: DM - BGM ACHS - ISS ACHS - Levemir 15u sq qhs 4) F/E/N: - Regular diet - Monitor electrolytes 5) Prophylaxis: - Restart Eliquis 5mg po bid 6) Dispo: - Requires continued inpatient care CODE STATUS: FULL CODE Visit type - Emergency Visit Emergency Visit: Yes ED Registration Date: 03/30/17 Care time: The patient presented to the Emergency Department on the above date and was hospitalized for further evaluation of their emergent condition. - New Patient This patient is new to me today: Yes Date on this admission: 04/01/17 - Critical Care Critical Care patient: No
--- NOTE | 2017-04-01 12:53 | PN ---
Progress Note, Physician History of Present Illness: Received 2 U pRBC overnight, post-I&D bleeding slowing with packing. - Current Medication List Current Medications: Active Medications Atorvastatin Calcium (Lipitor -) 40 mg PO HS [facility] Last Admin: 03/31/17 23:12 Dose: 40 mg Cholecalciferol (Vitamin D3 -) 1,000 unit PO DAILY [facility] Last Admin: 04/01/17 11:09 Dose: 1,000 unit Digoxin (Lanoxin -) 0.125 mg PO DAILY [facility] Last Admin: 04/01/17 11:09 Dose: 0.125 mg Diltiazem HCl (Cardizem Cd -) 120 mg PO DAILY [facility] Last Admin: 04/01/17 11:09 Dose: 120 mg Insulin Aspart (Novolog Vial Sliding Scale -) 1 vial SQ TIDAC [facility] PRN Reason: Protocol Last Admin: 04/01/17 11:11 Dose: 2 units Insulin Detemir (Levemir Vial) 15 units SQ HS [facility] Last Admin: 03/31/17 23:10 Dose: 15 unit Lisinopril (Prinivil) 40 mg PO DAILY [facility] Last Admin: 04/01/17 11:09 Dose: 40 mg Metoprolol Tartrate (Lopressor -) 100 mg PO BID [facility] Last Admin: 04/01/17 11:09 Dose: 100 mg - Objective Vital Signs: Vital Signs Temperature 98.2 F 04/01/17 09:00 Pulse Rate 89 04/01/17 11:09 Respiratory Rate 18 04/01/17 09:00 Blood Pressure 136/75 04/01/17 09:00 O2 Sat by Pulse Oximetry (%) 99 03/31/17 21:00 Constitutional: Yes: No Distress, Calm Neck: Yes: Supple Cardiovascular: Yes: Pulse Irregular Respiratory: Yes: Regular, Diminished Gastrointestinal: Yes: Normal Bowel Sounds, Soft, Other (Right groin wound cavity packed) Edema: Yes Edema: LLE: 1+, RLE: 1+ Labs: CBC, BMP 04/01/17 11:50 04/01/17 06:00 INR, PTT INR 1.31 (0.82-1.09) H 03/30/17 22:40 Assessment/Plan 1. Wound abscess post I&D now with post-op bleeding and anemia - stable post packing 2. Permanent atrial fibrillation 3. Hypertension 4. Hypercholesterolemia 5. Insulin requiring diabetes mellitus PLAN: 1. Transfuse PRBC (2 units), monitor Hgb and transfuse as needed 2. Await Surgery input 3. Continue Metoprolol 100 bid, Diltiazem CD 120 qd and Digoxin 0.125 qd 4. Continue Prinivil 40 qd 5. Continue Atorvastatin 40 qhs 6. Eliquis is being held, but will need to restart once hemostasis is achieved.
--- NOTE | 2017-04-01 13:47 | PN ---
Progress Note (short form) - Note Progress Note: surgery pt seen and examined. well known to me. had packing removed Thursday and began to bleed later in day. on blood thinners. bleeding stopped with pressure and surgicel. wound examined. no bleeding. dressing removed. Plan- shower bid with bacitracin oitment applied to wound. if no further bleeding surgically stable for d/c.
[2017-04-01] MEDS: BACITRACIN/POLYMYXIN B SULFATE 15 GM TUBE TP SCH ×2 (17:01→23:36)
[2017-04-01 19:47] LABS: BASOPHIL 1.7 % (0-2.0); EOSINOPHIL 5.2 % (0-4.5); MCH 26.9 pg (25.7-33.7); MEAN CELL VOLUME 84.1 fl (80-96); MEAN PLT VOLUME 7.8 fl (7.5-11.1); NEUTROPHILS 54.1 % (42.8-82.8); PLATELET COUNT 347 K/MM3 (134-434); RDW 17.8 % (11.6-15.6); WHITE BLOOD COUNT 7.2 K/mm3 (4.0-10.0)
[2017-04-01] MEDS ORDERED: PT OWN MED DRAWER 7, Y5N ONE (21:56)
[2017-04-01] MEDS: APIXABAN 5 MG TABLET PO SCH (23:35)
[2017-04-01] MEDS: INSULIN DETEMIR 100 UNITS/ML MDV SQ SCH (23:35)
[2017-04-01] MEDS: ATORVASTATIN CA 40 MG TABLET (FP) PO SCH (23:36)
[2017-04-02] MEDS: INSULIN SLIDING SCALE (NOVOLOG) 1 VIAL SQ SCH ×4 (06:56→22:07)
[2017-04-02] MEDS: BACITRACIN/POLYMYXIN B SULFATE 15 GM TUBE TP SCH ×2 (09:20→22:07)
[2017-04-02] MEDS ORDERED: INSULIN (NOVOLOG) ASPART 100 UNITS/ML 10ML VIAL ONE (09:21)
[2017-04-02] MEDS ORDERED: PT OWN MED DRAWER 7, Y5N ONE ×2 (09:23→21:59)
[2017-04-02] MEDS: LISINOPRIL 20 MG TABLET (FP) PO SCH (09:28)
[2017-04-02] MEDS: METOPROLOL TARTRATE 50 MG TABLET (FP) PO SCH ×2 (09:28→22:07)
[2017-04-02] MEDS: DIGOXIN 0.125 MG TABLET (FP) PO SCH (09:28)
[2017-04-02] MEDS: APIXABAN 5 MG TABLET PO SCH ×2 (09:28→22:06)
[2017-04-02] MEDS: CHOLECALCIFEROL (VITAMIN D3) 1,000 UNIT TABLET (FP) PO SCH (09:31)
[2017-04-02 12:06] LABS: BASOPHIL 1.5 % (0-2.0); EOSINOPHIL 6.2 % (0-4.5); MCH 27.2 pg (25.7-33.7); MCHC 32.2 g/dl (32.0-36.0); MEAN CELL VOLUME 84.7 fl (80-96); MEAN PLT VOLUME 7.6 fl (7.5-11.1); NEUTROPHILS 48.8 % (42.8-82.8); PLATELET COUNT 307 K/MM3 (134-434); RDW 17.8 % (11.6-15.6); WHITE BLOOD COUNT 5.3 K/mm3 (4.0-10.0)
--- NOTE | 2017-04-02 12:49 | PN ---
Physical Exam: SUBJECTIVE: Patient seen and examined. She states she feels better, slightly week. Ambulating in the hallways with a walker. OBJECTIVE: h/h still on the lower end than I would like (7.4 hmg/24) she is noticeably pallorous Goal is hmg>8 especially with her cardiac history will order 1 unit of prbc and monitor Pat has hx of chronic anemia, spoke to pt and about having a workup as an outpatient for anemia, they agree. 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 Since admission, has had no further bleeding episodes Vital Signs Period Temp Pulse Resp BP Sys/Mao Pulse Ox Last 24 Hr 98.2 F-99.1 F 65-82 18-20 116-137/65-74 98-98 GENERAL: Awake, alert, and fully oriented, in no acute distress. HEAD: Normal with no signs of trauma. EYES: Pupils equal, round and reactive to light, extraocular movements intact, sclera anicteric, conjunctiva clear. No lid lag. EARS, NOSE, THROAT: Ears normal, nares patent, oropharynx clear without exudates. Moist mucous membranes. NECK: Normal range of motion, supple without lymphadenopathy, JVD, or masses. LUNGS: Breath sounds equal, clear to auscultation bilaterally. No wheezes, and no crackles. No accessory muscle use. HEART: Regular rate and rhythm, normal S1 and S2 without murmur, rub or gallop. ABDOMEN:+tenderness to RLQ, soft, not distended, normoactive bowel sounds, no guarding, no rebound, no masses. No hepatomegaly or splenomegaly. MUSCULOSKELETAL: Normal range of motion at all joints. No bony deformities or tenderness. No CVA tenderness. UPPER EXTREMITIES: 2+ pulses, warm, well-perfused. No cyanosis. No clubbing. No peripheral edema. LOWER EXTREMITIES: 2+ pulses, warm, well-perfused. No calf tenderness. NEUROLOGICAL: Cranial nerves II-XII intact. Normal speech. Gait not observed. PSYCHIATRIC: Cooperative. Good eye contact. Appropriate mood and affect. SKIN: Right groin abdominal abscess wound with dressing that remains intact, no further bleeding Laboratory Results - last 24 hr 04/01/17 04/01/17 04/01/17 16:59 18:55 23:39 WBC 7.2 RBC 2.77 L Hgb 7.4 L Hct 23.3 L MCV 84.1 MCHC 32.0 RDW 17.8 H Plt Count 347 MPV 7.8 Neutrophils % 54.1 Lymphocytes % 29.7 D Monocytes % 9.3 Eosinophils % 5.2 H Basophils % 1.7 POC Glucometer 179 166 04/02/17 04/02/17 04/02/17 06:00 06:54 11:09 WBC 5.3 RBC 2.71 L Hgb 7.4 L Hct 23.0 L MCV 84.7 MCHC 32.2 RDW 17.8 H Plt Count 307 MPV 7.6 Neutrophils % 48.8 Lymphocytes % 33.2 Monocytes % 10.3 H Eosinophils % 6.2 H Basophils % 1.5 POC Glucometer 108 156 Active Medications Generic Name Dose Route Start Last Admin Trade Name Freq PRN Reason Stop Dose Admin Apixaban 5 mg 04/01/17 22:00 04/02/17 09:28 Eliquis - PO 5 mg BID SIVLA Administration Atorvastatin Calcium 40 mg 03/31/17 22:00 04/01/17 23:36 Lipitor - PO 40 mg HS SILVA Administration Bacitracin/Polymyxin B Sulfate 1 applic 04/01/17 13:45 04/02/17 09:20 Polysporin Ointment - TP 1 applic BID SILVA Administration Cholecalciferol 1,000 unit 03/31/17 10:00 04/02/17 09:31 Vitamin D3 - PO 1,000 unit DAILY SILVA Administration Digoxin 0.125 mg 03/31/17 10:00 04/02/17 09:28 Lanoxin - PO 0.125 mg DAILY SILVA Administration Diltiazem HCl 120 mg 03/31/17 10:00 04/02/17 09:27 Cardizem Cd - PO 120 mg DAILY SILVA Administration Insulin Aspart 1 vial 04/01/17 16:30 04/02/17 11:11 Novolog Vial Sliding Scale - SQ 2 units ACHS SILVA Administration Protocol Insulin Detemir 15 units 03/31/17 22:00 04/01/17 23:35 Levemir Vial SQ 15 unit HS SILVA Administration Lisinopril 40 mg 03/31/17 10:00 04/02/17 09:28 Prinivil PO 40 mg DAILY SILVA Administration Metoprolol Tartrate 100 mg 03/31/17 10:00 04/02/17 09:28 Lopressor - PO 100 mg BID SILVA Administration ASSESSMENT/PLAN: Patient is a 56 year old female with a significant past medical history of atrial fib (on eliquis), hypertension, hyperlipidemia, diabetes mellitus and anemia. She presented to the Ed On 03/30/2017 with profuse bleeding at home from her right groin abdominal wound. Patient was recently here between to 03/23/2017 for AMS and was found to be in septic shock. During her last admission, she had an I&D drainage of her right groin abscess. She stated that she had a follow up with Dr. Silva's (general surgeon) office on 03/30/17 for removal of the packing from the I&D. She returns to the ER for severe persistent bleeding from this surgical wound. Integumentary: Abdominal Right Groin Abscess with acute bleeding - bleeding now resolved Assessment/Plan: Right groin abscess wound packed with surgicel with sterile dressings As per surgical care team, daily neosporin with dressing changes Patient to follow up with Dr. Silva on discharge s/p 2 units of prbc yesterday, but hmg/hmt remains low Will transfuse 1 unit and repeat CBC @ 7pm, with a goal of hmg =/>8 WBC within normal limits, afebrile Monitor off antibiotics Hematology: Anemia - acute Assessment/Plan: Monitor H/H and transfuse PRBC as needed baseline hm Will need outpatient hematology workup for chronic anemia Cardiology: Atrial Fibrillation - controlled Assessment/Plan: On Loporessor, Cardizem and digoxin Eliquis on hold secondary to acute bleeding episode F.E.N. Fluids: tolerating PO Electrolytes: monitor bmp Nutrition: low sodium diet Prophylaxis: DVT: deferred secondary to acute bleeding episodes, Eliquis restarted yesterday GI: deferred Disposition: Requires inpatient hospitalization. Hematology consult as outpatient. Full code. Visit type - Emergency Visit Emergency Visit: Yes ED Registration Date: 03/30/17 Care time: The patient presented to the Emergency Department on the above date and was hospitalized for further evaluation of their emergent condition. - New Patient This patient is new to me today: No - Critical Care Critical Care patient: No - Discharge Referral Referred to [facility] No
--- NOTE | 2017-04-02 15:55 | PN ---
Progress Note, Physician History of Present Illness: Receiving 1 U pRBC, post-I&D bleeding has resolved. - Current Medication List Current Medications: Active Medications Apixaban (Eliquis -) 5 mg PO BID [facility] Last Admin: 04/02/17 09:28 Dose: 5 mg Atorvastatin Calcium (Lipitor -) 40 mg PO HS [facility] Last Admin: 04/01/17 23:36 Dose: 40 mg Bacitracin/Polymyxin B Sulfate (Polysporin Ointment -) 1 applic TP BID [facility] Last Admin: 04/02/17 09:20 Dose: 1 applic Cholecalciferol (Vitamin D3 -) 1,000 unit PO DAILY [facility] Last Admin: 04/02/17 09:31 Dose: 1,000 unit Digoxin (Lanoxin -) 0.125 mg PO DAILY [facility] Last Admin: 04/02/17 09:28 Dose: 0.125 mg Diltiazem HCl (Cardizem Cd -) 120 mg PO DAILY [facility] Last Admin: 04/02/17 09:27 Dose: 120 mg Insulin Aspart (Novolog Vial Sliding Scale -) 1 vial SQ [facility] PRN Reason: Protocol Last Admin: 04/02/17 11:11 Dose: 2 units Insulin Detemir (Levemir Vial) 15 units SQ [facility] Last Admin: 04/01/17 23:35 Dose: 15 unit Lisinopril (Prinivil) 40 mg PO DAILY [facility] Last Admin: 04/02/17 09:28 Dose: 40 mg Metoprolol Tartrate (Lopressor -) 100 mg PO BID [facility] Last Admin: 04/02/17 09:28 Dose: 100 mg - Objective Vital Signs: Vital Signs Temperature 98.1 F 04/02/17 13:39 Pulse Rate 73 04/02/17 13:39 Respiratory Rate 20 04/02/17 13:39 Blood Pressure 105/65 04/02/17 13:39 O2 Sat by Pulse Oximetry (%) 98 04/02/17 09:25 Constitutional: Yes: No Distress, Calm Neck: Yes: Supple Cardiovascular: Yes: Pulse Irregular Respiratory: Yes: Regular, Diminished Gastrointestinal: Yes: Normal Bowel Sounds, Soft, Abdomen, Obese Edema: Yes Edema: LLE: 1+, RLE: 1+ Labs: CBC, BMP 04/02/17 06:00 04/01/17 06:00 INR, PTT INR 1.31 (0.82-1.09) H 03/30/17 22:40 Problem List - Problems (1) A-fib Code(s): I48.91 - UNSPECIFIED ATRIAL FIBRILLATION Qualifiers: Atrial fibrillation type: permanent Qualified Code(s): I48.2 - Chronic atrial fibrillation (2) Anemia Code(s): D64.9 - ANEMIA, UNSPECIFIED Qualifiers: Anemia type: unspecified type Qualified Code(s): D64.9 - Anemia, unspecified (3) Coronary artery disease Code(s): I25.10 - ATHSCL HEART DISEASE OF [place] CORONARY ARTERY W/O ANG PCTRS Qualifiers: Coronary Disease-Associated Artery/Lesion type: [place] artery [place] vs. transplanted heart: [place] heart Associated angina: without angina Qualified Code(s): I25.10 - Atherosclerotic heart disease of [place] coronary artery without angina pectoris (4) Groin abscess Code(s): L02.214 - CUTANEOUS ABSCESS OF GROIN (5) History of percutaneous coronary intervention Code(s): Z98.890 - OTHER SPECIFIED POSTPROCEDURAL STATES (6) Hypercholesterolemia Code(s): E78.00 - PURE HYPERCHOLESTEROLEMIA, UNSPECIFIED (7) Hyperlipidemia associated with type 2 diabetes mellitus Code(s): E11.69 - TYPE 2 DIABETES MELLITUS WITH OTHER SPECIFIED COMPLICATION E78.5 - HYPERLIPIDEMIA, UNSPECIFIED (8) Hypertension Code(s): I10 - ESSENTIAL (PRIMARY) HYPERTENSION Qualifiers: Hypertension type: essential hypertension Qualified Code(s): I10 - Essential (primary) hypertension (9) Status post coronary artery stent placement Code(s): Z95.5 - PRESENCE OF CORONARY ANGIOPLASTY IMPLANT AND GRAFT Assessment/Plan 1. Wound abscess post I&D now with post-op bleeding and anemia - stable post packing 2. Permanent atrial fibrillation 3. Hypertension 4. Hypercholesterolemia 5. Insulin requiring diabetes mellitus PLAN: 1. Transfuse PRBC, monitor Hgb and transfuse as needed 2. Surgery input appreciated 3. Continue Metoprolol 100 bid, Diltiazem CD 120 qd and Digoxin 0.125 qd 4. Continue Prinivil 40 qd 5. Continue Atorvastatin 40 qhs 6. Eliquis 5 bid has been resumed now that hemostasis is achieved.
[2017-04-02 20:04] LABS: BASOPHIL 1.3 % (0-2.0); EOSINOPHIL 5.1 % (0-4.5); MCH 28.2 pg (25.7-33.7); MCHC 33.2 g/dl (32.0-36.0); MEAN CELL VOLUME 84.9 fl (80-96); MEAN PLT VOLUME 7.8 fl (7.5-11.1); NEUTROPHILS 59.3 % (42.8-82.8); PLATELET COUNT 351 K/MM3 (134-434); RDW 17.5 % (11.6-15.6); WHITE BLOOD COUNT 7.2 K/mm3 (4.0-10.0)
[2017-04-02] MEDS ORDERED: INSULIN DETEMIR 100 UNITS/ML MDV SQ ONE (21:58)
[2017-04-02] MEDS: ATORVASTATIN CA 40 MG TABLET (FP) PO SCH (22:06)
[2017-04-02] MEDS: INSULIN DETEMIR 100 UNITS/ML MDV SQ SCH (22:06)
[2017-04-03] MEDS: INSULIN SLIDING SCALE (NOVOLOG) 1 VIAL SQ SCH ×2 (06:46→11:30)
[2017-04-03 07:43] LABS: BASOPHIL 1.6 % (0-2.0); EOSINOPHIL 6.8 % (0-4.5); MCHC 33.2 g/dl (32.0-36.0); MEAN CELL VOLUME 84.2 fl (80-96); MEAN PLT VOLUME 7.5 fl (7.5-11.1); NEUTROPHILS 50.4 % (42.8-82.8); PLATELET COUNT 301 K/MM3 (134-434); RDW 17.6 % (11.6-15.6)
[2017-04-03 08:28] LABS: ALBUMIN 2.5 g/dl (3.4-5.0); ALK PHOS 79 U/L (45-117); ANION GAP 8 (8-16); BILIRUBIN,TOTAL 0.5 mg/dL (0.2-1.0); CALCIUM 8.2 mg/dL (8.5-10.1); CO2 28 mmol/L (21-32); CREATININE 0.7 mg/dL (0.55-1.02); GLUCOSE,RANDOM 91 mg/dL (74-106); SGOT/AST 10 U/L (15-37); SGPT/ALT 13 U/L (12-78); TOT PROT 5.8 g/dl (6.4-8.2)
[2017-04-03 09:31] VITALS: BP 131/67; TEMP 98.5
[2017-04-03] MEDS ORDERED: PT OWN MED DRAWER 7, Y5N ONE (11:00)
[2017-04-03] MEDS: APIXABAN 5 MG TABLET PO SCH (11:23)
[2017-04-03] MEDS: LISINOPRIL 20 MG TABLET (FP) PO SCH (11:23)
[2017-04-03] MEDS: METOPROLOL TARTRATE 50 MG TABLET (FP) PO SCH (11:23)
[2017-04-03] MEDS: CHOLECALCIFEROL (VITAMIN D3) 1,000 UNIT TABLET (FP) PO SCH (11:24)
[2017-04-03] MEDS: DIGOXIN 0.125 MG TABLET (FP) PO SCH (11:24)
[2017-04-03 11:30] VITALS: PULSE 80
--- NOTE | 2017-04-03 11:35 | DS ---
Physical Exam: SUBJECTIVE: Patient seen and examined. States she feels better. Ambulating from her room to the solarium without any shortness of breath. OBJECTIVE: Hmg/Hct improved but needs repeat CBC as an outpatient. Informed both and who agree to follow up. Patient also agreed to see a grinder hand for her chronic anemia - referral made. Signs/symptoms to look out for reviewed with patient and . Vital Signs Period Temp Pulse Resp BP Sys/Mao Pulse Ox Last 24 Hr 98.1 F-98.9 F 72-85 20-20 105-149/65-89 99 PHYSICAL EXAM ENERAL: Awake, alert, and fully oriented, in no acute distress. HEAD: Normal with no signs of trauma. EYES: Pupils equal, round and reactive to light, extraocular movements intact, sclera anicteric, conjunctiva clear. No lid lag. EARS, NOSE, THROAT: Ears normal, nares patent, oropharynx clear without exudates. Moist mucous membranes. NECK: Normal range of motion, supple without lymphadenopathy, JVD, or masses. LUNGS: Breath sounds equal, clear to auscultation bilaterally. No wheezes, and no crackles. No accessory muscle use. HEART: Regular rate and rhythm, normal S1 and S2 without murmur, rub or gallop. ABDOMEN:+tenderness to RLQ, soft, not distended, normoactive bowel sounds, no guarding, no rebound, no masses. No hepatomegaly or splenomegaly. MUSCULOSKELETAL: Normal range of motion at all joints. No bony deformities or tenderness. No CVA tenderness. UPPER EXTREMITIES: 2+ pulses, warm, well-perfused. No cyanosis. No clubbing. No peripheral edema. LOWER EXTREMITIES: 2+ pulses, warm, well-perfused. No calf tenderness. NEUROLOGICAL: Cranial nerves II-XII intact. Normal speech. Gait not observed. PSYCHIATRIC: Cooperative. Good eye contact. Appropriate mood and affect. SKIN: Right groin abdominal abscess wound with dressing that remains intact, no further bleeding LABS Laboratory Results - last 24 hr 04/02/17 04/02/17 04/02/17 06:00 11:09 17:15 WBC 5.3 RBC 2.71 L Hgb 7.4 L Hct 23.0 L MCV 84.7 MCHC 32.2 RDW 17.8 H Plt Count 307 MPV 7.6 Neutrophils % 48.8 Lymphocytes % 33.2 Monocytes % 10.3 H Eosinophils % 6.2 H Basophils % 1.5 Sodium Potassium Chloride Carbon Dioxide Anion Gap BUN Creatinine Creat Clearance w eGFR POC Glucometer 156 140 Random Glucose Calcium Total Bilirubin AST ALT Alkaline Phosphatase Total Protein Albumin 04/02/17 04/02/17 04/03/17 19:00 22:05 06:15 WBC 7.2 D RBC 3.15 L Hgb 8.9 L D Hct 26.8 L D MCV 84.9 MCHC 33.2 RDW 17.5 H Plt Count 351 MPV 7.8 Neutrophils % 59.3 D Lymphocytes % 25.9 D Monocytes % 8.4 Eosinophils % 5.1 H Basophils % 1.3 Sodium Potassium Chloride Carbon Dioxide Anion Gap BUN Creatinine Creat Clearance w eGFR POC Glucometer 213 104 Random Glucose Calcium Total Bilirubin AST ALT Alkaline Phosphatase Total Protein Albumin 04/03/17 04/03/17 06:20 06:20 WBC 5.0 D RBC 2.92 L Hgb 8.2 L Hct 24.6 L MCV 84.2 MCHC 33.2 RDW 17.6 H Plt Count 301 MPV 7.5 Neutrophils % 50.4 Lymphocytes % 31.1 D Monocytes % 10.1 Eosinophils % 6.8 H Basophils % 1.6 Sodium 142 Potassium 4.3 Chloride 106 Carbon Dioxide 28 Anion Gap 8 BUN 12 D Creatinine 0.7 Creat Clearance w eGFR > 60 POC Glucometer Random Glucose 91 D Calcium 8.2 L Total Bilirubin 0.5 AST 10 L D ALT 13 D Alkaline Phosphatase 79 Total Protein 5.8 L Albumin 2.5 L HOSPITAL COURSE: Date of Admission:03/30/17 Date of Discharge: 04/03/17 Patient is a 56 year old female with a significant past medical history of atrial fib (on eliquis), hypertension, hyperlipidemia, diabetes mellitus and anemia. She presented to the Ed On 03/30/2017 with profuse bleeding at home from her right groin abdominal wound. Patient was recently here between to 03/23/2017 for AMS and was found to be in septic shock. During her last admission, she had an I&D drainage of her right groin abscess. She stated that she had a follow up with Dr. Silva's (general surgeon) office on 03/30/17 for removal of the packing from the I&D. She returns to the ER for severe persistent bleeding from this surgical wound. Integumentary: Abdominal Right Groin Abscess with acute bleeding - resolved Assessment/Plan: Right groin abscess wound packed with surgicel with sterile dressings As per surgical care team, daily neosporin with dressing changes Patient to follow up with Dr. Silva on discharge s/p 3 units of prbc during hospitalizaion. hmg/hmt stable. WBC within normal limits, afebrile Patient to follow up with PCP, for repeat blood work Hematology: Anemia - chronic Assessment/Plan: Monitor H/H as outpatient with PCP baseline hm Will need outpatient hematology workup for chronic anemia Cardiology: Atrial Fibrillation - controlled Assessment/Plan: On Loporessor, Cardizem and digoxin On Eliquis Disposition: On discharge will need hematology consult and epeat CBC with her PCP. Full code. Minutes to complete discharge: 45 Discharge Summary Reason For Visit: ABSCESS OF LOWER EXTREMITY Current Active Problems A-fib (Acute) Anemia (Acute) Bilateral knee pain (Acute) Coagulopathy (Acute) Contusion of left knee (Acute) Coronary artery disease (Acute) DVT prophylaxis (Acute) Demand ischemia (Acute) Groin abscess (Acute) Hidradenitis suppurativa (Acute) History of percutaneous coronary intervention (Acute) Hypercholesterolemia (Acute) Hyperlipidemia associated with type 2 diabetes mellitus (Acute) Hypertension (Acute) Labial swelling (Acute) Left genital labial abscess (Acute) Old myocardial infarction (Acute) Persistent atrial fibrillation with rapid ventricular response (Acute) Post-op bleeding (Acute) Status post coronary artery stent placement (Acute) Wound check, abscess (Acute) Condition: Stable - Instructions Diet, Activity, Other Instructions: Mrs. Garcia: Please see your primary care physician within one week for repeat blood work. You have received a total of 3 units of blood while being hospitalized. Your Hmg/Hct is improved, but since you have chronic anemia, I have also referred you to a grinder hand. Please make an appointment to see Dr. Silva for the right groin wound as a follow up. Wound care instructions: Apply Bacitracin oitment applied to right groin wound twice per day and secure with sterile dressing If wound begins to bleed, please return to the ER for further evaluation Please call me with any questions. Christiana Boyd ACUTE CARE PHYSICIAN [phone] Referrals: Marlyn Duenas MD [Staff Physician] - Jose Kuo MD [Primary Care Provider] - Octaviano Silva MD [Staff Physician] - Disposition: HOME - Home Medications Comprehensive Discharge Medication List: Ambulatory Orders Apixaban [Eliquis -] 5 mg PO BID 11/13/16 Atorvastatin Ca [Lipitor] 40 mg PO HS 11/13/16 Cholecalciferol (Vitamin D3) [Vitamin D3 -] 1,000 unit PO DAILY 11/13/16 Cyanocobalamin (Vitamin B-12) [Vitamin B-12] 1,000 mcg PO DAILY 11/13/16 Digoxin [Lanoxin -] 0.125 mg PO DAILY 11/13/16 Lisinopril [Prinivil -] 40 mg PO DAILY 11/13/16 Metoprolol Tartrate [Lopressor] 100 mg PO BID 11/13/16 Insulin Sliding Scale [Novolog Vial Sliding Scale -] 1 vial SQ ACHS #100 units 11/16/16 Diltiazem Cd [Cardizem Cd -] 120 mg PO DAILY 03/15/17 Metformin HCl 500 mg PO BID 03/15/17 Ceftriaxone [Rocephin -] 2 gm IV DAILY #7 vial 03/23/17 Insulin (Levemir) [Levemir Vial] 15 unit SQ HS #1 vial 03/23/17 Miscellaneous Medical Supply [Outpatient Order] 1 each ASDIR #1 misc Plavix 75 mg PO DAILY 03/26/17 This patient is new to me today: No Emergency Visit: Yes ED Registration Date: 03/30/17 Care time: The patient presented to the Emergency Department on the above date and was hospitalized for further evaluation of their emergent condition. Critical Care patient: No - Discharge Referral Referred to [facility] No
[2017-04-03] MEDS ORDERED: NYSTATIN POWDER 100,000 UNITS/GM - 15 GM TOPICAL POWDER TP SCH (13:45)
== END 2017-04-03 15:10 | disposition home or self-care (01) | DRG 920 ==
LOC: JER 21:14 → JERBED 23:43 → J7W 03-31 16:20
PROVIDERS: ADMIT Internal Medicine; ATTEND Nurse Practitioner Family
PROC: 30233N1 Transfusion of Nonautologous Red Blood Cells into Peripheral Vein, Percutaneous Approach (ICD-10-PCS; principal; 2017-03-30)
DX: T81.89XA Other complications of procedures, not elsewhere classified, initial encounter (principal); D68.9 Coagulation defect, unspecified; L02.214 Cutaneous abscess of groin; E78.5 Hyperlipidemia, unspecified; E11.9 Type 2 diabetes mellitus without complications; I48.91 Unspecified atrial fibrillation; I25.2 Old myocardial infarction; I10 Essential (primary) hypertension; I25.10 Atherosclerotic heart disease of native coronary artery without angina pectoris; I48.2 Chronic atrial fibrillation; M19.90 Unspecified osteoarthritis, unspecified site; L76.22 Postprocedural hemorrhage of skin and subcutaneous tissue following other procedure; Y83.8 Other surgical procedures as the cause of abnormal reaction of the patient, or of later complication, without mention of misadventure at the time of the procedure; Z95.5 Presence of coronary angioplasty implant and graft; Z79.4 Long term (current) use of insulin
CPT/HCPCS: 36415; 36430; 71010-TC; 80048; 80053; 80162; 82550; 84484; 85025; 85027; 85610; 85730; 86850; 86900; 86901; 86922; 93005; 93010; 99284-25; P9038; P9058

== ENCOUNTER 2020-06-05 17:05 | Inpatient (IN) | payer OTHER ==
[2020-06-05] MEDS ORDERED: SODIUM CHLORIDE 1,000 ML IV STA (17:44)
--- NOTE | 2020-06-05 17:53 | PDOC ---
History of Present Illness - General Chief Complaint: Blood Sugar Problem Stated Complaint: DIABETIC Time Seen by Provider: 06/05/20 17:24 - History of Present Illness Initial Comments: 06/05/20 17:48 59 yo female with PMH IDDM, Afib on Eliquis and plavix, HTN, HLD presents to the ED for generalized weakness for one week. Pt explains that she has had similar sxs in the past where she was admitted at [facility] in January for "high sugar". Pt explains she is having some chills for 3 days and diarrhea that started today. Pt explains weakness has been getting worse so decided to come in. Pt is compliant with her insulin medication where she takes 4 units of humalog in the morning and 6 units of humalog at night. She denies Cough, headache, SOB, blurry vision, abdominal pain, dysuria, urinary frequency, nausea, or vomitting. Pt came in later explaining that his ate cheesecake earlier in the day, did not take her diabetes medication, and the entire day was feeling weak and has been altered from her baseline. Later in the day her legs were weak and she fell and that is why called ems. He denies that she hit her head or lost consciousness, but she does actively take blood thinners for afib. Four days prior she had two episodes of NBNB emesis but afterwards was fine till today. PMH: Afib on eliquis htn hld IDDM Basilar Cell carcinoma Meds: Lipitor, cardizem, eliquis 5mg BID, Metroprolol, novolog, levemir, metformin, ploavix 75mg, vitamin B12, Vitamin D3 PSH: knee surgery Allergies: Penicillin (hives) Social: Denies smoking, drugs, and alcohol PCP: Dr. Dai Past History - Medical History Allergies/Adverse Reactions: Allergies Allergy/AdvReac Type Severity Reaction Status Date / Time Penicillins Allergy Verified 06/05/20 20:46 Home Medications: Ambulatory Orders Apixaban [Eliquis -] 5 mg PO BID 11/13/16 Atorvastatin Ca [Lipitor] 20 mg PO HS 11/13/16 Metoprolol Tartrate [Lopressor] 100 mg PO BID 11/13/16 Diltiazem Cd [Cardizem Cd -] 240 mg PO DAILY 03/15/17 metFORMIN HCL [Metformin HCl] 500 mg PO BID 03/15/17 Insulin (Levemir) [Levemir Vial] 15 unit SQ HS #1 vial 03/23/17 Plavix 75 mg PO DAILY 03/26/17 Cholecalciferol (Vitamin D3) [Vitamin D3] 2,000 unit PO DAILY 06/06/20 Cyanocobalamin (Vitamin B-12) [Vitamin B-12] 100 mcg PO DAILY 06/06/20 Insulin Sliding Scale [Novolog Vial Sliding Scale -] 2 - 4 unit SQ ACHS 06/06/20 Irbesartan [Avapro (Nf) -] 75 mg PO DAILY 06/06/20 Anemia: No Asthma: No Cancer: No Cardiac Disorders: Yes (cardiac stents x 2, atrial fib) CVA: No COPD: No CHF: No Dementia: No Diabetes: Yes GI Disorders: No Disorders: No HTN: Yes Hypercholesterolemia: Yes Liver Disease: No Seizures: No Thyroid Disease: No - Surgical History Abdominal Surgery: No Appendectomy: No Cardiac Surgery: Yes (stents x 2) Cholecystectomy: No Lung Surgery: No Neurologic Surgery: No Orthopedic Surgery: Yes (right knee replacement) - Psycho-Social/Smoking History Smoking History: Unknown if ever smoked Have you smoked in the past 12 months: No - Substance Abuse Hx (Audit-C & DAST Scrn) How often the patient has a drink containing alcohol: Never Score: In Men: 4 or > Positive; In Women: 3 or > Positive: 0 Screen Result (Pos requires Nsg. Audit-10AR): Negative In the last yr the pt used illegal drug/Rx for NonMed reason: No Score: Yes response is considered Positive: 0 Screen Result (Positive result requires Nsg. DAST-10): Negative Review of Systems - Review of Systems Comments:: 06/05/20 17:53 GENERAL/CONSTITUTIONAL: Chills and Weakness HEAD, EYES, EARS, NOSE AND THROAT: No change in vision. No ear pain or disc harge. No sore throat. CARDIOVASCULAR: No chest pain or shortness of breath RESPIRATORY: No cough, wheezing, or hemoptysis. GASTROINTESTINAL: Diarrhea. No nausea and vomitting GENITOURINARY: No dysuria, frequency, or change in urination. MUSCULOSKELETAL: No joint or muscle swelling or pain. No neck or back pain. SKIN: No rash NEUROLOGIC: No headache, vertigo, loss of consciousness ENDOCRINE: No increased thirst. No abnormal weight change ALLERGIC/IMMUNOLOGIC: No hives or skin allergy. *Physical Exam - Vital Signs Last Vital Signs Temp Pulse Resp BP Pulse Ox 100.0 F H 86 18 121/68 95 06/05/20 17:24 06/05/20 17:24 06/05/20 17:24 06/05/20 17:24 06/05/20 17:24 - Physical Exam 06/05/20 17:54 GENERAL: Awake, alert, and fully oriented, in moderate distress HEAD: Circular abrasion from prior MOHs surgery EYES: PERRLA, EOMI, sclera anicteric, conjunctiva clear ENT: Auricles normal inspection, hearing grossly normal, nares patent, oropharynx clear without exudates. NECK: Normal ROM, supple, no lymphadenopathy, JVD, or masses LUNGS: Rales heard on left side CTA on right side HEART: Regular rate and rhythm, normal S1 and S2, no murmurs, rubs or gallops, peripheral pulses normal and equal bilaterally. ABDOMEN: Soft, nontender, normoactive bowel sounds. No guarding, no rebound. No masses EXTREMITIES : Normal inspection, Normal range of motion. Bilateral edema on lower ext to knees NEUROLOGICAL: Cranial nerves II through XII grossly intact. Normal speech, no focal sensorimotor deficits SKIN: Warm, Dry, normal turgor, 10 cm by 6 cm growth on left labia Heart Score/ECG Review - ECG Impressions Comment:: 06/05/20 18:55 Atrial fibrilation Normal intervals except no GA Q waves inverted in II III AVF V1-v6 no ST changes ED Treatment Course - LABORATORY CBC & Chemistry Diagram: 06/06/20 06:00 06/06/20 09:45 Medical Decision Making - Medical Decision Making 06/05/20 17:56 59 yo female with IDDM, Afib on eliquis, HTN, HlD presents to ED with generalized weakness for one week. Will rule out DKA and sepsis. Will get: - CBC -CMP (repeat every 2 hours) -FBS (repeat every one hour) - beta hydroxybuturate -LDH - Blood cultures -UA and UC - VBG -CXR - coags - EKG - cardiac enzymes will start litre of normal saline and admit. 06/05/20 19:28 - Pt WBC was elevated started on Cefepime and Vanco (penecillin allergy). Pt also has high blood sugar so ordered another dose of normal saline. Will get another BMP in one hour (830). With husbands new history will also get CT head. 06/05/20 20:31 Ct scan was negative for bleed. 06/05/20 20:50 Reassesed pt done with 2 L ordered 10 units of Regular Insulin. Called Dr. Dai will get back to me. 06/05/20 20:59 Found 10cm by 6cm left labail growth. Pt explains she is following with [facility] in [place] for it and it is not a cancer. 06/05/20 21:35 Dr. Dai called back was made aware of pt and explained to admit to her and consult ICU. 06/05/20 22:01 ICU expressed they received microblog. 06/05/20 22:02 Signed out pt to night team. Discharge - Discharge Information Problems reviewed: Yes Clinical Impression/Diagnosis: Hyperglycemia, DKA (diabetic ketoacidoses) Condition: Guarded - Admission Yes - Follow up/Referral - Patient Discharge Instructions - Post Discharge Activity
--- NOTE | 2020-06-05 18:00 | PDOC ---
Documentation entered by Joycelyn Duncan SCRIBE, acting as scribe for Rashmi Weber MD. Rashmi Weber MD: This documentation has been prepared by the Juan Pablo fernandez Xhesika, SCRIBE, under my direction and personally reviewed by me in its entirety. I confirm that the documentation accurately reflects all work, treatment, procedures, and medical decision making performed by me. Attending Attestation - Resident Resident Name: YoungRob - ED Attending Attestation I have performed the following: I have examined & evaluated the patient, The case was reviewed & discussed with the resident, I agree w/resident's findings & plan, Exceptions are as noted - HPI HPI: 06/05/20 17:25 The patient is a 59 year old female with significant past medical history of a- fib on eliquis, CAD s/p stents x2, hypertension, hyperlipidemia, and diabetes who presents to the ED for BGM >500. Pt states she did not do a finger stick today. Pt report she felt weak, dizzy and fell. Pt denies any head trauma or LOC. The patient denies chest pain, shortness of breath, headache and dizziness. Denies fever, chills, cough, nausea, vomiting, diarrhea and constipation. Denies dysuria, frequency, urgency and hematuria. Allergies: penicillin Social History: No alcohol, tobacco, or drug use reported. Past Surgical History: s/p cardiac stents x2 (2014), TKR bilateral knees (right 1.5 years ago, left 1 month ago) PCP: Dr. Remington Ma - Physicial Exam PE: 06/05/20 17:33 GENERAL: wnwd 59 yo female BIBA after becoming weak and dizzy and falling,+febrile HEAD: No signs of trauma. +crown of head 6 by 6 circular defect from basal cell carcinoma with skin graft from L thigh EYES: + keeps her eyes closed NECK: Normal ROM, supple, no lymphadenopathy, JVD, or masses HEART: irregular irregular rhythm , s1s2 ABDOMEN: Soft, nontender, normoactive bowel sounds. No guarding, no rebound. No masses PELVIC: extensive lesion on left labia , 10cm x 6cm erythematous EXTREMITIES:+well healed scar over L knee. Normal range of motion, no edema. old skin graft site on left thigh No erythema, or tenderness NEUROLOGICAL: Cranial nerves II through XII gr SKIN: Warm, Dry, normal turgor 06/05/20 17:50 06/05/20 19:28 06/05/20 20:56 - Medical Decision Making 06/05/20 20:08 ct scan head No acute intracranial pathology ekg afib @ 79 bpm negative troponin pt received vanco and cefipime labs reviewed cbc reveals leukocytosis Chemistries revealed pjl=316, anion gap= 14,Jg=677, k=4.6 and bun=55, cr=2.1 pH=7.3 imp DKA on insulin gtt /ICU admission , accepted by Dr Dai 06/05/20 20:11 06/05/20 22:57 06/06/20 00:12 Discharge - Discharge Information Problems reviewed: Yes Clinical Impression/Diagnosis: Hyperglycemia, DKA (diabetic ketoacidoses) Condition: Guarded - Follow up/Referral - Patient Discharge Instructions - Post Discharge Activity
[2020-06-05] MEDS ORDERED: ACETAMINOPHEN 1000 MG/100 ML VIAL (NON FORMULARY) IVPB ONE (18:11)
[2020-06-05] MEDS ORDERED: ACETAMINOPHEN INJECTION 100 ML IVPB ONE (18:24)
[2020-06-05 18:42] LABS: BASO % 0.3 % (0-2.0); EOS % 0.5 % (0-4.5); HEMATOCRIT 35.4 % (32.4-45.2); HEMOGLOBIN 11.7 GM/dL (10.7-15.3); LYMPH % 0.5 % (8-40); MCH 28.2 pg (25.7-33.7); MEAN CELL VOLUME 85.4 fl (80-96); MEAN PLT VOLUME 8.5 fl (7.5-11.1); MONO % 0.9 % (3.8-10.2); NEUT % 97.8 % (42.8-82.8); PLATELET COUNT 443 K/MM3 (134-434); RBC 4.14 M/mm3 (3.60-5.2); RDW 14.3 % (11.6-15.6); WHITE BLOOD COUNT 27.7 K/mm3 (4.0-10.0)
[2020-06-05 18:43] LABS: VENOUS O2 SATURATION 34.4 % (70-80); VENOUS PCO2 42.2 mmHg (38-52); VENOUS PH 7.297 (7.310-7.410)
[2020-06-05 18:44] LABS: EPI CELLS 24 /uL (0-25.1); HYALINE CASTS 2 /uL (0-3.1); URINE APPEARANCE CLEAR; URINE BACTERIA 15 /uL (0-1359); URINE BILIRUBIN NEGATIVE (NEGATIVE); URINE COLOR YELLOW; URINE GLUCOSE (UA) 3+ (NEGATIVE); URINE KETONE NEGATIVE (NEGATIVE); URINE LEUK ESTERASE NEGATIVE (NEGATIVE); URINE NITRITE NEGATIVE (NEGATIVE); URINE PROTEIN 2+ (NEGATIVE); URINE RBC 6 /uL (0-23.9); URINE UROBILINOGEN 0.2 mg/dL (0.2-1.0); URINE WBC 32 /uL (0-25.8)
[2020-06-05 19:00] LABS: INR 1.63 (0.83-1.09); PROTHROMBIN TIME (PATIENT) 19.3 SEC (9.7-13.0)
[2020-06-05 19:07] LABS: ALBUMIN 2.8 g/dl (3.4-5.0); ALK PHOS 109 U/L (45-117); ANION GAP 14 MMOL/L (8-16); BILIRUBIN,TOTAL 0.4 mg/dL (0.2-1); CALCIUM 8.3 mg/dL (8.5-10.1); CHLORIDE 87 mmol/L (98-107); CO2 21 mmol/L (21-32); CREATININE 2.1 mg/dL (0.55-1.3); POTASSIUM 4.6 mmol/L (3.5-5.1); SGOT/AST 12 U/L (15-37); SGPT/ALT 18 U/L (13-61); SODIUM 122 mmol/L (136-145); TOT PROT 6.9 g/dl (6.4-8.2)
[2020-06-05] MEDS ORDERED: CEFEPIME HCL/D5W 2 GM/50 ML BAG IVPB ONE (19:16)
[2020-06-05 19:17] LABS: GLUCOSE,RANDOM 704 mg/dL (74-106)
[2020-06-05] MEDS ORDERED: VANCOMYCIN 1 GM in D5W (PRE-DOCKED) 1,000 MG/250 ML IVPB ONE (19:17)
[2020-06-05] MEDS ORDERED: SODIUM CHLORIDE 0.9% 500 ML INFUS.BAG IV ONE (19:19)
[2020-06-05] MEDS ORDERED: VANCOMYCIN 1 GRAM (PRE-DOCKED) 1,000 MG/250 ML BAG IVPB ONE (19:26)
[2020-06-05] MEDS ORDERED: INSULIN REGULAR HUMAN 100 UNITS/ML *VIAL IVPUSH ONE (20:41)
[2020-06-05] MEDS ORDERED: INSULIN REGULAR HUMAN 100 UNITS/ML *VIAL ONE (20:54)
[2020-06-05] MEDS ORDERED: INSULIN REGULAR 100 UNITS in SODIUM CHLORIDE 99 ML IVPB SCH (22:30)
[2020-06-05 22:48] LABS: BLOOD UREA NITROGEN 50.4 mg/dL (7-18); CALCIUM 7.2 mg/dL (8.5-10.1); CREATININE 1.9 mg/dL (0.55-1.3); POTASSIUM 4.2 mmol/L (3.5-5.1)
--- NOTE | 2020-06-05 23:22 | CONSULT ---
Consultation: REQUESTING PROVIDER: CONSULT REQUEST: We have been asked to medically evaluate this patient for DKA. HISTORY OF PRESENT ILLNESS: 59 year old woman with PMH IDDM, HTN, HLD, Afib (On Eliquis and Plavix), presented to ED with weakness for 1 week. Pt stated that this has had happened to her before, where she was hospitalized for elevated sugar. Pt stated that her symptoms worsened today after she had a cheesecake and did not take her diabetes medication. Her weakness exacerbated today and noticed altered mental status. She subsequently fell without trauma to the head nor loss of consciousness and thus was brought to the ED. Pt stated that she is usually compliant with her insulin regimen ( humalog 4U in the morning and 6U at night), but missed her diabetes medication earlier today. Pt stated that she was increased thirst and urination prior to coming to the hospital. Currently, pt denies any chest pain, shortness of breath, fevers, chills, polyuria, polydipsia, nausea, vomiting, or diarrhea. ED course: received 10U insulin, 2L IVF and placed on insulin drip. Received cefepime and vancomycin. REVIEW OF SYSTEMS: As per HPI. PHYSICAL EXAMINATION Last Vital Signs Temp Pulse Resp BP Pulse Ox 100.1 F H 86 22 H 102/80 96 06/05/20 21:07 06/05/20 21:07 06/05/20 21:07 06/05/20 21:07 06/05/20 21:07 GENERAL: Alert and oriented x3. Not in acute distress. HEENT: NCAT, EOMI. LUNGS: Clear to auscultation bilaterally. No wheezes. HEART: Regular rate and rhythm, normal S1 and S2 without murmur ABDOMEN: Soft, nontender, not distended, bowel sounds present in all 4 quadrants. EXTREMITIES: No edema. : erythematous L labial mass, white lesion above urethral opening SKIN: Warm, dry NEURO: sensation intact, strength 5/5 b/l in lower and upper extremities. Laboratory Last Values WBC 27.7 K/mm3 (4.0-10.0) H 06/05/20 18:09 RBC 4.14 M/mm3 (3.60-5.2) 06/05/20 18:09 Hgb 11.7 GM/dL (10.7-15.3) 06/05/20 18:09 Hct 35.4 % (32.4-45.2) D 06/05/20 18:09 MCV 85.4 fl (80-96) 06/05/20 18:09 MCH 28.2 pg (25.7-33.7) 06/05/20 18:09 MCHC 33.0 g/dl (32.0-36.0) 06/05/20 18:09 RDW 14.3 % (11.6-15.6) D 06/05/20 18:09 Plt Count 443 K/MM3 (134-434) H D 06/05/20 18:09 MPV 8.5 fl (7.5-11.1) D 06/05/20 18:09 Absolute Neuts (auto) 27.1 K/mm3 (1.5-8.0) H 06/05/20 18:09 Neutrophils % 97.8 % (42.8-82.8) H D 06/05/20 18:09 Neutrophils % (Manual) 96.0 % (42.8-82.8) H 06/05/20 18:09 Band Neutrophils % 0.0 % 06/05/20 18:09 Lymphocytes % 0.5 % (8-40) L 06/05/20 18:09 Lymphocytes % (Manual) 1.0 % (8-40) L 06/05/20 18:09 Monocytes % 0.9 % (3.8-10.2) L D 06/05/20 18:09 Monocytes % (Manual) 0 % (3.8-10.2) L 06/05/20 18:09 Eosinophils % 0.5 % (0-4.5) D 06/05/20 18:09 Eosinophils % (Manual) 3.0 % (0-4.5) 06/05/20 18:09 Basophils % 0.3 % (0-2.0) 06/05/20 18:09 Basophils % (Manual) 0.0 % (0-2.0) 06/05/20 18:09 Myelocytes % (Man) 0 % (0-2) 06/05/20 18:09 Promyelocytes % (Man) 0 % (0-2) 06/05/20 18:09 Blast Cells % (Manual) 0 % (0-0) 06/05/20 18:09 Nucleated RBC % 0 % (0-0) 06/05/20 18:09 Metamyelocytes 0 % (0-2) 06/05/20 18:09 PT with INR 19.30 SEC (9.7-13.0) H 06/05/20 18:09 INR 1.63 (0.83-1.09) H 06/05/20 18:09 PTT (Actin FS) 30.0 SECONDS (25.2-36.5) 06/05/20 18:09 VBG pH 7.297 (7.310-7.410) L 06/05/20 18:09 POC VBG pCO2 42.2 mmHg (38-52) 06/05/20 18:09 POC VBG pO2 22.9 mmHg (28-48) L 06/05/20 18:09 VBG HCO3 20.2 mmol/L (23-29) L 06/05/20 18:09 VBG O2 Sat (Delia) 34.4 % (70-80) L 06/05/20 18:09 VBG Base Excess -6.0 mmol/L (-2-2) L 06/05/20 18:09 Sodium 122 mmol/L (136-145) L 06/05/20 21:35 Potassium 4.2 mmol/L (3.5-5.1) 06/05/20 21:35 Chloride 92 mmol/L (98-107) L 06/05/20 21:35 Carbon Dioxide 18 mmol/L (21-32) L 06/05/20 21:35 Anion Gap 12 MMOL/L (8-16) 06/05/20 21:35 BUN 50.4 mg/dL (7-18) H 06/05/20 21:35 Creatinine 1.9 mg/dL (0.55-1.3) H 06/05/20 21:35 Est GFR (CKD-EPI)AfAm 33.10 06/05/20 21:35 Est GFR (CKD-EPI)NonAf 28.56 06/05/20 21:35 POC Glucometer > 600 UNITS (80-120) 06/05/20 21:28 Random Glucose 567 mg/dL (74-106) H* 06/05/20 21:35 Lactic Acid 1.8 mmol/L (0.4-2.0) 06/05/20 18:09 Calcium 7.2 mg/dL (8.5-10.1) L 06/05/20 21:35 Total Bilirubin 0.4 mg/dL (0.2-1) 06/05/20 18:09 AST 12 U/L (15-37) L 06/05/20 18:09 ALT 18 U/L (13-61) 06/05/20 18:09 Alkaline Phosphatase 109 U/L (45-117) 06/05/20 18:09 Creatine Kinase 48 U/L (26-192) 06/05/20 18:09 Troponin I < 0.02 ng/ml (0.00-0.05) 06/05/20 18:09 Total Protein 6.9 g/dl (6.4-8.2) 06/05/20 18:09 Albumin 2.8 g/dl (3.4-5.0) L 06/05/20 18:09 Beta-Hydroxybutyrate 6.1 mg/dL (0.2-2.8) H 06/05/20 18:09 Urine Color Yellow 06/05/20 18:09 Urine Appearance Clear 06/05/20 18:09 Urine pH 5.0 (5.0-8.0) 06/05/20 18:09 Ur Specific [place] 1.018 (1.010-1.035) 06/05/20 18:09 Urine Protein 2+ (NEGATIVE) H 06/05/20 18:09 Urine Glucose (UA) 3+ (NEGATIVE) H 06/05/20 18:09 Urine Ketones Negative (NEGATIVE) 06/05/20 18:09 Urine Blood Trace (NEGATIVE) 06/05/20 18:09 Urine Nitrite Negative (NEGATIVE) 06/05/20 18:09 Urine Bilirubin Negative (NEGATIVE) 06/05/20 18:09 Urine Urobilinogen 0.2 mg/dL (0.2-1.0) 06/05/20 18:09 Ur Leukocyte Esterase Negative (NEGATIVE) 06/05/20 18:09 Urine WBC (Auto) 32 /uL (0-25.8) 06/05/20 18:09 Urine RBC (Auto) 6 /uL (0-23.9) 06/05/20 18:09 Urine Casts (Auto) 2 /uL (0-3.1) 06/05/20 18:09 U Epithel Cells (Auto) 24 /uL (0-25.1) 06/05/20 18:09 U Sm Round Cell (Auto) None 06/05/20 18:09 Urine Bacteria (Auto) 15 /uL (0-1359) 06/05/20 18:09 Active Medications Insulin Human Regular 100 (units/ Sodium Chloride) 100 mls @ 8 mls/hr IVPB TITR SILVA; Protocol Last Admin: 06/05/20 23:37 Dose: 8 units/hr, 8 mls/hr Documented by: ASSESSMENT/PLAN: This is a 59 year old female with PMH IDDM, HTN, HLD, Afib (On Eliquis and Plavix), presented to ED with weakness for 1 week. Symptoms exacerbated after eating cheesecake and noncompliance with her diabetes medication for today. Given the pt's history (eating cheesecake, not taking diabetes medication, altered mental status, polyuria, polydipsia), labs (WBC 27.7, vBG pH 7.297, random glucose 704, beta-hydroxybutyrate 6.1), head CT without acute pathology, pt likely has DKA. In the ED, pt received 10U regular insulin and is currently on an insulin drip. Admit to ICU for insulin drip and frequent Na+/glucose monitoring. #Neuro AMS, likely due to sepsis vs hyperglycemia -Alert and oriented -CT head- no acute pathology -neuro checks #Cardio HTN Afib HLD -Resume home metoprolol, diltiazem, atorvastatin, Eliquis, Plavix -irbesartan held in setting of CIARAN #Pulm -supplemental O2 to maintain Spo2 >92% -Check ABG #GI -No acute issues #Renal CIARAN vs CKD--in the setting of osmotic diuresis Hyponatremia--Na+ 132 when corrected for hyperglycemia Proteinuria -kidney renal US -monitor I/O's for urine output 0.5ml/kg/hr -continue IVF -consult nephrology -Follow Cr -Check urine osm, serum osm, urine lytes, TSH -Give NS bolus #Endo Hyperglycemia--?DKA vs. HHS IDDM -received 10U regular insulin, 2 L IVF -continue insulin drip until gap closes and blood glucose maintained 140-180 -hold home dose metformin, levemir, novolog -check HbA1c, serum osm, BGM -K+ 4.2, replete as needed. 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 -follow cultures #MSK Frequent falls in the setting of AMS -Check b12, folate, TSH -PT eval -fall precautions #FEN -Check electrolytes and replete as needed -NPO -Give NS @ 75 #Ppx -DVT: eliquis -GI: PPI Dispo: We will continue to follow the patient. Thank you for this consultative opportunity. Visit type - Emergency Visit Emergency Visit: Yes ED Registration Date: 06/05/20 Care time: The patient presented to the Emergency Department on the above date and was hospitalized for further evaluation of their emergent condition. - New Patient This patient is new to me today: Yes Date on this admission: 06/05/20 - Critical Care Critical Care patient: Yes Total Critical Care Time (in minutes): 38 Critical Care Statement: The care of this patient involved high complexity decision making to prevent further life threatening deterioration of the patient's condition and/or to evaluate & treat vital organ system(s) failure or risk of failure. ATTENDING PHYSICIAN STATEMENT I saw and evaluated the patient. I reviewed the resident's note and discussed the case with the resident. I agree with the resident's findings and plan as documented. SUBJECTIVE: OBJECTIVE: ASSESSMENT AND PLAN:
[2020-06-06] MEDS ORDERED: SODIUM CHLORIDE 1,000 ML IV SCH ×2 (01:00→01:45)
[2020-06-06] MEDS ORDERED: VANCOMYCIN 1 GM PREMIX - 1 GM/200 ML BAG IVPB SCH (01:00)
[2020-06-06 03:00] VITALS: BMI 37.9
[2020-06-06] MEDS: APIXABAN 5 MG TABLET PO SCH ×3 (03:00→21:48)
[2020-06-06] MEDS ORDERED: ACETAMINOPHEN 1000 MG/100 ML VIAL (NON FORMULARY) IVPB PRN (03:29)
[2020-06-06 03:45] LABS: BLOOD UREA NITROGEN 48.1 mg/dL (7-18); CALCIUM 7.8 mg/dL (8.5-10.1); CREATININE 1.9 mg/dL (0.55-1.3); MAGNESIUM 2.3 mg/dL (1.8-2.4); POTASSIUM 4.4 mmol/L (3.5-5.1)
[2020-06-06 04:39] LABS: EPI CELLS 33 /uL (0-25.1); HYALINE CASTS 8 /uL (0-3.1); URINE APPEARANCE CLEAR; URINE BACTERIA 3 /uL (0-1359); URINE BILIRUBIN NEGATIVE (NEGATIVE); URINE COLOR YELLOW; URINE GLUCOSE (UA) 3+ (NEGATIVE); URINE KETONE NEGATIVE (NEGATIVE); URINE LEUK ESTERASE NEGATIVE (NEGATIVE); URINE NITRITE NEGATIVE (NEGATIVE); URINE PROTEIN 2+ (NEGATIVE); URINE RBC 16 /uL (0-23.9); URINE UROBILINOGEN 0.2 mg/dL (0.2-1.0)
[2020-06-06 04:42] LABS: BLOOD UREA NITROGEN 47.9 mg/dL (7-18); CALCIUM 7.2 mg/dL (8.5-10.1); CREATININE 1.9 mg/dL (0.55-1.3)
[2020-06-06 04:47] LABS: METHADONE, UR NEGATIVE ng/ml (CUTOFF=300); OPIATES, URI NEGATIVE ng/ml (CUTOFF=300); PHENCYCLIDINE,URINE NEGATIVE ng/ml (CUTOFF=25); URINE BARBITURATES NEGATIVE ng/ml (CUTOFF=200); URINE BENZODIAZEPINES NEGATIVE ng/ml (CUTOFF=200)
[2020-06-06 04:49] LABS: COCAINE, UR NEGATIVE ng/ml (CUTOFF=300); URINE AMPHETAMINES NEGATIVE ng/ml (CUTOFF=500)
[2020-06-06] MEDS: NYSTATIN 100,000 UNIT/GM TOPICAL CREAM 15 GM TUBE TP SCH ×2 (05:43→12:46)
[2020-06-06] MEDS: SODIUM CHLORIDE 1,000 ML IV SCH (05:43)
[2020-06-06 06:06] LABS: ARTERIAL BLOOD GAS BASE EXCESS -5.4 mmol/L (-2-2); ARTERIAL BLOOD GAS PO2 76.9 mmHg (80-100); ARTERIAL BLOOD GAS pH 7.436 (7.350-7.450)
[2020-06-06 06:09] LABS: CALCIUM 7.3 mg/dL (8.5-10.1)
[2020-06-06 06:12] LABS: ALLENS TEST POSITIVE
[2020-06-06 06:17] LABS: ALBUMIN 2.1 g/dl (3.4-5.0); BILIRUBIN,TOTAL 0.7 mg/dL (0.2-1); BLOOD UREA NITROGEN 46.3 mg/dL (7-18); CREATININE 1.9 mg/dL (0.55-1.3); MAGNESIUM 2.1 mg/dL (1.8-2.4); TOT PROT 5.6 g/dl (6.4-8.2)
[2020-06-06 06:37] LABS: BASO % 0.3 % (0-2.0); EOS % 0.4 % (0-4.5); HEMATOCRIT 28.6 % (32.4-45.2); HEMOGLOBIN 9.8 GM/dL (10.7-15.3); LYMPH % 1.7 % (8-40); MCH 28.1 pg (25.7-33.7); MCHC 34.3 g/dl (32.0-36.0); MEAN PLT VOLUME 7.9 fl (7.5-11.1); MONO % 2.2 % (3.8-10.2); NEUT % 95.4 % (42.8-82.8); PLATELET COUNT 357 K/MM3 (134-434); RBC 3.49 M/mm3 (3.60-5.2); RDW 13.8 % (11.6-15.6); WHITE BLOOD COUNT 22.1 K/mm3 (4.0-10.0)
[2020-06-06 07:21] LABS: URINE WBC 57.2 /uL (0-25.8); YEAST FEW (NEGATIVE)
[2020-06-06] MEDS ORDERED: VANCOMYCIN 1 GM in D5W (PRE-DOCKED) 1,000 MG/250 ML IVPB SCH (07:30)
--- NOTE | 2020-06-06 08:16 | CONSULT ---
Consult Consult Specialty:: Nephrology Reason for Consultation:: hyponatremia and ciaran - History of Present Illness Chief Complaint: weakness History of Present Illness: Pt is a 59 year old female with pmhx of dm, htn, hld, a-fib who presented to the ER with weakness for about a week. She was found to be in acute renal failure and found to be hyponatremic. Her blood sugar was also markedly elevated. She said she felt the symptoms get worse after eating a piece of cheesecake. She did not take her meds. She did suffer a fall but did not have head trauma. She denies dysuria or hematuria but complains of polyuria. She was placed on an insulin drop and admitted to the ICU. - History Source History Provided By: Patient, Medical Record - Past Medical History Cardio/Vascular: Yes: AFIB, CAD, HTN, [place] Musculoskeletal: Yes: Osteoarthritis Endocrine: Yes: Diabetes Mellitus - Past Surgical History Past Surgical History: Yes: Stent - Alcohol/Substance Use Hx Alcohol Use: Yes (occassionally) - Smoking History Smoking history: Unknown if ever smoked Have you smoked in the past 12 months: No - Social History Usual Living Arrangement: With Spouse ADL: Independent Home Medications - Allergies Allergies/Adverse Reactions: Allergies Allergy/AdvReac Type Severity Reaction Status Date / Time Penicillins Allergy Verified 06/05/20 20:46 - Home Medications Home Medications: Ambulatory Orders RX: Apixaban [Eliquis -] 5 mg PO BID 11/13/16 RX: Atorvastatin Ca [Lipitor] 20 mg PO HS 11/13/16 RX: Metoprolol Tartrate [Lopressor] 100 mg PO BID 11/13/16 RX: Diltiazem Cd [Cardizem Cd -] 240 mg PO DAILY 03/15/17 RX: metFORMIN HCL [Metformin HCl] 500 mg PO BID 03/15/17 RX: Insulin (Levemir) [Levemir Vial] 15 unit SQ HS #1 vial 03/23/17 Plavix 75 mg PO DAILY 03/26/17 Cholecalciferol (Vitamin D3) [Vitamin D3] 2,000 unit PO DAILY 06/06/20 Cyanocobalamin (Vitamin B-12) [Vitamin B-12] 100 mcg PO DAILY 06/06/20 Irbesartan [Avapro (Nf) -] 75 mg PO DAILY 06/06/20 RX: Insulin Sliding Scale [Novolog Vial Sliding Scale -] 2 - 4 unit SQ ACHS 06/06/20 Family Medical History Family History: Denies Review of Systems - Review of Systems Constitutional: reports: Malaise, Weakness Eyes: reports: No Symptoms HENT: reports: No Symptoms Neck: reports: No Symptoms Cardiovascular: reports: No Symptoms Respiratory: reports: No Symptoms Gastrointestinal: reports: No Symptoms Genitourinary: reports: No Symptoms Musculoskeletal: reports: No Symptoms Integumentary: reports: No Symptoms Neurological: reports: No Symptoms Endocrine: reports: No Symptoms Hematology/Lymphatic: reports: No Symptoms Psychiatric: reports: No Symptoms Physical Exam Vital Signs: Vital Signs Temperature 98.4 F 06/06/20 00:41 Pulse Rate 87 06/06/20 08:00 Respiratory Rate 21 H 06/06/20 08:00 Blood Pressure 84/59 L 06/06/20 08:00 O2 Sat by Pulse Oximetry (%) 95 06/06/20 08:00 Constitutional: Yes: Calm Eyes: Yes: Conjunctiva Clear HENT: Yes: Atraumatic Neck: Yes: Supple Cardiovascular: Yes: S1, S2 Respiratory: Yes: CTA Bilaterally Gastrointestinal: Yes: Soft Renal/: Yes: WNL Musculoskeletal: Yes: WNL Edema: No Neurological: Yes: Oriented Psychiatric: Yes: Oriented Labs: CBC, BMP 06/06/20 06:00 Imaging - Results Chest X-ray: Report Reviewed Problem List - Problems (1) CIARAN (acute kidney injury) Code(s): N17.9 - ACUTE KIDNEY FAILURE, UNSPECIFIED (2) Hyponatremia Code(s): E87.1 - HYPO-OSMOLALITY AND HYPONATREMIA (3) DKA (diabetic ketoacidoses) Code(s): E11.10 - TYPE 2 DIABETES MELLITUS WITH KETOACIDOSIS WITHOUT COMA (4) Hyperglycemia Code(s): R73.9 - HYPERGLYCEMIA, UNSPECIFIED (5) A-fib Code(s): I48.91 - UNSPECIFIED ATRIAL FIBRILLATION Qualifiers: Atrial fibrillation type: permanent Assessment/Plan Current Medications Generic Name Dose Route Start Last Admin Trade Name Freq PRN Reason Stop Dose Admin Acetaminophen 1,000 mg 06/06/20 03:29 06/06/20 06:50 Ofirmev Injection - IVPB 06/07/20 03:29 1,000 mg Q6H PRN Administration FEVER Apixaban 5 mg 06/06/20 01:00 06/06/20 03:00 Eliquis - PO Not Given BID [facility] Atorvastatin Calcium 20 mg 06/06/20 22:00 Lipitor - PO HS [facility] Chlorhexidine Gluconate 1 applic 06/06/20 22:00 Hibiclens For Decolonization - TP HS [facility] Clopidogrel Bisulfate 75 mg 06/06/20 10:00 Plavix - PO DAILY [facility] Diltiazem HCl 240 mg 06/06/20 10:00 Cardizem Cd - PO DAILY [facility] Insulin Human Regular 100 100 mls @ 8 mls/hr 06/05/20 22:30 06/06/20 07:00 units/ Sodium Chloride IVPB 3.5 units/hr TITR [facility] 3.5 mls/hr Titration Protocol 8 UNITS/HR Sodium Chloride 1,000 mls @ 50 mls/hr 06/06/20 01:00 06/06/20 02:54 Normal Saline - IV 06/07/20 00:53 Not Given ASDIR [facility] Cefepime HCl 1 gm in 50 mls @ 100 mls/hr 06/06/20 10:00 Maxipime 1 Gm Premix Ivpb IVPB BID [facility] Protocol Sodium Chloride 1,000 mls @ 50 mls/hr 06/06/20 05:10 06/06/20 05:43 Normal Saline - IV 50 mls/hr ASDIR [facility] Administration Cefepime HCl 1 gm/ Dextrose 100 mls @ 100 mls/hr 06/06/20 10:00 IVPB 06/07/20 09:59 BID [facility] Protocol Losartan Potassium 25 mg 06/06/20 10:00 Cozaar - PO DAILY [facility] Metoprolol Tartrate 100 mg 06/06/20 10:00 Lopressor - PO BID [facility] Mupirocin 1 applic 06/06/20 10:00 Bactroban Ointment (For Decolonization) - NS 06/11/20 09:59 BID [facility] Nystatin 1 applic 06/06/20 06:00 06/06/20 05:43 Mycostatin Cream - TP 1 applic Q6HPO [facility] Administration Pantoprazole Sodium 40 mg 06/06/20 10:00 Protonix Iv IVPUSH DAILY [facility] Vancomycin HCl 1,000 mg 06/06/20 07:30 Vancomycin (Pre-Docked) IVPB 06/06/20 19:31 Q12H [facility] Vancomycin HCl 1,000 mg 06/07/20 01:30 Vancomycin (Pre-Docked) IVPB Q12H [facility] Laboratory Tests 06/05/20 06/05/20 06/06/20 18:09 21:35 07:00 Creatinine 2.1 H 1.9 H 1.8 H 06/06/20 09:45 Creatinine 1.7 H Impression 1. CIARAN 2. DKA/HSS 3. hyponatremia 4. a-fib 5. htn 6. hld 7. dm - poorly controlled Plan - cont to monitor renal function - cont to monitor sodium - cont fluids - will need better joint terminal attack controller glucose control - hold bp meds as she was hypotensive - monitor bp - cont icu care - discussed with ICU team
[2020-06-06 08:24] LABS: BLOOD UREA NITROGEN 47.1 mg/dL (7-18); CALCIUM 7.7 mg/dL (8.5-10.1); CREATININE 1.8 mg/dL (0.55-1.3); POTASSIUM 4.1 mmol/L (3.5-5.1)
[2020-06-06] MEDS ORDERED: SODIUM CHLORIDE 1,000 ML IV STA (08:33)
[2020-06-06 09:17] LABS: ANISOCYTOSIS 2+; PLATELET ESTIMATE NORMAL
[2020-06-06] MEDS ORDERED: CEFEPIME 1 GM in DEXTROSE 5%-WATER 100 ML IVPB SCH (10:00)
[2020-06-06] MEDS ORDERED: CEFEPIME HCL/D5W 1 GM/50 ML BAG IVPB SCH (10:00)
[2020-06-06] MEDS ORDERED: LOSARTAN POTASSIUM 25 MG TABLET PO SCH (10:00)
[2020-06-06] MEDS: METOPROLOL TARTRATE 50 MG TABLET (FP) PO SCH ×3 (10:21→21:49)
[2020-06-06] MEDS: CLOPIDOGREL BISULFATE 75 MG TABLET (FP) PO SCH (10:21)
[2020-06-06] MEDS: PANTOPRAZOLE SODIUM 40 MG VIAL IVPUSH SCH (10:22)
[2020-06-06 10:37] LABS: BLOOD UREA NITROGEN 44.7 mg/dL (7-18); CALCIUM 7.3 mg/dL (8.5-10.1); CREATININE 1.7 mg/dL (0.55-1.3); POTASSIUM 3.9 mmol/L (3.5-5.1)
[2020-06-06] MEDS ORDERED: PT OWN MED DRAWER 7, Y5N ONE ×2 (10:40→15:44)
[2020-06-06] MEDS ORDERED: DEXTROSE 5%-WATER 100 ML IVPB ONE ×2 (10:41→17:12)
[2020-06-06] MEDS ORDERED: CEFEPIME HCL 1 GM VIAL (RESTRICTED TO ID) ONE ×2 (10:41→17:12)
[2020-06-06] MEDS ORDERED: POTASSIUM PHOSPHATE 20 MM in SODIUM CHLORIDE 250 ML IVPB ONE (11:30)
--- NOTE | 2020-06-06 12:07 | PN ---
Teaching Attending Note Name of Resident: More Dasilva ATTENDING PHYSICIAN STATEMENT I saw and evaluated the patient. I reviewed the resident's note and discussed the case with the resident. I agree with the resident's findings and plan as documented. SUBJECTIVE: Pt seen and examined in the ICU. Off insulin gtt. Fever curve down. OBJECTIVE: Vital Signs Period Temp Pulse Resp BP Sys/Mao Pulse Ox Last 24 Hr 98.4 F-102.4 F 76-90 16-29 84-168/54-92 95-979 Intake & Output 06/03/20 06/04/20 06/05/20 06/06/20 23:59 23:59 23:59 23:59 Intake Total 2450 441 Output Total 650 900 Balance 1800 -459 Weight 100.153 kg 100.153 kg Gen: NAD at rest Heart: RRR Lung: decreased breath sounds at the bases Abd: soft, nontender Ext: no edema CBC, BMP 06/06/20 06:00 06/06/20 09:45 Active Medications Acetaminophen (Ofirmev Injection -) 1,000 mg IVPB Q6H PRN PRN Reason: FEVER Stop: 06/07/20 03:29 Last Admin: 06/06/20 06:50 Dose: 1,000 mg Documented by: Apixaban (Eliquis -) 5 mg PO BID [facility] Last Admin: 06/06/20 10:21 Dose: 5 mg Documented by: Atorvastatin Calcium (Lipitor -) 20 mg PO HS [facility] Chlorhexidine Gluconate (Hibiclens For Decolonization -) 1 applic TP HS [facility] Clopidogrel Bisulfate (Plavix -) 75 mg PO DAILY [facility] Last Admin: 06/06/20 10:21 Dose: 75 mg Documented by: Diltiazem HCl (Cardizem Cd -) 240 mg PO DAILY [facility] Last Admin: 06/06/20 10:21 Dose: 240 mg Documented by: Insulin Human Regular 100 (units/ Sodium Chloride) 100 mls @ 8 mls/hr IVPB TITR [facility]; Protocol Last Titration: 06/06/20 07:00 Dose: 3.5 units/hr, 3.5 mls/hr Documented by: Cefepime HCl (Maxipime 1 Gm Premix Ivpb) 1 gm in 50 mls @ 100 mls/hr IVPB BID [facility]; Protocol Sodium Chloride (Normal Saline -) 1,000 mls @ 50 mls/hr IV ASDIR [facility] Last Admin: 06/06/20 05:43 Dose: 50 mls/hr Documented by: Cefepime HCl 1 gm/ Dextrose 100 mls @ 100 mls/hr IVPB BID [facility]; Protocol Stop: 06/07/20 09:59 Last Admin: 06/06/20 10:42 Dose: 100 mls/hr Documented by: Losartan Potassium (Cozaar -) 25 mg PO DAILY [facility] Metoprolol Tartrate (Lopressor -) 100 mg PO BID [facility] Last Admin: 06/06/20 10:28 Dose: Not Given Documented by: Mupirocin (Bactroban Ointment (For Decolonization) -) 1 applic NS BID [facility] Stop: 06/11/20 09:59 Nystatin (Mycostatin Cream -) 1 applic TP Q6HPO [facility] Last Admin: 06/06/20 05:43 Dose: 1 applic Documented by: Pantoprazole Sodium (Protonix Iv) 40 mg IVPUSH DAILY [facility] Last Admin: 06/06/20 10:22 Dose: 40 mg Documented by: Vancomycin HCl (Vancomycin (Pre-Docked)) 1,000 mg IVPB Q12H [facility] Stop: 06/06/20 19:31 Last Admin: 06/06/20 10:21 Dose: 1,000 mg Documented by: Vancomycin HCl (Vancomycin (Pre-Docked)) 1,000 mg IVPB Q12H [facility] ASSESSMENT AND PLAN: HHS/DKA improved Labial Abscess Severe Sepsis Acute Kidney Injury Hyponatremia Atrial Fibrillation HTN DM Hyperlipidemia - continue antibiotics - f/u cultures - RESORT MANAGER eval - IVF - glucose control - rate control - continue anticoagulation - can monitor on floor
[2020-06-06] MEDS ORDERED: INSULIN (LEVEMIR) 100 UNITS/ML UNITS SQ ONE ×2 (12:35→15:37)
--- NOTE | 2020-06-06 12:38 | PN ---
Physical Exam: TRANSFER SUMMARY: Pt is a 59 year old woman with IDDM2, HTN, HLD, Afib (On Eliquis and Plavix) who presented to ED for weakness x1 week and new AMS per . She was found to be hyperglycemic to 704 with pseudohyponatremia (mild hyponatremia 132 when corrected), AG 12, and CIARAN Cr 2.1. She was found to have a leukocytosis of 27.7. UA showed ketones and proteinuria. Head CT and CXR were negative for acute processes. She was started on DKA management with insulin gtt, IV fluids, and hourly BGMs. BG improved and drip was switched off. Pt also tolerated breakfast. She was started on Levemir BID and sliding scale insulin. Pt also had a labial mass for which [employer] was consulted. It is unlikely an abscess. Also, pt has had this for a year. A CT pelvis will be ordered to r/o malignancy and signs of infection. Pt is stable to be monitored on med/surg floor. SUBJECTIVE: Patient seen and examined. She reports feeling better today. She denies chest pain, shortness of breath, abdominal pain, nausea, or vomiting. OBJECTIVE: Vital Signs Period Temp Pulse Resp BP Sys/Mao Pulse Ox Last 24 Hr 98.4 F-102.4 F 76-90 16-29 84-168/54-92 [id number] GENERAL: The patient is awake, alert, and fully oriented, in no acute distress. HEAD: Normal with no signs of trauma. EYES: PERRL, extraocular movements intact, conjunctiva clear. ENT: Ears normal, nares patent, moist mucous membranes. NECK: Trachea midline, full range of motion. LUNGS: Clear to auscultation bilaterally. HEART: Regular rate and rhythm, no murmur. ABDOMEN: Soft, nontender, nondistended, normoactive bowel sounds. EXTREMITIES: Warm, well-perfused, minimal LE edema. Onychomycosis toes. NEUROLOGICAL: Cranial nerves II through XII grossly intact. Normal speech. PSYCH: Normal mood, normal affect. SKIN: Warm, dry, normal turgor. Laboratory Results - last 24 hr 06/05/20 06/05/20 06/05/20 17:28 18:09 18:09 WBC 27.7 H RBC 4.14 Hgb 11.7 Hct 35.4 D MCV 85.4 MCH 28.2 MCHC 33.0 RDW 14.3 D Plt Count 443 H D MPV 8.5 D Absolute Neuts (auto) 27.1 H Neutrophils % 97.8 H D Neutrophils % (Manual) 96.0 H Band Neutrophils % 0.0 Lymphocytes % 0.5 L Lymphocytes % (Manual) 1.0 L Monocytes % 0.9 L D Monocytes % (Manual) 0 L Eosinophils % 0.5 D Eosinophils % (Manual) 3.0 Basophils % 0.3 Basophils % (Manual) 0.0 Myelocytes % (Man) 0 Promyelocytes % (Man) 0 Blast Cells % (Manual) 0 Nucleated RBC % 0 Metamyelocytes 0 Hypochromia Platelet Estimate Polychromasia Poikilocytosis Anisocytosis Microcytosis PT with INR INR PTT (Actin FS) Anticoagulation Therapy Puncture Site Patient Temperature ABG pH ABG pCO2 ABG pO2 ABG HCO3 ABG O2 Sat (Measured) ABG O2 Content ABG Base Excess Yoel Test VBG pH POC VBG pCO2 POC VBG pO2 VBG HCO3 VBG O2 Sat (Delia) VBG Base Excess Patient On Oxygen O2 Delivery Device Oxygen Flow Rate Vent Mode Vent Rate Mechanical Rate PEEP Pressure Support Vent Sodium Potassium Chloride Carbon Dioxide Anion Gap BUN Creatinine Est GFR (CKD-EPI)AfAm Est GFR (CKD-EPI)NonAf POC Glucometer > 600 Random Glucose Hemoglobin A1c % Lactic Acid Calcium Phosphorus Magnesium Total Bilirubin AST ALT Alkaline Phosphatase Creatine Kinase Troponin I Total Protein Albumin Vitamin B12 Beta-Hydroxybutyrate 6.1 H TSH Urine Color Urine Appearance Urine pH Ur Specific [place] Urine Protein Urine Glucose (UA) Urine Ketones Urine Blood Urine Nitrite Urine Bilirubin Urine Urobilinogen Ur Leukocyte Esterase Urine WBC (Auto) Urine RBC (Auto) Urine Casts (Auto) U Epithel Cells (Auto) U Sm Round Cell (Auto) Urine Bacteria (Auto) Urine Yeast (Auto) Urine Osmolality Ur Random Creatinine U Random Total Protein Ur Random Sodium Ur Random Potassium Ur Random Urea Nitrogn Protein/Creatinin Ratio Random Vancomycin Opiates Screen Methadone Screen Barbiturate Screen Phencyclidine Screen Ur Amphetamines Screen MDMA (Ecstasy) Screen Benzodiazepines Screen Cocaine Screen U Marijuana (THC) Screen 06/05/20 06/05/20 06/05/20 18:09 18:09 18:09 WBC RBC Hgb Hct MCV MCH MCHC RDW Plt Count MPV Absolute Neuts (auto) Neutrophils % Neutrophils % (Manual) Band Neutrophils % Lymphocytes % Lymphocytes % (Manual) Monocytes % Monocytes % (Manual) Eosinophils % Eosinophils % (Manual) Basophils % Basophils % (Manual) Myelocytes % (Man) Promyelocytes % (Man) Blast Cells % (Manual) Nucleated RBC % Metamyelocytes Hypochromia Platelet Estimate Polychromasia Poikilocytosis Anisocytosis Microcytosis PT with INR 19.30 H INR 1.63 H PTT (Actin FS) 30.0 Anticoagulation Therapy Puncture Site Patient Temperature ABG pH ABG pCO2 ABG pO2 ABG HCO3 ABG O2 Sat (Measured) ABG O2 Content ABG Base Excess Yoel Test VBG pH 7.297 L POC VBG pCO2 42.2 POC VBG pO2 22.9 L VBG HCO3 20.2 L VBG O2 Sat (Delia) 34.4 L VBG Base Excess -6.0 L Patient On Oxygen O2 Delivery Device Oxygen Flow Rate Vent Mode Vent Rate Mechanical Rate PEEP Pressure Support Vent Sodium Potassium Chloride Carbon Dioxide Anion Gap BUN Creatinine Est GFR (CKD-EPI)AfAm Est GFR (CKD-EPI)NonAf POC Glucometer Random Glucose Hemoglobin A1c % Lactic Acid Calcium Phosphorus Magnesium Total Bilirubin AST ALT Alkaline Phosphatase Creatine Kinase Troponin I Total Protein Albumin Vitamin B12 Beta-Hydroxybutyrate TSH Urine Color Yellow Urine Appearance Clear Urine pH 5.0 Ur Specific [place] 1.018 Urine Protein 2+ H Urine Glucose (UA) 3+ H Urine Ketones Negative Urine Blood Trace Urine Nitrite Negative Urine Bilirubin Negative Urine Urobilinogen 0.2 Ur Leukocyte Esterase Negative Urine WBC (Auto) 32 Urine RBC (Auto) 6 Urine Casts (Auto) 2 U Epithel Cells (Auto) 24 U Sm Round Cell (Auto) None Urine Bacteria (Auto) 15 Urine Yeast (Auto) Urine Osmolality Ur Random Creatinine U Random Total Protein Ur Random Sodium Ur Random Potassium Ur Random Urea Nitrogn Protein/Creatinin Ratio Random Vancomycin Opiates Screen Methadone Screen Barbiturate Screen Phencyclidine Screen Ur Amphetamines Screen MDMA (Ecstasy) Screen Benzodiazepines Screen Cocaine Screen U Marijuana (THC) Screen 06/05/20 06/05/20 06/05/20 18:09 18:09 20:08 WBC RBC Hgb Hct MCV MCH MCHC RDW Plt Count MPV Absolute Neuts (auto) Neutrophils % Neutrophils % (Manual) Band Neutrophils % Lymphocytes % Lymphocytes % (Manual) Monocytes % Monocytes % (Manual) Eosinophils % Eosinophils % (Manual) Basophils % Basophils % (Manual) Myelocytes % (Man) Promyelocytes % (Man) Blast Cells % (Manual) Nucleated RBC % Metamyelocytes Hypochromia Platelet Estimate Polychromasia Poikilocytosis Anisocytosis Microcytosis PT with INR INR PTT (Actin FS) Anticoagulation Therapy Puncture Site Patient Temperature ABG pH ABG pCO2 ABG pO2 ABG HCO3 ABG O2 Sat (Measured) ABG O2 Content ABG Base Excess Yoel Test VBG pH POC VBG pCO2 POC VBG pO2 VBG HCO3 VBG O2 Sat (Delia) VBG Base Excess Patient On Oxygen O2 Delivery Device Oxygen Flow Rate Vent Mode Vent Rate Mechanical Rate PEEP Pressure Support Vent Sodium 122 L Potassium 4.6 Chloride 87 L Carbon Dioxide 21 Anion Gap 14 BUN 55.0 H Creatinine 2.1 H Est GFR (CKD-EPI)AfAm 29.33 Est GFR (CKD-EPI)NonAf 25.30 POC Glucometer > 600 Random Glucose 704 H* Hemoglobin A1c % Lactic Acid 1.8 Calcium 8.3 L Phosphorus Magnesium Total Bilirubin 0.4 AST 12 L ALT 18 Alkaline Phosphatase 109 Creatine Kinase 48 Troponin I < 0.02 Total Protein 6.9 Albumin 2.8 L Vitamin B12 Beta-Hydroxybutyrate TSH Urine Color Urine Appearance Urine pH Ur Specific [place] Urine Protein Urine Glucose (UA) Urine Ketones Urine Blood Urine Nitrite Urine Bilirubin Urine Urobilinogen Ur Leukocyte Esterase Urine WBC (Auto) Urine RBC (Auto) Urine Casts (Auto) U Epithel Cells (Auto) U Sm Round Cell (Auto) Urine Bacteria (Auto) Urine Yeast (Auto) Urine Osmolality Ur Random Creatinine U Random Total Protein Ur Random Sodium Ur Random Potassium Ur Random Urea Nitrogn Protein/Creatinin Ratio Random Vancomycin Opiates Screen Methadone Screen Barbiturate Screen Phencyclidine Screen Ur Amphetamines Screen MDMA (Ecstasy) Screen Benzodiazepines Screen Cocaine Screen U Marijuana (THC) Screen 06/05/20 06/05/20 06/06/20 21:28 21:35 00:16 WBC RBC Hgb Hct MCV MCH MCHC RDW Plt Count MPV Absolute Neuts (auto) Neutrophils % Neutrophils % (Manual) Band Neutrophils % Lymphocytes % Lymphocytes % (Manual) Monocytes % Monocytes % (Manual) Eosinophils % Eosinophils % (Manual) Basophils % Basophils % (Manual) Myelocytes % (Man) Promyelocytes % (Man) Blast Cells % (Manual) Nucleated RBC % Metamyelocytes Hypochromia Platelet Estimate Polychromasia Poikilocytosis Anisocytosis Microcytosis PT with INR INR PTT (Actin FS) Anticoagulation Therapy Puncture Site Patient Temperature ABG pH ABG pCO2 ABG pO2 ABG HCO3 ABG O2 Sat (Measured) ABG O2 Content ABG Base Excess Yoel Test VBG pH POC VBG pCO2 POC VBG pO2 VBG HCO3 VBG O2 Sat (Delia) VBG Base Excess Patient On Oxygen O2 Delivery Device Oxygen Flow Rate Vent Mode Vent Rate Mechanical Rate PEEP Pressure Support Vent Sodium 122 L Potassium 4.2 Chloride 92 L Carbon Dioxide 18 L Anion Gap 12 BUN 50.4 H Creatinine 1.9 H Est GFR (CKD-EPI)AfAm 33.10 Est GFR (CKD-EPI)NonAf 28.56 POC Glucometer > 600 491 Random Glucose 567 H* Hemoglobin A1c % Lactic Acid Calcium 7.2 L Phosphorus Magnesium Total Bilirubin AST ALT Alkaline Phosphatase Creatine Kinase Troponin I Total Protein Albumin Vitamin B12 Beta-Hydroxybutyrate TSH Urine Color Urine Appearance Urine pH Ur Specific [place] Urine Protein Urine Glucose (UA) Urine Ketones Urine Blood Urine Nitrite Urine Bilirubin Urine Urobilinogen Ur Leukocyte Esterase Urine WBC (Auto) Urine RBC (Auto) Urine Casts (Auto) U Epithel Cells (Auto) U Sm Round Cell (Auto) Urine Bacteria (Auto) Urine Yeast (Auto) Urine Osmolality Ur Random Creatinine U Random Total Protein Ur Random Sodium Ur Random Potassium Ur Random Urea Nitrogn Protein/Creatinin Ratio Random Vancomycin Opiates Screen Methadone Screen Barbiturate Screen Phencyclidine Screen Ur Amphetamines Screen MDMA (Ecstasy) Screen Benzodiazepines Screen Cocaine Screen U Marijuana (THC) Screen 06/06/20 06/06/20 06/06/20 02:10 02:45 02:52 WBC RBC Hgb Hct MCV MCH MCHC RDW Plt Count MPV Absolute Neuts (auto) Neutrophils % Neutrophils % (Manual) Band Neutrophils % Lymphocytes % Lymphocytes % (Manual) Monocytes % Monocytes % (Manual) Eosinophils % Eosinophils % (Manual) Basophils % Basophils % (Manual) Myelocytes % (Man) Promyelocytes % (Man) Blast Cells % (Manual) Nucleated RBC % Metamyelocytes Hypochromia Platelet Estimate Polychromasia Poikilocytosis Anisocytosis Microcytosis PT with INR INR PTT (Actin FS) Anticoagulation Therapy Puncture Site Patient Temperature ABG pH ABG pCO2 ABG pO2 ABG HCO3 ABG O2 Sat (Measured) ABG O2 Content ABG Base Excess Yoel Test VBG pH POC VBG pCO2 POC VBG pO2 VBG HCO3 VBG O2 Sat (Delia) VBG Base Excess Patient On Oxygen O2 Delivery Device Oxygen Flow Rate Vent Mode Vent Rate Mechanical Rate PEEP Pressure Support Vent Sodium 126 L Potassium 4.4 Chloride 94 L Carbon Dioxide 20 L Anion Gap 12 BUN 48.1 H Creatinine 1.9 H Est GFR (CKD-EPI)AfAm 33.10 Est GFR (CKD-EPI)NonAf 28.56 POC Glucometer 409 430 Random Glucose 426 H* Hemoglobin A1c % Lactic Acid Calcium 7.8 L Phosphorus Magnesium 2.3 Total Bilirubin AST ALT Alkaline Phosphatase Creatine Kinase Troponin I Total Protein Albumin Vitamin B12 Beta-Hydroxybutyrate TSH Urine Color Urine Appearance Urine pH Ur Specific [place] Urine Protein Urine Glucose (UA) Urine Ketones Urine Blood Urine Nitrite Urine Bilirubin Urine Urobilinogen Ur Leukocyte Esterase Urine WBC (Auto) Urine RBC (Auto) Urine Casts (Auto) U Epithel Cells (Auto) U Sm Round Cell (Auto) Urine Bacteria (Auto) Urine Yeast (Auto) Urine Osmolality Ur Random Creatinine U Random Total Protein Ur Random Sodium Ur Random Potassium Ur Random Urea Nitrogn Protein/Creatinin Ratio Random Vancomycin Opiates Screen Methadone Screen Barbiturate Screen Phencyclidine Screen Ur Amphetamines Screen MDMA (Ecstasy) Screen Benzodiazepines Screen Cocaine Screen U Marijuana (THC) Screen 06/06/20 06/06/20 06/06/20 04:00 04:00 04:00 WBC RBC Hgb Hct MCV MCH MCHC RDW Plt Count MPV Absolute Neuts (auto) Neutrophils % Neutrophils % (Manual) Band Neutrophils % Lymphocytes % Lymphocytes % (Manual) Monocytes % Monocytes % (Manual) Eosinophils % Eosinophils % (Manual) Basophils % Basophils % (Manual) Myelocytes % (Man) Promyelocytes % (Man) Blast Cells % (Manual) Nucleated RBC % Metamyelocytes Hypochromia Platelet Estimate Polychromasia Poikilocytosis Anisocytosis Microcytosis PT with INR INR PTT (Actin FS) Anticoagulation Therapy Puncture Site Patient Temperature ABG pH ABG pCO2 ABG pO2 ABG HCO3 ABG O2 Sat (Measured) ABG O2 Content ABG Base Excess Yoel Test VBG pH POC VBG pCO2 POC VBG pO2 VBG HCO3 VBG O2 Sat (Delia) VBG Base Excess Patient On Oxygen O2 Delivery Device Oxygen Flow Rate Vent Mode Vent Rate Mechanical Rate PEEP Pressure Support Vent Sodium Cancelled Potassium Cancelled Chloride Cancelled Carbon Dioxide Cancelled Anion Gap Cancelled BUN Cancelled Creatinine Cancelled Est GFR (CKD-EPI)AfAm Cancelled Est GFR (CKD-EPI)NonAf Cancelled POC Glucometer Random Glucose Cancelled Hemoglobin A1c % Lactic Acid Calcium Cancelled Phosphorus Magnesium Total Bilirubin AST ALT Alkaline Phosphatase Creatine Kinase Troponin I Total Protein Albumin Vitamin B12 Beta-Hydroxybutyrate TSH Urine Color Yellow Urine Appearance Clear Urine pH 5.0 Ur Specific [place] 1.016 Urine Protein 2+ H Urine Glucose (UA) 3+ H Urine Ketones Negative Urine Blood 1+ H Urine Nitrite Negative Urine Bilirubin Negative Urine Urobilinogen 0.2 Ur Leukocyte Esterase Negative Urine WBC (Auto) 57.2 Urine RBC (Auto) 16 Urine Casts (Auto) 8 U Epithel Cells (Auto) 33 U Sm Round Cell (Auto) Urine Bacteria (Auto) 3 Urine Yeast (Auto) Few Urine Osmolality Ur Random Creatinine U Random Total Protein Ur Random Sodium Ur Random Potassium Ur Random Urea Nitrogn 304 L Protein/Creatinin Ratio Random Vancomycin Opiates Screen Methadone Screen Barbiturate Screen Phencyclidine Screen Ur Amphetamines Screen MDMA (Ecstasy) Screen Benzodiazepines Screen Cocaine Screen U Marijuana (THC) Screen 06/06/20 06/06/20 06/06/20 04:00 04:00 04:09 WBC RBC Hgb Hct MCV MCH MCHC RDW Plt Count MPV Absolute Neuts (auto) Neutrophils % Neutrophils % (Manual) Band Neutrophils % Lymphocytes % Lymphocytes % (Manual) Monocytes % Monocytes % (Manual) Eosinophils % Eosinophils % (Manual) Basophils % Basophils % (Manual) Myelocytes % (Man) Promyelocytes % (Man) Blast Cells % (Manual) Nucleated RBC % Metamyelocytes Hypochromia Platelet Estimate Polychromasia Poikilocytosis Anisocytosis Microcytosis PT with INR INR PTT (Actin FS) Anticoagulation Therapy Puncture Site Patient Temperature ABG pH ABG pCO2 ABG pO2 ABG HCO3 ABG O2 Sat (Measured) ABG O2 Content ABG Base Excess Yoel Test VBG pH POC VBG pCO2 POC VBG pO2 VBG HCO3 VBG O2 Sat (Delia) VBG Base Excess Patient On Oxygen O2 Delivery Device Oxygen Flow Rate Vent Mode Vent Rate Mechanical Rate PEEP Pressure Support Vent Sodium Potassium Chloride Carbon Dioxide Anion Gap BUN Creatinine Est GFR (CKD-EPI)AfAm Est GFR (CKD-EPI)NonAf POC Glucometer 333 Random Glucose Hemoglobin A1c % Lactic Acid Calcium Phosphorus Magnesium Total Bilirubin AST ALT Alkaline Phosphatase Creatine Kinase Troponin I Total Protein Albumin Vitamin B12 Beta-Hydroxybutyrate TSH Urine Color Urine Appearance Urine pH Ur Specific [place] Urine Protein Urine Glucose (UA) Urine Ketones Urine Blood Urine Nitrite Urine Bilirubin Urine Urobilinogen Ur Leukocyte Esterase Urine WBC (Auto) Urine RBC (Auto) Urine Casts (Auto) U Epithel Cells (Auto) U Sm Round Cell (Auto) Urine Bacteria (Auto) Urine Yeast (Auto) Urine Osmolality Ur Random Creatinine 33.0 U Random Total Protein 163.4 H Ur Random Sodium 38 L Ur Random Potassium 13.0 L Ur Random Urea Nitrogn Protein/Creatinin Ratio 5.0 Random Vancomycin Opiates Screen Negative Methadone Screen Negative Barbiturate Screen Negative Phencyclidine Screen Negative Ur Amphetamines Screen Negative MDMA (Ecstasy) Screen Negative Benzodiazepines Screen Negative Cocaine Screen Negative U Marijuana (THC) Screen Negative 06/06/20 06/06/20 06/06/20 04:45 04:54 05:00 WBC RBC Hgb Hct MCV MCH MCHC RDW Plt Count MPV Absolute Neuts (auto) Neutrophils % Neutrophils % (Manual) Band Neutrophils % Lymphocytes % Lymphocytes % (Manual) Monocytes % Monocytes % (Manual) Eosinophils % Eosinophils % (Manual) Basophils % Basophils % (Manual) Myelocytes % (Man) Promyelocytes % (Man) Blast Cells % (Manual) Nucleated RBC % Metamyelocytes Hypochromia Platelet Estimate Polychromasia Poikilocytosis Anisocytosis Microcytosis PT with INR INR PTT (Actin FS) Anticoagulation Therapy Puncture Site Patient Temperature ABG pH ABG pCO2 ABG pO2 ABG HCO3 ABG O2 Sat (Measured) ABG O2 Content ABG Base Excess Yoel Test VBG pH POC VBG pCO2 POC VBG pO2 VBG HCO3 VBG O2 Sat (Delia) VBG Base Excess Patient On Oxygen O2 Delivery Device Oxygen Flow Rate Vent Mode Vent Rate Mechanical Rate PEEP Pressure Support Vent Sodium 128 L 129 L Potassium 4.0 4.0 Chloride 98 100 Carbon Dioxide 17 L 18 L Anion Gap 13 12 BUN 47.9 H 46.3 H Creatinine 1.9 H 1.9 H Est GFR (CKD-EPI)AfAm 33.10 33.10 Est GFR (CKD-EPI)NonAf 28.56 28.56 POC Glucometer Random Glucose 311 H 238 H Hemoglobin A1c % Lactic Acid Calcium 7.2 L 7.3 L Phosphorus 2.0 L Magnesium 2.1 Total Bilirubin 0.7 AST 13 L ALT 17 Alkaline Phosphatase 81 Creatine Kinase Troponin I Total Protein 5.6 L Albumin 2.1 L Vitamin B12 834 Beta-Hydroxybutyrate TSH 1.24 Urine Color Urine Appearance Urine pH Ur Specific [place] Urine Protein Urine Glucose (UA) Urine Ketones Urine Blood Urine Nitrite Urine Bilirubin Urine Urobilinogen Ur Leukocyte Esterase Urine WBC (Auto) Urine RBC (Auto) Urine Casts (Auto) U Epithel Cells (Auto) U Sm Round Cell (Auto) Urine Bacteria (Auto) Urine Yeast (Auto) Urine Osmolality 369 Ur Random Creatinine U Random Total Protein Ur Random Sodium Ur Random Potassium Ur Random Urea Nitrogn Protein/Creatinin Ratio Random Vancomycin Opiates Screen Methadone Screen Barbiturate Screen Phencyclidine Screen Ur Amphetamines Screen MDMA (Ecstasy) Screen Benzodiazepines Screen Cocaine Screen U Marijuana (THC) Screen 06/06/20 06/06/20 06/06/20 05:05 05:45 06:00 WBC 22.1 H RBC 3.49 L Hgb 9.8 L Hct 28.6 L D MCV 82.0 MCH 28.1 MCHC 34.3 RDW 13.8 Plt Count 357 MPV 7.9 Absolute Neuts (auto) 21.1 H Neutrophils % 95.4 H Neutrophils % (Manual) 90.0 H Band Neutrophils % 7.0 Lymphocytes % 1.7 L D Lymphocytes % (Manual) 3.0 L D Monocytes % 2.2 L D Monocytes % (Manual) 0 L Eosinophils % 0.4 Eosinophils % (Manual) 0.0 D Basophils % 0.3 Basophils % (Manual) 0.0 Myelocytes % (Man) 0 Promyelocytes % (Man) 0 Blast Cells % (Manual) 0 Nucleated RBC % 0 Metamyelocytes 0 Hypochromia 1+ Platelet Estimate Normal Polychromasia 0 Poikilocytosis 0 Anisocytosis 2+ Microcytosis 2+ PT with INR INR PTT (Actin FS) Anticoagulation Therapy No Result Required. Puncture Site Right radial Patient Temperature No Result Required. ABG pH 7.436 ABG pCO2 26.40 L ABG pO2 76.9 L ABG HCO3 17.4 L ABG O2 Sat (Measured) 96.0 ABG O2 Content No Result Required. ABG Base Excess -5.4 L Yoel Test Positive VBG pH POC VBG pCO2 POC VBG pO2 VBG HCO3 VBG O2 Sat (Delia) VBG Base Excess Patient On Oxygen No O2 Delivery Device Room air Oxygen Flow Rate No Result Required. Vent Mode No Result Required. Vent Rate No Result Required. Mechanical Rate No Result Required. PEEP No Result Required. Pressure Support Vent No Result Required. Sodium Potassium Chloride Carbon Dioxide Anion Gap BUN Creatinine Est GFR (CKD-EPI)AfAm Est GFR (CKD-EPI)NonAf POC Glucometer 256 Random Glucose Hemoglobin A1c % Lactic Acid Calcium Phosphorus Magnesium Total Bilirubin AST ALT Alkaline Phosphatase Creatine Kinase Troponin I Total Protein Albumin Vitamin B12 Beta-Hydroxybutyrate TSH Urine Color Urine Appearance Urine pH Ur Specific [place] Urine Protein Urine Glucose (UA) Urine Ketones Urine Blood Urine Nitrite Urine Bilirubin Urine Urobilinogen Ur Leukocyte Esterase Urine WBC (Auto) Urine RBC (Auto) Urine Casts (Auto) U Epithel Cells (Auto) U Sm Round Cell (Auto) Urine Bacteria (Auto) Urine Yeast (Auto) Urine Osmolality Ur Random Creatinine U Random Total Protein Ur Random Sodium Ur Random Potassium Ur Random Urea Nitrogn Protein/Creatinin Ratio Random Vancomycin Opiates Screen Methadone Screen Barbiturate Screen Phencyclidine Screen Ur Amphetamines Screen MDMA (Ecstasy) Screen Benzodiazepines Screen Cocaine Screen U Marijuana (THC) Screen 06/06/20 06/06/20 06/06/20 06:00 06:00 06:02 WBC RBC Hgb Hct MCV MCH MCHC RDW Plt Count MPV Absolute Neuts (auto) Neutrophils % Neutrophils % (Manual) Band Neutrophils % Lymphocytes % Lymphocytes % (Manual) Monocytes % Monocytes % (Manual) Eosinophils % Eosinophils % (Manual) Basophils % Basophils % (Manual) Myelocytes % (Man) Promyelocytes % (Man) Blast Cells % (Manual) Nucleated RBC % Metamyelocytes Hypochromia Platelet Estimate Polychromasia Poikilocytosis Anisocytosis Microcytosis PT with INR INR PTT (Actin FS) Anticoagulation Therapy Puncture Site Patient Temperature ABG pH ABG pCO2 ABG pO2 ABG HCO3 ABG O2 Sat (Measured) ABG O2 Content ABG Base Excess Yoel Test VBG pH POC VBG pCO2 POC VBG pO2 VBG HCO3 VBG O2 Sat (Delia) VBG Base Excess Patient On Oxygen O2 Delivery Device Oxygen Flow Rate Vent Mode Vent Rate Mechanical Rate PEEP Pressure Support Vent Sodium Potassium Chloride Carbon Dioxide Anion Gap BUN Creatinine Est GFR (CKD-EPI)AfAm Est GFR (CKD-EPI)NonAf POC Glucometer 210 Random Glucose Hemoglobin A1c % 14.6 H Lactic Acid Calcium Phosphorus Magnesium Total Bilirubin AST ALT Alkaline Phosphatase Creatine Kinase Troponin I Total Protein Albumin Vitamin B12 Beta-Hydroxybutyrate TSH Urine Color Urine Appearance Urine pH Ur Specific [place] Urine Protein Urine Glucose (UA) Urine Ketones Urine Blood Urine Nitrite Urine Bilirubin Urine Urobilinogen Ur Leukocyte Esterase Urine WBC (Auto) Urine RBC (Auto) Urine Casts (Auto) U Epithel Cells (Auto) U Sm Round Cell (Auto) Urine Bacteria (Auto) Urine Yeast (Auto) Urine Osmolality Ur Random Creatinine U Random Total Protein Ur Random Sodium Ur Random Potassium Ur Random Urea Nitrogn Protein/Creatinin Ratio Random Vancomycin 7.6 Opiates Screen Methadone Screen Barbiturate Screen Phencyclidine Screen Ur Amphetamines Screen MDMA (Ecstasy) Screen Benzodiazepines Screen Cocaine Screen U Marijuana (THC) Screen 06/06/20 06/06/20 06/06/20 07:00 07:07 08:18 WBC RBC Hgb Hct MCV MCH MCHC RDW Plt Count MPV Absolute Neuts (auto) Neutrophils % Neutrophils % (Manual) Band Neutrophils % Lymphocytes % Lymphocytes % (Manual) Monocytes % Monocytes % (Manual) Eosinophils % Eosinophils % (Manual) Basophils % Basophils % (Manual) Myelocytes % (Man) Promyelocytes % (Man) Blast Cells % (Manual) Nucleated RBC % Metamyelocytes Hypochromia Platelet Estimate Polychromasia Poikilocytosis Anisocytosis Microcytosis PT with INR INR PTT (Actin FS) Anticoagulation Therapy Puncture Site Patient Temperature ABG pH ABG pCO2 ABG pO2 ABG HCO3 ABG O2 Sat (Measured) ABG O2 Content ABG Base Excess Yoel Test VBG pH POC VBG pCO2 POC VBG pO2 VBG HCO3 VBG O2 Sat (Delia) VBG Base Excess Patient On Oxygen O2 Delivery Device Oxygen Flow Rate Vent Mode Vent Rate Mechanical Rate PEEP Pressure Support Vent Sodium 130 L Potassium 4.1 Chloride 100 Carbon Dioxide 19 L Anion Gap 10 BUN 47.1 H Creatinine 1.8 H Est GFR (CKD-EPI)AfAm 35.34 Est GFR (CKD-EPI)NonAf 30.49 POC Glucometer 155 114 Random Glucose 141 H Hemoglobin A1c % Lactic Acid Calcium 7.7 L Phosphorus Magnesium Total Bilirubin AST ALT Alkaline Phosphatase Creatine Kinase Troponin I Total Protein Albumin Vitamin B12 Beta-Hydroxybutyrate TSH Urine Color Urine Appearance Urine pH Ur Specific [place] Urine Protein Urine Glucose (UA) Urine Ketones Urine Blood Urine Nitrite Urine Bilirubin Urine Urobilinogen Ur Leukocyte Esterase Urine WBC (Auto) Urine RBC (Auto) Urine Casts (Auto) U Epithel Cells (Auto) U Sm Round Cell (Auto) Urine Bacteria (Auto) Urine Yeast (Auto) Urine Osmolality Ur Random Creatinine U Random Total Protein Ur Random Sodium Ur Random Potassium Ur Random Urea Nitrogn Protein/Creatinin Ratio Random Vancomycin Opiates Screen Methadone Screen Barbiturate Screen Phencyclidine Screen Ur Amphetamines Screen MDMA (Ecstasy) Screen Benzodiazepines Screen Cocaine Screen U Marijuana (THC) Screen 06/06/20 06/06/20 08:37 09:45 WBC RBC Hgb Hct MCV MCH MCHC RDW Plt Count MPV Absolute Neuts (auto) Neutrophils % Neutrophils % (Manual) Band Neutrophils % Lymphocytes % Lymphocytes % (Manual) Monocytes % Monocytes % (Manual) Eosinophils % Eosinophils % (Manual) Basophils % Basophils % (Manual) Myelocytes % (Man) Promyelocytes % (Man) Blast Cells % (Manual) Nucleated RBC % Metamyelocytes Hypochromia Platelet Estimate Polychromasia Poikilocytosis Anisocytosis Microcytosis PT with INR INR PTT (Actin FS) Anticoagulation Therapy Puncture Site Patient Temperature ABG pH ABG pCO2 ABG pO2 ABG HCO3 ABG O2 Sat (Measured) ABG O2 Content ABG Base Excess Yoel Test VBG pH POC VBG pCO2 POC VBG pO2 VBG HCO3 VBG O2 Sat (Delia) VBG Base Excess Patient On Oxygen O2 Delivery Device Oxygen Flow Rate Vent Mode Vent Rate Mechanical Rate PEEP Pressure Support Vent Sodium 130 L Potassium 3.9 Chloride 102 Carbon Dioxide 16 L Anion Gap 11 BUN 44.7 H Creatinine 1.7 H Est GFR (CKD-EPI)AfAm 37.86 Est GFR (CKD-EPI)NonAf 32.67 POC Glucometer 106 Random Glucose 174 H Hemoglobin A1c % Lactic Acid Calcium 7.3 L Phosphorus Magnesium Total Bilirubin AST ALT Alkaline Phosphatase Creatine Kinase Troponin I Total Protein Albumin Vitamin B12 Beta-Hydroxybutyrate TSH Urine Color Urine Appearance Urine pH Ur Specific [place] Urine Protein Urine Glucose (UA) Urine Ketones Urine Blood Urine Nitrite Urine Bilirubin Urine Urobilinogen Ur Leukocyte Esterase Urine WBC (Auto) Urine RBC (Auto) Urine Casts (Auto) U Epithel Cells (Auto) U Sm Round Cell (Auto) Urine Bacteria (Auto) Urine Yeast (Auto) Urine Osmolality Ur Random Creatinine U Random Total Protein Ur Random Sodium Ur Random Potassium Ur Random Urea Nitrogn Protein/Creatinin Ratio Random Vancomycin Opiates Screen Methadone Screen Barbiturate Screen Phencyclidine Screen Ur Amphetamines Screen MDMA (Ecstasy) Screen Benzodiazepines Screen Cocaine Screen U Marijuana (THC) Screen Active Medications Generic Name Dose Route Start Last Admin Trade Name Freq PRN Reason Stop Dose Admin Acetaminophen 1,000 mg 06/06/20 03:29 06/06/20 06:50 Ofirmev Injection - IVPB 06/07/20 03:29 1,000 mg Q6H PRN Administration FEVER Apixaban 5 mg 06/06/20 01:00 06/06/20 10:21 Eliquis - PO 5 mg BID SILVA Administration Atorvastatin Calcium 20 mg 06/06/20 22:00 Lipitor - PO HS SILVA Chlorhexidine Gluconate 1 applic 06/06/20 22:00 Hibiclens For Decolonization - TP HS SILVA Clopidogrel Bisulfate 75 mg 06/06/20 10:00 06/06/20 10:21 Plavix - PO 75 mg DAILY SILVA Administration Diltiazem HCl 240 mg 06/06/20 10:00 06/06/20 10:21 Cardizem Cd - PO 240 mg DAILY SILVA Administration Insulin Human Regular 100 100 mls @ 8 mls/hr 06/05/20 22:30 06/06/20 07:00 units/ Sodium Chloride IVPB 3.5 units/hr TITR SILVA 3.5 mls/hr Titration Protocol 8 UNITS/HR Cefepime HCl 1 gm in 50 mls @ 100 mls/hr 06/06/20 10:00 Maxipime 1 Gm Premix Ivpb IVPB BID SILVA Protocol Sodium Chloride 1,000 mls @ 50 mls/hr 06/06/20 05:10 06/06/20 05:43 Normal Saline - IV 50 mls/hr ASDIR SILVA Administration Cefepime HCl 1 gm/ Dextrose 100 mls @ 100 mls/hr 06/06/20 10:00 06/06/20 10:42 IVPB 06/07/20 09:59 100 mls/hr BID SILVA Administration Protocol Losartan Potassium 25 mg 06/06/20 10:00 Cozaar - PO DAILY SILVA Metoprolol Tartrate 100 mg 06/06/20 10:00 06/06/20 10:28 Lopressor - PO Not Given BID SILVA Mupirocin 1 applic 06/06/20 10:00 Bactroban Ointment (For Decolonization) - NS 06/11/20 09:59 BID SILVA Nystatin 1 applic 06/06/20 06:00 06/06/20 05:43 Mycostatin Cream - TP 1 applic Q6HPO SILVA Administration Pantoprazole Sodium 40 mg 06/06/20 10:00 06/06/20 10:22 Protonix Iv IVPUSH 40 mg DAILY SILVA Administration Vancomycin HCl 1,000 mg 06/06/20 07:30 06/06/20 10:21 Vancomycin (Pre-Docked) IVPB 06/06/20 19:31 1,000 mg Q12H SILVA Administration Vancomycin HCl 1,000 mg 06/07/20 01:30 Vancomycin (Pre-Docked) IVPB Q12H SILVA Visit type - Emergency Visit Emergency Visit: Yes ED Registration Date: 06/05/20 Care time: The patient presented to the Emergency Department on the above date and was hospitalized for further evaluation of their emergent condition. - New Patient This patient is new to me today: Yes Date on this admission: 06/06/20 - Critical Care Critical Care patient: Yes Total Critical Care Time (in minutes): 36 Critical Care Statement: The care of this patient involved high complexity decision making to prevent further life threatening deterioration of the patient's condition and/or to evaluate & treat vital organ system(s) failure or risk of failure. ATTENDING PHYSICIAN STATEMENT I saw and evaluated the patient. I reviewed the resident's note and discussed the case with the resident. I agree with the resident's findings and plan as documented. SUBJECTIVE: OBJECTIVE: ASSESSMENT AND PLAN:
[2020-06-06] MEDS: MUPIROCIN 2% TOPICAL OINTMENT FOR DECOLONIZATION NS SCH ×2 (12:41→21:48)
--- NOTE | 2020-06-06 12:55 | EKG ---
Test Reason : Blood Pressure : / mmHG Vent. Rate : 079 BPM Atrial Rate : 093 BPM P-R Int : 000 ms QRS Dur : 092 ms QT Int : 348 ms P-R-T Axes : 000 -82 056 degrees QTc Int : 399 ms POOR DATA QUALITY, INTERPRETATION MAY BE ADVERSELY AFFECTED ATRIAL FIBRILLATION LEFT ANTERIOR FASCICULAR BLOCK SEPTAL INFARCT (CITED ON OR BEFORE 13-NOV-2016) POSSIBLE LATERAL INFARCT (CITED ON OR BEFORE 13-NOV-2016) ABNORMAL ECG WHEN COMPARED WITH ECG OF 30-MAR-2017 22:48, QUESTIONABLE CHANGE IN INITIAL FORCES OF LATERAL LEADS Confirmed by MD SEDRICK, AVA ([id number]) on 06/06/2020 12:55:13 PM Referred By: Confirmed By:AVA DUBOSE MD
--- NOTE | 2020-06-06 12:55 | CONSULT ---
Consult Consult Specialty:: [employer] Referred by:: ICU Reason for Consultation:: Left labial mass - History of Present Illness Chief Complaint: Patient presented to the hospital in DKA History of Present Illness: Patient reports left labia lesion/mass for approximately 1 year. She follows up with a private [employer] and dermatology. She had a biopsy of the lesion approximately 9 moths ago and was told that it was not cancer and underwent dermatology evaluation within a month and a cream was prescribed as per patient. Patient reports biopsy was done in a hospital but unsure of its name. She reports that the lesion is actually improved following treatment by dermatology. She denies fever, pain, nor difficulty walking. She denies bleeding from it and reports mild numbness. 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: No: Alzheimer's, CVA, Dementia, Migraine, Multiple Sclerosis, Peripheral Neuropathy, Parkinson's, Seizure, Syncope, TIA, Vertigo, Other Cardio/Vascular: Yes: AFIB, CAD, HTN, [place] Pulmonary: No: Asthma, Bronchitis, Cancer, COPD, O2 Dependent, Pneumonia, Previously Intubated, Pulmonary Embolus, Pulmonary Fibrosis, Sleep Apnea, Other Gastrointestinal: No: Ascites, Cancer, Constipation, Crohn's Disease, Diverticulitis, Diverticulosis, Esophageal Varices, Gastritis, GERD, GI Bleed, Hemorrhoids, Hiatal Hernia, Inflamatory Bowel Disease, Irritable Bowel Disease, Pancreatitis, Peptic Ulcer Disease, Ulcerative Colitis, Other Hepatobiliary: No: Cirrhosis, Cholelithiasis, Cholecystitis, Choledocholithiasis, Hepatitis A, Hepatitis B, Hepatitis C, Other Renal/: Yes: Renal Inusuff (acute) Reproductive: Yes: Postmenopausal Heme/Onc: Yes: Anemia Infectious Disease: No: AIDS, C-Diff, Herpes Zoster, HIV, MRSA, STD's, Tuberculosis, VREF, Other Psych: No: Addictions, Anxiety, Bipolar, Depression, Panic, Psychosis, Schizophrenia, Other Musculoskeletal: Yes: Osteoarthritis Endocrine: Yes: Diabetes Mellitus Dermatology: Yes: Other (h/o basal cell Ca) - Past Surgical History Past Surgical History: Yes: , Stent - Alcohol/Substance Use Hx Alcohol Use: Yes (occassionally) - Smoking History Smoking history: Unknown if ever smoked Have you smoked in the past 12 months: No - Social History Usual Living Arrangement: With Spouse ADL: Independent History of Recent Travel: No Home Medications - Allergies Allergies/Adverse Reactions: Allergies Allergy/AdvReac Type Severity Reaction Status Date / Time Penicillins Allergy Verified 06/05/20 20:46 - Home Medications Home Medications: Ambulatory Orders Apixaban [Eliquis -] 5 mg PO BID 11/13/16 Atorvastatin Ca [Lipitor] 20 mg PO HS 11/13/16 Metoprolol Tartrate [Lopressor] 100 mg PO BID 11/13/16 Diltiazem Cd [Cardizem Cd -] 240 mg PO DAILY 03/15/17 metFORMIN HCL [Metformin HCl] 500 mg PO BID 03/15/17 Insulin (Levemir) [Levemir Vial] 15 unit SQ HS #1 vial 03/23/17 Plavix 75 mg PO DAILY 03/26/17 Cholecalciferol (Vitamin D3) [Vitamin D3] 2,000 unit PO DAILY 06/06/20 Cyanocobalamin (Vitamin B-12) [Vitamin B-12] 100 mcg PO DAILY 06/06/20 Insulin Sliding Scale [Novolog Vial Sliding Scale -] 2 - 4 unit SQ ACHS 06/06/20 Irbesartan [Avapro (Nf) -] 75 mg PO DAILY 06/06/20 Family Medical History Family Hx Cancer: Father (Pancreatic Ca) Review of Systems Findings/Remarks: tired - Review of Systems Eyes: reports: Eye Pain Genitourinary: reports: No Symptoms Breasts: reports: Other Physical Exam Vital Signs: Vital Signs Temperature 98.8 F 06/06/20 10:00 Pulse Rate 83 06/06/20 10:00 Respiratory Rate 16 06/06/20 10:00 Blood Pressure 109/66 06/06/20 10:00 O2 Sat by Pulse Oximetry (%) 99 06/06/20 10:00 Constitutional: Yes: No Distress HENT: Yes: Atraumatic Neck: Yes: Supple Respiratory: Yes: Regular Gastrointestinal: Yes: Soft ...Rectal Exam: Yes: Deferred Renal/: Yes: Other (left labia majora hypertrophic, pigmented, multilobulated mass lesion approximately 10x5cm; non-tender, no fluctuance, no crepitus, mild transudate superficially, no erythema, no calor SVE: right pubic area an upper right thigh with small ulcers and mild erythema at inguinal folds. Lesion non- tender, cisse in place, adequate examination complicated by body habitus and patient discomfort on internal exam) Breast(s): Yes: Other Psychiatric: Yes: Alert, Oriented Labs: CBC, BMP 06/06/20 06:00 06/06/20 09:45 Imaging - Results Cat Scan: Report Reviewed Assessment/Plan 59 y/o female male admitted for DKA with left labia majora mass lesion and multiple co-morbidities. Labial presentation is long standing and examination is not consistent with an abscess. Hypertrophic characteristic is concerning for malignancy and limited to left labia. Patient reports established [employer] WORK[employer] and de rmatology care for it. Patient reports short follow up with dermatology for continuation of care. Pelvic imaging is indicated to complete evaluation. -Continue care as per primary team -CT pelvis -Nystatin to pubic area and hygiene -consider [facility] referral
--- NOTE | 2020-06-06 14:06 | CON.ID ---
Consult Consult Specialty:: infectious diseases Referred by:: Reason for Consultation:: sepsis,uti,vaginal abscess,leukocytosis - History of Present Illness Chief Complaint: ams ,hyperglycemia History of Present Illness: 59 year old female with significant past medical history of a-fib on eliquis, CAD s/p stents x2, hypertension, hyperlipidemia, and diabetes admitted because of confusion and blood sugar 500.says she ate badly Pt report she felt weak, dizzy and fell. Pt denies any head trauma or LOC. 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: No: Alzheimer's, CVA, Dementia, Migraine, Multiple Sclerosis, Peripheral Neuropathy, Parkinson's, Seizure, Syncope, TIA, Vertigo, Other Cardio/Vascular: Yes: AFIB, CAD, HTN, [place] Pulmonary: No: Asthma, Bronchitis, Cancer, COPD, O2 Dependent, Pneumonia, Previously Intubated, Pulmonary Embolus, Pulmonary Fibrosis, Sleep Apnea, Other Gastrointestinal: No: Ascites, Cancer, Constipation, Crohn's Disease, Diverticulitis, Diverticulosis, Esophageal Varices, Gastritis, GERD, GI Bleed, Hemorrhoids, Hiatal Hernia, Inflamatory Bowel Disease, Irritable Bowel Disease, Pancreatitis, Peptic Ulcer Disease, Ulcerative Colitis, Other Hepatobiliary: No: Cirrhosis, Cholelithiasis, Cholecystitis, Choledocholithiasis, Hepatitis A, Hepatitis B, Hepatitis C, Other Renal/: Yes: Renal Inusuff (acute) Infectious Disease: No: AIDS, C-Diff, Herpes Zoster, HIV, MRSA, STD's, Tuberculosis, VREF, Other Psych: No: Addictions, Anxiety, Bipolar, Depression, Panic, Psychosis, Schizophrenia, Other Musculoskeletal: Yes: Osteoarthritis Endocrine: Yes: Diabetes Mellitus Dermatology: Yes: Other (h/o basal cell Ca) - Past Surgical History Past Surgical History: Yes: , Stent - Alcohol/Substance Use Hx Alcohol Use: Yes (occassionally) - Smoking History Smoking history: Unknown if ever smoked Have you smoked in the past 12 months: No - Social History Usual Living Arrangement: With Spouse ADL: Independent History of Recent Travel: No Home Medications - Allergies Allergies/Adverse Reactions: Allergies Allergy/AdvReac Type Severity Reaction Status Date / Time Penicillins Allergy Verified 06/05/20 20:46 - Home Medications Home Medications: Ambulatory Orders Apixaban [Eliquis -] 5 mg PO BID 11/13/16 Atorvastatin Ca [Lipitor] 20 mg PO HS 11/13/16 Metoprolol Tartrate [Lopressor] 100 mg PO BID 11/13/16 Diltiazem Cd [Cardizem Cd -] 240 mg PO DAILY 03/15/17 metFORMIN HCL [Metformin HCl] 500 mg PO BID 03/15/17 Insulin (Levemir) [Levemir Vial] 15 unit SQ HS #1 vial 03/23/17 Plavix 75 mg PO DAILY 03/26/17 Cholecalciferol (Vitamin D3) [Vitamin D3] 2,000 unit PO DAILY 06/06/20 Cyanocobalamin (Vitamin B-12) [Vitamin B-12] 100 mcg PO DAILY 06/06/20 Insulin Sliding Scale [Novolog Vial Sliding Scale -] 2 - 4 unit SQ ACHS 06/06/20 Irbesartan [Avapro (Nf) -] 75 mg PO DAILY 06/06/20 Review of Systems - Review of Systems Constitutional: reports: No Symptoms Eyes: reports: No Symptoms HENT: reports: No Symptoms Neck: reports: No Symptoms Cardiovascular: reports: No Symptoms Respiratory: reports: No Symptoms Gastrointestinal: reports: No Symptoms Genitourinary: reports: No Symptoms Musculoskeletal: reports: No Symptoms Integumentary: reports: No Symptoms Neurological: reports: Confusion Endocrine: reports: No Symptoms Hematology/Lymphatic: reports: No Symptoms Psychiatric: reports: No Symptoms Physical Exam Vital Signs: Vital Signs Temperature 98.8 F 06/06/20 10:00 Pulse Rate 83 06/06/20 10:00 Respiratory Rate 16 06/06/20 10:00 Blood Pressure 109/66 06/06/20 10:00 O2 Sat by Pulse Oximetry (%) 99 06/06/20 10:00 Constitutional: Yes: Well Nourished, No Distress, Calm Eyes: Yes: Conjunctiva Clear HENT: Yes: Atraumatic, Normocephalic Neck: Yes: Supple, Trachea Midline Cardiovascular: Yes: Pulse Irregular Respiratory: Yes: Regular, CTA Bilaterally Gastrointestinal: Yes: Normal Bowel Sounds, Soft Renal/: Yes: [place] Present Musculoskeletal: Yes: WNL Extremities: Yes: WNL Neurological: Yes: Alert, Oriented Psychiatric: Yes: Alert, Oriented Labs: CBC, BMP 06/06/20 06:00 06/06/20 09:45 Imaging - Results Chest X-ray: Report Reviewed, Image Reviewed Cat Scan: Report Reviewed, Image Reviewed Ultrasound: Report Reviewed, Image Reviewed Assessment/Plan Problem List - Problems (1) CIARAN (acute kidney injury) Code(s): N17.9 - ACUTE KIDNEY FAILURE, UNSPECIFIED (2) Hyponatremia Code(s): E87.1 - HYPO-OSMOLALITY AND HYPONATREMIA (3) DKA (diabetic ketoacidoses) Code(s): E11.10 - TYPE 2 DIABETES MELLITUS WITH KETOACIDOSIS WITHOUT COMA (4) Hyperglycemia Code(s): R73.9 - HYPERGLYCEMIA, UNSPECIFIED (5) A-fib Code(s): I48.91 - UNSPECIFIED ATRIAL FIBRILLATION Qualifiers: Atrial fibrillation type: permanent r/o vaginal abscess leukocytosis plan continue as per [facility] close watch await for pelvic ct scan rest as per the team cc 40 min
[2020-06-06] MEDS: NYSTATIN POWDER 100,000 UNITS/GM - 15 GM TOPICAL POWDER TP SCH ×2 (15:45→21:50)
[2020-06-06] MEDS ORDERED: INSULIN SLIDING SCALE (NOVOLOG) 1 VIAL SQ SCH (16:30)
--- NOTE | 2020-06-06 17:10 | HP ---
Admitting History and Physical - Primary Care Physician PCP: Kayla Dai - Admission History of Present Illness: Pt is a 59 year old female with pmhx of dm, htn, hld, a-fib who presented to the ER with weakness for about a week. She was found to be in acute renal failure and found to be hyponatremic. Her blood sugar was also markedly elevated. She said she felt the symptoms get worse after eating a piece of cheesecake. She did not take her meds. She did suffer a fall but did not have head trauma. She denies dysuria or hematuria but complains of polyuria. She was placed on an insulin drop and admitted to the ICU. - - Past Medical History [employer]WTER [employer]AB[employer]ICATOR: No: Alzheimer's, CVA, Dementia, Migraine, Multiple Sclerosis, Peripheral Neuropathy, Parkinson's, Seizure, Syncope, TIA, Vertigo, Other Cardiovascular: Yes: AFIB, CAD, HTN, DE Pulmonary: No: Asthma, Bronchitis, Cancer, COPD, O2 Dependent, Pneumonia, Previously Intubated, Pulmonary Embolus, Pulmonary Fibrosis, Sleep Apnea, Other Gastrointestinal: No: Ascites, Cancer, Constipation, Crohn's Disease, Diverticulitis, Diverticulosis, Esophageal Varices, Gastritis, GERD, GI Bleed, Hemorrhoids, Hiatal Hernia, Inflamatory Bowel Disease, Irritable Bowel Disease, Pancreatitis, Peptic Ulcer Disease, Ulcerative Colitis, Other Hepatobiliary: No: Cirrhosis, Cholelithiasis, Cholecystitis, Choledocholithiasis, Hepatitis A, Hepatitis B, Hepatitis C, Other Renal/: Yes: Renal Inusuff (acute) Heme/Onc: Yes: Anemia Infectious Disease: No: AIDS, C-Diff, Herpes Zoster, HIV, MRSA, STD's, Tuber culosis, VREF, Other Psych: No: Addictions, Anxiety, Bipolar, Depression, Panic, Psychosis, Schizophrenia, Other Musculoskeletal: Yes: Osteoarthritis Endocrine: Yes: Diabetes Mellitus Dermatology: Yes: Other (h/o basal cell Ca) - Past Surgical History Past Surgical History: Yes: , Stent - Smoking History Smoking history: Unknown if ever smoked Have you smoked in the past 12 months: No - Alcohol/Substance Use Hx Alcohol Use: Yes (occassionally) - Social History ADL: Independent History of Recent Travel: No Home Medications - Allergies Allergies/Adverse Reactions: Allergies Allergy/AdvReac Type Severity Reaction Status Date / Time Penicillins Allergy Verified 06/05/20 20:46 - Home Medications Home Medications: Ambulatory Orders Apixaban [Eliquis -] 5 mg PO BID 11/13/16 Atorvastatin Ca [Lipitor] 20 mg PO HS 11/13/16 Metoprolol Tartrate [Lopressor] 100 mg PO BID 11/13/16 Diltiazem Cd [Cardizem Cd -] 240 mg PO DAILY 03/15/17 metFORMIN HCL [Metformin HCl] 500 mg PO BID 03/15/17 Insulin (Levemir) [Levemir Vial] 15 unit SQ HS #1 vial 03/23/17 Plavix 75 mg PO DAILY 03/26/17 Cholecalciferol (Vitamin D3) [Vitamin D3] 2,000 unit PO DAILY 06/06/20 Cyanocobalamin (Vitamin B-12) [Vitamin B-12] 100 mcg PO DAILY 06/06/20 Insulin Sliding Scale [Novolog Vial Sliding Scale -] 2 - 4 unit SQ ACHS 06/06/20 Irbesartan [Avapro (Nf) -] 75 mg PO DAILY 06/06/20 Review of Systems - Review of Systems Constitutional: reports: Lethargy Physical Examination Vital Signs: Vital Signs Temperature 98.8 F 06/06/20 10:00 Pulse Rate 83 06/06/20 10:00 Respiratory Rate 16 06/06/20 10:00 Blood Pressure 109/66 06/06/20 10:00 O2 Sat by Pulse Oximetry (%) 99 06/06/20 10:00 Constitutional: Yes: No Distress HENT: Yes: Atraumatic Neck: Yes: Supple Cardiovascular: Yes: Regular Rate and Rhythm Respiratory: Yes: CTA Bilaterally Gastrointestinal: Yes: Normal Bowel Sounds Extremities: Yes: WNL Neurological: Yes: Alert, Oriented Labs: CBC, BMP 06/06/20 06:00 06/06/20 09:45 Imaging - Results Cat Scan: Report Reviewed Problem List - Problems (1) CIARAN (acute kidney injury) Assessment/Plan: cr improving doing well Code(s): N17.9 - ACUTE KIDNEY FAILURE, UNSPECIFIED (2) DKA (diabetic ketoacidoses) Assessment/Plan: blood sugars improving on diabetic diet Code(s): E11.10 - TYPE 2 DIABETES MELLITUS WITH KETOACIDOSIS WITHOUT COMA (3) Hyperglycemia Code(s): R73.9 - HYPERGLYCEMIA, UNSPECIFIED (4) Hyponatremia Assessment/Plan: much improved Code(s): E87.1 - HYPO-OSMOLALITY AND HYPONATREMIA (5) A-fib Code(s): I48.91 - UNSPECIFIED ATRIAL FIBRILLATION Qualifiers: Atrial fibrillation type: permanent Qualified Code(s): I48.21 - Permanent atrial fibrillation (6) Labial swelling Assessment/Plan: capital campaign fundraiser consult reviewed Code(s): N94.89 - OTH COND ASSOC W FEMALE GENITAL ORGANS AND MENSTRUAL CYCLE Assessment/Plan Laboratory Tests 06/05/20 06/05/20 06/05/20 17:28 18:09 18:09 WBC 27.7 H RBC 4.14 Hgb 11.7 Hct 35.4 D MCV 85.4 MCH 28.2 MCHC 33.0 RDW 14.3 D Plt Count 443 H D MPV 8.5 D Absolute Neuts (auto) 27.1 H Neutrophils % 97.8 H D Neutrophils % (Manual) 96.0 H Band Neutrophils % 0.0 Lymphocytes % 0.5 L Lymphocytes % (Manual) 1.0 L Monocytes % 0.9 L D Monocytes % (Manual) 0 L Eosinophils % 0.5 D Eosinophils % (Manual) 3.0 Basophils % 0.3 Basophils % (Manual) 0.0 Myelocytes % (Man) 0 Promyelocytes % (Man) 0 Blast Cells % (Manual) 0 Nucleated RBC % 0 Metamyelocytes 0 Hypochromia Platelet Estimate Polychromasia Poikilocytosis Anisocytosis Microcytosis PT with INR INR PTT (Actin FS) Anticoagulation Therapy Puncture Site Patient Temperature ABG pH ABG pCO2 ABG pO2 ABG HCO3 ABG O2 Sat (Measured) ABG O2 Content ABG Base Excess Yoel Test VBG pH POC VBG pCO2 POC VBG pO2 VBG HCO3 VBG O2 Sat (Delia) VBG Base Excess Patient On Oxygen O2 Delivery Device Oxygen Flow Rate Vent Mode Vent Rate Mechanical Rate PEEP Pressure Support Vent Sodium Potassium Chloride Carbon Dioxide Anion Gap BUN Creatinine Est GFR (CKD-EPI)AfAm Est GFR (CKD-EPI)NonAf POC Glucometer > 600 Random Glucose Hemoglobin A1c % Lactic Acid Calcium Phosphorus Magnesium Total Bilirubin AST ALT Alkaline Phosphatase Creatine Kinase Troponin I Total Protein Albumin Vitamin B12 Beta-Hydroxybutyrate 6.1 H TSH Urine Color Urine Appearance Urine pH Ur Specific [place] Urine Protein Urine Glucose (UA) Urine Ketones Urine Blood Urine Nitrite Urine Bilirubin Urine Urobilinogen Ur Leukocyte Esterase Urine WBC (Auto) Urine RBC (Auto) Urine Casts (Auto) U Epithel Cells (Auto) U Sm Round Cell (Auto) Urine Bacteria (Auto) Urine Yeast (Auto) Urine Osmolality Ur Random Creatinine U Random Total Protein Ur Random Sodium Ur Random Potassium Ur Random Urea Nitrogn Protein/Creatinin Ratio Random Vancomycin Opiates Screen Methadone Screen Barbiturate Screen Phencyclidine Screen Ur Amphetamines Screen MDMA (Ecstasy) Screen Benzodiazepines Screen Cocaine Screen U Marijuana (THC) Screen 06/05/20 06/05/20 06/05/20 18:09 18:09 18:09 WBC RBC Hgb Hct MCV MCH MCHC RDW Plt Count MPV Absolute Neuts (auto) Neutrophils % Neutrophils % (Manual) Band Neutrophils % Lymphocytes % Lymphocytes % (Manual) Monocytes % Monocytes % (Manual) Eosinophils % Eosinophils % (Manual) Basophils % Basophils % (Manual) Myelocytes % (Man) Promyelocytes % (Man) Blast Cells % (Manual) Nucleated RBC % Metamyelocytes Hypochromia Platelet Estimate Polychromasia Poikilocytosis Anisocytosis Microcytosis PT with INR 19.30 H INR 1.63 H PTT (Actin FS) 30.0 Anticoagulation Therapy Puncture Site Patient Temperature ABG pH ABG pCO2 ABG pO2 ABG HCO3 ABG O2 Sat (Measured) ABG O2 Content ABG Base Excess Yoel Test VBG pH 7.297 L POC VBG pCO2 42.2 POC VBG pO2 22.9 L VBG HCO3 20.2 L VBG O2 Sat (Delia) 34.4 L VBG Base Excess -6.0 L Patient On Oxygen O2 Delivery Device Oxygen Flow Rate Vent Mode Vent Rate Mechanical Rate PEEP Pressure Support Vent Sodium Potassium Chloride Carbon Dioxide Anion Gap BUN Creatinine Est GFR (CKD-EPI)AfAm Est GFR (CKD-EPI)NonAf POC Glucometer Random Glucose Hemoglobin A1c % Lactic Acid Calcium Phosphorus Magnesium Total Bilirubin AST ALT Alkaline Phosphatase Creatine Kinase Troponin I Total Protein Albumin Vitamin B12 Beta-Hydroxybutyrate TSH Urine Color Yellow Urine Appearance Clear Urine pH 5.0 Ur Specific [place] 1.018 Urine Protein 2+ H Urine Glucose (UA) 3+ H Urine Ketones Negative Urine Blood Trace Urine Nitrite Negative Urine Bilirubin Negative Urine Urobilinogen 0.2 Ur Leukocyte Esterase Negative Urine WBC (Auto) 32 Urine RBC (Auto) 6 Urine Casts (Auto) 2 U Epithel Cells (Auto) 24 U Sm Round Cell (Auto) None Urine Bacteria (Auto) 15 Urine Yeast (Auto) Urine Osmolality Ur Random Creatinine U Random Total Protein Ur Random Sodium Ur Random Potassium Ur Random Urea Nitrogn Protein/Creatinin Ratio Random Vancomycin Opiates Screen Methadone Screen Barbiturate Screen Phencyclidine Screen Ur Amphetamines Screen MDMA (Ecstasy) Screen Benzodiazepines Screen Cocaine Screen U Marijuana (THC) Screen 06/05/20 06/05/20 06/05/20 18:09 18:09 20:08 WBC RBC Hgb Hct MCV MCH MCHC RDW Plt Count MPV Absolute Neuts (auto) Neutrophils % Neutrophils % (Manual) Band Neutrophils % Lymphocytes % Lymphocytes % (Manual) Monocytes % Monocytes % (Manual) Eosinophils % Eosinophils % (Manual) Basophils % Basophils % (Manual) Myelocytes % (Man) Promyelocytes % (Man) Blast Cells % (Manual) Nucleated RBC % Metamyelocytes Hypochromia Platelet Estimate Polychromasia Poikilocytosis Anisocytosis Microcytosis PT with INR INR PTT (Actin FS) Anticoagulation Therapy Puncture Site Patient Temperature ABG pH ABG pCO2 ABG pO2 ABG HCO3 ABG O2 Sat (Measured) ABG O2 Content ABG Base Excess Yoel Test VBG pH POC VBG pCO2 POC VBG pO2 VBG HCO3 VBG O2 Sat (Delia) VBG Base Excess Patient On Oxygen O2 Delivery Device Oxygen Flow Rate Vent Mode Vent Rate Mechanical Rate PEEP Pressure Support Vent Sodium 122 L Potassium 4.6 Chloride 87 L Carbon Dioxide 21 Anion Gap 14 BUN 55.0 H Creatinine 2.1 H Est GFR (CKD-EPI)AfAm 29.33 Est GFR (CKD-EPI)NonAf 25.30 POC Glucometer > 600 Random Glucose 704 H* Hemoglobin A1c % Lactic Acid 1.8 Calcium 8.3 L Phosphorus Magnesium Total Bilirubin 0.4 AST 12 L ALT 18 Alkaline Phosphatase 109 Creatine Kinase 48 Troponin I < 0.02 Total Protein 6.9 Albumin 2.8 L Vitamin B12 Beta-Hydroxybutyrate TSH Urine Color Urine Appearance Urine pH Ur Specific [place] Urine Protein Urine Glucose (UA) Urine Ketones Urine Blood Urine Nitrite Urine Bilirubin Urine Urobilinogen Ur Leukocyte Esterase Urine WBC (Auto) Urine RBC (Auto) Urine Casts (Auto) U Epithel Cells (Auto) U Sm Round Cell (Auto) Urine Bacteria (Auto) Urine Yeast (Auto) Urine Osmolality Ur Random Creatinine U Random Total Protein Ur Random Sodium Ur Random Potassium Ur Random Urea Nitrogn Protein/Creatinin Ratio Random Vancomycin Opiates Screen Methadone Screen Barbiturate Screen Phencyclidine Screen Ur Amphetamines Screen MDMA (Ecstasy) Screen Benzodiazepines Screen Cocaine Screen U Marijuana (THC) Screen 06/05/20 06/05/20 06/06/20 21:28 21:35 00:16 WBC RBC Hgb Hct MCV MCH MCHC RDW Plt Count MPV Absolute Neuts (auto) Neutrophils % Neutrophils % (Manual) Band Neutrophils % Lymphocytes % Lymphocytes % (Manual) Monocytes % Monocytes % (Manual) Eosinophils % Eosinophils % (Manual) Basophils % Basophils % (Manual) Myelocytes % (Man) Promyelocytes % (Man) Blast Cells % (Manual) Nucleated RBC % Metamyelocytes Hypochromia Platelet Estimate Polychromasia Poikilocytosis Anisocytosis Microcytosis PT with INR INR PTT (Actin FS) Anticoagulation Therapy Puncture Site Patient Temperature ABG pH ABG pCO2 ABG pO2 ABG HCO3 ABG O2 Sat (Measured) ABG O2 Content ABG Base Excess Yoel Test VBG pH POC VBG pCO2 POC VBG pO2 VBG HCO3 VBG O2 Sat (Delia) VBG Base Excess Patient On Oxygen O2 Delivery Device Oxygen Flow Rate Vent Mode Vent Rate Mechanical Rate PEEP Pressure Support Vent Sodium 122 L Potassium 4.2 Chloride 92 L Carbon Dioxide 18 L Anion Gap 12 BUN 50.4 H Creatinine 1.9 H Est GFR (CKD-EPI)AfAm 33.10 Est GFR (CKD-EPI)NonAf 28.56 POC Glucometer > 600 491 Random Glucose 567 H* Hemoglobin A1c % Lactic Acid Calcium 7.2 L Phosphorus Magnesium Total Bilirubin AST ALT Alkaline Phosphatase Creatine Kinase Troponin I Total Protein Albumin Vitamin B12 Beta-Hydroxybutyrate TSH Urine Color Urine Appearance Urine pH Ur Specific [place] Urine Protein Urine Glucose (UA) Urine Ketones Urine Blood Urine Nitrite Urine Bilirubin Urine Urobilinogen Ur Leukocyte Esterase Urine WBC (Auto) Urine RBC (Auto) Urine Casts (Auto) U Epithel Cells (Auto) U Sm Round Cell (Auto) Urine Bacteria (Auto) Urine Yeast (Auto) Urine Osmolality Ur Random Creatinine U Random Total Protein Ur Random Sodium Ur Random Potassium Ur Random Urea Nitrogn Protein/Creatinin Ratio Random Vancomycin Opiates Screen Methadone Screen Barbiturate Screen Phencyclidine Screen Ur Amphetamines Screen MDMA (Ecstasy) Screen Benzodiazepines Screen Cocaine Screen U Marijuana (THC) Screen 06/06/20 06/06/20 06/06/20 02:10 02:45 02:52 WBC RBC Hgb Hct MCV MCH MCHC RDW Plt Count MPV Absolute Neuts (auto) Neutrophils % Neutrophils % (Manual) Band Neutrophils % Lymphocytes % Lymphocytes % (Manual) Monocytes % Monocytes % (Manual) Eosinophils % Eosinophils % (Manual) Basophils % Basophils % (Manual) Myelocytes % (Man) Promyelocytes % (Man) Blast Cells % (Manual) Nucleated RBC % Metamyelocytes Hypochromia Platelet Estimate Polychromasia Poikilocytosis Anisocytosis Microcytosis PT with INR INR PTT (Actin FS) Anticoagulation Therapy Puncture Site Patient Temperature ABG pH ABG pCO2 ABG pO2 ABG HCO3 ABG O2 Sat (Measured) ABG O2 Content ABG Base Excess Yoel Test VBG pH POC VBG pCO2 POC VBG pO2 VBG HCO3 VBG O2 Sat (Delia) VBG Base Excess Patient On Oxygen O2 Delivery Device Oxygen Flow Rate Vent Mode Vent Rate Mechanical Rate PEEP Pressure Support Vent Sodium 126 L Potassium 4.4 Chloride 94 L Carbon Dioxide 20 L Anion Gap 12 BUN 48.1 H Creatinine 1.9 H Est GFR (CKD-EPI)AfAm 33.10 Est GFR (CKD-EPI)NonAf 28.56 POC Glucometer 409 430 Random Glucose 426 H* Hemoglobin A1c % Lactic Acid Calcium 7.8 L Phosphorus Magnesium 2.3 Total Bilirubin AST ALT Alkaline Phosphatase Creatine Kinase Troponin I Total Protein Albumin Vitamin B12 Beta-Hydroxybutyrate TSH Urine Color Urine Appearance Urine pH Ur Specific [place] Urine Protein Urine Glucose (UA) Urine Ketones Urine Blood Urine Nitrite Urine Bilirubin Urine Urobilinogen Ur Leukocyte Esterase Urine WBC (Auto) Urine RBC (Auto) Urine Casts (Auto) U Epithel Cells (Auto) U Sm Round Cell (Auto) Urine Bacteria (Auto) Urine Yeast (Auto) Urine Osmolality Ur Random Creatinine U Random Total Protein Ur Random Sodium Ur Random Potassium Ur Random Urea Nitrogn Protein/Creatinin Ratio Random Vancomycin Opiates Screen Methadone Screen Barbiturate Screen Phencyclidine Screen Ur Amphetamines Screen MDMA (Ecstasy) Screen Benzodiazepines Screen Cocaine Screen U Marijuana (THC) Screen 06/06/20 06/06/20 06/06/20 04:00 04:00 04:00 WBC RBC Hgb Hct MCV MCH MCHC RDW Plt Count MPV Absolute Neuts (auto) Neutrophils % Neutrophils % (Manual) Band Neutrophils % Lymphocytes % Lymphocytes % (Manual) Monocytes % Monocytes % (Manual) Eosinophils % Eosinophils % (Manual) Basophils % Basophils % (Manual) Myelocytes % (Man) Promyelocytes % (Man) Blast Cells % (Manual) Nucleated RBC % Metamyelocytes Hypochromia Platelet Estimate Polychromasia Poikilocytosis Anisocytosis Microcytosis PT with INR INR PTT (Actin FS) Anticoagulation Therapy Puncture Site Patient Temperature ABG pH ABG pCO2 ABG pO2 ABG HCO3 ABG O2 Sat (Measured) ABG O2 Content ABG Base Excess Yoel Test VBG pH POC VBG pCO2 POC VBG pO2 VBG HCO3 VBG O2 Sat (Delia) VBG Base Excess Patient On Oxygen O2 Delivery Device Oxygen Flow Rate Vent Mode Vent Rate Mechanical Rate PEEP Pressure Support Vent Sodium Cancelled Potassium Cancelled Chloride Cancelled Carbon Dioxide Cancelled Anion Gap Cancelled BUN Cancelled Creatinine Cancelled Est GFR (CKD-EPI)AfAm Cancelled Est GFR (CKD-EPI)NonAf Cancelled POC Glucometer Random Glucose Cancelled Hemoglobin A1c % Lactic Acid Calcium Cancelled Phosphorus Magnesium Total Bilirubin AST ALT Alkaline Phosphatase Creatine Kinase Troponin I Total Protein Albumin Vitamin B12 Beta-Hydroxybutyrate TSH Urine Color Yellow Urine Appearance Clear Urine pH 5.0 Ur Specific [place] 1.016 Urine Protein 2+ H Urine Glucose (UA) 3+ H Urine Ketones Negative Urine Blood 1+ H Urine Nitrite Negative Urine Bilirubin Negative Urine Urobilinogen 0.2 Ur Leukocyte Esterase Negative Urine WBC (Auto) 57.2 Urine RBC (Auto) 16 Urine Casts (Auto) 8 U Epithel Cells (Auto) 33 U Sm Round Cell (Auto) Urine Bacteria (Auto) 3 Urine Yeast (Auto) Few Urine Osmolality Ur Random Creatinine U Random Total Protein Ur Random Sodium Ur Random Potassium Ur Random Urea Nitrogn 304 L Protein/Creatinin Ratio Random Vancomycin Opiates Screen Methadone Screen Barbiturate Screen Phencyclidine Screen Ur Amphetamines Screen MDMA (Ecstasy) Screen Benzodiazepines Screen Cocaine Screen U Marijuana (THC) Screen 06/06/20 06/06/20 06/06/20 04:00 04:00 04:09 WBC RBC Hgb Hct MCV MCH MCHC RDW Plt Count MPV Absolute Neuts (auto) Neutrophils % Neutrophils % (Manual) Band Neutrophils % Lymphocytes % Lymphocytes % (Manual) Monocytes % Monocytes % (Manual) Eosinophils % Eosinophils % (Manual) Basophils % Basophils % (Manual) Myelocytes % (Man) Promyelocytes % (Man) Blast Cells % (Manual) Nucleated RBC % Metamyelocytes Hypochromia Platelet Estimate Polychromasia Poikilocytosis Anisocytosis Microcytosis PT with INR INR PTT (Actin FS) Anticoagulation Therapy Puncture Site Patient Temperature ABG pH ABG pCO2 ABG pO2 ABG HCO3 ABG O2 Sat (Measured) ABG O2 Content ABG Base Excess Yoel Test VBG pH POC VBG pCO2 POC VBG pO2 VBG HCO3 VBG O2 Sat (Delia) VBG Base Excess Patient On Oxygen O2 Delivery Device Oxygen Flow Rate Vent Mode Vent Rate Mechanical Rate PEEP Pressure Support Vent Sodium Potassium Chloride Carbon Dioxide Anion Gap BUN Creatinine Est GFR (CKD-EPI)AfAm Est GFR (CKD-EPI)NonAf POC Glucometer 333 Random Glucose Hemoglobin A1c % Lactic Acid Calcium Phosphorus Magnesium Total Bilirubin AST ALT Alkaline Phosphatase Creatine Kinase Troponin I Total Protein Albumin Vitamin B12 Beta-Hydroxybutyrate TSH Urine Color Urine Appearance Urine pH Ur Specific [place] Urine Protein Urine Glucose (UA) Urine Ketones Urine Blood Urine Nitrite Urine Bilirubin Urine Urobilinogen Ur Leukocyte Esterase Urine WBC (Auto) Urine RBC (Auto) Urine Casts (Auto) U Epithel Cells (Auto) U Sm Round Cell (Auto) Urine Bacteria (Auto) Urine Yeast (Auto) Urine Osmolality Ur Random Creatinine 33.0 U Random Total Protein 163.4 H Ur Random Sodium 38 L Ur Random Potassium 13.0 L Ur Random Urea Nitrogn Protein/Creatinin Ratio 5.0 Random Vancomycin Opiates Screen Negative Methadone Screen Negative Barbiturate Screen Negative Phencyclidine Screen Negative Ur Amphetamines Screen Negative MDMA (Ecstasy) Screen Negative Benzodiazepines Screen Negative Cocaine Screen Negative U Marijuana (THC) Screen Negative 06/06/20 06/06/20 06/06/20 04:45 04:54 05:00 WBC RBC Hgb Hct MCV MCH MCHC RDW Plt Count MPV Absolute Neuts (auto) Neutrophils % Neutrophils % (Manual) Band Neutrophils % Lymphocytes % Lymphocytes % (Manual) Monocytes % Monocytes % (Manual) Eosinophils % Eosinophils % (Manual) Basophils % Basophils % (Manual) Myelocytes % (Man) Promyelocytes % (Man) Blast Cells % (Manual) Nucleated RBC % Metamyelocytes Hypochromia Platelet Estimate Polychromasia Poikilocytosis Anisocytosis Microcytosis PT with INR INR PTT (Actin FS) Anticoagulation Therapy Puncture Site Patient Temperature ABG pH ABG pCO2 ABG pO2 ABG HCO3 ABG O2 Sat (Measured) ABG O2 Content ABG Base Excess Yoel Test VBG pH POC VBG pCO2 POC VBG pO2 VBG HCO3 VBG O2 Sat (Delia) VBG Base Excess Patient On Oxygen O2 Delivery Device Oxygen Flow Rate Vent Mode Vent Rate Mechanical Rate PEEP Pressure Support Vent Sodium 128 L 129 L Potassium 4.0 4.0 Chloride 98 100 Carbon Dioxide 17 L 18 L Anion Gap 13 12 BUN 47.9 H 46.3 H Creatinine 1.9 H 1.9 H Est GFR (CKD-EPI)AfAm 33.10 33.10 Est GFR (CKD-EPI)NonAf 28.56 28.56 POC Glucometer Random Glucose 311 H 238 H Hemoglobin A1c % Lactic Acid Calcium 7.2 L 7.3 L Phosphorus 2.0 L Magnesium 2.1 Total Bilirubin 0.7 AST 13 L ALT 17 Alkaline Phosphatase 81 Creatine Kinase Troponin I Total Protein 5.6 L Albumin 2.1 L Vitamin B12 834 Beta-Hydroxybutyrate TSH 1.24 Urine Color Urine Appearance Urine pH Ur Specific [place] Urine Protein Urine Glucose (UA) Urine Ketones Urine Blood Urine Nitrite Urine Bilirubin Urine Urobilinogen Ur Leukocyte Esterase Urine WBC (Auto) Urine RBC (Auto) Urine Casts (Auto) U Epithel Cells (Auto) U Sm Round Cell (Auto) Urine Bacteria (Auto) Urine Yeast (Auto) Urine Osmolality 369 Ur Random Creatinine U Random Total Protein Ur Random Sodium Ur Random Potassium Ur Random Urea Nitrogn Protein/Creatinin Ratio Random Vancomycin Opiates Screen Methadone Screen Barbiturate Screen Phencyclidine Screen Ur Amphetamines Screen MDMA (Ecstasy) Screen Benzodiazepines Screen Cocaine Screen U Marijuana (THC) Screen 06/06/20 06/06/20 06/06/20 05:05 05:45 06:00 WBC 22.1 H RBC 3.49 L Hgb 9.8 L Hct 28.6 L D MCV 82.0 MCH 28.1 MCHC 34.3 RDW 13.8 Plt Count 357 MPV 7.9 Absolute Neuts (auto) 21.1 H Neutrophils % 95.4 H Neutrophils % (Manual) 90.0 H Band Neutrophils % 7.0 Lymphocytes % 1.7 L D Lymphocytes % (Manual) 3.0 L D Monocytes % 2.2 L D Monocytes % (Manual) 0 L Eosinophils % 0.4 Eosinophils % (Manual) 0.0 D Basophils % 0.3 Basophils % (Manual) 0.0 Myelocytes % (Man) 0 Promyelocytes % (Man) 0 Blast Cells % (Manual) 0 Nucleated RBC % 0 Metamyelocytes 0 Hypochromia 1+ Platelet Estimate Normal Polychromasia 0 Poikilocytosis 0 Anisocytosis 2+ Microcytosis 2+ PT with INR INR PTT (Actin FS) Anticoagulation Therapy No Result Required. Puncture Site Right radial Patient Temperature No Result Required. ABG pH 7.436 ABG pCO2 26.40 L ABG pO2 76.9 L ABG HCO3 17.4 L ABG O2 Sat (Measured) 96.0 ABG O2 Content No Result Required. ABG Base Excess -5.4 L Yoel Test Positive VBG pH POC VBG pCO2 POC VBG pO2 VBG HCO3 VBG O2 Sat (Delia) VBG Base Excess Patient On Oxygen No O2 Delivery Device Room air Oxygen Flow Rate No Result Required. Vent Mode No Result Required. Vent Rate No Result Required. Mechanical Rate No Result Required. PEEP No Result Required. Pressure Support Vent No Result Required. Sodium Potassium Chloride Carbon Dioxide Anion Gap BUN Creatinine Est GFR (CKD-EPI)AfAm Est GFR (CKD-EPI)NonAf POC Glucometer 256 Random Glucose Hemoglobin A1c % Lactic Acid Calcium Phosphorus Magnesium Total Bilirubin AST ALT Alkaline Phosphatase Creatine Kinase Troponin I Total Protein Albumin Vitamin B12 Beta-Hydroxybutyrate TSH Urine Color Urine Appearance Urine pH Ur Specific [place] Urine Protein Urine Glucose (UA) Urine Ketones Urine Blood Urine Nitrite Urine Bilirubin Urine Urobilinogen Ur Leukocyte Esterase Urine WBC (Auto) Urine RBC (Auto) Urine Casts (Auto) U Epithel Cells (Auto) U Sm Round Cell (Auto) Urine Bacteria (Auto) Urine Yeast (Auto) Urine Osmolality Ur Random Creatinine U Random Total Protein Ur Random Sodium Ur Random Potassium Ur Random Urea Nitrogn Protein/Creatinin Ratio Random Vancomycin Opiates Screen Methadone Screen Barbiturate Screen Phencyclidine Screen Ur Amphetamines Screen MDMA (Ecstasy) Screen Benzodiazepines Screen Cocaine Screen U Marijuana (THC) Screen 06/06/20 06/06/20 06/06/20 06:00 06:00 06:02 WBC RBC Hgb Hct MCV MCH MCHC RDW Plt Count MPV Absolute Neuts (auto) Neutrophils % Neutrophils % (Manual) Band Neutrophils % Lymphocytes % Lymphocytes % (Manual) Monocytes % Monocytes % (Manual) Eosinophils % Eosinophils % (Manual) Basophils % Basophils % (Manual) Myelocytes % (Man) Promyelocytes % (Man) Blast Cells % (Manual) Nucleated RBC % Metamyelocytes Hypochromia Platelet Estimate Polychromasia Poikilocytosis Anisocytosis Microcytosis PT with INR INR PTT (Actin FS) Anticoagulation Therapy Puncture Site Patient Temperature ABG pH ABG pCO2 ABG pO2 ABG HCO3 ABG O2 Sat (Measured) ABG O2 Content ABG Base Excess Yoel Test VBG pH POC VBG pCO2 POC VBG pO2 VBG HCO3 VBG O2 Sat (Delia) VBG Base Excess Patient On Oxygen O2 Delivery Device Oxygen Flow Rate Vent Mode Vent Rate Mechanical Rate PEEP Pressure Support Vent Sodium Potassium Chloride Carbon Dioxide Anion Gap BUN Creatinine Est GFR (CKD-EPI)AfAm Est GFR (CKD-EPI)NonAf POC Glucometer 210 Random Glucose Hemoglobin A1c % 14.6 H Lactic Acid Calcium Phosphorus Magnesium Total Bilirubin AST ALT Alkaline Phosphatase Creatine Kinase Troponin I Total Protein Albumin Vitamin B12 Beta-Hydroxybutyrate TSH Urine Color Urine Appearance Urine pH Ur Specific [place] Urine Protein Urine Glucose (UA) Urine Ketones Urine Blood Urine Nitrite Urine Bilirubin Urine Urobilinogen Ur Leukocyte Esterase Urine WBC (Auto) Urine RBC (Auto) Urine Casts (Auto) U Epithel Cells (Auto) U Sm Round Cell (Auto) Urine Bacteria (Auto) Urine Yeast (Auto) Urine Osmolality Ur Random Creatinine U Random Total Protein Ur Random Sodium Ur Random Potassium Ur Random Urea Nitrogn Protein/Creatinin Ratio Random Vancomycin 7.6 Opiates Screen Methadone Screen Barbiturate Screen Phencyclidine Screen Ur Amphetamines Screen MDMA (Ecstasy) Screen Benzodiazepines Screen Cocaine Screen U Marijuana (THC) Screen 06/06/20 06/06/20 06/06/20 07:00 07:07 08:18 WBC RBC Hgb Hct MCV MCH MCHC RDW Plt Count MPV Absolute Neuts (auto) Neutrophils % Neutrophils % (Manual) Band Neutrophils % Lymphocytes % Lymphocytes % (Manual) Monocytes % Monocytes % (Manual) Eosinophils % Eosinophils % (Manual) Basophils % Basophils % (Manual) Myelocytes % (Man) Promyelocytes % (Man) Blast Cells % (Manual) Nucleated RBC % Metamyelocytes Hypochromia Platelet Estimate Polychromasia Poikilocytosis Anisocytosis Microcytosis PT with INR INR PTT (Actin FS) Anticoagulation Therapy Puncture Site Patient Temperature ABG pH ABG pCO2 ABG pO2 ABG HCO3 ABG O2 Sat (Measured) ABG O2 Content ABG Base Excess Yoel Test VBG pH POC VBG pCO2 POC VBG pO2 VBG HCO3 VBG O2 Sat (Delia) VBG Base Excess Patient On Oxygen O2 Delivery Device Oxygen Flow Rate Vent Mode Vent Rate Mechanical Rate PEEP Pressure Support Vent Sodium 130 L Potassium 4.1 Chloride 100 Carbon Dioxide 19 L Anion Gap 10 BUN 47.1 H Creatinine 1.8 H Est GFR (CKD-EPI)AfAm 35.34 Est GFR (CKD-EPI)NonAf 30.49 POC Glucometer 155 114 Random Glucose 141 H Hemoglobin A1c % Lactic Acid Calcium 7.7 L Phosphorus Magnesium Total Bilirubin AST ALT Alkaline Phosphatase Creatine Kinase Troponin I Total Protein Albumin Vitamin B12 Beta-Hydroxybutyrate TSH Urine Color Urine Appearance Urine pH Ur Specific [place] Urine Protein Urine Glucose (UA) Urine Ketones Urine Blood Urine Nitrite Urine Bilirubin Urine Urobilinogen Ur Leukocyte Esterase Urine WBC (Auto) Urine RBC (Auto) Urine Casts (Auto) U Epithel Cells (Auto) U Sm Round Cell (Auto) Urine Bacteria (Auto) Urine Yeast (Auto) Urine Osmolality Ur Random Creatinine U Random Total Protein Ur Random Sodium Ur Random Potassium Ur Random Urea Nitrogn Protein/Creatinin Ratio Random Vancomycin Opiates Screen Methadone Screen Barbiturate Screen Phencyclidine Screen Ur Amphetamines Screen MDMA (Ecstasy) Screen Benzodiazepines Screen Cocaine Screen U Marijuana (THC) Screen 06/06/20 06/06/20 06/06/20 08:37 09:45 12:30 WBC RBC Hgb Hct MCV MCH MCHC RDW Plt Count MPV Absolute Neuts (auto) Neutrophils % Neutrophils % (Manual) Band Neutrophils % Lymphocytes % Lymphocytes % (Manual) Monocytes % Monocytes % (Manual) Eosinophils % Eosinophils % (Manual) Basophils % Basophils % (Manual) Myelocytes % (Man) Promyelocytes % (Man) Blast Cells % (Manual) Nucleated RBC % Metamyelocytes Hypochromia Platelet Estimate Polychromasia Poikilocytosis Anisocytosis Microcytosis PT with INR INR PTT (Actin FS) Anticoagulation Therapy Puncture Site Patient Temperature ABG pH ABG pCO2 ABG pO2 ABG HCO3 ABG O2 Sat (Measured) ABG O2 Content ABG Base Excess Yoel Test VBG pH POC VBG pCO2 POC VBG pO2 VBG HCO3 VBG O2 Sat (Delia) VBG Base Excess Patient On Oxygen O2 Delivery Device Oxygen Flow Rate Vent Mode Vent Rate Mechanical Rate PEEP Pressure Support Vent Sodium 130 L Potassium 3.9 Chloride 102 Carbon Dioxide 16 L Anion Gap 11 BUN 44.7 H Creatinine 1.7 H Est GFR (CKD-EPI)AfAm 37.86 Est GFR (CKD-EPI)NonAf 32.67 POC Glucometer 106 304 Random Glucose 174 H Hemoglobin A1c % Lactic Acid Calcium 7.3 L Phosphorus Magnesium Total Bilirubin AST ALT Alkaline Phosphatase Creatine Kinase Troponin I Total Protein Albumin Vitamin B12 Beta-Hydroxybutyrate TSH Urine Color Urine Appearance Urine pH Ur Specific [place] Urine Protein Urine Glucose (UA) Urine Ketones Urine Blood Urine Nitrite Urine Bilirubin Urine Urobilinogen Ur Leukocyte Esterase Urine WBC (Auto) Urine RBC (Auto) Urine Casts (Auto) U Epithel Cells (Auto) U Sm Round Cell (Auto) Urine Bacteria (Auto) Urine Yeast (Auto) Urine Osmolality Ur Random Creatinine U Random Total Protein Ur Random Sodium Ur Random Potassium Ur Random Urea Nitrogn Protein/Creatinin Ratio Random Vancomycin Opiates Screen Methadone Screen Barbiturate Screen Phencyclidine Screen Ur Amphetamines Screen MDMA (Ecstasy) Screen Benzodiazepines Screen Cocaine Screen U Marijuana (THC) Screen 06/06/20 06/06/20 15:28 16:58 WBC RBC Hgb Hct MCV MCH MCHC RDW Plt Count MPV Absolute Neuts (auto) Neutrophils % Neutrophils % (Manual) Band Neutrophils % Lymphocytes % Lymphocytes % (Manual) Monocytes % Monocytes % (Manual) Eosinophils % Eosinophils % (Manual) Basophils % Basophils % (Manual) Myelocytes % (Man) Promyelocytes % (Man) Blast Cells % (Manual) Nucleated RBC % Metamyelocytes Hypochromia Platelet Estimate Polychromasia Poikilocytosis Anisocytosis Microcytosis PT with INR INR PTT (Actin FS) Anticoagulation Therapy Puncture Site Patient Temperature ABG pH ABG pCO2 ABG pO2 ABG HCO3 ABG O2 Sat (Measured) ABG O2 Content ABG Base Excess Yoel Test VBG pH POC VBG pCO2 POC VBG pO2 VBG HCO3 VBG O2 Sat (Delia) VBG Base Excess Patient On Oxygen O2 Delivery Device Oxygen Flow Rate Vent Mode Vent Rate Mechanical Rate PEEP Pressure Support Vent Sodium Potassium Chloride Carbon Dioxide Anion Gap BUN Creatinine Est GFR (CKD-EPI)AfAm Est GFR (CKD-EPI)NonAf POC Glucometer 343 360 Random Glucose Hemoglobin A1c % Lactic Acid Calcium Phosphorus Magnesium Total Bilirubin AST ALT Alkaline Phosphatase Creatine Kinase Troponin I Total Protein Albumin Vitamin B12 Beta-Hydroxybutyrate TSH Urine Color Urine Appearance Urine pH Ur Specific [place] Urine Protein Urine Glucose (UA) Urine Ketones Urine Blood Urine Nitrite Urine Bilirubin Urine Urobilinogen Ur Leukocyte Esterase Urine WBC (Auto) Urine RBC (Auto) Urine Casts (Auto) U Epithel Cells (Auto) U Sm Round Cell (Auto) Urine Bacteria (Auto) Urine Yeast (Auto) Urine Osmolality Ur Random Creatinine U Random Total Protein Ur Random Sodium Ur Random Potassium Ur Random Urea Nitrogn Protein/Creatinin Ratio Random Vancomycin Opiates Screen Methadone Screen Barbiturate Screen Phencyclidine Screen Ur Amphetamines Screen MDMA (Ecstasy) Screen Benzodiazepines Screen Cocaine Screen U Marijuana (THC) Screen Active Medications Generic Name Dose Route Start Last Admin Trade Name Freq PRN Reason Stop Dose Admin Acetaminophen 1,000 mg 06/06/20 03:29 06/06/20 06:50 Ofirmev Injection - IVPB 06/07/20 03:29 1,000 mg Q6H PRN Administration FEVER Apixaban 5 mg 06/06/20 01:00 06/06/20 10:21 Eliquis - PO 5 mg BID SILVA Administration Atorvastatin Calcium 20 mg 06/06/20 22:00 Lipitor - PO HS SILVA Chlorhexidine Gluconate 1 applic 06/06/20 22:00 Hibiclens For Decolonization - TP HS SILVA Clopidogrel Bisulfate 75 mg 06/06/20 10:00 06/06/20 10:21 Plavix - PO 75 mg DAILY SILVA Administration Diltiazem HCl 240 mg 06/06/20 10:00 06/06/20 10:21 Cardizem Cd - PO 240 mg DAILY SILVA Administration Insulin Human Regular 100 100 mls @ 8 mls/hr 06/05/20 22:30 06/06/20 08:20 units/ Sodium Chloride IVPB 0 units/hr TITR SILVA 0 mls/hr Titration Protocol 8 UNITS/HR Sodium Chloride 1,000 mls @ 50 mls/hr 06/06/20 05:10 06/06/20 05:43 Normal Saline - IV 50 mls/hr ASDIR SILVA Administration Cefepime HCl 1 gm/ Dextrose 100 mls @ 200 mls/hr 06/06/20 18:00 IVPB Q8H-IV SILVA Protocol Insulin Aspart 1 vial 06/06/20 16:30 06/06/20 17:04 Novolog Vial Sliding Scale - SQ 10 units ACHS SILVA Administration Protocol Losartan Potassium 25 mg 06/06/20 10:00 Cozaar - PO DAILY SILVA Metoprolol Tartrate 100 mg 06/06/20 10:00 06/06/20 10:28 Lopressor - PO Not Given BID SILVA Mupirocin 1 applic 06/06/20 10:00 06/06/20 12:41 Bactroban Ointment (For Decolonization) - NS 06/11/20 09:59 1 applic BID SILVA Administration Nystatin 1 applic 06/06/20 13:30 06/06/20 15:45 Nystop Powder - TP 1 applic BID SIL[facility] Administration Pantoprazole Sodium 40 mg 06/06/20 10:00 06/06/20 10:22 Protonix Iv IVPUSH 40 mg DAILY SILVA Administration COVERING FOR DR DAI TODAY cc time 60 min
[2020-06-06] MEDS: CEFEPIME 1 GM in DEXTROSE 5%-WATER 100 ML IVPB SCH (17:13)
[2020-06-06] MEDS ORDERED: INSULIN (NOVOLOG) ASPART 100 UNITS/ML 10ML VIAL SQ ONE (19:00)
[2020-06-06 20:33] LABS: BLOOD UREA NITROGEN 41.9 mg/dL (7-18); CREATININE 1.7 mg/dL (0.55-1.3); POTASSIUM 4.2 mmol/L (3.5-5.1)
[2020-06-06 20:36] LABS: CALCIUM 6.7 mg/dL (8.5-10.1)
[2020-06-06] MEDS ORDERED: CALCIUM GLUCONATE 10% - 1,000 MG/10 ML VIAL IVPB ONE (20:54)
--- NOTE | 2020-06-06 21:28 | CONSULT ---
Consult Consult Specialty:: Endcorine Referred by:: Kayla Dai MD. Reason for Consultation:: uncontrolled dm - History of Present Illness Chief Complaint: weak and lethargic high sugars History of Present Illness: 59 yo female with PMH IDDM, Afib on Eliquis and plavix, HTN, HLD presented for generalized weakness for one week. 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: Alzheimer's, CVA, Dementia, Migraine, Multiple Sclerosis, Peripheral Neuropathy, Parkinson's, Seizure, Syncope, TIA, Vertigo, Other Cardio/Vascular: Yes: AFIB, CAD, HTN, [place] Pulmonary: No: Asthma, Bronchitis, Cancer, COPD, O2 Dependent, Pneumonia, Previously Intubated, Pulmonary Embolus, Pulmonary Fibrosis, Sleep Apnea, Other Gastrointestinal: No: Ascites, Cancer, Constipation, Crohn's Disease, Diverticulitis, Diverticulosis, Esophageal Varices, Gastritis, GERD, GI Bleed, Hemorrhoids, Hiatal Hernia, Inflamatory Bowel Disease, Irritable Bowel Disease, Pancreatitis, Peptic Ulcer Disease, Ulcerative Colitis, Other Hepatobiliary: No: Cirrhosis, Cholelithiasis, Cholecystitis, Choledocholithiasis, Hepatitis A, Hepatitis B, Hepatitis C, Other Renal/: Yes: Renal Inusuff (acute) Infectious Disease: No: AIDS, C-Diff, Herpes Zoster, HIV, MRSA, STD's, Tuberculosis, VREF, Other Psych: No: Addictions, Anxiety, Bipolar, Depression, Panic, Psychosis, Schizophrenia, Other Musculoskeletal: Yes: Osteoarthritis Endocrine: Yes: Diabetes Mellitus Dermatology: Yes: Other (h/o basal cell Ca) - Past Surgical History Past Surgical History: Yes: , Stent - Alcohol/Substance Use Hx Alcohol Use: Yes (occassionally) - Smoking History Smoking history: Unknown if ever smoked Have you smoked in the past 12 months: No - Social History Usual Living Arrangement: With Spouse ADL: Independent History of Recent Travel: No Home Medications - Allergies Allergies/Adverse Reactions: Allergies Allergy/AdvReac Type Severity Reaction Status Date / Time Penicillins Allergy Verified 06/05/20 20:46 - Home Medications Home Medications: Ambulatory Orders Apixaban [Eliquis -] 5 mg PO BID 12/29/16 Atorvastatin Ca [Lipitor] 20 mg PO HS 11/13/16 Metoprolol Tartrate [Lopressor] 100 mg PO BID 11/13/16 Diltiazem Cd [Cardizem Cd -] 240 mg PO DAILY 03/15/17 metFORMIN HCL [Metformin HCl] 500 mg PO BID 03/15/17 Insulin (Levemir) [Levemir Vial] 15 unit SQ HS #1 vial 03/23/17 Plavix 75 mg PO DAILY 03/26/17 Cholecalciferol (Vitamin D3) [Vitamin D3] 2,000 unit PO DAILY 06/06/20 Cyanocobalamin (Vitamin B-12) [Vitamin B-12] 100 mcg PO DAILY 06/06/20 Insulin Sliding Scale [Novolog Vial Sliding Scale -] 2 - 4 unit SQ ACHS 06/06/20 Irbesartan [Avapro (Nf) -] 75 mg PO DAILY 06/06/20 Review of Systems - Review of Systems Constitutional: reports: Lethargy, Malaise Eyes: reports: Blurred Vision Physical Exam Vital Signs: Vital Signs Temperature 98.8 F 06/06/20 18:00 Pulse Rate 74 06/06/20 18:00 Respiratory Rate 18 06/06/20 18:00 Blood Pressure 128/54 L 06/06/20 18:00 O2 Sat by Pulse Oximetry (%) 97 06/06/20 18:00 Labs: CBC, BMP 06/06/20 06:00 06/06/20 18:30 Problem List - Problems (1) CIARAN (acute kidney injury) Code(s): N17.9 - ACUTE KIDNEY FAILURE, UNSPECIFIED (2) DKA (diabetic ketoacidoses) Code(s): E11.10 - TYPE 2 DIABETES MELLITUS WITH KETOACIDOSIS WITHOUT COMA (3) Hyperglycemia Code(s): R73.9 - HYPERGLYCEMIA, UNSPECIFIED (4) Hyponatremia Code(s): E87.1 - HYPO-OSMOLALITY AND HYPONATREMIA (5) A-fib Code(s): I48.91 - UNSPECIFIED ATRIAL FIBRILLATION Qualifiers: Atrial fibrillation type: permanent Qualified Code(s): I48.21 - Permanent atrial fibrillation (6) Abscess of leg Code(s): L02.419 - CUTANEOUS ABSCESS OF LIMB, UNSPECIFIED (7) Altered mental state Code(s): R41.82 - ALTERED MENTAL STATUS, UNSPECIFIED Assessment/Plan Current Active Problems CIARAN (acute kidney injury) (Acute) DKA (diabetic ketoacidoses) (Acute) Hyperglycemia (Acute) Hyponatremia (Acute) Abnormal Lab Results 06/05/20 06/06/20 06/06/20 21:35 02:45 04:00 WBC RBC Hgb Hct Absolute Neuts (auto) Neutrophils % Neutrophils % (Manual) Lymphocytes % Lymphocytes % (Manual) Monocytes % Monocytes % (Manual) ABG pCO2 ABG pO2 ABG HCO3 ABG Base Excess Sodium 122 L 126 L Chloride 92 L 94 L Carbon Dioxide 18 L 20 L BUN 50.4 H 48.1 H Creatinine 1.9 H 1.9 H Random Glucose 567 H* 426 H* Hemoglobin A1c % Calcium 7.2 L 7.8 L Phosphorus AST Total Protein Albumin Urine Protein Urine Glucose (UA) Urine Blood U Random Total Protein Ur Random Sodium Ur Random Potassium Ur Random Urea Nitrogn 304 L 06/06/20 06/06/20 06/06/20 04:00 04:00 04:45 WBC RBC Hgb Hct Absolute Neuts (auto) Neutrophils % Neutrophils % (Manual) Lymphocytes % Lymphocytes % (Manual) Monocytes % Monocytes % (Manual) ABG pCO2 ABG pO2 ABG HCO3 ABG Base Excess Sodium 128 L Chloride Carbon Dioxide 17 L BUN 47.9 H Creatinine 1.9 H Random Glucose 311 H Hemoglobin A1c % Calcium 7.2 L Phosphorus AST Total Protein Albumin Urine Protein 2+ H Urine Glucose (UA) 3+ H Urine Blood 1+ H U Random Total Protein 163.4 H Ur Random Sodium 38 L Ur Random Potassium 13.0 L Ur Random Urea Nitrogn Abnormal Lab Results Laboratory Tests 06/06/20 06:00 Hemoglobin A1c % 14.6 H plan: bgm qid novolog scale levemir 25 iu bid dose titrate cgms as outpatient diet and nutrition
[2020-06-06] MEDS: INSULIN SLIDING SCALE (NOVOLOG) 1 VIAL SQ SCH (21:50)
[2020-06-06] MEDS ORDERED: CHLORHEXIDINE GLUCONATE 4% CLEANSER FOR DECOLONIZATION TP SCH (22:00)
[2020-06-06] MEDS ORDERED: INSULIN (LEVEMIR) 100 UNITS/ML UNITS SQ SCH ×2 (22:00)
[2020-06-06] MEDS ORDERED: ATORVASTATIN CA 20 MG TABLET (FP) PO SCH (22:00)
[2020-06-07] MEDS ORDERED: VANCOMYCIN 1 GM in D5W (PRE-DOCKED) 1,000 MG/250 ML IVPB SCH (01:30)
[2020-06-07] MEDS ORDERED: CEFEPIME HCL 1 GM VIAL (RESTRICTED TO ID) ONE ×2 (02:33→09:43)
[2020-06-07] MEDS ORDERED: DEXTROSE 5%-WATER 100 ML IVPB ONE ×2 (02:33→09:44)
[2020-06-07] MEDS: CEFEPIME 1 GM in DEXTROSE 5%-WATER 100 ML IVPB SCH ×2 (02:36→10:08)
[2020-06-07] MEDS: SODIUM CHLORIDE 1,000 ML IV SCH ×3 (02:37→16:30)
[2020-06-07 06:21] LABS: BASO % 0.7 % (0-2.0); EOS % 4.9 % (0-4.5); HEMATOCRIT 31.1 % (32.4-45.2); HEMOGLOBIN 10.5 GM/dL (10.7-15.3); MCH 28.2 pg (25.7-33.7); MCHC 33.8 g/dl (32.0-36.0); MEAN CELL VOLUME 83.5 fl (80-96); MEAN PLT VOLUME 7.9 fl (7.5-11.1); MONO % 3.8 % (3.8-10.2); NEUT % 83.6 % (42.8-82.8); PLATELET COUNT 309 K/MM3 (134-434); RBC 3.73 M/mm3 (3.60-5.2); RDW 14.1 % (11.6-15.6); WHITE BLOOD COUNT 9.8 K/mm3 (4.0-10.0)
[2020-06-07] MEDS: INSULIN (LEVEMIR) 100 UNITS/ML UNITS SQ SCH ×2 (06:32→21:06)
[2020-06-07] MEDS: INSULIN SLIDING SCALE (NOVOLOG) 1 VIAL SQ SCH ×4 (06:33→21:05)
[2020-06-07 06:50] LABS: ALBUMIN 1.9 g/dl (3.4-5.0); BILIRUBIN,TOTAL 0.3 mg/dL (0.2-1); BLOOD UREA NITROGEN 46.5 mg/dL (7-18); CALCIUM 7.9 mg/dL (8.5-10.1); CREATININE 1.7 mg/dL (0.55-1.3); TOT PROT 5.4 g/dl (6.4-8.2)
[2020-06-07 07:13] LABS: MAGNESIUM 2.1 mg/dL (1.8-2.4); PHOSPHOROUS 3.6 mg/dL (2.5-4.9)
[2020-06-07] MEDS: APIXABAN 5 MG TABLET PO SCH ×2 (10:09→21:06)
[2020-06-07] MEDS: CLOPIDOGREL BISULFATE 75 MG TABLET (FP) PO SCH (10:09)
[2020-06-07] MEDS: METOPROLOL TARTRATE 50 MG TABLET (FP) PO SCH ×2 (10:09→21:06)
[2020-06-07] MEDS: PANTOPRAZOLE SODIUM 40 MG VIAL IVPUSH SCH (10:09)
[2020-06-07] MEDS: MUPIROCIN 2% TOPICAL OINTMENT FOR DECOLONIZATION NS SCH ×2 (11:13→21:07)
[2020-06-07] MEDS: NYSTATIN POWDER 100,000 UNITS/GM - 15 GM TOPICAL POWDER TP SCH ×2 (11:14→21:09)
--- NOTE | 2020-06-07 11:44 | PN ---
Progress Note, Physician History of Present Illness: stable no new issues pelvis ct scan result - Current Medication List Current Medications: Active Medications Apixaban (Eliquis -) 5 mg PO BID [facility] Last Admin: 06/07/20 10:09 Dose: 5 mg Documented by: Atorvastatin Calcium (Lipitor -) 20 mg PO HS [facility] Last Admin: 06/06/20 21:49 Dose: 20 mg Documented by: Chlorhexidine Gluconate (Hibiclens For Decolonization -) 1 applic TP HS [facility] Last Admin: 06/06/20 21:48 Dose: 1 applic Documented by: Clopidogrel Bisulfate (Plavix -) 75 mg PO DAILY [facility] Last Admin: 06/07/20 10:09 Dose: 75 mg Documented by: Diltiazem HCl (Cardizem Cd -) 240 mg PO DAILY [facility] Last Admin: 06/07/20 10:09 Dose: 240 mg Documented by: Insulin Human Regular 100 (units/ Sodium Chloride) 100 mls @ 8 mls/hr IVPB TITR [facility]; Protocol Last Titration: 06/06/20 08:20 Dose: 0 units/hr, 0 mls/hr Documented by: Sodium Chloride (Normal Saline -) 1,000 mls @ 50 mls/hr IV ASDIR [facility] Last Admin: 06/07/20 06:31 Dose: Not Given Documented by: Cefepime HCl 1 gm/ Dextrose 100 mls @ 200 mls/hr IVPB Q8H-IV [facility]; Protocol Last Admin: 06/07/20 10:08 Dose: 200 mls/hr Documented by: Insulin Aspart (Novolog Vial Sliding Scale -) 1 vial SQ ACHS [facility]; Protocol Last Admin: 06/07/20 11:14 Dose: Not Given Documented by: Insulin Detemir (Levemir Vial) 25 units SQ AM [facility] Last Admin: 06/07/20 06:32 Dose: 25 units Documented by: Insulin Detemir (Levemir Vial) 25 units SQ HS [facility] Last Admin: 06/06/20 22:15 Dose: 25 units Documented by: Losartan Potassium (Cozaar -) 25 mg PO DAILY [facility] Metoprolol Tartrate (Lopressor -) 100 mg PO BID [facility] Last Admin: 06/07/20 10:09 Dose: 100 mg Documented by: Mupirocin (Bactroban Ointment (For Decolonization) -) 1 applic NS BID [facility] Stop: 06/11/20 09:59 Last Admin: 06/07/20 11:13 Dose: 1 applic Documented by: Nystatin (Nystop Powder -) 1 applic TP BID [facility] Last Admin: 06/07/20 11:14 Dose: 1 applic Documented by: Pantoprazole Sodium (Protonix Iv) 40 mg IVPUSH DAILY [facility] Last Admin: 06/07/20 10:09 Dose: 40 mg Documented by: - Objective Vital Signs: Vital Signs Temperature 98 F 06/07/20 10:00 Pulse Rate 70 06/07/20 10:00 Respiratory Rate 16 06/07/20 10:00 Blood Pressure 110/60 06/07/20 10:00 O2 Sat by Pulse Oximetry (%) 74 L 06/07/20 08:00 Constitutional: Yes: No Distress, Calm Cardiovascular: Yes: S1, S2 Respiratory: Yes: Regular, CTA Bilaterally Gastrointestinal: Yes: Normal Bowel Sounds, Soft Musculoskeletal: Yes: WNL Extremities: Yes: WNL Neurological: Yes: Alert, Oriented Psychiatric: Yes: Alert, Oriented Labs: CBC, BMP 06/07/20 06:05 06/07/20 06:05 INR, PTT INR 1.63 (0.83-1.09) H 06/05/20 18:09 Assessment/Plan Problem List - Problems (1) CIARAN (acute kidney injury) Code(s): N17.9 - ACUTE KIDNEY FAILURE, UNSPECIFIED (2) Hyponatremia Code(s): E87.1 - HYPO-OSMOLALITY AND HYPONATREMIA (3) DKA (diabetic ketoacidoses) Code(s): E11.10 - TYPE 2 DIABETES MELLITUS WITH KETOACIDOSIS WITHOUT COMA (4) Hyperglycemia Code(s): R73.9 - HYPERGLYCEMIA, UNSPECIFIED (5) A-fib Code(s): I48.91 - UNSPECIFIED ATRIAL FIBRILLATION Qualifiers: Atrial fibrillation type: permanent r/o vaginal abscess leukocytosis plan will stop abx rest as per the team monitor
--- NOTE | 2020-06-07 11:51 | PN ---
Progress Note (short form) - Note Progress Note: PULMONARY SUBJECTIVE: Pt seen and examined in the ICU. Feeling better. No further fevers. OBJECTIVE: Vital Signs Period Temp Pulse Resp BP Sys/Mao Pulse Ox Last 24 Hr 98 F-98.8 F 60-85 15-20 101-128/52-67 74-100 Intake & Output 06/04/20 06/05/20 06/06/20 06/07/20 23:59 23:59 23:59 23:59 Intake Total 2450 2741 1100 Output Total 650 3300 2200 Balance 1800 -559 -1100 Weight 100.153 kg 100.153 kg 99.79 kg Gen: NAD at rest Heart: RRR Lung: decreased breath sounds at the bases Abd: soft, nontender Ext: no edema CBC, BMP 06/07/20 06:05 06/07/20 06:05 Active Medications Apixaban (Eliquis -) 5 mg PO BID [facility] Last Admin: 06/07/20 10:09 Dose: 5 mg Documented by: Atorvastatin Calcium (Lipitor -) 20 mg PO [facility] Last Admin: 06/06/20 21:49 Dose: 20 mg Documented by: Chlorhexidine Gluconate (Hibiclens For Decolonization -) 1 applic TP [facility] Last Admin: 06/06/20 21:48 Dose: 1 applic Documented by: Clopidogrel Bisulfate (Plavix -) 75 mg PO DAILY [facility] Last Admin: 06/07/20 10:09 Dose: 75 mg Documented by: Diltiazem HCl (Cardizem Cd -) 240 mg PO DAILY [facility] Last Admin: 06/07/20 10:09 Dose: 240 mg Documented by: Insulin Human Regular 100 (units/ Sodium Chloride) 100 mls @ 8 mls/hr IVPB TITR [facility]; Protocol Last Titration: 06/06/20 08:20 Dose: 0 units/hr, 0 mls/hr Documented by: Sodium Chloride (Normal Saline -) 1,000 mls @ 50 mls/hr IV ASDIR [facility] Last Admin: 06/07/20 06:31 Dose: Not Given Documented by: Insulin Aspart (Novolog Vial Sliding Scale -) 1 vial SQ ACHS [facility]; Protocol Last Admin: 06/07/20 11:14 Dose: Not Given Documented by: Insulin Detemir (Levemir Vial) 25 units SQ AM [facility] Last Admin: 06/07/20 06:32 Dose: 25 units Documented by: Insulin Detemir (Levemir Vial) 25 units SQ HS [facility] Last Admin: 06/06/20 22:15 Dose: 25 units Documented by: Losartan Potassium (Cozaar -) 25 mg PO DAILY [facility] Metoprolol Tartrate (Lopressor -) 100 mg PO BID [facility] Last Admin: 06/07/20 10:09 Dose: 100 mg Documented by: Mupirocin (Bactroban Ointment (For Decolonization) -) 1 applic NS BID [facility] Stop: 06/11/20 09:59 Last Admin: 06/07/20 11:13 Dose: 1 applic Documented by: Nystatin (Nystop Powder -) 1 applic TP BID [facility] Last Admin: 06/07/20 11:14 Dose: 1 applic Documented by: Pantoprazole Sodium (Protonix Iv) 40 mg IVPUSH DAILY [facility] Last Admin: 06/07/20 10:09 Dose: 40 mg Documented by: ASSESSMENT AND PLAN: HHS/DKA improved r/o Labial Abscess Severe Sepsis Acute Kidney Injury Hyponatremia Atrial Fibrillation HTN DM Hyperlipidemia - antibiotics per ID - f/u cultures - glucose control - rate control - continue anticoagulation - can monitor on floor
--- NOTE | 2020-06-07 15:49 | PN ---
Progress Note, Physician History of Present Illness: Pt seen and examined at bedside. She is awake and alert. She says that she feels better today. - Current Medication List Current Medications: Active Medications Apixaban (Eliquis -) 5 mg PO BID [facility] Atorvastatin Calcium (Lipitor -) 20 mg PO HS [facility] Chlorhexidine Gluconate (Hibiclens For Decolonization -) 1 applic TP HS [facility] Clopidogrel Bisulfate (Plavix -) 75 mg PO DAILY [facility] Diltiazem HCl (Cardizem Cd -) 240 mg PO DAILY [facility] Sodium Chloride (Normal Saline -) 1,000 mls @ 50 mls/hr IV ASDIR [facility] Insulin Aspart (Novolog Vial Sliding Scale -) 1 vial SQ ACHS [facility]; Protocol Last Admin: 06/07/20 11:14 Dose: Not Given Documented by: Insulin Detemir (Levemir Vial) 25 units SQ AM [facility] Last Admin: 06/07/20 06:32 Dose: 25 units Documented by: Insulin Detemir (Levemir Vial) 25 units SQ HS [facility] Last Admin: 06/06/20 22:15 Dose: 25 units Documented by: Losartan Potassium (Cozaar -) 25 mg PO DAILY [facility] Metoprolol Tartrate (Lopressor -) 100 mg PO BID [facility] Mupirocin (Bactroban Ointment (For Decolonization) -) 1 applic NS BID [facility] Stop: 06/11/20 09:59 Nystatin (Nystop Powder -) 1 applic TP BID [facility] Last Admin: 06/07/20 11:14 Dose: 1 applic Documented by: Pantoprazole Sodium (Protonix Iv) 40 mg IVPUSH DAILY [facility] - Objective Vital Signs: Vital Signs Temperature 98.2 F 06/07/20 14:37 Pulse Rate 56 L 06/07/20 14:37 Respiratory Rate 16 06/07/20 14:37 Blood Pressure 104/60 06/07/20 14:37 O2 Sat by Pulse Oximetry (%) 74 L 06/07/20 08:00 Constitutional: Yes: Calm Eyes: Yes: Conjunctiva Clear HENT: Yes: Atraumatic Neck: Yes: Supple Cardiovascular: Yes: S1, S2 Respiratory: Yes: CTA Bilaterally Gastrointestinal: Yes: Soft Genitourinary: Yes: WNL Musculoskeletal: Yes: WNL Edema: No Neurological: Yes: Oriented Psychiatric: Yes: Oriented Labs: CBC, BMP 06/07/20 06:05 06/07/20 06:05 INR, PTT INR 1.63 (0.83-1.09) H 06/05/20 18:09 Problem List - Problems (1) CIARAN (acute kidney injury) Code(s): N17.9 - ACUTE KIDNEY FAILURE, UNSPECIFIED (2) Hyponatremia Code(s): E87.1 - HYPO-OSMOLALITY AND HYPONATREMIA (3) DKA (diabetic ketoacidoses) Code(s): E11.10 - TYPE 2 DIABETES MELLITUS WITH KETOACIDOSIS WITHOUT COMA (4) Hyperglycemia Code(s): R73.9 - HYPERGLYCEMIA, UNSPECIFIED (5) A-fib Code(s): I48.91 - UNSPECIFIED ATRIAL FIBRILLATION Qualifiers: Atrial fibrillation type: permanent Qualified Code(s): I48.21 - Permanent atrial fibrillation Assessment/Plan Current Medications Generic Name Dose Route Start Last Admin Trade Name Freq PRN Reason Stop Dose Admin Apixaban 5 mg 06/07/20 22:00 Eliquis - PO BID [facility] Atorvastatin Calcium 20 mg 06/07/20 22:00 Lipitor - PO HS [facility] Chlorhexidine Gluconate 1 applic 06/07/20 22:00 Hibiclens For Decolonization - TP HS [facility] Clopidogrel Bisulfate 75 mg 06/08/20 10:00 Plavix - PO DAILY [facility] Diltiazem HCl 240 mg 06/08/20 10:00 Cardizem Cd - PO DAILY [facility] Sodium Chloride 1,000 mls @ 50 mls/hr 06/07/20 15:40 Normal Saline - IV ASDIR [facility] Insulin Aspart 1 vial 06/06/20 22:00 06/07/20 11:14 Novolog Vial Sliding Scale - SQ Not Given ACHS [facility] Protocol Insulin Detemir 25 units 06/07/20 07:00 06/07/20 06:32 Levemir Vial SQ 25 units AM [facility] Administration Insulin Detemir 25 units 06/06/20 22:00 06/06/20 22:15 Levemir Vial SQ 25 units HS [facility] Administration Losartan Potassium 25 mg 06/08/20 10:00 Cozaar - PO DAILY [facility] Metoprolol Tartrate 100 mg 06/07/20 22:00 Lopressor - PO BID [facility] Mupirocin 1 applic 06/07/20 22:00 Bactroban Ointment (For Decolonization) - NS 06/11/20 09:59 BID [facility] Nystatin 1 applic 06/06/20 13:30 06/07/20 11:14 Nystop Powder - TP 1 applic BID [facility] Administration Pantoprazole Sodium 40 mg 06/08/20 10:00 Protonix Iv IVPUSH DAILY [facility] Impression 1. CIARAN 2. DKA/HSS 3. hyponatremia 4. a-fib 5. htn 6. hld 7. 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
[2020-06-07] MEDS: ATORVASTATIN CA 20 MG TABLET (FP) PO SCH (21:06)
[2020-06-07] MEDS: CHLORHEXIDINE GLUCONATE 4% CLEANSER FOR DECOLONIZATION TP SCH (21:08)
--- NOTE | 2020-06-07 21:12 | PN ---
Progress Note, Physician History of Present Illness: No new complaints - Current Medication List Current Medications: Active Medications Apixaban (Eliquis -) 5 mg PO BID [facility] Last Admin: 06/07/20 21:06 Dose: 5 mg Documented by: Atorvastatin Calcium (Lipitor -) 20 mg PO HS [facility] Last Admin: 06/07/20 21:06 Dose: 20 mg Documented by: Chlorhexidine Gluconate (Hibiclens For Decolonization -) 1 applic TP HS [facility] Last Admin: 06/07/20 21:08 Dose: Not Given Documented by: Clopidogrel Bisulfate (Plavix -) 75 mg PO DAILY [facility] Diltiazem HCl (Cardizem Cd -) 240 mg PO DAILY [facility] Sodium Chloride (Normal Saline -) 1,000 mls @ 50 mls/hr IV ASDIR [facility] Last Admin: 06/07/20 16:30 Dose: Not Given Documented by: Insulin Aspart (Novolog Vial Sliding Scale -) 1 vial SQ [facility]; Protocol Last Admin: 06/07/20 21:05 Dose: 4 units Documented by: Insulin Detemir (Levemir Vial) 25 units SQ AM [facility] Last Admin: 06/07/20 06:32 Dose: 25 units Documented by: Insulin Detemir (Levemir Vial) 10 units SQ HS [facility] Last Admin: 06/07/20 21:06 Dose: 10 units Documented by: Losartan Potassium (Cozaar -) 25 mg PO DAILY [facility] Metoprolol Tartrate (Lopressor -) 100 mg PO BID [facility] Last Admin: 06/07/20 21:06 Dose: 100 mg Documented by: Mupirocin (Bactroban Ointment (For Decolonization) -) 1 applic NS BID [facility] Stop: 06/11/20 09:59 Last Admin: 06/07/20 21:07 Dose: Not Given Documented by: Nystatin (Nystop Powder -) 1 applic TP BID [facility] Last Admin: 06/07/20 21:09 Dose: 1 applic Documented by: Pantoprazole Sodium (Protonix Iv) 40 mg IVPUSH DAILY [facility] - Objective Vital Signs: Vital Signs Temperature 97.7 F 06/07/20 18:00 Pulse Rate 78 06/07/20 18:00 Respiratory Rate 16 06/07/20 16:45 Blood Pressure 115/52 L 06/07/20 18:00 O2 Sat by Pulse Oximetry (%) 95 06/07/20 16:45 Neck: Yes: WNL, Supple Cardiovascular: Yes: WNL, Regular Rate and Rhythm Respiratory: Yes: WNL, Regular, CTA Bilaterally Gastrointestinal: Yes: WNL, Normal Bowel Sounds, Soft Labs: CBC, BMP 06/07/20 06:05 06/07/20 06:05 INR, PTT INR 1.63 (0.83-1.09) H 06/05/20 18:09 Problem List - Problems (1) CIARAN (acute kidney injury) Assessment/Plan: Cont IVF Code(s): N17.9 - ACUTE KIDNEY FAILURE, UNSPECIFIED (2) DKA (diabetic ketoacidoses) Assessment/Plan: Cont IVF Cont levemir Cont sliding scale w/ coverage Endo consult noted Code(s): E11.10 - TYPE 2 DIABETES MELLITUS WITH KETOACIDOSIS WITHOUT COMA (3) Hyponatremia Assessment/Plan: Imoroving Code(s): E87.1 - HYPO-OSMOLALITY AND HYPONATREMIA (4) A-fib Assessment/Plan: Cont eliquis Heart rate controlled Code(s): I48.91 - UNSPECIFIED ATRIAL FIBRILLATION Qualifiers: Atrial fibrillation type: permanent Qualified Code(s): I48.21 - Permanent atrial fibrillation (5) Anemia Code(s): D64.9 - ANEMIA, UNSPECIFIED Qualifiers: Anemia type: unspecified type Qualified Code(s): D64.9 - Anemia, unspecified (6) HTN (hypertension) Code(s): I10 - ESSENTIAL (PRIMARY) HYPERTENSION (7) HLD (hyperlipidemia) Code(s): E78.5 - HYPERLIPIDEMIA, UNSPECIFIED (8) CAD (coronary artery disease) Assessment/Plan: Cont plavix Code(s): I25.10 - ATHSCL HEART DISEASE OF [place] CORONARY ARTERY W/O ANG PCTRS
[2020-06-08] MEDS: SODIUM CHLORIDE 1,000 ML IV SCH ×2 (02:30→21:58)
[2020-06-08] MEDS: INSULIN SLIDING SCALE (NOVOLOG) 1 VIAL SQ SCH ×4 (06:42→21:33)
[2020-06-08] MEDS: INSULIN (LEVEMIR) 100 UNITS/ML UNITS SQ SCH ×2 (06:42→21:32)
[2020-06-08] MEDS ORDERED: PANTOPRAZOLE SODIUM 40 MG VIAL IVPUSH SCH (10:00)
[2020-06-08] MEDS ORDERED: LOSARTAN POTASSIUM 25 MG TABLET PO SCH (10:00)
[2020-06-08] MEDS ORDERED: INSULIN (NOVOLOG) ASPART 100 UNITS/ML 10ML VIAL ONE ×2 (10:53→21:26)
[2020-06-08] MEDS: METOPROLOL TARTRATE 50 MG TABLET (FP) PO SCH ×2 (10:57→22:00)
[2020-06-08] MEDS: APIXABAN 5 MG TABLET PO SCH ×2 (10:57→21:32)
[2020-06-08] MEDS: MUPIROCIN 2% TOPICAL OINTMENT FOR DECOLONIZATION NS SCH ×2 (10:57→21:37)
[2020-06-08] MEDS: CLOPIDOGREL BISULFATE 75 MG TABLET (FP) PO SCH (10:58)
[2020-06-08] MEDS: NYSTATIN POWDER 100,000 UNITS/GM - 15 GM TOPICAL POWDER TP SCH ×2 (10:58→21:37)
--- NOTE | 2020-06-08 11:14 | PN ---
Progress Note, Physician History of Present Illness: stable no new issues wound cx noted - Current Medication List Current Medications: Active Medications Apixaban (Eliquis -) 5 mg PO BID [facility] Last Admin: 06/08/20 10:57 Dose: 5 mg Documented by: Atorvastatin Calcium (Lipitor -) 20 mg PO HS [facility] Last Admin: 06/07/20 21:06 Dose: 20 mg Documented by: Chlorhexidine Gluconate (Hibiclens For Decolonization -) 1 applic TP [facility] Last Admin: 06/07/20 21:08 Dose: Not Given Documented by: Clopidogrel Bisulfate (Plavix -) 75 mg PO DAILY [facility] Last Admin: 06/08/20 10:58 Dose: 75 mg Documented by: Diltiazem HCl (Cardizem Cd -) 240 mg PO DAILY [facility] Last Admin: 06/08/20 10:57 Dose: 240 mg Documented by: Sodium Chloride (Normal Saline -) 1,000 mls @ 50 mls/hr IV ASDIR [facility] Last Admin: 06/08/20 02:30 Dose: 50 mls/hr Documented by: Insulin Aspart (Novolog Vial Sliding Scale -) 1 vial SQ [facility]; Protocol Last Admin: 06/08/20 11:06 Dose: 3 units Documented by: Insulin Detemir (Levemir Vial) 25 units SQ AM [facility] Last Admin: 06/08/20 06:42 Dose: 25 units Documented by: Insulin Detemir (Levemir Vial) 10 units SQ HS [facility] Last Admin: 06/07/20 21:06 Dose: 10 units Documented by: Losartan Potassium (Cozaar -) 25 mg PO DAILY [facility] Metoprolol Tartrate (Lopressor -) 100 mg PO BID [facility] Last Admin: 06/08/20 10:57 Dose: 100 mg Documented by: Mupirocin (Bactroban Ointment (For Decolonization) -) 1 applic NS BID [facility] Stop: 06/11/20 09:59 Last Admin: 06/08/20 10:57 Dose: Not Given Documented by: Nystatin (Nystop Powder -) 1 applic TP BID [facility] Last Admin: 06/08/20 10:58 Dose: 1 applic Documented by: Pantoprazole Sodium (Protonix Iv) 40 mg IVPUSH DAILY [facility] - Objective Vital Signs: Vital Signs Temperature 98.5 F 06/08/20 05:51 Pulse Rate 68 06/08/20 05:51 Respiratory Rate 20 06/08/20 05:51 Blood Pressure 100/50 L 06/08/20 05:51 O2 Sat by Pulse Oximetry (%) 97 06/08/20 05:51 Constitutional: Yes: No Distress, Calm Cardiovascular: Yes: S1, S2 Respiratory: Yes: Regular, CTA Bilaterally Gastrointestinal: Yes: Normal Bowel Sounds, Soft Musculoskeletal: Yes: Other Extremities: Yes: WNL Integumentary: Yes: Other (groin redness) Labs: CBC, BMP 06/07/20 06:05 06/07/20 06:05 INR, PTT INR 1.63 (0.83-1.09) H 06/05/20 18:09 Assessment/Plan Problem List - Problems (1) CIARAN (acute kidney injury) Code(s): N17.9 - ACUTE KIDNEY FAILURE, UNSPECIFIED (2) Hyponatremia Code(s): E87.1 - HYPO-OSMOLALITY AND HYPONATREMIA (3) DKA (diabetic ketoacidoses) Code(s): E11.10 - TYPE 2 DIABETES MELLITUS WITH KETOACIDOSIS WITHOUT COMA (4) Hyperglycemia Code(s): R73.9 - HYPERGLYCEMIA, UNSPECIFIED (5) A-fib Code(s): I48.91 - UNSPECIFIED ATRIAL FIBRILLATION Qualifiers: Atrial fibrillation type: permanent r/o vaginal abscess leukocytosis plan all cx reports noted will restart abx will start on ceftriaxone and vanco
[2020-06-08] MEDS ORDERED: DEXTROSE 5%-WATER - 50 ML IVPB ONE (12:51)
[2020-06-08] MEDS ORDERED: cefTRIAXone SODIUM 1 GM VIAL ONE (12:51)
--- NOTE | 2020-06-08 13:07 | PN ---
Progress Note, Physician History of Present Illness: stable - Current Medication List Current Medications: Active Medications Apixaban (Eliquis -) 5 mg PO BID [facility] Last Admin: 06/08/20 10:57 Dose: 5 mg Documented by: Atorvastatin Calcium (Lipitor -) 20 mg PO [facility] Last Admin: 06/07/20 21:06 Dose: 20 mg Documented by: Chlorhexidine Gluconate (Hibiclens For Decolonization -) 1 applic TP [facility] Last Admin: 06/07/20 21:08 Dose: Not Given Documented by: Clopidogrel Bisulfate (Plavix -) 75 mg PO DAILY [facility] Last Admin: 06/08/20 10:58 Dose: 75 mg Documented by: Diltiazem HCl (Cardizem Cd -) 240 mg PO DAILY [facility] Last Admin: 06/08/20 10:57 Dose: 240 mg Documented by: Sodium Chloride (Normal Saline -) 1,000 mls @ 50 mls/hr IV ASDIR [facility] Last Admin: 06/08/20 02:30 Dose: 50 mls/hr Documented by: Vancomycin HCl 1,250 mg/ (Dextrose) 250 mls @ 166.667 mls/hr IVPB Q24H [facility]; Protocol Ceftriaxone Sodium 1 gm/ (Dextrose) 50 mls @ 200 mls/hr IVPB DAILY [facility]; Protocol Insulin Aspart (Novolog Vial Sliding Scale -) 1 vial SQ ACHS [facility]; Protocol Last Admin: 06/08/20 11:06 Dose: 3 units Documented by: Insulin Detemir (Levemir Vial) 25 units SQ AM [facility] Last Admin: 06/08/20 06:42 Dose: 25 units Documented by: Insulin Detemir (Levemir Vial) 10 units SQ [facility] Last Admin: 06/07/20 21:06 Dose: 10 units Documented by: Losartan Potassium (Cozaar -) 25 mg PO DAILY [facility] Metoprolol Tartrate (Lopressor -) 100 mg PO BID [facility] Last Admin: 06/08/20 10:57 Dose: 100 mg Documented by: Mupirocin (Bactroban Ointment (For Decolonization) -) 1 applic NS BID [facility] Stop: 06/11/20 09:59 Last Admin: 06/08/20 10:57 Dose: Not Given Documented by: Nystatin (Nystop Powder -) 1 applic TP BID [facility] Last Admin: 06/08/20 10:58 Dose: 1 applic Documented by: Pantoprazole Sodium (Protonix -) 40 mg PO DAILY [facility] - Objective Vital Signs: Vital Signs Temperature 98.5 F 06/08/20 05:51 Pulse Rate 68 06/08/20 05:51 Respiratory Rate 20 06/08/20 05:51 Blood Pressure 100/50 L 06/08/20 05:51 O2 Sat by Pulse Oximetry (%) 97 06/08/20 05:51 Constitutional: Yes: No Distress HENT: Yes: Atraumatic Neck: Yes: Supple Cardiovascular: Yes: Regular Rate and Rhythm Respiratory: Yes: Rhonchi Gastrointestinal: Yes: Normal Bowel Sounds Extremities: Yes: WNL Neurological: Yes: Alert, Oriented Labs: CBC, BMP 06/07/20 06:05 06/07/20 06:05 INR, PTT INR 1.63 (0.83-1.09) H 06/05/20 18:09 Problem List - Problems (1) CIARAN (acute kidney injury) Assessment/Plan: cr 1.7 monitor Code(s): N17.9 - ACUTE KIDNEY FAILURE, UNSPECIFIED (2) DKA (diabetic ketoacidoses) Assessment/Plan: blood sugars improving on diabetic diet on insulin bgms Code(s): E11.10 - TYPE 2 DIABETES MELLITUS WITH KETOACIDOSIS WITHOUT COMA (3) Hyperglycemia Code(s): R73.9 - HYPERGLYCEMIA, UNSPECIFIED (4) Hyponatremia Assessment/Plan: much improved Code(s): E87.1 - HYPO-OSMOLALITY AND HYPONATREMIA (5) A-fib Code(s): I48.91 - UNSPECIFIED ATRIAL FIBRILLATION Qualifiers: Atrial fibrillation type: permanent Qualified Code(s): I48.21 - Permanent atrial fibrillation (6) Labial swelling Assessment/Plan: 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
[2020-06-08] MEDS: CEFTRIAXONE 1 GM in DEXTROSE 5%-WATER - 50 ML IVPB SCH (13:09)
[2020-06-08] MEDS: VANCOMYCIN HCL 1,250 MG in DEXTROSE 5%-WATER - 250 ML IVPB SCH (14:02)
--- NOTE | 2020-06-08 15:24 | CON.CARD ---
Consult Consult Specialty:: Cardiology Referred by:: Olive Perez Reason for Consultation:: Afib, HTN - History of Present Illness Chief Complaint: Weakness, altered mental status History of Present Illness: 59 year old female with significant past medical history of afib on eliquis, CAD s/p stents x2, hypertension, hyperlipidemia, and diabetes admitted with confusion, hyperglycemia 500, dietary indiscretion. Pt report she felt weak, dizzy and fell. Pt denies any head trauma or LOC. 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 Patient was started on insulin drip and is currently off of it. She was found to be in acute renal failure and found to be hyponatremic. She did suffer a fall but did not have head trauma. She denies dysuria or hematuria but complains of polyuria. - History Source History Provided By: Patient Limitations to Obtaining History: No Limitations - Past Medical History STUDIO HAND: No: Alzheimer's, CVA, Dementia, Migraine, Multiple Sclerosis, Peripheral Neuropathy, Parkinson's, Seizure, Syncope, TIA, Vertigo, Other Cardio/Vascular: Yes: AFIB, CAD, HTN, RI Pulmonary: No: Asthma, Bronchitis, Cancer, COPD, O2 Dependent, Pneumonia, Previously Intubated, Pulmonary Embolus, Pulmonary Fibrosis, Sleep Apnea, Other Gastrointestinal: No: Ascites, Cancer, Constipation, Crohn's Disease, Diverticulitis, Diverticulosis, Esophageal Varices, Gastritis, GERD, GI Bleed, Hemorrhoids, Hiatal Hernia, Inflamatory Bowel Disease, Irritable Bowel Disease, Pancreatitis, Peptic Ulcer Disease, Ulcerative Colitis, Other Hepatobiliary: No: Cirrhosis, Cholelithiasis, Cholecystitis, Choledocholithiasis, Hepatitis A, Hepatitis B, Hepatitis C, Other Renal/: Yes: Renal Inusuff (acute) Infectious Disease: No: AIDS, C-Diff, Herpes Zoster, HIV, MRSA, STD's, Tuberculosis, VREF, Other Psych: No: Addictions, Anxiety, Bipolar, Depression, Panic, Psychosis, Schizophrenia, Other Musculoskeletal: Yes: Osteoarthritis Endocrine: Yes: Diabetes Mellitus Dermatology: Yes: Other (h/o basal cell Ca) - Past Surgical History Past Surgical History: Yes: , Stent - Alcohol/Substance Use Hx Alcohol Use: Yes (occassionally) - Smoking History Smoking history: Unknown if ever smoked Have you smoked in the past 12 months: No - Social History Usual Living Arrangement: With Spouse ADL: Independent History of Recent Travel: No Home Medications - Allergies Allergies/Adverse Reactions: Allergies Allergy/AdvReac Type Severity Reaction Status Date / Time Penicillins Allergy Verified 06/05/20 20:46 - Home Medications Home Medications: Ambulatory Orders Apixaban [Eliquis -] 5 mg PO BID 11/13/16 Atorvastatin Ca [Lipitor] 20 mg PO HS 11/13/16 Metoprolol Tartrate [Lopressor] 100 mg PO BID 11/13/16 Diltiazem Cd [Cardizem Cd -] 240 mg PO DAILY 03/15/17 metFORMIN HCL [Metformin HCl] 500 mg PO BID 03/15/17 Insulin (Levemir) [Levemir Vial] 15 unit SQ HS #1 vial 03/23/17 Plavix 75 mg PO DAILY 03/26/17 Cholecalciferol (Vitamin D3) [Vitamin D3] 2,000 unit PO DAILY 06/06/20 Cyanocobalamin (Vitamin B-12) [Vitamin B-12] 100 mcg PO DAILY 06/06/20 Insulin Sliding Scale [Novolog Vial Sliding Scale -] 2 - 4 unit SQ ACHS 06/06/20 Irbesartan [Avapro (Nf) -] 75 mg PO DAILY 06/06/20 Vital Signs: Vital Signs Temperature 97.8 F 06/08/20 10:00 Pulse Rate 73 06/08/20 10:00 Respiratory Rate 19 06/08/20 10:00 Blood Pressure 107/60 06/08/20 10:00 O2 Sat by Pulse Oximetry (%) 97 06/08/20 10:00 Constitutional: Yes: No Distress, Calm Neck: Yes: Supple Respiratory: Yes: Regular, CTA Bilaterally Gastrointestinal: Yes: Normal Bowel Sounds, Soft Cardiovascular: Yes: Pulse Irregular JVD: No Carotid Bruit: No Heart Sounds: Yes: S1, S2 Edema: Yes - Other Data Labs, Other Data: CBC, BMP 06/07/20 06:05 06/07/20 06:05 INR, PTT INR 1.63 (0.83-1.09) H 06/05/20 18:09 Afib @ 80 LAD, PRWP similar to previous 07/22/2019 Problem List - Problems (1) CIARAN (acute kidney injury) Code(s): N17.9 - ACUTE KIDNEY FAILURE, UNSPECIFIED (2) DKA (diabetic ketoacidoses) Code(s): E11.10 - TYPE 2 DIABETES MELLITUS WITH KETOACIDOSIS WITHOUT COMA Qualifiers: Diabetes mellitus type: type 2 Diabetes mellitus complication detail: without coma Qualified Code(s): E11.10 - Type 2 diabetes mellitus with ketoacidosis without coma (3) HLD (hyperlipidemia) Code(s): E78.5 - HYPERLIPIDEMIA, UNSPECIFIED (4) HTN (hypertension) Code(s): I10 - ESSENTIAL (PRIMARY) HYPERTENSION Qualifiers: Hypertension type: essential hypertension Qualified Code(s): I10 - Essential (primary) hypertension (5) Hyponatremia Code(s): E87.1 - HYPO-OSMOLALITY AND HYPONATREMIA (6) A-fib Code(s): I48.91 - UNSPECIFIED ATRIAL FIBRILLATION Qualifiers: Atrial fibrillation type: permanent Qualified Code(s): I48.21 - Permanent atrial fibrillation (7) Coronary artery disease Code(s): I25.10 - ATHSCL HEART DISEASE OF [place] CORONARY ARTERY W/O ANG PCTRS Qualifiers: Coronary Disease-Associated Artery/Lesion type: [place] artery [place] vs. transplanted heart: [place] heart Associated angina: without angina Qualified Code(s): I25.10 - Atherosclerotic heart disease of [place] coronary artery without angina pectoris (8) Diabetes mellitus type 2 in obese Code(s): E11.9 - TYPE 2 DIABETES MELLITUS WITHOUT COMPLICATIONS; E66.9 - OBESITY, UNSPECIFIED (9) History of percutaneous coronary intervention Code(s): Z98.890 - OTHER SPECIFIED POSTPROCEDURAL STATES (10) Hyperlipidemia associated with type 2 diabetes mellitus Code(s): E11.69 - TYPE 2 DIABETES MELLITUS WITH OTHER SPECIFIED COMPLICATION; E78.5 - HYPERLIPIDEMIA, UNSPECIFIED (11) Hypertension Code(s): I10 - ESSENTIAL (PRIMARY) HYPERTENSION Qualifiers: Hypertension type: essential hypertension Qualified Code(s): I10 - Essential (primary) hypertension (12) Labial abscess Code(s): N76.4 - ABSCESS OF VUL[place] (13) Status post coronary artery stent placement Code(s): Z95.5 - PRESENCE OF CORONARY ANGIOPLASTY IMPLANT AND GRAFT Assessment/Plan 2-D echocardiogram 08/30/18 normal left ventricular size and systolic function LVEF 59%. Akinesis of the apex. Mildly dilated left atrium 4.8 cm. LA Volume Index 43 ml/m2. Mild concentric LVH 1.2 /1.2cm. Mild MAC and mildly sclerotic aortic valve with normal opening.. Trace to Mild mitral regurgitation. trace to mild tricuspid insufficiency with borderline estimated pulmonary artery pressure 19 mmHg and trace pulmonic insufficiency. Nuclear stress test 08/08/15 there was a medium-size zone of moderate predo minantly fixed perfusion abnormality involving the mid to apical anterior wall and the entire apex consistent with myocardial infarction with minor abad- infarct ischemia. The apex is dyskinetic. Left ventricular ejection fraction is calculated at 48 %. Coronary angiography [facility] 08/14/15: Coronary findings dominance right. Left main coronary artery normal. LAD distal 100% stenosis fills via collaterals right to left. Mid left circumflex coronary artery 40% stenosis with DAMIEN-3 flow. Right coronary artery luminal irregularities with a 75% stenosis in the right PDA. Drug-eluting stent successfully placed in the right posterior descending coronary artery. 1. DKA/Hyperosmolar, hyperglycemic state improved 2. R/o labial abscess, sepsis 3. Acute on CKD resolving 4. Hyponatremia resolving 5. CAD s/p ELIZABETH RPDA 6. Permanent afib rate-controlled on Eliquis 7. HTN heart disease 8. Hyperlipidemia 9. Insulin-dependent Type 2 DM poorly controlled Ha1c 14.6% 10. Obesity 11. Vitamin D deficiency PLAN: 1. Hydration with monitor renal recovery and electrolytes, glycemic control 2. Abx course per C&S, ID recs 3. Continue Metoprolol 100 bid, Diltiazem CD 240 qd, Digoxin 0.125 qd, Eliquis 5 bid, and Atorvastatin 40 qhs, resumed losartan 25 qd as renal fxn stable 4. Patient f/u with Dr. Adrián Ahmadi at [facility] [place]- upon d/c 5. Thank you for consultative opportunity
--- NOTE | 2020-06-08 15:36 | PN ---
Progress Note, Physician History of Present Illness: Pt seen and examined. She says she feels well. - Current Medication List Current Medications: Active Medications Apixaban (Eliquis -) 5 mg PO BID [facility] Last Admin: 06/08/20 10:57 Dose: 5 mg Documented by: Atorvastatin Calcium (Lipitor -) 20 mg PO HS [facility] Last Admin: 06/07/20 21:06 Dose: 20 mg Documented by: Chlorhexidine Gluconate (Hibiclens For Decolonization -) 1 applic TP [facility] Last Admin: 06/07/20 21:08 Dose: Not Given Documented by: Clopidogrel Bisulfate (Plavix -) 75 mg PO DAILY [facility] Last Admin: 06/08/20 10:58 Dose: 75 mg Documented by: Diltiazem HCl (Cardizem Cd -) 240 mg PO DAILY [facility] Last Admin: 06/08/20 10:57 Dose: 240 mg Documented by: Sodium Chloride (Normal Saline -) 1,000 mls @ 50 mls/hr IV ASDIR [facility] Last Admin: 06/08/20 02:30 Dose: 50 mls/hr Documented by: Vancomycin HCl 1,250 mg/ (Dextrose) 250 mls @ 166.667 mls/hr IVPB Q24H [facility]; Protocol Last Admin: 06/08/20 14:02 Dose: 166.667 mls/hr Documented by: Ceftriaxone Sodium 1 gm/ (Dextrose) 50 mls @ 200 mls/hr IVPB DAILY [facility]; Protocol Last Admin: 06/08/20 13:09 Dose: 200 mls/hr Documented by: Insulin Aspart (Novolog Vial Sliding Scale -) 1 vial SQ ACHS [facility]; Protocol Last Admin: 06/08/20 11:06 Dose: 3 units Documented by: Insulin Detemir (Levemir Vial) 25 units SQ AM [facility] Last Admin: 06/08/20 06:42 Dose: 25 units Documented by: Insulin Detemir (Levemir Vial) 10 units SQ HS [facility] Last Admin: 06/07/20 21:06 Dose: 10 units Documented by: Losartan Potassium (Cozaar -) 25 mg PO DAILY [facility] Metoprolol Tartrate (Lopressor -) 100 mg PO BID [facility] Last Admin: 06/08/20 10:57 Dose: 100 mg Documented by: Mupirocin (Bactroban Ointment (For Decolonization) -) 1 applic NS BID [facility] Stop: 06/11/20 09:59 Last Admin: 06/08/20 10:57 Dose: Not Given Documented by: Nystatin (Nystop Powder -) 1 applic TP BID [facility] Last Admin: 06/08/20 10:58 Dose: 1 applic Documented by: Pantoprazole Sodium (Protonix -) 40 mg PO DAILY [facility] - Objective Vital Signs: Vital Signs Temperature 97.8 F 06/08/20 10:00 Pulse Rate 73 06/08/20 10:00 Respiratory Rate 19 06/08/20 10:00 Blood Pressure 107/60 06/08/20 10:00 O2 Sat by Pulse Oximetry (%) 97 06/08/20 10:00 Constitutional: Yes: Calm Eyes: Yes: Conjunctiva Clear HENT: Yes: Atraumatic Neck: Yes: Supple Cardiovascular: Yes: S1, S2 Respiratory: Yes: CTA Bilaterally Gastrointestinal: Yes: Normal Bowel Sounds, Soft Genitourinary: Yes: Cisse Present Musculoskeletal: Yes: WNL Edema: Yes Edema: LLE: Trace, RLE: Trace Neurological: Yes: Oriented Psychiatric: Yes: Oriented Labs: CBC, BMP 06/07/20 06:05 06/07/20 06:05 INR, PTT INR 1.63 (0.83-1.09) H 06/05/20 18:09 Problem List - Problems (1) CIARAN (acute kidney injury) Code(s): N17.9 - ACUTE KIDNEY FAILURE, UNSPECIFIED (2) Hyponatremia Code(s): E87.1 - HYPO-OSMOLALITY AND HYPONATREMIA (3) DKA (diabetic ketoacidoses) Code(s): E11.10 - TYPE 2 DIABETES MELLITUS WITH KETOACIDOSIS WITHOUT COMA (4) Hyperglycemia Code(s): R73.9 - HYPERGLYCEMIA, UNSPECIFIED (5) A-fib Code(s): I48.91 - UNSPECIFIED ATRIAL FIBRILLATION Qualifiers: Qualified Code(s): I48.21 - Permanent atrial fibrillation Assessment/Plan Current Medications Generic Name Dose Route Start Last Admin Trade Name Freq PRN Reason Stop Dose Admin Apixaban 5 mg 06/07/20 22:00 06/08/20 10:57 Eliquis - PO 5 mg BID [facility] Administration Atorvastatin Calcium 20 mg 06/07/20 22:00 06/07/20 21:06 Lipitor - PO 20 mg HS [facility] Administration Chlorhexidine Gluconate 1 applic 06/07/20 22:00 06/07/20 21:08 Hibiclens For Decolonization - TP Not Given HS [facility] Clopidogrel Bisulfate 75 mg 06/08/20 10:00 06/08/20 10:58 Plavix - PO 75 mg DAILY [facility] Administration Diltiazem HCl 240 mg 06/08/20 10:00 06/08/20 10:57 Cardizem Cd - PO 240 mg DAILY [facility] Administration Sodium Chloride 1,000 mls @ 50 mls/hr 06/07/20 15:40 06/08/20 02:30 Normal Saline - IV 50 mls/hr ASDIR [facility] Administration Vancomycin HCl 1,250 mg/ 250 mls @ 166.667 mls/hr 06/08/20 12:00 06/08/20 14:02 Dextrose IVPB 166.667 mls/hr Q24H [facility] Administration Protocol Ceftriaxone Sodium 1 gm/ 50 mls @ 200 mls/hr 06/08/20 12:00 06/08/20 13:09 Dextrose IVPB 200 mls/hr DAILY [facility] Administration Protocol Insulin Aspart 1 vial 06/06/20 22:00 06/08/20 11:06 Novolog Vial Sliding Scale - SQ 3 units ACHS [facility] Administration Protocol Insulin Detemir 25 units 06/07/20 07:00 06/08/20 06:42 Levemir Vial SQ 25 units AM [facility] Administration Insulin Detemir 10 units 06/07/20 22:00 06/07/20 21:06 Levemir Vial SQ 10 units HS [facility] Administration Losartan Potassium 25 mg 06/08/20 10:00 Cozaar - PO DAILY [facility] Metoprolol Tartrate 100 mg 06/07/20 22:00 06/08/20 10:57 Lopressor - PO 100 mg BID [facility] Administration Mupirocin 1 applic 06/07/20 22:00 06/08/20 10:57 Bactroban Ointment (For Decolonization) - NS 06/11/20 09:59 Not Given BID [facility] Nystatin 1 applic 06/06/20 13:30 06/08/20 10:58 Nystop Powder - TP 1 applic BID [facility] Administration Pantoprazole Sodium 40 mg 06/09/20 10:00 Protonix - PO DAILY [facility] Impression 1. CIARAN 2. DKA/HSS 3. hyponatremia 4. a-fib 5. htn 6. hld 7. dm - poorly controlled Plan - check cmp in am - monitor blood sugar - can d/c cisse - cont fluids - monitor bp
[2020-06-08] MEDS: ATORVASTATIN CA 20 MG TABLET (FP) PO SCH (21:32)
[2020-06-08] MEDS: CHLORHEXIDINE GLUCONATE 4% CLEANSER FOR DECOLONIZATION TP SCH (21:36)
[2020-06-09] MEDS: INSULIN (LEVEMIR) 100 UNITS/ML UNITS SQ SCH ×2 (06:15→21:18)
[2020-06-09] MEDS: NYSTATIN POWDER 100,000 UNITS/GM - 15 GM TOPICAL POWDER TP SCH ×2 (09:00→21:25)
[2020-06-09 09:12] LABS: BASO % 0.6 % (0-2.0); EOS % 5.7 % (0-4.5); HEMATOCRIT 29.9 % (32.4-45.2); HEMOGLOBIN 9.9 GM/dL (10.7-15.3); LYMPH % 14.1 % (8-40); MCH 28.1 pg (25.7-33.7); MEAN CELL VOLUME 85.1 fl (80-96); MONO % 6.7 % (3.8-10.2); NEUT % 72.9 % (42.8-82.8); PLATELET COUNT 323 K/MM3 (134-434); RBC 3.52 M/mm3 (3.60-5.2); RDW 14.5 % (11.6-15.6); WHITE BLOOD COUNT 7.4 K/mm3 (4.0-10.0)
[2020-06-09] MEDS ORDERED: DEXTROSE 5%-WATER - 50 ML IVPB ONE (09:23)
[2020-06-09] MEDS ORDERED: cefTRIAXone SODIUM 1 GM VIAL ONE (09:23)
[2020-06-09] MEDS: CLOPIDOGREL BISULFATE 75 MG TABLET (FP) PO SCH (09:25)
[2020-06-09] MEDS: APIXABAN 5 MG TABLET PO SCH ×2 (09:25→21:17)
[2020-06-09] MEDS: CEFTRIAXONE 1 GM in DEXTROSE 5%-WATER - 50 ML IVPB SCH (09:25)
[2020-06-09] MEDS: PANTOPRAZOLE 40 MG TABLET PO SCH (09:25)
[2020-06-09] MEDS: METOPROLOL TARTRATE 50 MG TABLET (FP) PO SCH ×2 (09:25→21:18)
[2020-06-09 09:36] LABS: ALBUMIN 2.2 g/dl (3.4-5.0); BILIRUBIN,TOTAL 0.2 mg/dL (0.2-1); BLOOD UREA NITROGEN 39.8 mg/dL (7-18); CALCIUM 8.1 mg/dL (8.5-10.1); CREATININE 1.6 mg/dL (0.55-1.3); TOT PROT 5.8 g/dl (6.4-8.2)
--- NOTE | 2020-06-09 10:25 | PN ---
Progress Note, Physician History of Present Illness: stable no new issues - Current Medication List Current Medications: Active Medications Apixaban (Eliquis -) 5 mg PO BID [facility] Last Admin: 06/09/20 09:25 Dose: 5 mg Documented by: Atorvastatin Calcium (Lipitor -) 20 mg PO HS [facility] Last Admin: 06/08/20 21:32 Dose: 20 mg Documented by: Chlorhexidine Gluconate (Hibiclens For Decolonization -) 1 applic TP HS [facility] Last Admin: 06/08/20 21:36 Dose: Not Given Documented by: Clopidogrel Bisulfate (Plavix -) 75 mg PO DAILY [facility] Last Admin: 06/09/20 09:25 Dose: 75 mg Documented by: Diltiazem HCl (Cardizem Cd -) 240 mg PO DAILY [facility] Last Admin: 06/09/20 09:25 Dose: 240 mg Documented by: Sodium Chloride (Normal Saline -) 1,000 mls @ 50 mls/hr IV ASDIR [facility] Last Admin: 06/08/20 21:58 Dose: 50 mls/hr Documented by: Vancomycin HCl 1,250 mg/ (Dextrose) 250 mls @ 166.667 mls/hr IVPB Q24H [facility]; Protocol Last Admin: 06/08/20 14:02 Dose: 166.667 mls/hr Documented by: Ceftriaxone Sodium 1 gm/ (Dextrose) 50 mls @ 200 mls/hr IVPB DAILY [facility]; Protocol Last Admin: 06/09/20 09:25 Dose: 200 mls/hr Documented by: Insulin Aspart (Novolog Vial Sliding Scale -) 1 vial SQ ACHS [facility]; Protocol Last Admin: 06/08/20 21:33 Dose: 5 units Documented by: Insulin Detemir (Levemir Vial) 25 units SQ AM [facility] Last Admin: 06/08/20 06:42 Dose: 25 units Documented by: Insulin Detemir (Levemir Vial) 10 units SQ HS [facility] Last Admin: 06/08/20 21:32 Dose: 10 units Documented by: Losartan Potassium (Cozaar -) 25 mg PO DAILY [facility] Metoprolol Tartrate (Lopressor -) 100 mg PO BID [facility] Last Admin: 06/09/20 09:25 Dose: 100 mg Documented by: Mupirocin (Bactroban Ointment (For Decolonization) -) 1 applic NS BID [facility] Stop: 06/11/20 09:59 Last Admin: 06/08/20 21:37 Dose: Not Given Documented by: Nystatin (Nystop Powder -) 1 applic TP BID [facility] Last Admin: 06/08/20 21:37 Dose: 1 applic Documented by: Pantoprazole Sodium (Protonix -) 40 mg PO DAILY [facility] Last Admin: 06/09/20 09:25 Dose: 40 mg Documented by: - Objective Vital Signs: Vital Signs Temperature 98.6 F 06/09/20 05:22 Pulse Rate 74 06/09/20 05:22 Respiratory Rate 18 06/09/20 05:22 Blood Pressure 117/66 06/09/20 05:22 O2 Sat by Pulse Oximetry (%) 96 06/09/20 05:22 Constitutional: Yes: No Distress, Calm Cardiovascular: Yes: S1, S2 Respiratory: Yes: Regular, CTA Bilaterally Gastrointestinal: Yes: Normal Bowel Sounds, Soft Musculoskeletal: Yes: WNL Extremities: Yes: Other Neurological: Yes: Alert, Oriented Psychiatric: Yes: Alert, Oriented Labs: CBC, BMP 06/09/20 08:32 06/09/20 08:32 INR, PTT INR 1.63 (0.83-1.09) H 06/05/20 18:09 Assessment/Plan Problem List - Problems (1) CIARAN (acute kidney injury) Code(s): N17.9 - ACUTE KIDNEY FAILURE, UNSPECIFIED (2) Hyponatremia Code(s): E87.1 - HYPO-OSMOLALITY AND HYPONATREMIA (3) DKA (diabetic ketoacidoses) Code(s): E11.10 - TYPE 2 DIABETES MELLITUS WITH KETOACIDOSIS WITHOUT COMA (4) Hyperglycemia Code(s): R73.9 - HYPERGLYCEMIA, UNSPECIFIED (5) A-fib Code(s): I48.91 - UNSPECIFIED ATRIAL FIBRILLATION Qualifiers: Atrial fibrillation type: permanent r/o vaginal abscess leukocytosis plan continue abx await for sensitivities wound care rest as per the team
[2020-06-09] MEDS: INSULIN SLIDING SCALE (NOVOLOG) 1 VIAL SQ SCH ×4 (11:33→21:19)
[2020-06-09] MEDS: MUPIROCIN 2% TOPICAL OINTMENT FOR DECOLONIZATION NS SCH ×2 (11:38→21:17)
--- NOTE | 2020-06-09 12:01 | PN ---
Progress Note, Physician History of Present Illness: Afebrile, receiving abx for labial abscess. Denies chest pain or dyspnea. - Current Medication List Current Medications: Active Medications Apixaban (Eliquis -) 5 mg PO BID [facility] Last Admin: 06/09/20 09:25 Dose: 5 mg Documented by: Atorvastatin Calcium (Lipitor -) 20 mg PO HS [facility] Last Admin: 06/08/20 21:32 Dose: 20 mg Documented by: Chlorhexidine Gluconate (Hibiclens For Decolonization -) [address] [facility] Last Admin: 06/08/20 21:36 Dose: Not Given Documented by: Clopidogrel Bisulfate (Plavix -) 75 mg PO DAILY [facility] Last Admin: 06/09/20 09:25 Dose: 75 mg Documented by: Diltiazem HCl (Cardizem Cd -) 240 mg PO DAILY [facility] Last Admin: 06/09/20 09:25 Dose: 240 mg Documented by: Sodium Chloride (Normal Saline -) 1,000 mls @ 50 mls/hr IV ASDIR [facility] Last Admin: 06/08/20 21:58 Dose: 50 mls/hr Documented by: Vancomycin HCl 1,250 mg/ (Dextrose) 250 mls @ 166.667 mls/hr IVPB Q24H [facility]; Protocol Last Admin: 06/08/20 14:02 Dose: 166.667 mls/hr Documented by: Ceftriaxone Sodium 1 gm/ (Dextrose) 50 mls @ 200 mls/hr IVPB DAILY [facility]; Protocol Last Admin: 06/09/20 09:25 Dose: 200 mls/hr Documented by: Insulin Aspart (Novolog Vial Sliding Scale -) 1 vial SQ ACHS [facility]; Protocol Last Admin: 06/09/20 11:33 Dose: 4 units Documented by: Insulin Detemir (Levemir Vial) 25 units SQ AM [facility] Last Admin: 06/08/20 06:42 Dose: 25 units Documented by: Insulin Detemir (Levemir Vial) 10 units SQ HS [facility] Last Admin: 06/08/20 21:32 Dose: 10 units Documented by: Losartan Potassium (Cozaar -) 25 mg PO DAILY [facility] Metoprolol Tartrate (Lopressor -) 100 mg PO BID [facility] Last Admin: 06/09/20 09:25 Dose: 100 mg Documented by: Mupirocin (Bactroban Ointment (For Decolonization) -) 1 applic NS BID [facility] Stop: 06/11/20 09:59 Last Admin: 06/09/20 11:38 Dose: Not Given Documented by: Nystatin (Nystop Powder -) 1 applic TP BID [facility] Last Admin: 06/08/20 21:37 Dose: 1 applic Documented by: Pantoprazole Sodium (Protonix -) 40 mg PO DAILY [facility] Last Admin: 06/09/20 09:25 Dose: 40 mg Documented by: - Objective Vital Signs: Vital Signs Temperature 98.6 F 06/09/20 05:22 Pulse Rate 74 06/09/20 05:22 Respiratory Rate 18 06/09/20 05:22 Blood Pressure 117/66 06/09/20 05:22 O2 Sat by Pulse Oximetry (%) 96 06/09/20 05:22 Constitutional: Yes: No Distress, Calm Neck: Yes: Supple Cardiovascular: Yes: Regular Rate and Rhythm Respiratory: Yes: Regular, CTA Bilaterally Gastrointestinal: Yes: Normal Bowel Sounds, Soft Edema: No Labs: CBC, BMP 06/09/20 08:32 06/09/20 08:32 INR, PTT INR 1.63 (0.83-1.09) H 06/05/20 18:09 Problem List - Problems (1) CIARAN (acute kidney injury) Code(s): N17.9 - ACUTE KIDNEY FAILURE, UNSPECIFIED (2) DKA (diabetic ketoacidoses) Code(s): E11.10 - TYPE 2 DIABETES MELLITUS WITH KETOACIDOSIS WITHOUT COMA Qualifiers: Diabetes mellitus type: type 2 Diabetes mellitus complication detail: without coma Qualified Code(s): E11.10 - Type 2 diabetes mellitus with ketoacidosis without coma (3) HLD (hyperlipidemia) Code(s): E78.5 - HYPERLIPIDEMIA, UNSPECIFIED (4) HTN (hypertension) Code(s): I10 - ESSENTIAL (PRIMARY) HYPERTENSION Qualifiers: Hypertension type: essential hypertension Qualified Code(s): I10 - Essential (primary) hypertension (5) Hyponatremia Code(s): E87.1 - HYPO-OSMOLALITY AND HYPONATREMIA (6) A-fib Code(s): I48.91 - UNSPECIFIED ATRIAL FIBRILLATION Qualifiers: Atrial fibrillation type: permanent Qualified Code(s): I48.21 - Permanent atrial fibrillation (7) Coronary artery disease Code(s): I25.10 - ATHSCL HEART DISEASE OF [place] CORONARY ARTERY W/O ANG PCTRS Qualifiers: Coronary Disease-Associated Artery/Lesion type: [place] artery [place] vs. transplanted heart: [place] heart Associated angina: without angina Qualified Code(s): I25.10 - Atherosclerotic heart disease of [place] coronary artery without angina pectoris (8) Diabetes mellitus type 2 in obese Code(s): E11.9 - TYPE 2 DIABETES MELLITUS WITHOUT COMPLICATIONS; E66.9 - OBESITY, UNSPECIFIED (9) History of percutaneous coronary intervention Code(s): Z98.890 - OTHER SPECIFIED POSTPROCEDURAL STATES (10) Hyperlipidemia associated with type 2 diabetes mellitus Code(s): E11.69 - TYPE 2 DIABETES MELLITUS WITH OTHER SPECIFIED COMPLICATION; E78.5 - HYPERLIPIDEMIA, UNSPECIFIED (11) Hypertension Code(s): I10 - ESSENTIAL (PRIMARY) HYPERTENSION Qualifiers: Hypertension type: essential hypertension Qualified Code(s): I10 - Essential (primary) hypertension (12) Labial abscess Code(s): N76.4 - ABSCESS OF VULVA (13) Status post coronary artery stent placement Code(s): Z95.5 - PRESENCE OF CORONARY ANGIOPLASTY IMPLANT AND GRAFT Assessment/Plan 2-D echocardiogram 08/30/18 normal left ventricular size and systolic function LVEF 59%. Akinesis of the apex. Mildly dilated left atrium 4.8 cm. LA Volume Index 43 ml/m2. Mild concentric LVH 1.2 /1.2cm. Mild MAC and mildly sclerotic aortic valve with normal opening.. Trace to Mild mitral regurgitation. trace to mild tricuspid insufficiency with borderline estimated pulmonary artery pressure 19 mmHg and trace pulmonic insufficiency. Nuclear stress test 08/08/15 there was a medium-size zone of moderate predominantly fixed perfusion abnormality involving the mid to apical anterior wall and the entire apex consistent with myocardial infarction with minor abad- infarct ischemia. The apex is dyskinetic. Left ventricular ejection fraction is calculated at 48 %. Coronary angiography [facility] 08/14/15: Coronary findings dominance right. Left main coronary artery normal. LAD distal 100% stenosis fills via collaterals right to left. Mid left circumflex coronary artery 40% stenosis with DAMIEN-3 flow. Right coronary artery luminal irregularities with a 75% stenosis in the right PDA. Drug-eluting stent successfully placed in the right posterior descending coronary artery. 1. DKA/Hyperosmolar, hyperglycemic state improved 2. R/o labial abscess, sepsis 3. Acute on CKD resolving 4. Hyponatremia resolving 5. CAD s/p ELIZABETH RPDA 6. Permanent afib rate-controlled on Eliquis 7. HTN heart disease 8. Hyperlipidemia 9. Insulin-dependent Type 2 DM poorly controlled Ha1c 14.6% 10. Obesity 11. Vitamin D deficiency PLAN: 1. Judicious hydration with monitor renal recovery and electrolytes, glycemic control 2. Abx course per C&S, ID recs 3. Continue Metoprolol 100 bid, Diltiazem CD 240 qd, Digoxin 0.125 qd, Eliquis 5 bid, Atorvastatin 20 qhs, Plavix 75 qd, and losartan 25 qd as renal fxn stable 4. Patient f/u with Dr. Adrián Ahmadi at [facility] upon d/c
[2020-06-09] MEDS ORDERED: PT OWN MED DRAWER 7, Y5N ONE ×2 (14:00→15:03)
--- NOTE | 2020-06-09 14:21 | PN ---
Progress Note, Physician History of Present Illness: Pt seen and examined at bedside. She is awake and alert. She denies shortness of breath. - Current Medication List Current Medications: Active Medications Apixaban (Eliquis -) 5 mg PO BID [facility] Last Admin: 06/09/20 09:25 Dose: 5 mg Documented by: Atorvastatin Calcium (Lipitor -) 20 mg PO HS [facility] Last Admin: 06/08/20 21:32 Dose: 20 mg Documented by: Chlorhexidine Gluconate (Hibiclens For Decolonization -) 1 applic TP [facility] Last Admin: 06/08/20 21:36 Dose: Not Given Documented by: Clopidogrel Bisulfate (Plavix -) 75 mg PO DAILY [facility] Last Admin: 06/09/20 09:25 Dose: 75 mg Documented by: Diltiazem HCl (Cardizem Cd -) 240 mg PO DAILY [facility] Last Admin: 06/09/20 09:25 Dose: 240 mg Documented by: Sodium Chloride (Normal Saline -) 1,000 mls @ 50 mls/hr IV ASDIR [facility] Last Admin: 06/08/20 21:58 Dose: 50 mls/hr Documented by: Vancomycin HCl 1,250 mg/ (Dextrose) 250 mls @ 166.667 mls/hr IVPB Q24H [facility]; Protocol Last Admin: 06/08/20 14:02 Dose: 166.667 mls/hr Documented by: Ceftriaxone Sodium 1 gm/ (Dextrose) 50 mls @ 200 mls/hr IVPB DAILY [facility]; Protocol Last Admin: 06/09/20 09:25 Dose: 200 mls/hr Documented by: Insulin Aspart (Novolog Vial Sliding Scale -) 1 vial SQ ACHS [facility]; Protocol Last Admin: 06/09/20 11:33 Dose: 4 units Documented by: Insulin Detemir (Levemir Vial) 25 units SQ AM [facility] Last Admin: 06/08/20 06:42 Dose: 25 units Documented by: Insulin Detemir (Levemir Vial) 10 units SQ HS [facility] Last Admin: 06/08/20 21:32 Dose: 10 units Documented by: Losartan Potassium (Cozaar -) 25 mg PO DAILY [facility] Metoprolol Tartrate (Lopressor -) 100 mg PO BID [facility] Last Admin: 06/09/20 09:25 Dose: 100 mg Documented by: Mupirocin (Bactroban Ointment (For Decolonization) -) 1 applic NS BID [facility] Stop: 06/11/20 09:59 Last Admin: 06/09/20 11:38 Dose: Not Given Documented by: Nystatin (Nystop Powder -) 1 applic TP BID [facility] Last Admin: 06/08/20 21:37 Dose: 1 applic Documented by: Pantoprazole Sodium (Protonix -) 40 mg PO DAILY [facility] Last Admin: 06/09/20 09:25 Dose: 40 mg Documented by: - Objective Vital Signs: Vital Signs Temperature 98.6 F 06/09/20 05:22 Pulse Rate 74 06/09/20 05:22 Respiratory Rate 18 06/09/20 05:22 Blood Pressure 117/66 06/09/20 05:22 O2 Sat by Pulse Oximetry (%) 96 06/09/20 05:22 Constitutional: Yes: Calm Eyes: Yes: Conjunctiva Clear HENT: Yes: Atraumatic Neck: Yes: Supple Cardiovascular: Yes: S1, S2 Respiratory: Yes: CTA Bilaterally Gastrointestinal: Yes: Normal Bowel Sounds, Soft Genitourinary: Yes: WNL Musculoskeletal: Yes: WNL Extremities: Yes: WNL Edema: No Neurological: Yes: Oriented Psychiatric: Yes: Oriented Labs: CBC, BMP 06/09/20 08:32 06/09/20 08:32 INR, PTT INR 1.63 (0.83-1.09) H 06/05/20 18:09 Problem List - Problems (1) CIARAN (acute kidney injury) Code(s): N17.9 - ACUTE KIDNEY FAILURE, UNSPECIFIED (2) Hyponatremia Code(s): E87.1 - HYPO-OSMOLALITY AND HYPONATREMIA (3) DKA (diabetic ketoacidoses) Code(s): E11.10 - TYPE 2 DIABETES MELLITUS WITH KETOACIDOSIS WITHOUT COMA Qualifiers: Diabetes mellitus type: type 2 Diabetes mellitus complication detail: without coma Qualified Code(s): E11.10 - Type 2 diabetes mellitus with ketoacidosis without coma (4) Hyperglycemia Code(s): R73.9 - HYPERGLYCEMIA, UNSPECIFIED (5) A-fib Code(s): I48.91 - UNSPECIFIED ATRIAL FIBRILLATION Qualifiers: Atrial fibrillation type: permanent Qualified Code(s): I48.21 - Permanent atrial fibrillation Assessment/Plan Current Medications Generic Name Dose Route Start Last Admin Trade Name Freq PRN Reason Stop Dose Admin Apixaban 5 mg 06/07/20 22:00 06/09/20 09:25 Eliquis - PO 5 mg BID [facility] Administration Atorvastatin Calcium 20 mg 06/07/20 22:00 06/08/20 21:32 Lipitor - PO 20 mg HS [facility] Administration Chlorhexidine Gluconate 1 applic 06/07/20 22:00 06/08/20 21:36 Hibiclens For Decolonization - TP Not Given HS [facility] Clopidogrel Bisulfate 75 mg 06/08/20 10:00 06/09/20 09:25 Plavix - PO 75 mg DAILY [facility] Administration Diltiazem HCl 240 mg 06/08/20 10:00 06/09/20 09:25 Cardizem Cd - PO 240 mg DAILY [facility] Administration Sodium Chloride 1,000 mls @ 50 mls/hr 06/07/20 15:40 06/08/20 21:58 Normal Saline - IV 50 mls/hr ASDIR [facility] Administration Vancomycin HCl 1,250 mg/ 250 mls @ 166.667 mls/hr 06/08/20 12:00 06/08/20 14:02 Dextrose IVPB 166.667 mls/hr Q24H [facility] Administration Protocol Ceftriaxone Sodium 1 gm/ 50 mls @ 200 mls/hr 06/08/20 12:00 06/09/20 09:25 Dextrose IVPB 200 mls/hr DAILY [facility] Administration Protocol Insulin Aspart 1 vial 06/06/20 22:00 06/09/20 11:33 Novolog Vial Sliding Scale - SQ 4 units ACHS [facility] Administration Protocol Insulin Detemir 25 units 06/07/20 07:00 06/08/20 06:42 Levemir Vial SQ 25 units AM [facility] Administration Insulin Detemir 10 units 06/07/20 22:00 06/08/20 21:32 Levemir Vial SQ 10 units HS [facility] Administration Losartan Potassium 25 mg 06/08/20 10:00 Cozaar - PO DAILY [facility] Metoprolol Tartrate 100 mg 06/07/20 22:00 06/09/20 09:25 Lopressor - PO 100 mg BID [facility] Administration Mupirocin 1 applic 06/07/20 22:00 06/09/20 11:38 Bactroban Ointment (For Decolonization) - NS 06/11/20 09:59 Not Given BID [facility] Nystatin 1 applic 06/06/20 13:30 06/08/20 21:37 Nystop Powder - TP 1 applic BID [facility] Administration Pantoprazole Sodium 40 mg 06/09/20 10:00 06/09/20 09:25 Protonix - PO 40 mg DAILY [facility] Administration Impression 1. CIARAN 2. DKA/HSS 3. hyponatremia 4. a-fib 5. htn 6. hld 7. dm - poorly controlled Plan - pt tolerated voiding trial - sodium improved - outpatient program coordinator still elevated but improved - cont to monitor outpatient program coordinator - avoid nsaids - will need outpt follow up - monitor bp
[2020-06-09] MEDS: VANCOMYCIN HCL 1,250 MG in DEXTROSE 5%-WATER - 250 ML IVPB SCH (15:29)
[2020-06-09] MEDS: SODIUM CHLORIDE 1,000 ML IV SCH ×2 (17:35→19:00)
[2020-06-09] MEDS ORDERED: INSULIN (NOVOLOG) ASPART 100 UNITS/ML 10ML VIAL ONE (21:13)
[2020-06-09] MEDS: CHLORHEXIDINE GLUCONATE 4% CLEANSER FOR DECOLONIZATION TP SCH (21:17)
[2020-06-09] MEDS: ATORVASTATIN CA 20 MG TABLET (FP) PO SCH (21:25)
--- NOTE | 2020-06-09 22:49 | PN ---
Progress Note, Physician History of Present Illness: No new complaints - Current Medication List Current Medications: Active Medications Apixaban (Eliquis -) 5 mg PO BID [facility] Last Admin: 06/09/20 21:17 Dose: 5 mg Documented by: Atorvastatin Calcium (Lipitor -) 20 mg PO HS [facility] Last Admin: 06/09/20 21:25 Dose: 20 mg Documented by: Chlorhexidine Gluconate (Hibiclens For Decolonization -) 1 applic TP HS [facility] Last Admin: 06/09/20 21:17 Dose: Not Given Documented by: Clopidogrel Bisulfate (Plavix -) 75 mg PO DAILY [facility] Last Admin: 06/09/20 09:25 Dose: 75 mg Documented by: Diltiazem HCl (Cardizem Cd -) 240 mg PO DAILY [facility] Last Admin: 06/09/20 09:25 Dose: 240 mg Documented by: Sodium Chloride (Normal Saline -) 1,000 mls @ 50 mls/hr IV ASDIR [facility] Last Admin: 06/09/20 19:00 Dose: 50 mls/hr Documented by: Vancomycin HCl 1,250 mg/ (Dextrose) 250 mls @ 166.667 mls/hr IVPB Q24H [facility]; Protocol Last Admin: 06/09/20 15:29 Dose: 166.667 mls/hr Documented by: Ceftriaxone Sodium 1 gm/ (Dextrose) 50 mls @ 200 mls/hr IVPB DAILY [facility]; Protocol Last Admin: 06/09/20 09:25 Dose: 200 mls/hr Documented by: Insulin Aspart (Novolog Vial Sliding Scale -) 1 vial SQ ACHS [facility]; Protocol Last Admin: 06/09/20 21:19 Dose: 6 units Documented by: Insulin Detemir (Levemir Vial) 25 units SQ AM [facility] Last Admin: 06/09/20 06:15 Dose: 25 units Documented by: Insulin Detemir (Levemir Vial) 10 units SQ HS [facility] Last Admin: 06/09/20 21:18 Dose: 10 units Documented by: Losartan Potassium (Cozaar -) 25 mg PO DAILY [facility] Metoprolol Tartrate (Lopressor -) 100 mg PO BID [facility] Last Admin: 06/09/20 21:18 Dose: 100 mg Documented by: Mupirocin (Bactroban Ointment (For Decolonization) -) 1 applic NS BID [facility] Stop: 06/11/20 09:59 Last Admin: 06/09/20 21:17 Dose: Not Given Documented by: Nystatin (Nystop Powder -) 1 applic TP BID [facility] Last Admin: 06/09/20 21:25 Dose: 1 applic Documented by: Pantoprazole Sodium (Protonix -) 40 mg PO DAILY [facility] Last Admin: 06/09/20 09:25 Dose: 40 mg Documented by: - Objective Vital Signs: Vital Signs Temperature 98 F 06/09/20 21:20 Pulse Rate 65 06/09/20 21:20 Respiratory Rate 18 06/09/20 21:20 Blood Pressure 129/66 06/09/20 21:20 O2 Sat by Pulse Oximetry (%) 95 06/09/20 21:20 Cardiovascular: Yes: WNL, Regular Rate and Rhythm Respiratory: Yes: WNL, Regular, CTA Bilaterally Gastrointestinal: Yes: WNL, Normal Bowel Sounds, Soft Labs: CBC, BMP 06/09/20 08:32 06/09/20 08:32 INR, PTT INR 1.63 (0.83-1.09) H 06/05/20 18:09 Problem List - Problems (1) CIARAN (acute kidney injury) Code(s): N17.9 - ACUTE KIDNEY FAILURE, UNSPECIFIED (2) DKA (diabetic ketoacidoses) Code(s): E11.10 - TYPE 2 DIABETES MELLITUS WITH KETOACIDOSIS WITHOUT COMA Qualifiers: Diabetes mellitus type: type 2 Diabetes mellitus complication detail: without coma Qualified Code(s): E11.10 - Type 2 diabetes mellitus with ketoacidosis without coma (3) Hyponatremia Code(s): E87.1 - HYPO-OSMOLALITY AND HYPONATREMIA (4) A-fib Code(s): I48.91 - UNSPECIFIED ATRIAL FIBRILLATION Qualifiers: Atrial fibrillation type: permanent Qualified Code(s): I48.21 - Permanent atrial fibrillation (5) Anemia Code(s): D64.9 - ANEMIA, UNSPECIFIED Qualifiers: Anemia type: unspecified type Qualified Code(s): D64.9 - Anemia, unspecified (6) HTN (hypertension) Code(s): I10 - ESSENTIAL (PRIMARY) HYPERTENSION Qualifiers: Hypertension type: essential hypertension Qualified Code(s): I10 - Essential (primary) hypertension (7) HLD (hyperlipidemia) Code(s): E78.5 - HYPERLIPIDEMIA, UNSPECIFIED (8) CAD (coronary artery disease) Code(s): I25.10 - ATHSCL HEART DISEASE OF [place] CORONARY ARTERY W/O ANG PCTRS Qualifiers: Coronary Disease-Associated Artery/Lesion type: [place] artery [place] vs. transplanted heart: [place] heart Associated angina: without angina Qualified Code(s): I25.10 - Atherosclerotic heart disease of [place] coronary artery without angina pectoris
[2020-06-10] MEDS: INSULIN SLIDING SCALE (NOVOLOG) 1 VIAL SQ SCH ×4 (06:12→21:15)
[2020-06-10] MEDS: INSULIN (LEVEMIR) 100 UNITS/ML UNITS SQ SCH ×2 (06:12→21:14)
[2020-06-10] MEDS ORDERED: cefTRIAXone SODIUM 1 GM VIAL ONE (09:05)
[2020-06-10] MEDS ORDERED: DEXTROSE 5%-WATER - 50 ML IVPB ONE (09:06)
[2020-06-10] MEDS: CEFTRIAXONE 1 GM in DEXTROSE 5%-WATER - 50 ML IVPB SCH (09:07)
[2020-06-10] MEDS: PANTOPRAZOLE 40 MG TABLET PO SCH (09:07)
[2020-06-10] MEDS: APIXABAN 5 MG TABLET PO SCH ×2 (09:07→21:12)
[2020-06-10] MEDS: METOPROLOL TARTRATE 50 MG TABLET (FP) PO SCH ×2 (09:07→21:12)
[2020-06-10] MEDS: CLOPIDOGREL BISULFATE 75 MG TABLET (FP) PO SCH (09:07)
[2020-06-10] MEDS: NYSTATIN POWDER 100,000 UNITS/GM - 15 GM TOPICAL POWDER TP SCH (09:07)
[2020-06-10] MEDS: MUPIROCIN 2% TOPICAL OINTMENT FOR DECOLONIZATION NS SCH ×2 (09:08→21:13)
[2020-06-10] MEDS: VANCOMYCIN HCL 1,250 MG in DEXTROSE 5%-WATER - 250 ML IVPB SCH (11:13)
--- NOTE | 2020-06-10 11:16 | PN ---
Progress Note, Physician History of Present Illness: Low grade fever, receiving abx for labial abscess. Denies chest pain or dyspnea. - Current Medication List Current Medications: Active Medications Apixaban (Eliquis -) 5 mg PO BID [facility] Last Admin: 06/10/20 09:07 Dose: 5 mg Documented by: Atorvastatin Calcium (Lipitor -) 20 mg PO HS [facility] Last Admin: 06/09/20 21:25 Dose: 20 mg Documented by: Chlorhexidine Gluconate (Hibiclens For Decolonization -) 1 applic TP [facility] Last Admin: 06/09/20 21:17 Dose: Not Given Documented by: Clopidogrel Bisulfate (Plavix -) 75 mg PO DAILY [facility] Last Admin: 06/10/20 09:07 Dose: 75 mg Documented by: Diltiazem HCl (Cardizem Cd -) 240 mg PO DAILY [facility] Last Admin: 06/10/20 09:07 Dose: 240 mg Documented by: Sodium Chloride (Normal Saline -) 1,000 mls @ 50 mls/hr IV ASDIR [facility] Last Admin: 06/09/20 19:00 Dose: 50 mls/hr Documented by: Vancomycin HCl 1,250 mg/ (Dextrose) 250 mls @ 166.667 mls/hr IVPB Q24H [facility]; Protocol Last Admin: 06/10/20 11:13 Dose: 166.667 mls/hr Documented by: Ceftriaxone Sodium 1 gm/ (Dextrose) 50 mls @ 200 mls/hr IVPB DAILY [facility]; Protocol Last Admin: 06/10/20 09:07 Dose: 200 mls/hr Documented by: Insulin Aspart (Novolog Vial Sliding Scale -) 1 vial SQ ACHS [facility]; Protocol Last Admin: 06/10/20 11:15 Dose: Not Given Documented by: Insulin Detemir (Levemir Vial) 25 units SQ AM [facility] Last Admin: 06/10/20 06:12 Dose: 25 units Documented by: Insulin Detemir (Levemir Vial) 10 units SQ HS [facility] Last Admin: 06/09/20 21:18 Dose: 10 units Documented by: Losartan Potassium (Cozaar -) 25 mg PO DAILY [facility] Metoprolol Tartrate (Lopressor -) 100 mg PO BID [facility] Last Admin: 06/10/20 09:07 Dose: 100 mg Documented by: Mupirocin (Bactroban Ointment (For Decolonization) -) 1 applic NS BID [facility] Stop: 06/11/20 09:59 Last Admin: 06/10/20 09:08 Dose: Not Given Documented by: Nystatin (Nystop Powder -) 1 applic TP BID [facility] Last Admin: 06/10/20 09:07 Dose: 1 applic Documented by: Pantoprazole Sodium (Protonix -) 40 mg PO DAILY [facility] Last Admin: 06/10/20 09:07 Dose: 40 mg Documented by: - Objective Vital Signs: Vital Signs Temperature 100.7 F H 06/10/20 08:49 Pulse Rate 73 06/10/20 08:49 Respiratory Rate 18 06/10/20 08:49 Blood Pressure 134/57 L 06/10/20 08:49 O2 Sat by Pulse Oximetry (%) 94 L 06/10/20 08:49 Constitutional: Yes: No Distress, Calm Neck: Yes: Supple Cardiovascular: Yes: Pulse Irregular Respiratory: Yes: Regular, CTA Bilaterally Gastrointestinal: Yes: Normal Bowel Sounds, Soft Edema: No Labs: CBC, BMP 06/09/20 08:32 06/09/20 08:32 INR, PTT INR 1.63 (0.83-1.09) H 06/05/20 18:09 Problem List - Problems (1) CIARAN (acute kidney injury) Code(s): N17.9 - ACUTE KIDNEY FAILURE, UNSPECIFIED (2) DKA (diabetic ketoacidoses) Code(s): E11.10 - TYPE 2 DIABETES MELLITUS WITH KETOACIDOSIS WITHOUT COMA Qualifiers: Diabetes mellitus type: type 2 Diabetes mellitus complication detail: without coma Qualified Code(s): E11.10 - Type 2 diabetes mellitus with ketoacidosis without coma (3) HLD (hyperlipidemia) Code(s): E78.5 - HYPERLIPIDEMIA, UNSPECIFIED (4) HTN (hypertension) Code(s): I10 - ESSENTIAL (PRIMARY) HYPERTENSION Qualifiers: Hypertension type: essential hypertension Qualified Code(s): I10 - Essential (primary) hypertension (5) Hyponatremia Code(s): E87.1 - HYPO-OSMOLALITY AND HYPONATREMIA (6) A-fib Code(s): I48.91 - UNSPECIFIED ATRIAL FIBRILLATION Qualifiers: Atrial fibrillation type: permanent Qualified Code(s): I48.21 - Permanent atrial fibrillation (7) Coronary artery disease Code(s): I25.10 - ATHSCL HEART DISEASE OF [place] CORONARY ARTERY W/O ANG PCTRS Qualifiers: Coronary Disease-Associated Artery/Lesion type: [place] artery [place] vs. transplanted heart: [place] heart Associated angina: without angina Qualified Code(s): I25.10 - Atherosclerotic heart disease of [place] coronary artery without angina pectoris (8) Diabetes mellitus type 2 in obese Code(s): E11.9 - TYPE 2 DIABETES MELLITUS WITHOUT COMPLICATIONS; E66.9 - OBESITY, UNSPECIFIED (9) History of percutaneous coronary intervention Code(s): Z98.890 - OTHER SPECIFIED POSTPROCEDURAL STATES (10) Hyperlipidemia associated with type 2 diabetes mellitus Code(s): E11.69 - TYPE 2 DIABETES MELLITUS WITH OTHER SPECIFIED COMPLICATION; E78.5 - HYPERLIPIDEMIA, UNSPECIFIED (11) Hypertension Code(s): I10 - ESSENTIAL (PRIMARY) HYPERTENSION Qualifiers: Hypertension type: essential hypertension Qualified Code(s): I10 - Essential (primary) hypertension (12) Labial abscess Code(s): N76.4 - ABSCESS OF [place] (13) Status post coronary artery stent placement Code(s): Z95.5 - PRESENCE OF CORONARY ANGIOPLASTY IMPLANT AND GRAFT Assessment/Plan 2-D echocardiogram 08/30/18 normal left ventricular size and systolic function LVEF 59%. Akinesis of the apex. Mildly dilated left atrium 4.8 cm. LA Volume Index 43 ml/m2. Mild concentric LVH 1.2 /1.2cm. Mild MAC and mildly sclerotic aortic valve with normal opening.. Trace to Mild mitral regurgitation. trace to mild tricuspid insufficiency with borderline estimated pulmonary artery pressure 19 mmHg and trace pulmonic insufficiency. Nuclear stress test 08/08/15 there was a medium-size zone of moderate predominantly fixed perfusion abnormality involving the mid to apical anterior wall and the entire apex consistent with myocardial infarction with minor abad- infarct ischemia. The apex is dyskinetic. Left ventricular ejection fraction is calculated at 48 %. Coronary angiography [facility] 08/14/15: Coronary findings dominance right. Left main coronary artery normal. LAD distal 100% stenosis fills via collaterals right to left. Mid left circumflex coronary artery 40% stenosis with DAMIEN-3 flow. Right coronary artery luminal irregularities with a 75% stenosis in the right PDA. Drug-eluting stent successfully placed in the right posterior descending coronary artery. 1. DKA/Hyperosmolar, hyperglycemic state improved 2. R/o labial abscess, sepsis 3. Acute on CKD resolving 4. Hyponatremia resolving 5. CAD s/p ELIZABETH RPDA 6. Permanent afib rate-controlled on Eliquis 7. HTN heart disease 8. Hyperlipidemia 9. Insulin-dependent Type 2 DM poorly controlled Ha1c 14.6% 10. Obesity 11. Vitamin D deficiency PLAN: 1. Oral hydration with monitor renal recovery and electrolytes, glycemic control 2. Abx course per C&S, ID recs 3. Continue Metoprolol 100 bid, Diltiazem CD 240 qd, Digoxin 0.125 qd, Eliquis 5 bid, Atorvastatin 20 qhs, Plavix 75 qd, and losartan 25 qd as renal fxn stable 4. Patient f/u with Dr. Adrián Ahmadi at [facility] upon d/c
--- NOTE | 2020-06-10 13:59 | PN ---
Progress Note, Physician Chief Complaint: Patient is doing much better sitting on the chair. Denies any pain to vulvar area. History of Present Illness: 59 y/o female admitted for DKA and found to have a chronic left labial mass lesion. - Current Medication List Current Medications: Active Medications Apixaban (Eliquis -) 5 mg PO BID [facility] Last Admin: 06/10/20 09:07 Dose: 5 mg Documented by: Atorvastatin Calcium (Lipitor -) 20 mg PO HS [facility] Last Admin: 06/09/20 21:25 Dose: 20 mg Documented by: Chlorhexidine Gluconate (Hibiclens For Decolonization -) 1 applic TP HS [facility] Last Admin: 06/09/20 21:17 Dose: Not Given Documented by: Clopidogrel Bisulfate (Plavix -) 75 mg PO DAILY [facility] Last Admin: 06/10/20 09:07 Dose: 75 mg Documented by: Diltiazem HCl (Cardizem Cd -) 240 mg PO DAILY [facility] Last Admin: 06/10/20 09:07 Dose: 240 mg Documented by: Sodium Chloride (Normal Saline -) 1,000 mls @ 50 mls/hr IV ASDIR [facility] Last Admin: 06/09/20 19:00 Dose: 50 mls/hr Documented by: Vancomycin HCl 1,250 mg/ (Dextrose) 250 mls @ 166.667 mls/hr IVPB Q24H [facility]; Protocol Last Admin: 06/10/20 11:13 Dose: 166.667 mls/hr Documented by: Ceftriaxone Sodium 1 gm/ (Dextrose) 50 mls @ 200 mls/hr IVPB DAILY [facility]; Protocol Last Admin: 06/10/20 09:07 Dose: 200 mls/hr Documented by: Insulin Aspart (Novolog Vial Sliding Scale -) 1 vial SQ ACHS [facility]; Protocol Last Admin: 06/10/20 11:15 Dose: Not Given Documented by: Insulin Detemir (Levemir Vial) 25 units SQ AM [facility] Last Admin: 06/10/20 06:12 Dose: 25 units Documented by: Insulin Detemir (Levemir Vial) 10 units SQ HS [facility] Last Admin: 06/09/20 21:18 Dose: 10 units Documented by: Losartan Potassium (Cozaar -) 25 mg PO DAILY [facility] Metoprolol Tartrate (Lopressor -) 100 mg PO BID [facility] Last Admin: 06/10/20 09:07 Dose: 100 mg Documented by: Mupirocin (Bactroban Ointment (For Decolonization) -) 1 applic NS BID [facility] Stop: 06/11/20 09:59 Last Admin: 06/10/20 09:08 Dose: Not Given Documented by: Nystatin (Nystop Powder -) 1 applic TP BID [facility] Last Admin: 06/10/20 09:07 Dose: 1 applic Documented by: Pantoprazole Sodium (Protonix -) 40 mg PO DAILY [facility] Last Admin: 06/10/20 09:07 Dose: 40 mg Documented by: - Objective Vital Signs: Vital Signs Temperature 100.7 F H 06/10/20 08:49 Pulse Rate 73 06/10/20 08:49 Respiratory Rate 18 06/10/20 08:49 Blood Pressure 134/57 L 06/10/20 08:49 O2 Sat by Pulse Oximetry (%) 94 L 06/10/20 08:49 Constitutional: Yes: No Distress HENT: Yes: Atraumatic Neck: Yes: Supple Cardiovascular: Yes: Regular Rate and Rhythm Respiratory: Yes: Regular Gastrointestinal: Yes: Soft ...Rectal Exam: Yes: Deferred Genitourinary: Yes: Other (Left labia mass lesion with spontaneous superficial serous/yellowish discharge, no erythema, no fluctuance, no crepitous, non- tender) Breast(s): Yes: Other Musculoskeletal: Yes: WNL Extremities: Yes: WNL Neurological: Yes: Alert, Oriented Labs: CBC, BMP 06/09/20 08:32 06/09/20 08:32 INR, PTT INR 1.63 (0.83-1.09) H 06/05/20 18:09 - ....Imaging Cat Scan: Report Reviewed, Image Reviewed Assessment/Plan 59 y/o on HD#6 with multiple co-morbidities admitted for DKA. Condition is medically improved and left labia mass lesion draining superficially and spontaneously. Mass lesion is concerning for possible malignancy with superimposed superficial infection due to inadequate pubic/inguinal hygiene. Patient reports already established [employer] and dermatology care as outpatient and biopsy done. She was counseled regarding [employer] and imaging findings. Follow up with [facility] as outpatient due to complexity and location of mass lesion recommended. Patient discussed with primary/admitting attending and no acute [employer] procedure/intervention required. -Sitz baths BID -Appropriate inguinal/pubic hygiene -Continue care as per primary team -Follow up with [facility] and dermatology outpatient -Please contact [employer] service with any additional inquiries
--- NOTE | 2020-06-10 14:57 | PN ---
Progress Note, Physician History of Present Illness: Pt seen and examined at bedside. She is awake and alert. She denies shortness of breath. - Current Medication List Current Medications: Active Medications Apixaban (Eliquis -) 5 mg PO BID [facility] Last Admin: 06/10/20 09:07 Dose: 5 mg Documented by: Atorvastatin Calcium (Lipitor -) 20 mg PO HS [facility] Last Admin: 06/09/20 21:25 Dose: 20 mg Documented by: Chlorhexidine Gluconate (Hibiclens For Decolonization -) 1 applic TP [facility] Last Admin: 06/09/20 21:17 Dose: Not Given Documented by: Clopidogrel Bisulfate (Plavix -) 75 mg PO DAILY [facility] Last Admin: 06/10/20 09:07 Dose: 75 mg Documented by: Diltiazem HCl (Cardizem Cd -) 240 mg PO DAILY [facility] Last Admin: 06/10/20 09:07 Dose: 240 mg Documented by: Sodium Chloride (Normal Saline -) 1,000 mls @ 50 mls/hr IV ASDIR [facility] Last Admin: 06/09/20 19:00 Dose: 50 mls/hr Documented by: Vancomycin HCl 1,250 mg/ (Dextrose) 250 mls @ 166.667 mls/hr IVPB Q24H [facility]; Protocol Last Admin: 06/10/20 11:13 Dose: 166.667 mls/hr Documented by: Ceftriaxone Sodium 1 gm/ (Dextrose) 50 mls @ 200 mls/hr IVPB DAILY [facility]; Protocol Last Admin: 06/10/20 09:07 Dose: 200 mls/hr Documented by: Insulin Aspart (Novolog Vial Sliding Scale -) 1 vial SQ ACHS [facility]; Protocol Last Admin: 06/10/20 11:15 Dose: Not Given Documented by: Insulin Detemir (Levemir Vial) 25 units SQ AM [facility] Last Admin: 06/10/20 06:12 Dose: 25 units Documented by: Insulin Detemir (Levemir Vial) 10 units SQ HS [facility] Last Admin: 06/09/20 21:18 Dose: 10 units Documented by: Losartan Potassium (Cozaar -) 25 mg PO DAILY [facility] Metoprolol Tartrate (Lopressor -) 100 mg PO BID [facility] Last Admin: 06/10/20 09:07 Dose: 100 mg Documented by: Mupirocin (Bactroban Ointment (For Decolonization) -) 1 applic NS BID [facility] Stop: 06/11/20 09:59 Last Admin: 06/10/20 09:08 Dose: Not Given Documented by: Nystatin (Nystop Powder -) 1 applic TP BID [facility] Last Admin: 06/10/20 09:07 Dose: 1 applic Documented by: Pantoprazole Sodium (Protonix -) 40 mg PO DAILY [facility] Last Admin: 06/10/20 09:07 Dose: 40 mg Documented by: - Objective Vital Signs: Vital Signs Temperature 100.7 F H 06/10/20 08:49 Pulse Rate 73 06/10/20 08:49 Respiratory Rate 18 06/10/20 08:49 Blood Pressure 134/57 L 06/10/20 08:49 O2 Sat by Pulse Oximetry (%) 94 L 06/10/20 08:49 Constitutional: Yes: Calm Eyes: Yes: Conjunctiva Clear HENT: Yes: Atraumatic Neck: Yes: Supple Cardiovascular: Yes: S1, S2 Respiratory: Yes: CTA Bilaterally Gastrointestinal: Yes: Normal Bowel Sounds Genitourinary: Yes: WNL Musculoskeletal: Yes: WNL Edema: No Neurological: Yes: Oriented Psychiatric: Yes: Oriented Labs: CBC, BMP 06/09/20 08:32 06/09/20 08:32 INR, PTT INR 1.63 (0.83-1.09) H 06/05/20 18:09 Problem List - Problems (1) CIARAN (acute kidney injury) Code(s): N17.9 - ACUTE KIDNEY FAILURE, UNSPECIFIED (2) Hyponatremia Code(s): E87.1 - HYPO-OSMOLALITY AND HYPONATREMIA (3) DKA (diabetic ketoacidoses) Code(s): E11.10 - TYPE 2 DIABETES MELLITUS WITH KETOACIDOSIS WITHOUT COMA Qualifiers: Diabetes mellitus type: type 2 Diabetes mellitus complication detail: without coma Qualified Code(s): E11.10 - Type 2 diabetes mellitus with ketoacidosis without coma (4) Hyperglycemia Code(s): R73.9 - HYPERGLYCEMIA, UNSPECIFIED (5) A-fib Code(s): I48.91 - UNSPECIFIED ATRIAL FIBRILLATION Qualifiers: Atrial fibrillation type: permanent Qualified Code(s): I48.21 - Permanent atrial fibrillation Assessment/Plan Current Medications Generic Name Dose Route Start Last Admin Trade Name Freq PRN Reason Stop Dose Admin Apixaban 5 mg 06/07/20 22:00 06/10/20 09:07 Eliquis - PO 5 mg BID [facility] Administration Atorvastatin Calcium 20 mg 06/07/20 22:00 06/09/20 21:25 Lipitor - PO 20 mg HS [facility] Administration Chlorhexidine Gluconate 1 applic 06/07/20 22:00 06/09/20 21:17 Hibiclens For Decolonization - TP Not Given HS [facility] Clopidogrel Bisulfate 75 mg 06/08/20 10:00 06/10/20 09:07 Plavix - PO 75 mg DAILY [facility] Administration Diltiazem HCl 240 mg 06/08/20 10:00 06/10/20 09:07 Cardizem Cd - PO 240 mg DAILY [facility] Administration Sodium Chloride 1,000 mls @ 50 mls/hr 06/07/20 15:40 06/09/20 19:00 Normal Saline - IV 50 mls/hr ASDIR [facility] Administration Vancomycin HCl 1,250 mg/ 250 mls @ 166.667 mls/hr 06/08/20 12:00 06/10/20 11:13 Dextrose IVPB 166.667 mls/hr Q24H [facility] Administration Protocol Ceftriaxone Sodium 1 gm/ 50 mls @ 200 mls/hr 06/08/20 12:00 06/10/20 09:07 Dextrose IVPB 200 mls/hr DAILY [facility] Administration Protocol Insulin Aspart 1 vial 06/06/20 22:00 06/10/20 11:15 Novolog Vial Sliding Scale - SQ Not Given ACHS [facility] Protocol Insulin Detemir 25 units 06/07/20 07:00 06/10/20 06:12 Levemir Vial SQ 25 units AM [facility] Administration Insulin Detemir 10 units 06/07/20 22:00 06/09/20 21:18 Levemir Vial SQ 10 units HS [facility] Administration Losartan Potassium 25 mg 06/08/20 10:00 Cozaar - PO DAILY [facility] Metoprolol Tartrate 100 mg 06/07/20 22:00 06/10/20 09:07 Lopressor - PO 100 mg BID [facility] Administration Mupirocin 1 applic 06/07/20 22:00 06/10/20 09:08 Bactroban Ointment (For Decolonization) - NS 06/11/20 09:59 Not Given BID [facility] Nystatin 1 applic 06/06/20 13:30 06/10/20 09:07 Nystop Powder - TP 1 applic BID [facility] Administration Pantoprazole Sodium 40 mg 06/09/20 10:00 06/10/20 09:07 Protonix - PO 40 mg DAILY [facility] Administration Impression 1. CIARAN 2. DKA/HSS 3. hyponatremia 4. a-fib 5. htn 6. hld 7. dm - poorly controlled Plan - check bmp in am - cont fluids - monitor renal function - monitor blood sugar - avoid nsaids - will need outpt follow up - monitor bp
[2020-06-10] MEDS: SODIUM CHLORIDE 1,000 ML IV SCH (16:10)
[2020-06-10] MEDS ORDERED: INSULIN (NOVOLOG) ASPART 100 UNITS/ML 10ML VIAL ONE ×2 (16:25→21:09)
[2020-06-10] MEDS: ATORVASTATIN CA 20 MG TABLET (FP) PO SCH (21:12)
--- NOTE | 2020-06-10 22:25 | PN ---
Progress Note, Physician History of Present Illness: No new complaints - Current Medication List Current Medications: Active Medications Apixaban (Eliquis -) 5 mg PO BID [facility] Last Admin: 06/10/20 21:12 Dose: 5 mg Documented by: Atorvastatin Calcium (Lipitor -) 20 mg PO HS [facility] Last Admin: 06/10/20 21:12 Dose: 20 mg Documented by: Chlorhexidine Gluconate (Hibiclens For Decolonization -) 1 applic TP HS [facility] Last Admin: 06/09/20 21:17 Dose: Not Given Documented by: Clopidogrel Bisulfate (Plavix -) 75 mg PO DAILY [facility] Last Admin: 06/10/20 09:07 Dose: 75 mg Documented by: Diltiazem HCl (Cardizem Cd -) 240 mg PO DAILY [facility] Last Admin: 06/10/20 09:07 Dose: 240 mg Documented by: Sodium Chloride (Normal Saline -) 1,000 mls @ 50 mls/hr IV ASDIR [facility] Last Admin: 06/10/20 16:10 Dose: 50 mls/hr Documented by: Vancomycin HCl 1,250 mg/ (Dextrose) 250 mls @ 166.667 mls/hr IVPB Q24H [facility]; Protocol Last Admin: 06/10/20 11:13 Dose: 166.667 mls/hr Documented by: Ceftriaxone Sodium 1 gm/ (Dextrose) 50 mls @ 200 mls/hr IVPB DAILY [facility]; Protocol Last Admin: 06/10/20 09:07 Dose: 200 mls/hr Documented by: Insulin Aspart (Novolog Vial Sliding Scale -) 1 vial SQ ACHS [facility]; Protocol Last Admin: 06/10/20 21:15 Dose: 4 units Documented by: Insulin Detemir (Levemir Vial) 25 units SQ AM [facility] Last Admin: 06/10/20 06:12 Dose: 25 units Documented by: Insulin Detemir (Levemir Vial) 10 units SQ HS [facility] Last Admin: 06/10/20 21:14 Dose: 10 units Documented by: Losartan Potassium (Cozaar -) 25 mg PO DAILY [facility] Metoprolol Tartrate (Lopressor -) 100 mg PO BID [facility] Last Admin: 06/10/20 21:12 Dose: 100 mg Documented by: Mupirocin (Bactroban Ointment (For Decolonization) -) 1 applic NS BID [facility] Stop: 06/11/20 09:59 Last Admin: 06/10/20 21:13 Dose: Not Given Documented by: Nystatin (Nystop Powder -) 1 applic TP BID [facility] Last Admin: 06/10/20 09:07 Dose: 1 applic Documented by: Pantoprazole Sodium (Protonix -) 40 mg PO DAILY [facility] Last Admin: 06/10/20 09:07 Dose: 40 mg Documented by: - Objective Vital Signs: Vital Signs Temperature 97.9 F 06/10/20 21:00 Pulse Rate 64 06/10/20 21:00 Respiratory Rate 18 06/10/20 21:00 Blood Pressure 134/74 06/10/20 21:00 O2 Sat by Pulse Oximetry (%) 95 06/10/20 21:00 Cardiovascular: Yes: WNL, Regular Rate and Rhythm Respiratory: Yes: WNL, Regular, CTA Bilaterally Gastrointestinal: Yes: WNL, Normal Bowel Sounds, Soft Labs: CBC, BMP 06/09/20 08:32 06/09/20 08:32 INR, PTT INR 1.63 (0.83-1.09) H 06/05/20 18:09 Problem List - Problems (1) CIARAN (acute kidney injury) Assessment/Plan: Cont IVF Monitor labs in am Code(s): N17.9 - ACUTE KIDNEY FAILURE, UNSPECIFIED (2) Labial abrasion Assessment/Plan: Chronic labial lesion Spoke to pt at length and also spoke to [employer] CONTROLS ENGINEER Pt will need to f/u w/ oupt [employer] CONTROLS ENGINEER/onco Cont IV antibxs Awaiting final sensitivities to change to PO antibxs Code(s): S30.814A - ABRASION OF VAGINA AND VULVA, INITIAL ENCOUNTER (3) DKA (diabetic ketoacidoses) Assessment/Plan: Resolved Cont IVF Cont levemir Cont sliding scale w/ coverage Endo consult noted Code(s): E11.10 - TYPE 2 DIABETES MELLITUS WITH KETOACIDOSIS WITHOUT COMA Qualifiers: Diabetes mellitus type: type 2 Diabetes mellitus complication detail: without coma Qualified Code(s): E11.10 - Type 2 diabetes mellitus with ketoacidosis without coma (4) Hyponatremia Assessment/Plan: Resolved Code(s): E87.1 - HYPO-OSMOLALITY AND HYPONATREMIA (5) A-fib Assessment/Plan: Cont eliquis Heart rate controlled Code(s): I48.91 - UNSPECIFIED ATRIAL FIBRILLATION Qualifiers: Atrial fibrillation type: permanent Qualified Code(s): I48.21 - Permanent atrial fibrillation (6) Anemia Code(s): D64.9 - ANEMIA, UNSPECIFIED Qualifiers: Anemia type: unspecified type Qualified Code(s): D64.9 - Anemia, unspecified (7) HTN (hypertension) Code(s): I10 - ESSENTIAL (PRIMARY) HYPERTENSION Qualifiers: Hypertension type: essential hypertension Qualified Code(s): I10 - Essential (primary) hypertension (8) HLD (hyperlipidemia) Code(s): E78.5 - HYPERLIPIDEMIA, UNSPECIFIED (9) CAD (coronary artery disease) Assessment/Plan: Cont plavix Code(s): I25.10 - ATHSCL HEART DISEASE OF [place] CORONARY ARTERY W/O ANG PCTRS Qualifiers: Coronary Disease-Associated Artery/Lesion type: [place] artery [place] vs. transplanted heart: [place] heart Associated angina: without angina Qualified Code(s): I25.10 - Atherosclerotic heart disease of [place] coronary artery withou t angina pectoris (10) Labial abrasion Code(s): S30.814A - ABRASION OF VAGINA AND VULVA, INITIAL ENCOUNTER
[2020-06-11] MEDS: CHLORHEXIDINE GLUCONATE 4% CLEANSER FOR DECOLONIZATION TP SCH (00:11)
[2020-06-11] MEDS: NYSTATIN POWDER 100,000 UNITS/GM - 15 GM TOPICAL POWDER TP SCH ×2 (00:13→09:45)
[2020-06-11] MEDS: INSULIN (LEVEMIR) 100 UNITS/ML UNITS SQ SCH (06:23)
[2020-06-11] MEDS: INSULIN SLIDING SCALE (NOVOLOG) 1 VIAL SQ SCH ×2 (06:24→11:52)
[2020-06-11 09:25] LABS: ALBUMIN 2.6 g/dl (3.4-5.0); BILIRUBIN,TOTAL 0.9 mg/dL (0.2-1); BLOOD UREA NITROGEN 43.3 mg/dL (7-18); CALCIUM 8.4 mg/dL (8.5-10.1); CREATININE 1.6 mg/dL (0.55-1.3); POTASSIUM 4.6 mmol/L (3.5-5.1); TOT PROT 6.5 g/dl (6.4-8.2)
[2020-06-11] MEDS ORDERED: cefTRIAXone SODIUM 1 GM VIAL ONE (09:31)
[2020-06-11] MEDS ORDERED: DEXTROSE 5%-WATER - 50 ML IVPB ONE (09:31)
[2020-06-11] MEDS: CEFTRIAXONE 1 GM in DEXTROSE 5%-WATER - 50 ML IVPB SCH (09:43)
[2020-06-11] MEDS: APIXABAN 5 MG TABLET PO SCH (09:44)
[2020-06-11] MEDS: CLOPIDOGREL BISULFATE 75 MG TABLET (FP) PO SCH (09:44)
[2020-06-11] MEDS: METOPROLOL TARTRATE 50 MG TABLET (FP) PO SCH (09:44)
[2020-06-11] MEDS: SODIUM CHLORIDE 1,000 ML IV SCH (09:44)
[2020-06-11] MEDS: PANTOPRAZOLE 40 MG TABLET PO SCH (09:44)
--- NOTE | 2020-06-11 10:39 | PN ---
Progress Note, Physician History of Present Illness: stable no new issues - Current Medication List Current Medications: Active Medications Apixaban (Eliquis -) 5 mg PO BID [facility] Last Admin: 06/11/20 09:44 Dose: 5 mg Documented by: Atorvastatin Calcium (Lipitor -) 20 mg PO HS [facility] Last Admin: 06/10/20 21:12 Dose: 20 mg Documented by: Chlorhexidine Gluconate (Hibiclens For Decolonization -) 1 applic TP [facility] Last Admin: 06/11/20 00:11 Dose: Not Given Documented by: Clopidogrel Bisulfate (Plavix -) 75 mg PO DAILY [facility] Last Admin: 06/11/20 09:44 Dose: 75 mg Documented by: Diltiazem HCl (Cardizem Cd -) 240 mg PO DAILY [facility] Last Admin: 06/11/20 09:44 Dose: 240 mg Documented by: Sodium Chloride (Normal Saline -) 1,000 mls @ 50 mls/hr IV ASDIR [facility] Last Admin: 06/11/20 09:44 Dose: 50 mls/hr Documented by: Vancomycin HCl 1,250 mg/ (Dextrose) 250 mls @ 166.667 mls/hr IVPB Q24H [facility]; Protocol Last Admin: 06/10/20 11:13 Dose: 166.667 mls/hr Documented by: Ceftriaxone Sodium 1 gm/ (Dextrose) 50 mls @ 200 mls/hr IVPB DAILY [facility]; Protocol Last Admin: 06/11/20 09:43 Dose: 200 mls/hr Documented by: Insulin Aspart (Novolog Vial Sliding Scale -) 1 vial SQ ACHS [facility]; Protocol Last Admin: 06/11/20 06:24 Dose: 3 units Documented by: Insulin Detemir (Levemir Vial) 25 units SQ AM [facility] Last Admin: 06/11/20 06:23 Dose: 25 units Documented by: Insulin Detemir (Levemir Vial) 10 units SQ HS [facility] Last Admin: 06/10/20 21:14 Dose: 10 units Documented by: Losartan Potassium (Cozaar -) 25 mg PO DAILY [facility] Metoprolol Tartrate (Lopressor -) 100 mg PO BID [facility] Last Admin: 06/11/20 09:44 Dose: 100 mg Documented by: Nystatin (Nystop Powder -) 1 applic TP BID [facility] Last Admin: 06/11/20 09:45 Dose: 1 applic Documented by: Pantoprazole Sodium (Protonix -) 40 mg PO DAILY [facility] Last Admin: 06/11/20 09:44 Dose: 40 mg Documented by: - Objective Vital Signs: Vital Signs Temperature 98.4 F 06/11/20 09:06 Pulse Rate 63 06/11/20 09:06 Respiratory Rate 18 06/11/20 09:06 Blood Pressure 125/55 L 06/11/20 09:06 O2 Sat by Pulse Oximetry (%) 94 L 06/11/20 09:06 Constitutional: Yes: No Distress Cardiovascular: Yes: S1, S2 Respiratory: Yes: Regular, CTA Bilaterally Gastrointestinal: Yes: Normal Bowel Sounds, Soft Musculoskeletal: Yes: WNL Extremities: Yes: WNL Wound/Incision: Yes: Clean/Dry Neurological: Yes: Alert, Oriented Psychiatric: Yes: Alert, Oriented Labs: CBC, BMP 06/09/20 08:32 06/11/20 08:17 INR, PTT INR 1.63 (0.83-1.09) H 06/05/20 18:09 Assessment/Plan Problem List - Problems (1) CIARAN (acute kidney injury) Code(s): N17.9 - ACUTE KIDNEY FAILURE, UNSPECIFIED (2) Hyponatremia Code(s): E87.1 - HYPO-OSMOLALITY AND HYPONATREMIA (3) DKA (diabetic ketoacidoses) Code(s): E11.10 - TYPE 2 DIABETES MELLITUS WITH KETOACIDOSIS WITHOUT COMA (4) Hyperglycemia Code(s): R73.9 - HYPERGLYCEMIA, UNSPECIFIED (5) A-fib Code(s): I48.91 - UNSPECIFIED ATRIAL FIBRILLATION Qualifiers: Atrial fibrillation type: permanent r/o vaginal abscess leukocytosis plan continue abx sensitivities noted can change patient to augmentin 500 mg po bid for 5 more days on discharge
--- NOTE | 2020-06-11 11:06 | PN ---
Progress Note, Physician History of Present Illness: Afebrile, receiving abx for labial abscess. Denies chest pain or dyspnea. - Current Medication List Current Medications: Active Medications Apixaban (Eliquis -) 5 mg PO BID [facility] Last Admin: 06/11/20 09:44 Dose: 5 mg Documented by: Atorvastatin Calcium (Lipitor -) 20 mg PO HS [facility] Last Admin: 06/10/20 21:12 Dose: 20 mg Documented by: Chlorhexidine Gluconate (Hibiclens For Decolonization -) 1 applic TP [facility] Last Admin: 06/11/20 00:11 Dose: Not Given Documented by: Clopidogrel Bisulfate (Plavix -) 75 mg PO DAILY [facility] Last Admin: 06/11/20 09:44 Dose: 75 mg Documented by: Diltiazem HCl (Cardizem Cd -) 240 mg PO DAILY [facility] Last Admin: 06/11/20 09:44 Dose: 240 mg Documented by: Sodium Chloride (Normal Saline -) 1,000 mls @ 50 mls/hr IV ASDIR [facility] Last Admin: 06/11/20 09:44 Dose: 50 mls/hr Documented by: Vancomycin HCl 1,250 mg/ (Dextrose) 250 mls @ 166.667 mls/hr IVPB Q24H [facility]; Protocol Last Admin: 06/10/20 11:13 Dose: 166.667 mls/hr Documented by: Ceftriaxone Sodium 1 gm/ (Dextrose) 50 mls @ 200 mls/hr IVPB DAILY [facility]; Protocol Last Admin: 06/11/20 09:43 Dose: 200 mls/hr Documented by: Insulin Aspart (Novolog Vial Sliding Scale -) 1 vial SQ ACHS [facility]; Protocol Last Admin: 06/11/20 06:24 Dose: 3 units Documented by: Insulin Detemir (Levemir Vial) 25 units SQ AM [facility] Last Admin: 06/11/20 06:23 Dose: 25 units Documented by: Insulin Detemir (Levemir Vial) 10 units SQ HS [facility] Last Admin: 06/10/20 21:14 Dose: 10 units Documented by: Losartan Potassium (Cozaar -) 25 mg PO DAILY [facility] Metoprolol Tartrate (Lopressor -) 100 mg PO BID [facility] Last Admin: 06/11/20 09:44 Dose: 100 mg Documented by: Nystatin (Nystop Powder -) 1 applic TP BID [facility] Last Admin: 06/11/20 09:45 Dose: 1 applic Documented by: Pantoprazole Sodium (Protonix -) 40 mg PO DAILY [facility] Last Admin: 06/11/20 09:44 Dose: 40 mg Documented by: - Objective Vital Signs: Vital Signs Temperature 98.4 F 06/11/20 09:06 Pulse Rate 63 06/11/20 09:06 Respiratory Rate 18 06/11/20 09:06 Blood Pressure 125/55 L 06/11/20 09:06 O2 Sat by Pulse Oximetry (%) 94 L 06/11/20 09:06 Constitutional: Yes: No Distress, Calm Neck: Yes: Supple Cardiovascular: Yes: Regular Rate and Rhythm Respiratory: Yes: Regular, CTA Bilaterally Gastrointestinal: Yes: Normal Bowel Sounds, Soft, Abdomen, Obese Edema: No Labs: CBC, BMP 06/09/20 08:32 06/11/20 08:17 INR, PTT INR 1.63 (0.83-1.09) H 06/05/20 18:09 Problem List - Problems (1) CIARAN (acute kidney injury) Code(s): N17.9 - ACUTE KIDNEY FAILURE, UNSPECIFIED (2) DKA (diabetic ketoacidoses) Code(s): E11.10 - TYPE 2 DIABETES MELLITUS WITH KETOACIDOSIS WITHOUT COMA Qualifiers: Diabetes mellitus type: type 2 Diabetes mellitus complication detail: without coma Qualified Code(s): E11.10 - Type 2 diabetes mellitus with ketoacidosis without coma (3) HLD (hyperlipidemia) Code(s): E78.5 - HYPERLIPIDEMIA, UNSPECIFIED (4) HTN (hypertension) Code(s): I10 - ESSENTIAL (PRIMARY) HYPERTENSION Qualifiers: Hypertension type: essential hypertension Qualified Code(s): I10 - Essential (primary) hypertension (5) Hyponatremia Code(s): E87.1 - HYPO-OSMOLALITY AND HYPONATREMIA (6) A-fib Code(s): I48.91 - UNSPECIFIED ATRIAL FIBRILLATION Qualifiers: Atrial fibrillation type: permanent Qualified Code(s): I48.21 - Permanent atrial fibrillation (7) Coronary artery disease Code(s): I25.10 - ATHSCL HEART DISEASE OF [place] CORONARY ARTERY W/O ANG PCTRS Qualifiers: Coronary Disease-Associated Artery/Lesion type: [place] artery [place] vs. transplanted heart: [place] heart Associated angina: without angina Qualified Code(s): I25.10 - Atherosclerotic heart disease of [place] coronary artery without angina pectoris (8) Diabetes mellitus type 2 in obese Code(s): E11.9 - TYPE 2 DIABETES MELLITUS WITHOUT COMPLICATIONS; E66.9 - OBESITY, UNSPECIFIED (9) History of percutaneous coronary intervention Code(s): Z98.890 - OTHER SPECIFIED POSTPROCEDURAL STATES (10) Hyperlipidemia associated with type 2 diabetes mellitus Code(s): E11.69 - TYPE 2 DIABETES MELLITUS WITH OTHER SPECIFIED COMPLICATION; E78.5 - HYPERLIPIDEMIA, UNSPECIFIED (11) Hypertension Code(s): I10 - ESSENTIAL (PRIMARY) HYPERTENSION Qualifiers: Hypertension type: essential hypertension Qualified Code(s): I10 - Essential (primary) hypertension (12) Labial abscess Code(s): N76.4 - ABSCESS OF VULVA (13) Status post coronary artery stent placement Code(s): Z95.5 - PRESENCE OF CORONARY ANGIOPLASTY IMPLANT AND GRAFT Assessment/Plan 2-D echocardiogram 08/30/18 normal left ventricular size and systolic function LVEF 59%. Akinesis of the apex. Mildly dilated left atrium 4.8 cm. LA Volume Index 43 ml/m2. Mild concentric LVH 1.2 /1.2cm. Mild MAC and mildly sclerotic aortic valve with normal opening.. Trace to Mild mitral regurgitation. trace to mild tricuspid insufficiency with borderline estimated pulmonary artery pressure 19 mmHg and trace pulmonic insufficiency. Nuclear stress test 08/08/15 there was a medium-size zone of moderate predominantly fixed perfusion abnormality involving the mid to apical anterior wall and the entire apex consistent with myocardial infarction with minor abad-infarct ischemia. The apex is dyskinetic. Left ventricular ejection fraction is calculated at 48 %. [facility] 08/14/15: Coronary findings dominance right. Left main coronary artery normal. LAD distal 100% stenosis fills via collaterals right to left. Mid left circumflex coronary artery 40% stenosis with DAMIEN-3 flow. Right coronary artery luminal irregular ities with a 75% stenosis in the right PDA. Drug-eluting stent successfully placed in the right posterior descending coronary artery. 1. DKA/Hyperosmolar, hyperglycemic state improved 2. R/o labial abscess, sepsis 3. Acute on CKD resolving 4. Hyponatremia resolving 5. CAD s/p [facility] RPDA 6. Permanent afib rate-controlled on Eliquis 7. HTN heart disease 8. Hyperlipidemia 9. Insulin-dependent Type 2 DM poorly controlled Ha1c 14.6% 10. Obesity 11. Vitamin D deficiency PLAN: 1. Oral hydration with monitor renal recovery and electrolytes, glycemic control 2. Abx course per C&S, ID recs 3. Continue Metoprolol 100 bid, Diltiazem CD 240 qd, Digoxin 0.125 qd, Eliquis 5 bid, Atorvastatin 20 qhs, Plavix 75 qd, and losartan 25 qd as renal fxn stable 4. D/c planning, patient f[place]. Adrián [place] [facility] [place]
[2020-06-11] MEDS ORDERED: INSULIN (NOVOLOG) ASPART 100 UNITS/ML 10ML VIAL ONE (11:22)
[2020-06-11] MEDS ORDERED: PT OWN MED DRAWER 7, Y5N ONE (11:55)
[2020-06-11] MEDS: VANCOMYCIN HCL 1,250 MG in DEXTROSE 5%-WATER - 250 ML IVPB SCH (12:00)
[2020-06-11] MEDS ORDERED: INSULIN SLIDING SCALE (NOVOLOG) 1 VIAL SQ SCH ×2 (16:30)
[2020-06-11 16:47] VITALS: BP 120/50; PULSE 60; TEMP 98
--- NOTE | 2020-06-11 16:50 | PN ---
Progress Note, Physician History of Present Illness: Pt seen and examined at bedside. She is awake and alert. - Objective Vital Signs: Vital Signs Temperature 98.4 F 06/11/20 09:06 Pulse Rate 63 06/11/20 09:06 Respiratory Rate 18 06/11/20 09:06 Blood Pressure 125/55 L 06/11/20 09:06 O2 Sat by Pulse Oximetry (%) 94 L 06/11/20 09:06 Constitutional: Yes: Calm Eyes: Yes: Conjunctiva Clear HENT: Yes: Atraumatic Cardiovascular: Yes: S1, S2 Respiratory: Yes: CTA Bilaterally Gastrointestinal: Yes: Soft Genitourinary: Yes: WNL Musculoskeletal: Yes: WNL Edema: No Integumentary: Yes: WNL Neurological: Yes: Oriented Psychiatric: Yes: Oriented Labs: CBC, BMP 06/09/20 08:32 06/11/20 08:17 INR, PTT INR 1.63 (0.83-1.09) H 06/05/20 18:09 Problem List - Problems (1) CIARAN (acute kidney injury) Code(s): N17.9 - ACUTE KIDNEY FAILURE, UNSPECIFIED (2) Hyponatremia Code(s): E87.1 - HYPO-OSMOLALITY AND HYPONATREMIA (3) DKA (diabetic ketoacidoses) Code(s): E11.10 - TYPE 2 DIABETES MELLITUS WITH KETOACIDOSIS WITHOUT COMA Qualifiers: Diabetes mellitus type: type 2 Diabetes mellitus complication detail: without coma Qualified Code(s): E11.10 - Type 2 diabetes mellitus with ketoacidosis without coma (4) Hyperglycemia Code(s): R73.9 - HYPERGLYCEMIA, UNSPECIFIED (5) A-fib Code(s): I48.91 - UNSPECIFIED ATRIAL FIBRILLATION Qualifiers: Atrial fibrillation type: permanent Qualified Code(s): I48.21 - Permanent atrial fibrillation Assessment/Plan Current Medications Generic Name Dose Route Start Last Admin Trade Name Freq PRN Reason Stop Dose Admin Apixaban 5 mg 06/07/20 22:00 06/10/20 09:07 Eliquis - PO 5 mg BID [facility] Administration Atorvastatin Calcium 20 mg 06/07/20 22:00 06/09/20 21:25 Lipitor - PO 20 mg HS [facility] Administration Chlorhexidine Gluconate 1 applic 06/07/20 22:00 06/09/20 21:17 Hibiclens For Decolonization - TP Not Given HS [facility] Clopidogrel Bisulfate 75 mg 06/08/20 10:00 06/10/20 09:07 Plavix - PO 75 mg DAILY [facility] Administration Diltiazem HCl 240 mg 06/08/20 10:00 06/10/20 09:07 Cardizem Cd - PO 240 mg DAILY [facility] Administration Sodium Chloride 1,000 mls @ 50 mls/hr 06/07/20 15:40 06/09/20 19:00 Normal Saline - IV 50 mls/hr ASDIR [facility] Administration Vancomycin HCl 1,250 mg/ 250 mls @ 166.667 mls/hr 06/08/20 12:00 06/10/20 11:13 Dextrose IVPB 166.667 mls/hr Q24H [facility] Administration Protocol Ceftriaxone Sodium 1 gm/ 50 mls @ 200 mls/hr 06/08/20 12:00 06/10/20 09:07 Dextrose IVPB 200 mls/hr DAILY [facility] Administration Protocol Insulin Aspart 1 vial 06/06/20 22:00 06/10/20 11:15 Novolog Vial Sliding Scale - SQ Not Given ACHS [facility] Protocol Insulin Detemir 25 units 06/07/20 07:00 06/10/20 06:12 Levemir Vial SQ 25 units AM [facility] Administration Insulin Detemir 10 units 06/07/20 22:00 06/09/20 21:18 Levemir Vial SQ 10 units HS [facility] Administration Losartan Potassium 25 mg 06/08/20 10:00 Cozaar - PO DAILY [facility] Metoprolol Tartrate 100 mg 06/07/20 22:00 06/10/20 09:07 Lopressor - PO 100 mg BID [facility] Administration Mupirocin 1 applic 06/07/20 22:00 06/10/20 09:08 Bactroban Ointment (For Decolonization) - NS 06/11/20 09:59 Not Given BID [facility] Nystatin 1 applic 06/06/20 13:30 06/10/20 09:07 Nystop Powder - TP 1 applic BID [facility] Administration Pantoprazole Sodium 40 mg 06/09/20 10:00 06/10/20 09:07 Protonix - PO 40 mg DAILY [facility] Administration Impression 1. CIARAN 2. DKA/HSS 3. hyponatremia 4. a-fib 5. htn 6. hld 7. 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
== END 2020-06-11 16:26 | disposition home or self-care (01) | DRG 682 ==
LOC: JER 17:05 → SUPCPDRO 17:05 → JERBED 21:38 → JICU 06-06 02:06 → J6S 06-07 16:13
PROVIDERS: ADMIT Internal Medicine; ATTEND Internal Medicine
DX: N17.9 Acute kidney failure, unspecified (principal); A41.89 Other specified sepsis; E11.10 Type 2 diabetes mellitus with ketoacidosis without coma; E87.1 Hypo-osmolality and hyponatremia; N76.4 Abscess of vulva; E11.65 Type 2 diabetes mellitus with hyperglycemia; I25.10 Atherosclerotic heart disease of native coronary artery without angina pectoris; I10 Essential (primary) hypertension; E78.5 Hyperlipidemia, unspecified; R50.9 Fever, unspecified; I48.91 Unspecified atrial fibrillation; E55.9 Vitamin D deficiency, unspecified; N94.89 Other specified conditions associated with female genital organs and menstrual cycle; R41.82 Altered mental status, unspecified; E66.9 Obesity, unspecified; Z96.653 Presence of artificial knee joint, bilateral; Z95.5 Presence of coronary angioplasty implant and graft; Z88.0 Allergy status to penicillin; I25.2 Old myocardial infarction; Z68.37 Body mass index [BMI] 37.0-37.9, adult; D72.829 Elevated white blood cell count, unspecified
CPT/HCPCS: 36415; 36600; 70450-TC; 71045-TC-FY; 74176-TC; 76775-TC; 80048; 80053; 80307; 81003; 82010; 82550; 82565; 82607; 82803; 82962; 83036; 83605; 83735; 83930; 83935; 84100; 84133; 84156; 84300; 84443; 84484; 84540; 85025; 85610; 85730; 87040; 87070; 87086; 87186; 87205; 93005; 93010; 97116-GP; 97161-GP; 97163-GP; 99285-25; G0480; J0131; Q9967; U0003